=== PATIENT | female | born 1955 | race Caucasian/White ===

== ENCOUNTER 2016-08-05 12:14 | Emergency (ER) | payer MEDICAID ==
[~2016-08-05] VITALS: Ht 165.1 cm; Wt 73.0 kg
[~2016-08-05 12:14] MED LIST: LISI-646; OMEG120017; PLAVIX 75 MG; SIMV-8; WARF7.5T
[2016-08-05 14:23] VITALS: BP 147/72
== END 2016-08-05 15:08 | disposition home or self-care (01) ==
LOC: ER 12:14
DX: G89.4 Chronic pain syndrome (principal); M54.5 Low back pain; E78.5 Hyperlipidemia, unspecified; I10 Essential (primary) hypertension; Z88.6 Allergy status to analgesic agent
CPT/HCPCS: 93005

== ENCOUNTER 2016-11-02 17:05 | Emergency (ER) | payer MEDICAID ==
[~2016-11-02] VITALS: Ht 165.1 cm; Wt 73.0 kg
[2016-11-02 17:20] VITALS: BP 142/49
== END 2016-11-02 18:34 | disposition left against medical advice (07) ==
LOC: ER 17:08
DX: R07.81 Pleurodynia (principal); Z53.21 Procedure and treatment not carried out due to patient leaving prior to being seen by health care provider; W18.39XA Other fall on same level, initial encounter; Y93.89 Activity, other specified; Y92.89 Other specified places as the place of occurrence of the external cause; Y99.8 Other external cause status
CPT/HCPCS: 71101

== ENCOUNTER 2016-11-05 05:16 | Emergency (ER) | payer MEDICAID ==
[~2016-11-05] VITALS: Ht 165.1 cm; Wt 73.0 kg
[2016-11-05 05:26] VITALS: BP 160/68
== END 2016-11-05 06:57 | disposition home or self-care (01) ==
LOC: ER 05:18
DX: J44.9 Chronic obstructive pulmonary disease, unspecified (principal); E78.5 Hyperlipidemia, unspecified; I10 Essential (primary) hypertension; S20.211A Contusion of right front wall of thorax, initial encounter; Z88.6 Allergy status to analgesic agent; Z88.8 Allergy status to other drugs, medicaments and biological substances; Z79.01 Long term (current) use of anticoagulants; Z90.49 Acquired absence of other specified parts of digestive tract; W01.0XXA Fall on same level from slipping, tripping and stumbling without subsequent striking against object, initial encounter; Y93.89 Activity, other specified; Y92.89 Other specified places as the place of occurrence of the external cause; Y99.8 Other external cause status

== ENCOUNTER 2017-12-03 12:06 | Emergency (ER) | payer MEDICAID ==
[~2017-12-03] VITALS: Ht 165.1 cm; Wt 71.2 kg
[2017-12-03 12:58] LABS: Basophils # (auto) 0 uL; Basophils % (auto) 0.6 % (0.0-2.0); Eosinophils # (auto) 0.3 uL; Eosinophils % (auto) 3.3 % (0.0-7.0); Hematocrit 39.8 % (36.0-46.0); Hemoglobin 13.7 g/dL (12.2-16.2); Lymphocytes # (auto) 1.6 uL; Lymphocytes % (auto) 20.8 % (10.0-50.0); Mean Corpuscular Hemoglobin 29.6 pg (28.0-32.0); Mean Corpuscular Hgb Conc. 34.3 g/dL (32.0-36.0); Mean Corpuscular Volume 86.3 fL (80.0-100.0); Monocytes # (auto) 0.5 uL; Monocytes % (auto) 7.1 % (0.0-12.0); Neutrophils # (auto) 5.3 uL; Neutrophils % (auto) 68.2 % (37.0-80.0); Nucleated Red Blood Cells % 0.4 %; Platelet Count (auto) 217 10^3/uL (140-450); Red Blood Cells 4.61 10^6/uL (4.0-5.20); Red Cell Distribution Width 17.9 % (11.8-14.3); White Blood Cell 7.7 10^3/uL (4.4-10.8)
[2017-12-03 13:22] LABS: Prothrombin Time 81.1 sec (9.27-12.13)
[2017-12-03 13:25] LABS: BUN/Creatinine Ratio 14.8; Bilirubin, Total 0.6 mg/dL (0.2-1.0); Calcium 8.9 mg/dL (8.5-10.1); Potassium 3.5 mmol/L (3.5-5.1); Total Protein 7.7 g/dL (6.4-8.2)
[2017-12-03 13:30] LABS: INR 8.56 (0.9-1.15)
[2017-12-03 14:08] VITALS: BP 177/72
== END 2017-12-03 16:00 | disposition home or self-care (01) ==
LOC: ER 12:06
DX: R51 Headache (principal); R79.1 Abnormal coagulation profile; J44.9 Chronic obstructive pulmonary disease, unspecified; E78.5 Hyperlipidemia, unspecified; I10 Essential (primary) hypertension; Z88.6 Allergy status to analgesic agent; Z87.891 Personal history of nicotine dependence
CPT/HCPCS: 36415; 70450; 80053; 85025; 85610; 85730; 94761

== ENCOUNTER 2018-12-19 18:14 | Emergency (ER) | payer MEDICAID ==
[~2018-12-19] VITALS: Ht 165.1 cm; Wt 66.7 kg
[2018-12-19 21:16] LABS: Partial Thromboplastin Time 45.5 sec (23.64-32.05)
[2018-12-20] MEDS ORDERED: LIDOCAINE VISCOUS 2% 15ML UD MT ONE (00:45)
[2018-12-20] MEDS ORDERED: OXYMETAZOLINE HCL 0.05 % NASAL SPRAY 15ML ONE (00:45)
[2018-12-20 02:43] VITALS: BP 166/73
== END 2018-12-20 04:31 | disposition home or self-care (01) ==
LOC: ER 18:14
DX: S09.90XA Unspecified injury of head, initial encounter (principal); R04.0 Epistaxis; J44.9 Chronic obstructive pulmonary disease, unspecified; E78.5 Hyperlipidemia, unspecified; I10 Essential (primary) hypertension; Z90.89 Acquired absence of other organs; Z88.6 Allergy status to analgesic agent
CPT/HCPCS: 36415; 70450; 73030; 85610; 85730

== ENCOUNTER 2021-08-11 17:42 | Emergency (ER) | payer MEDICARE, MEDICAID ==
[~2021-08-11] VITALS: Ht 167.6 cm; Wt 63.5 kg
[~2021-08-11 17:42] MED LIST changes: -LISI-646; +LISI20TA28; -WARF7.5T; +WARF7.5T2
[2021-08-11 18:37] LABS: Basophils # (auto) 0 10 ^3/uL (0-0.2); Basophils % (auto) 0.3 % (0.0-2.0); Eosinophils # (auto) 0.2 10 ^3/uL (0-0.8); Eosinophils % (auto) 2.5 % (0.0-7.0); Hematocrit 37.2 % (36.0-46.0); Hemoglobin 12.8 g/dL (12.2-16.2); Lymphocytes # (auto) 1.3 10 ^3/uL (0.4-5.4); Lymphocytes % (auto) 15.9 % (10.0-50.0); Mean Corpuscular Hemoglobin 29.5 pg (28.0-32.0); Mean Corpuscular Hgb Conc. 34.4 g/dL (32.0-36.0); Mean Corpuscular Volume 85.6 fL (80.0-100.0); Monocytes # (auto) 0.5 10 ^3/uL (0-1.3); Monocytes % (auto) 6.1 % (0.0-12.0); Neutrophils # (auto) 6.2 10 ^3/uL (1.6-8.6); Neutrophils % (auto) 75.2 % (37.0-80.0); Nucleated Red Blood Cells % 0.2 %; Red Blood Cells 4.35 10^6/uL (4.0-5.20); Red Cell Distribution Width 20.9 % (11.8-14.3); White Blood Cell 8.2 10^3/uL (4.4-10.8)
[2021-08-11 18:39] LABS: Albumin 3.6 g/dL (3.4-5.0); BUN/Creatinine Ratio 18.8; Calcium 8.8 mg/dL (8.5-10.1); Potassium 4.3 mmol/L (3.5-5.1)
[2021-08-11 18:42] LABS: Bilirubin, Total 0.9 mg/dL (0.2-1.0)
[2021-08-11 20:15] VITALS: BP 144/83
[2021-08-11 21:34] LABS: Urine Bacteria FEW /hpf (None Seen); Urine Blood Negative /uL (Negative); Urine Mucus FEW (None Seen); Urine WBC 6 /hpf (0 - 5)
== END 2021-08-11 21:59 | disposition left against medical advice (07) ==
LOC: ER 17:42 → EDUNIT# 17:42 → EDBD 17:42 → ER 21:58
DX: R55 Syncope and collapse (principal); I10 Essential (primary) hypertension; E78.5 Hyperlipidemia, unspecified; J44.9 Chronic obstructive pulmonary disease, unspecified; Z90.49 Acquired absence of other specified parts of digestive tract; Z90.89 Acquired absence of other organs; Z87.891 Personal history of nicotine dependence; Z95.1 Presence of aortocoronary bypass graft
CPT/HCPCS: 36415; 70450; 80053; 81001; 84484; 85025; 93005

== ENCOUNTER 2022-06-08 06:02 | Inpatient (IN) | payer BC, MEDICARE, MEDICAID ==
[~2022-06-08] VITALS: Ht 165.1 cm; Wt 70.4 kg
[~2022-06-08 06:02] MED LIST changes: +DexAMETHasone SOD PHOS 10MG/1ML VIAL INJ IV ONE
[2022-06-08] MEDS ORDERED: DexAMETHasone SOD PHOS 10MG/1ML VIAL INJ ONE (06:09)
[2022-06-08] MEDS ORDERED: MAGNESIUM SULFATE 1GM/100ML 200 ML IV ONE (06:10)
[2022-06-08] MEDS: MAGNESIUM SULFATE 1GM/100ML 100 ML IV SCH ×2 (06:28→06:43)
[2022-06-08] MEDS ORDERED: ALBUTEROL MEDNEB 2.5 mg/3ml NEB ONE ×3 (06:32→14:12)
[2022-06-08] MEDS ORDERED: IPRATROPIUM BROM 0.5 MG/2.5ML INH SOL ONE (06:32)
[2022-06-08 06:59] LABS: Basophils # (auto) 0.2 10 ^3/uL (0-0.2); Basophils % (auto) 1.2 % (0.0-2.0); Eosinophils # (auto) 0.1 10 ^3/uL (0-0.8); Eosinophils % (auto) 0.8 % (0.0-7.0); Hematocrit 33.5 % (36.0-46.0); Hemoglobin 11.4 g/dL (12.2-16.2); Lymphocytes # (auto) 0.7 10 ^3/uL (0.4-5.4); Lymphocytes % (auto) 4.3 % (10.0-50.0); Mean Corpuscular Hemoglobin 31.1 pg (28.0-32.0); Mean Corpuscular Hgb Conc. 34.1 g/dL (32.0-36.0); Mean Corpuscular Volume 91.1 fL (80.0-100.0); Monocytes # (auto) 0.6 10 ^3/uL (0-1.3); Monocytes % (auto) 3.8 % (0.0-12.0); Neutrophils # (auto) 13.8 10 ^3/uL (1.6-8.6); Neutrophils % (auto) 89.9 % (37.0-80.0); Red Blood Cells 3.68 10^6/uL (4.0-5.20); White Blood Cell 15.4 10^3/uL (4.4-10.8)
[2022-06-08] MEDS ORDERED: IPRATROPIUM BROM 0.5 MG/2.5ML INH SOL NEB ONE (07:00)
[2022-06-08] MEDS ORDERED: ALBUTEROL SULF 2.5 MG/0.5ML(0.5%) NEB SOLN NEB ONE (07:00)
[2022-06-08 07:13] LABS: INR 3.71 (0.9-1.15); Partial Thromboplastin Time 63.3 sec (24.6-33.4)
[2022-06-08 07:29] LABS: Potassium 3.5 mmol/L (3.5-5.1)
[2022-06-08] MEDS ORDERED: DOXYCYCLINE 100MG/250ML 250 ML IV ONE (07:30)
[2022-06-08 07:37] LABS: Albumin 3.2 g/dL (3.4-5.0); BUN/Creatinine Ratio 17.1; Bilirubin, Total 1.4 mg/dL (0.2-1.0); Calcium 7.8 mg/dL (8.5-10.1); Total Protein 5.7 g/dL (6.4-8.2)
[2022-06-08] MEDS ORDERED: LACTATED RINGER'S 1,000 ML IV ONE (08:15)
[2022-06-08] MEDS ORDERED: CEFEPIME 1GM/ 50ML 50 ML IV ONE (08:30)
[2022-06-08] MEDS ORDERED: VANCOMYCIN 1GM/250ML 250 ML IV ONE (09:00)
[2022-06-08] MEDS ORDERED: ASPirin 81 mg TAB PO ONE (09:15)
[2022-06-08 09:24] LABS: Lactic Acid w/Reflex 2.2 mmol/L (0.4-2.0)
[2022-06-08] MEDS ORDERED: ALBUTEROL SULF 2.5 MG/0.5ML(0.5%) NEB SOLN NEB PRN (09:30)
[2022-06-08] MEDS ORDERED: MORPHINE SULFATE INJ 2 MG/ml SYRG IV PRN (09:30)
[2022-06-08] MEDS ORDERED: NITROGLYCERIN 0.4 MG SL TAB SL PRN (09:30)
[2022-06-08] MEDS ORDERED: ACETAMINOPHEN 325 MG TAB PO PRN (09:30)
[2022-06-08] MEDS ORDERED: VANCOMYCIN PER PHARMACY 0 MG IV SCH (09:30)
[2022-06-08] MEDS ORDERED: PANTOPRAZOLE 40 MG/10 ML VIAL INJ IV ONE (09:45)
[2022-06-08] MEDS: ASPirin 81 mg TAB PO SCH (10:00)
[2022-06-08] MEDS ORDERED: ENOXAPARIN SOD 100 MG/1 ML SYRINGE SC SCH (10:00)
[2022-06-08] MEDS ORDERED: LOS25T PO (10:01)
[2022-06-08] MEDS ORDERED: AMOX500C2 PO (10:01)
[2022-06-08] MEDS ORDERED: ATOR20TA50 PO (10:01)
[2022-06-08] MEDS ORDERED: DOXY100T2 PO (10:01)
[2022-06-08] MEDS ORDERED: LATA0.0019 EACHEYE (10:01)
[2022-06-08] MEDS ORDERED: WARF6TAB21 PO (10:01)
[2022-06-08] MEDS ORDERED: PRED10TA PO (10:01)
[2022-06-08] MEDS ORDERED: GAB100C PO (10:01)
[2022-06-08] MEDS ORDERED: AMLO-496 PO (10:01)
[2022-06-08] MEDS: methylPREDNISolone SOD SUCC 125 MG/2 ML VL IV SCH ×2 (10:07→23:59)
[2022-06-08] MEDS: PANTOPRAZOLE 40 MG/10 ML VIAL INJ IV SCH (10:07)
[2022-06-08 10:18] LABS: Cholesterol 147 mg/dL (< 200); HDL Cholesterol 43 mg/dL (40-59); LDL Cholesterol 97 mg/dL (< 100); Triglycerides 77 mg/dL (< 150)
[2022-06-08] MEDS: ALBUTEROL SULF 2.5 MG/0.5ML(0.5%) NEB SOLN NEB SCH ×4 (10:30→22:22)
[2022-06-08] MEDS ORDERED: DEXTROSE (50%) 50ML SYRG IV PRN (10:30)
[2022-06-08] MEDS: IPRATROPIUM BROM 0.5 MG/2.5ML INH SOL NEB SCH ×4 (10:30→22:23)
[2022-06-08] MEDS ORDERED: SODIUM CHLORIDE 0.9% 1,000 ML IV ONE (10:30)
[2022-06-08] MEDS: ACCU-CHEK COMFORT CURVE STRIP VI SCH ×3 (12:30→22:00)
[2022-06-08] MEDS: InsuLIN REG 1unit/0.01ml Soln (100units/ml) SC SCH ×2 (12:31→17:54)
[2022-06-08 14:00] LABS: Urine Bacteria FEW /hpf (None Seen); Urine Blood Negative /uL (Negative); Urine Hyaline Cast FEW /lpf (0 - 2); Urine Mucus FEW (None Seen); Urine Specific Gravity 1.008 (1.001-1.035); Urine WBC 1 /hpf (0 - 5)
[2022-06-08 16:27] LABS: Lactic Acid w/Reflex 3.9 mmol/L (0.4-2.0)
[2022-06-09] VITALS (9 sets, daily range): BP systolic 123–157; BP diastolic 41–59
[2022-06-09] MEDS: InsuLIN REG 1unit/0.01ml Soln (100units/ml) SC SCH ×5 (00:22→21:47)
[2022-06-09] MEDS: VANCOMYCIN 1GM/250ML 250 ML IV SCH ×2 (01:00→14:31)
[2022-06-09] MEDS ORDERED: OYST500T28 (01:36)
[2022-06-09] MEDS: ALBUTEROL SULF 2.5 MG/0.5ML(0.5%) NEB SOLN NEB SCH ×6 (02:13→21:51)
[2022-06-09] MEDS: IPRATROPIUM BROM 0.5 MG/2.5ML INH SOL NEB SCH ×6 (02:14→21:51)
[2022-06-09 06:07] LABS: Basophils # (auto) 0 10 ^3/uL (0-0.2); Basophils % (auto) 0.1 % (0.0-2.0); Eosinophils # (auto) 0 10 ^3/uL (0-0.8); Hematocrit 28.5 % (36.0-46.0); Hemoglobin 9.9 g/dL (12.2-16.2); Lymphocytes # (auto) 0.3 10 ^3/uL (0.4-5.4); Lymphocytes % (auto) 3.3 % (10.0-50.0); Mean Corpuscular Hemoglobin 31.5 pg (28.0-32.0); Mean Corpuscular Hgb Conc. 34.9 g/dL (32.0-36.0); Mean Corpuscular Volume 90.4 fL (80.0-100.0); Monocytes # (auto) 0.1 10 ^3/uL (0-1.3); Monocytes % (auto) 1.6 % (0.0-12.0); Neutrophils # (auto) 9.1 10 ^3/uL (1.6-8.6); Red Blood Cells 3.15 10^6/uL (4.0-5.20); Red Cell Distribution Width 18.8 % (11.8-14.3); White Blood Cell 9.6 10^3/uL (4.4-10.8)
[2022-06-09 06:12] LABS: INR 3.56 (0.9-1.15)
[2022-06-09 06:15] LABS: Albumin 2.8 g/dL (3.4-5.0); Calcium 8.6 mg/dL (8.5-10.1); Potassium 4.1 mmol/L (3.5-5.1)
[2022-06-09 06:19] LABS: Bilirubin, Total 0.7 mg/dL (0.2-1.0); Total Protein 6.4 g/dL (6.4-8.2)
[2022-06-09] MEDS: ACCU-CHEK COMFORT CURVE STRIP VI SCH ×4 (06:21→21:42)
[2022-06-09] MEDS: PANTOPRAZOLE 40 MG/10 ML VIAL INJ IV SCH (09:26)
[2022-06-09] MEDS: ASPirin 81 mg TAB PO SCH (09:26)
[2022-06-09] MEDS: methylPREDNISolone SOD SUCC 125 MG/2 ML VL IV SCH (09:26)
[2022-06-09] MEDS ORDERED: FUROSEMIDE 20 MG/2 ML VIAL IV ONE ×2 (10:30→23:00)
[2022-06-09] MEDS ORDERED: POTASSIUM CHL 20 Meq TABLET PO ONE (10:30)
[2022-06-09] MEDS: LISINOPRIL 20 MG TAB PO SCH (10:49)
[2022-06-09] MEDS ORDERED: predniSONE 20 MG TAB PO ONE (17:00)
[2022-06-09] MEDS ORDERED: levoFLOXacin 500 MG TAB PO ONE (17:00)
[2022-06-09] MEDS: ATORVASTATIN 20 MG TAB PO SCH (21:41)
[2022-06-09] MEDS: LATANOPROST 0.005 % OPTH(EYE) SOL 2.5ML EACHEYE SCH (21:41)
[2022-06-09] MEDS: GABAPENTIN 100 MG CAP PO SCH (21:43)
[2022-06-10] MEDS: IPRATROPIUM BROM 0.5 MG/2.5ML INH SOL NEB SCH ×6 (02:06→22:57)
[2022-06-10] MEDS: ALBUTEROL SULF 2.5 MG/0.5ML(0.5%) NEB SOLN NEB SCH ×6 (02:06→22:57)
[2022-06-10 05:00] VITALS: BP_SYST 121; BP_SYST 129; BP_DIAS 57; BP_DIAS 84
[2022-06-10] MEDS: GABAPENTIN 100 MG CAP PO SCH ×3 (06:04→22:32)
[2022-06-10] MEDS: ACCU-CHEK COMFORT CURVE STRIP VI SCH ×4 (06:08→22:00)
[2022-06-10] MEDS: InsuLIN REG 1unit/0.01ml Soln (100units/ml) SC SCH ×4 (06:09→22:31)
[2022-06-10 06:25] LABS: Basophils # (auto) 0 10 ^3/uL (0-0.2); Basophils % (auto) 0.1 % (0.0-2.0); Eosinophils # (auto) 0 10 ^3/uL (0-0.8); Hematocrit 28.4 % (36.0-46.0); Hemoglobin 9.8 g/dL (12.2-16.2); Lymphocytes # (auto) 0.3 10 ^3/uL (0.4-5.4); Mean Corpuscular Hemoglobin 31.3 pg (28.0-32.0); Mean Corpuscular Hgb Conc. 34.5 g/dL (32.0-36.0); Mean Corpuscular Volume 90.5 fL (80.0-100.0); Monocytes # (auto) 0.2 10 ^3/uL (0-1.3); Monocytes % (auto) 2.1 % (0.0-12.0); Neutrophils # (auto) 10.9 10 ^3/uL (1.6-8.6); Neutrophils % (auto) 94.8 % (37.0-80.0); Nucleated Red Blood Cells % 0.1 %; Red Blood Cells 3.13 10^6/uL (4.0-5.20); Red Cell Distribution Width 19.1 % (11.8-14.3); White Blood Cell 11.5 10^3/uL (4.4-10.8)
[2022-06-10 06:37] LABS: INR 2.02 (0.9-1.15)
[2022-06-10 07:27] LABS: Bilirubin, Total 0.7 mg/dL (0.2-1.0); Calcium 8.7 mg/dL (8.5-10.1); Total Protein 5.9 g/dL (6.4-8.2)
[2022-06-10 08:25] VITALS: BP 110/42
[2022-06-10] MEDS ORDERED: predniSONE 20 MG TAB PO SCH (10:00)
[2022-06-10] MEDS ORDERED: ATORVASTATIN 20 MG TAB PO SCH (10:00)
[2022-06-10] MEDS ORDERED: FUROSEMIDE 20 MG/2 ML VIAL IV SCH (10:00)
[2022-06-10] MEDS: ASPirin 81 mg TAB PO SCH (11:39)
[2022-06-10] MEDS: levoFLOXacin 500 MG TAB PO SCH (11:40)
[2022-06-10] MEDS: PANTOPRAZOLE 40 MG TAB PO SCH (11:40)
[2022-06-10] MEDS: POTASSIUM CHL 20 Meq TABLET PO SCH (11:40)
[2022-06-10] MEDS: LISINOPRIL 20 MG TAB PO SCH (11:41)
[2022-06-10 12:53] VITALS: BP 121/46
[2022-06-10] MEDS ORDERED: FUROSEMIDE 40 MG/4 ML VIAL IV ONE (13:45)
[2022-06-10 16:00] VITALS: BP 134/53
[2022-06-10] MEDS ORDERED: WARFARIN SODIUM 1 MG TAB PO ONE (17:00)
[2022-06-10 22:00] VITALS: BP 141/56
[2022-06-10] MEDS: ATORVASTATIN 20 MG TAB PO SCH (22:33)
[2022-06-10] MEDS: methylPREDNISolone SOD SUCC 125 MG/2 ML VL IV SCH (22:33)
[2022-06-10] MEDS: LATANOPROST 0.005 % OPTH(EYE) SOL 2.5ML EACHEYE SCH (22:33)
[2022-06-11] VITALS (7 sets, daily range): BP systolic 132–167; BP diastolic 53–65
[2022-06-11] MEDS: IPRATROPIUM BROM 0.5 MG/2.5ML INH SOL NEB SCH ×6 (02:10→22:47)
[2022-06-11] MEDS: ALBUTEROL SULF 2.5 MG/0.5ML(0.5%) NEB SOLN NEB SCH ×6 (02:10→22:47)
[2022-06-11] MEDS: ACCU-CHEK COMFORT CURVE STRIP VI SCH ×4 (05:52→21:18)
[2022-06-11] MEDS: InsuLIN REG 1unit/0.01ml Soln (100units/ml) SC SCH ×4 (05:52→21:35)
[2022-06-11] MEDS: GABAPENTIN 100 MG CAP PO SCH ×3 (06:05→21:14)
[2022-06-11 06:17] LABS: Basophils # (auto) 0 10 ^3/uL (0-0.2); Eosinophils # (auto) 0 10 ^3/uL (0-0.8); Hematocrit 31.4 % (36.0-46.0); Hemoglobin 10.9 g/dL (12.2-16.2); Lymphocytes # (auto) 0.3 10 ^3/uL (0.4-5.4); Lymphocytes % (auto) 3.7 % (10.0-50.0); Mean Corpuscular Hemoglobin 31.5 pg (28.0-32.0); Mean Corpuscular Hgb Conc. 34.6 g/dL (32.0-36.0); Mean Corpuscular Volume 91.2 fL (80.0-100.0); Monocytes # (auto) 0.1 10 ^3/uL (0-1.3); Monocytes % (auto) 1.3 % (0.0-12.0); Neutrophils # (auto) 8.4 10 ^3/uL (1.6-8.6); Nucleated Red Blood Cells % 0.1 %; Red Blood Cells 3.45 10^6/uL (4.0-5.20); Red Cell Distribution Width 19.3 % (11.8-14.3); White Blood Cell 8.9 10^3/uL (4.4-10.8)
[2022-06-11 06:34] LABS: BUN/Creatinine Ratio 30.9; Calcium 9.1 mg/dL (8.5-10.1); Potassium 4.1 mmol/L (3.5-5.1)
[2022-06-11 06:37] LABS: Bilirubin, Total 0.8 mg/dL (0.2-1.0); Total Protein 6.3 g/dL (6.4-8.2)
[2022-06-11] MEDS: FUROSEMIDE 40 MG/4 ML VIAL IV SCH (09:37)
[2022-06-11] MEDS: methylPREDNISolone SOD SUCC 125 MG/2 ML VL IV SCH ×2 (09:38→21:18)
[2022-06-11] MEDS: POTASSIUM CHL 20 Meq TABLET PO SCH (09:38)
[2022-06-11] MEDS: ASPirin 81 mg TAB PO SCH (09:39)
[2022-06-11] MEDS: LISINOPRIL 20 MG TAB PO SCH (09:40)
[2022-06-11] MEDS: PANTOPRAZOLE 40 MG TAB PO SCH (09:40)
[2022-06-11] MEDS: levoFLOXacin 500 MG TAB PO SCH (09:40)
[2022-06-11 12:41] LABS: INR 1.38 (0.9-1.15); Partial Thromboplastin Time 28.4 sec (24.6-33.4)
[2022-06-11] MEDS ORDERED: WARFARIN SODIUM 5 MG TAB PO ONE (17:00)
[2022-06-11] MEDS: ATORVASTATIN 20 MG TAB PO SCH (21:13)
[2022-06-11] MEDS: LATANOPROST 0.005 % OPTH(EYE) SOL 2.5ML EACHEYE SCH (21:19)
[2022-06-12] MEDS: ALBUTEROL SULF 2.5 MG/0.5ML(0.5%) NEB SOLN NEB SCH ×6 (01:40→22:25)
[2022-06-12] MEDS: IPRATROPIUM BROM 0.5 MG/2.5ML INH SOL NEB SCH ×6 (01:40→22:25)
[2022-06-12 05:00] VITALS: BP 133/41
[2022-06-12 06:14] LABS: Basophils # (auto) 0 10 ^3/uL (0-0.2); Basophils % (auto) 0.1 % (0.0-2.0); Eosinophils # (auto) 0 10 ^3/uL (0-0.8); Hematocrit 32.9 % (36.0-46.0); Hemoglobin 11.7 g/dL (12.2-16.2); Lymphocytes # (auto) 0.4 10 ^3/uL (0.4-5.4); Mean Corpuscular Hemoglobin 32.2 pg (28.0-32.0); Mean Corpuscular Hgb Conc. 35.5 g/dL (32.0-36.0); Mean Corpuscular Volume 90.8 fL (80.0-100.0); Monocytes # (auto) 0.2 10 ^3/uL (0-1.3); Monocytes % (auto) 2.5 % (0.0-12.0); Neutrophils # (auto) 6.9 10 ^3/uL (1.6-8.6); Neutrophils % (auto) 92.4 % (37.0-80.0); Nucleated Red Blood Cells % 0.4 %; Red Blood Cells 3.62 10^6/uL (4.0-5.20); Red Cell Distribution Width 18.3 % (11.8-14.3); White Blood Cell 7.5 10^3/uL (4.4-10.8)
[2022-06-12 06:28] LABS: INR 1.53 (0.9-1.15); Partial Thromboplastin Time 27.6 sec (24.6-33.4)
[2022-06-12] MEDS: ACCU-CHEK COMFORT CURVE STRIP VI SCH ×4 (06:44→21:23)
[2022-06-12] MEDS: GABAPENTIN 100 MG CAP PO SCH ×3 (06:44→21:23)
[2022-06-12] MEDS: InsuLIN REG 1unit/0.01ml Soln (100units/ml) SC SCH ×4 (06:45→21:16)
[2022-06-12 06:51] LABS: Potassium 4.1 mmol/L (3.5-5.1)
[2022-06-12 07:01] LABS: Albumin 3.1 g/dL (3.4-5.0); BUN/Creatinine Ratio 33.3; Bilirubin, Total 0.7 mg/dL (0.2-1.0); Calcium 8.4 mg/dL (8.5-10.1); Total Protein 5.6 g/dL (6.4-8.2)
[2022-06-12 08:51] VITALS: BP 155/47
[2022-06-12] MEDS: methylPREDNISolone SOD SUCC 125 MG/2 ML VL IV SCH ×2 (09:24→21:23)
[2022-06-12] MEDS: POTASSIUM CHL 20 Meq TABLET PO SCH (09:25)
[2022-06-12] MEDS: levoFLOXacin 500 MG TAB PO SCH (09:25)
[2022-06-12] MEDS: ASPirin 81 mg TAB PO SCH (09:25)
[2022-06-12] MEDS: FUROSEMIDE 40 MG/4 ML VIAL IV SCH (09:25)
[2022-06-12] MEDS: PANTOPRAZOLE 40 MG TAB PO SCH (09:25)
[2022-06-12] MEDS: LISINOPRIL 20 MG TAB PO SCH (09:26)
[2022-06-12 13:00] VITALS: BP 143/42
[2022-06-12] MEDS ORDERED: WARFARIN SODIUM 5 MG TAB PO ONE (17:00)
[2022-06-12 17:10] VITALS: BP 139/61
[2022-06-12] MEDS: ATORVASTATIN 20 MG TAB PO SCH (21:22)
[2022-06-12] MEDS: LATANOPROST 0.005 % OPTH(EYE) SOL 2.5ML EACHEYE SCH (21:24)
[2022-06-12 22:00] VITALS: BP 146/61
[2022-06-13] MEDS: IPRATROPIUM BROM 0.5 MG/2.5ML INH SOL NEB SCH ×5 (02:31→22:00)
[2022-06-13] MEDS: ALBUTEROL SULF 2.5 MG/0.5ML(0.5%) NEB SOLN NEB SCH ×4 (02:31→22:00)
[2022-06-13 05:00] VITALS: BP 131/66
[2022-06-13] MEDS: GABAPENTIN 100 MG CAP PO SCH ×3 (06:14→21:10)
[2022-06-13] MEDS: InsuLIN REG 1unit/0.01ml Soln (100units/ml) SC SCH ×4 (06:16→21:16)
[2022-06-13 06:27] LABS: Mean Corpuscular Hemoglobin 31.2 pg (28.0-32.0); Mean Corpuscular Hgb Conc. 34.3 g/dL (32.0-36.0); Mean Corpuscular Volume 90.9 fL (80.0-100.0); Red Blood Cells 3.85 10^6/uL (4.0-5.20); White Blood Cell 8.2 10^3/uL (4.4-10.8)
[2022-06-13 06:29] LABS: Basophils % (manual) 0 (0.0-2.0); Blast Cells 0; Eosinophils % (manual) 0 (0-7); Metamyelocytes % 0; Promyelocytes % 0; Reactive Lymphocytes 0
[2022-06-13 06:36] LABS: INR 2.12 (0.9-1.15)
[2022-06-13] MEDS: ACCU-CHEK COMFORT CURVE STRIP VI SCH ×4 (06:39→21:11)
[2022-06-13 06:47] LABS: Potassium 4.3 mmol/L (3.5-5.1)
[2022-06-13 06:57] LABS: Albumin 2.9 g/dL (3.4-5.0); BUN/Creatinine Ratio 38.8; Bilirubin, Total 0.7 mg/dL (0.2-1.0); Calcium 8.5 mg/dL (8.5-10.1); Total Protein 5.8 g/dL (6.4-8.2)
[2022-06-13 07:48] LABS: Band Neutrophils % (manual) 9; Lymphocytes % (manual) 7 (10.0-50.0); Monocytes % (manual) 6 (0-12); Myelocytes % 1
[2022-06-13 09:00] VITALS: BP 135/47
[2022-06-13] MEDS: methylPREDNISolone SOD SUCC 125 MG/2 ML VL IV SCH (10:01)
[2022-06-13] MEDS: PANTOPRAZOLE 40 MG TAB PO SCH (10:01)
[2022-06-13] MEDS: levoFLOXacin 500 MG TAB PO SCH (10:01)
[2022-06-13] MEDS: ASPirin 81 mg TAB PO SCH (10:01)
[2022-06-13] MEDS: LISINOPRIL 20 MG TAB PO SCH (10:02)
[2022-06-13] MEDS: FUROSEMIDE 40 MG TAB PO SCH (10:02)
[2022-06-13] MEDS: POTASSIUM CHL 20 Meq TABLET PO SCH (10:04)
[2022-06-13] MEDS ORDERED: FLUCONAZOLE 100 MG TAB PO ONE (11:45)
[2022-06-13 12:44] VITALS: BP 143/46
[2022-06-13 16:34] VITALS: BP 136/51
[2022-06-13] MEDS ORDERED: WARFARIN SODIUM 1 MG TAB PO ONE (17:00)
[2022-06-13] MEDS: DOXYCYCLINE 100 MG TAB/CAP PO SCH (21:10)
[2022-06-13] MEDS: LATANOPROST 0.005 % OPTH(EYE) SOL 2.5ML EACHEYE SCH (21:11)
[2022-06-13 22:00] VITALS: BP 149/71
[2022-06-14] MEDS: IPRATROPIUM BROM 0.5 MG/2.5ML INH SOL NEB SCH ×5 (03:19→18:56)
[2022-06-14] MEDS: ALBUTEROL SULF 2.5 MG/0.5ML(0.5%) NEB SOLN NEB SCH ×5 (03:19→18:56)
[2022-06-14 05:00] VITALS: BP 144/51
[2022-06-14] MEDS: ACCU-CHEK COMFORT CURVE STRIP VI SCH ×3 (06:18→18:00)
[2022-06-14] MEDS: InsuLIN REG 1unit/0.01ml Soln (100units/ml) SC SCH ×3 (06:18→17:00)
[2022-06-14] MEDS: GABAPENTIN 100 MG CAP PO SCH ×2 (06:18→15:21)
[2022-06-14 06:34] LABS: Basophils # (auto) 0 10 ^3/uL (0-0.2); Basophils % (auto) 0.1 % (0.0-2.0); Eosinophils # (auto) 0 10 ^3/uL (0-0.8); Eosinophils % (auto) 0.3 % (0.0-7.0); Hematocrit 33.2 % (36.0-46.0); Hemoglobin 11.6 g/dL (12.2-16.2); Lymphocytes # (auto) 0.6 10 ^3/uL (0.4-5.4); Lymphocytes % (auto) 7.2 % (10.0-50.0); Mean Corpuscular Hemoglobin 31.6 pg (28.0-32.0); Mean Corpuscular Volume 90.2 fL (80.0-100.0); Monocytes # (auto) 0.7 10 ^3/uL (0-1.3); Monocytes % (auto) 8.1 % (0.0-12.0); Neutrophils # (auto) 7.3 10 ^3/uL (1.6-8.6); Neutrophils % (auto) 84.3 % (37.0-80.0); Nucleated Red Blood Cells % 0.2 %; Red Blood Cells 3.68 10^6/uL (4.0-5.20); Red Cell Distribution Width 19.2 % (11.8-14.3); White Blood Cell 8.6 10^3/uL (4.4-10.8)
[2022-06-14 06:55] LABS: INR 2.35 (0.9-1.15); Partial Thromboplastin Time 29.5 sec (24.6-33.4)
[2022-06-14 07:05] LABS: Albumin 2.9 g/dL (3.4-5.0); BUN/Creatinine Ratio 48.8; Bilirubin, Total 0.6 mg/dL (0.2-1.0); Calcium 8.3 mg/dL (8.5-10.1); Potassium 4.4 mmol/L (3.5-5.1); Total Protein 5.6 g/dL (6.4-8.2)
[2022-06-14 08:30] VITALS: BP 150/75
[2022-06-14] MEDS: ASPirin 81 mg TAB PO SCH (09:35)
[2022-06-14] MEDS: POTASSIUM CHL 20 Meq TABLET PO SCH (09:36)
[2022-06-14] MEDS: PANTOPRAZOLE 40 MG TAB PO SCH (09:36)
[2022-06-14] MEDS: FUROSEMIDE 40 MG TAB PO SCH (09:36)
[2022-06-14] MEDS: DOXYCYCLINE 100 MG TAB/CAP PO SCH (09:36)
[2022-06-14] MEDS: LISINOPRIL 20 MG TAB PO SCH (09:37)
[2022-06-14] MEDS ORDERED: FLUCONAZOLE 100 MG TAB PO SCH (10:00)
[2022-06-14] MEDS ORDERED: predniSONE 20 MG TAB PO SCH (10:00)
[2022-06-14 11:43] LABS: Hepatitis A Ab IgM Negative
[2022-06-14 11:44] LABS: Hepatitis B Core IgM Negative; Hepatitis C Antibody Negative (Negative)
[2022-06-14 16:41] VITALS: BP 117/58
[2022-06-14] MEDS ORDERED: WARFARIN SODIUM 2 MG TAB PO ONE (17:00)
[2022-06-14 18:17] VITALS: BP 150/75
== END 2022-06-14 18:50 | disposition home or self-care (01) | DRG 871 ==
LOC: ER 06:02 → EDBD 06:02 → EDSEX 06:02 → TELE 09:37 → TELE-WESTW 06-09 00:30
PROVIDERS: ADMIT Nurse Practitioner Family; ATTEND Internal Medicine
PROC: 5A09357 Assistance with Respiratory Ventilation, Less than 24 Consecutive Hours, Continuous Positive Airway Pressure (ICD-10-PCS; principal; 2022-06-08)
DX: A41.9 Sepsis, unspecified organism (principal); I21.A1 Myocardial infarction type 2; J96.21 Acute and chronic respiratory failure with hypoxia; J18.9 Pneumonia, unspecified organism; E46 Unspecified protein-calorie malnutrition; J44.1 Chronic obstructive pulmonary disease with (acute) exacerbation; B49 Unspecified mycosis; E87.20 Acidosis, unspecified; I50.30 Unspecified diastolic (congestive) heart failure; N39.0 Urinary tract infection, site not specified; J44.0 Chronic obstructive pulmonary disease with (acute) lower respiratory infection; E78.5 Hyperlipidemia, unspecified; E66.01 Morbid (severe) obesity due to excess calories; E83.51 Hypocalcemia; H40.9 Unspecified glaucoma; R00.1 Bradycardia, unspecified; Z60.2 Problems related to living alone; Z20.822 Contact with and (suspected) exposure to COVID-19; R79.89 Other specified abnormal findings of blood chemistry; I48.91 Unspecified atrial fibrillation; I11.0 Hypertensive heart disease with heart failure; Z87.01 Personal history of pneumonia (recurrent); Z87.891 Personal history of nicotine dependence; Z88.6 Allergy status to analgesic agent; Z95.2 Presence of prosthetic heart valve; Z68.26 Body mass index [BMI] 26.0-26.9, adult; Z80.8 Family history of malignant neoplasm of other organs or systems; Z90.49 Acquired absence of other specified parts of digestive tract
CPT/HCPCS: 36415; 36600; 71045; 71250; 76705; 80053; 80061; 80074; 81001; 82140; 82805; 82962; 83036; 83605; 83880; 84443; 84484; 85007; 85025; 85027; 85379; 85610; 85730; 87040; 87070; 87081; 87086; 87088; 87205; 87426; 87804; 93005; 93306; 94640; 94644; 94660; C9113; G0378; J1100; J1815; J3490

== ENCOUNTER 2022-06-26 11:20 | Inpatient (IN) | payer BC, MEDICARE, MEDICAID ==
[~2022-06-26] VITALS: Ht 162.6 cm; Wt 71.2 kg
[~2022-06-26 11:20] MED LIST changes: +AMLO-496 PO; +DOXY100T2 PO; -DexAMETHasone SOD PHOS 10MG/1ML VIAL INJ IV ONE; +GAB100C PO; +LATA0.0019 EACHEYE; +LOS25T PO; +OYST500T28; +PRED10TA PO; +WARF6TAB21 PO
[2022-06-26] MEDS ORDERED: FUROSEMIDE 40 MG/4 ML VIAL IV ONE (11:30)
[2022-06-26 12:06] LABS: Basophils # (auto) 0.1 10 ^3/uL (0-0.2); Basophils % (auto) 0.9 % (0.0-2.0); Eosinophils # (auto) 0.1 10 ^3/uL (0-0.8); Hematocrit 32.9 % (36.0-46.0); Hemoglobin 11.4 g/dL (12.2-16.2); Lymphocytes % (auto) 13.3 % (10.0-50.0); Mean Corpuscular Hemoglobin 31.1 pg (28.0-32.0); Mean Corpuscular Hgb Conc. 34.5 g/dL (32.0-36.0); Mean Corpuscular Volume 90.2 fL (80.0-100.0); Monocytes # (auto) 0.5 10 ^3/uL (0-1.3); Monocytes % (auto) 6.6 % (0.0-12.0); Neutrophils # (auto) 5.9 10 ^3/uL (1.6-8.6); Neutrophils % (auto) 78.2 % (37.0-80.0); Nucleated Red Blood Cells % 0.6 %; Red Blood Cells 3.65 10^6/uL (4.0-5.20); Red Cell Distribution Width 19.1 % (11.8-14.3); White Blood Cell 7.6 10^3/uL (4.4-10.8)
[2022-06-26 12:23] LABS: Albumin 3.2 g/dL (3.4-5.0); BUN/Creatinine Ratio 24.6 (10.0-20.0); Calcium 8.6 mg/dL (8.5-10.1); Potassium 3.5 mmol/L (3.5-5.1)
[2022-06-26 12:26] LABS: Bilirubin, Total 1.6 mg/dL (0.2-1.0); Total Protein 6.6 g/dL (6.4-8.2)
[2022-06-26] MEDS ORDERED: ACETAMINOPHEN 325 MG TAB PO PRN (15:15)
[2022-06-26] MEDS ORDERED: IPRATROPIUM BROM 0.5 MG/2.5ML INH SOL NEB PRN (15:15)
[2022-06-26] MEDS ORDERED: HYDROcodone-ACET 5/325MG TAB PO PRN (15:15)
[2022-06-26] MEDS ORDERED: MORPHINE SULFATE INJ 2 MG/ml SYRG IV PRN ×2 (15:15)
[2022-06-26] MEDS ORDERED: PANTOPRAZOLE 40 MG/10 ML VIAL INJ IV ONE (15:15)
[2022-06-26] MEDS ORDERED: NITROGLYCERIN 0.4 MG SL TAB SL PRN (15:15)
[2022-06-26] MEDS ORDERED: ALBUTEROL SULF 2.5 MG/0.5ML(0.5%) NEB SOLN NEB PRN (15:15)
[2022-06-26] MEDS ORDERED: hydrALAZINE HCL 20 MG/ML VL IV PRN (15:15)
[2022-06-26] MEDS ORDERED: levoFLOXacin 500MG 100 ML IV ONE (15:30)
[2022-06-26] MEDS: POTASSIUM CHL 10 Meq TABLET PO SCH (15:57)
[2022-06-26 16:41] LABS: Urine Bacteria NONE SEEN /hpf (None Seen); Urine Blood Negative /uL (Negative); Urine WBC 7 /hpf (0 - 5)
[2022-06-26 17:55] VITALS: BP 134/43
[2022-06-26 18:35] VITALS: BP 127/43
[2022-06-26] MEDS: IPRATROPIUM BROM 0.5 MG/2.5ML INH SOL NEB SCH (19:00)
[2022-06-26] MEDS: ALBUTEROL SULF 2.5 MG/0.5ML(0.5%) NEB SOLN NEB SCH (19:00)
[2022-06-26] MEDS: GABAPENTIN 100 MG CAP PO SCH (21:04)
[2022-06-26] MEDS: methylPREDNISolone SOD SUCC 125 MG/2 ML VL IV SCH (21:04)
[2022-06-26 22:00] VITALS: BP 122/60
[2022-06-26] MEDS ORDERED: POTASSIUM CHL 10 Meq TABLET PO SCH (22:00)
[2022-06-27] MEDS: IPRATROPIUM BROM 0.5 MG/2.5ML INH SOL NEB SCH ×4 (00:13→18:35)
[2022-06-27] MEDS: ALBUTEROL SULF 2.5 MG/0.5ML(0.5%) NEB SOLN NEB SCH ×4 (00:13→18:35)
[2022-06-27 05:00] VITALS: BP 147/58
[2022-06-27] MEDS: GABAPENTIN 100 MG CAP PO SCH ×3 (05:36→21:18)
[2022-06-27 08:50] VITALS: BP 129/72
[2022-06-27] MEDS ORDERED: PANTOPRAZOLE 40 MG/10 ML VIAL INJ IV SCH (10:00)
[2022-06-27] MEDS ORDERED: LISINOPRIL 20 MG TAB PO SCH (10:00)
[2022-06-27] MEDS ORDERED: ENOXAPARIN SOD 40 MG/0.4 ML SYRINGE SC SCH (10:00)
[2022-06-27] MEDS: methylPREDNISolone SOD SUCC 125 MG/2 ML VL IV SCH ×2 (10:52→21:18)
[2022-06-27] MEDS: FUROSEMIDE 20 MG/2 ML VIAL IV SCH (10:53)
[2022-06-27] MEDS: LOSARTAN POTASSIUM 25 MG TAB PO SCH (10:54)
[2022-06-27] MEDS: amLODIPine BESYLATE 5 MG TAB PO SCH (10:54)
[2022-06-27] MEDS: POTASSIUM CHL 10 Meq TABLET PO SCH (10:55)
[2022-06-27] MEDS: levoFLOXacin 500MG 100 ML IV SCH (10:55)
[2022-06-27 12:20] VITALS: BP 140/51
[2022-06-27 16:29] VITALS: BP 147/49
[2022-06-27] MEDS: LATANOPROST 0.005 % OPTH(EYE) SOL 2.5ML EACHEYE SCH (21:17)
[2022-06-27 22:00] VITALS: BP 134/62
[2022-06-28] MEDS: ALBUTEROL SULF 2.5 MG/0.5ML(0.5%) NEB SOLN NEB SCH ×5 (00:56→18:50)
[2022-06-28] MEDS: IPRATROPIUM BROM 0.5 MG/2.5ML INH SOL NEB SCH ×5 (00:56→18:50)
[2022-06-28 05:00] VITALS: BP 148/67
[2022-06-28] MEDS: GABAPENTIN 100 MG CAP PO SCH ×3 (05:53→21:41)
[2022-06-28 09:00] VITALS: BP 125/48
[2022-06-28] MEDS: LOSARTAN POTASSIUM 25 MG TAB PO SCH (10:00)
[2022-06-28] MEDS: levoFLOXacin 500MG 100 ML IV SCH (10:52)
[2022-06-28] MEDS: methylPREDNISolone SOD SUCC 125 MG/2 ML VL IV SCH ×2 (10:53→21:41)
[2022-06-28] MEDS: FUROSEMIDE 20 MG/2 ML VIAL IV SCH (10:53)
[2022-06-28] MEDS: POTASSIUM CHL 10 Meq TABLET PO SCH (10:53)
[2022-06-28] MEDS: amLODIPine BESYLATE 5 MG TAB PO SCH (10:54)
[2022-06-28 11:16] LABS: Partial Thromboplastin Time 56.6 sec (24.6-33.4)
[2022-06-28 11:36] LABS: INR 6.05 (0.9-1.15)
[2022-06-28 12:42] VITALS: BP 143/58
[2022-06-28 16:20] VITALS: BP 142/45
[2022-06-28] MEDS: LATANOPROST 0.005 % OPTH(EYE) SOL 2.5ML EACHEYE SCH (21:41)
[2022-06-28 22:00] VITALS: BP 122/53
[2022-06-29] MEDS: IPRATROPIUM BROM 0.5 MG/2.5ML INH SOL NEB SCH ×5 (00:16→23:54)
[2022-06-29] MEDS: ALBUTEROL SULF 2.5 MG/0.5ML(0.5%) NEB SOLN NEB SCH ×5 (00:16→23:54)
[2022-06-29 05:00] VITALS: BP 115/51
[2022-06-29] MEDS: GABAPENTIN 100 MG CAP PO SCH ×3 (05:11→22:04)
[2022-06-29 05:40] LABS: INR 2.95 (0.9-1.15); Partial Thromboplastin Time 48.6 sec (24.6-33.4)
[2022-06-29 06:04] VITALS: BP 111/66
[2022-06-29 08:57] VITALS: BP 133/50
[2022-06-29] MEDS: levoFLOXacin 500MG 100 ML IV SCH (10:12)
[2022-06-29] MEDS: POTASSIUM CHL 10 Meq TABLET PO SCH (10:12)
[2022-06-29] MEDS: methylPREDNISolone SOD SUCC 125 MG/2 ML VL IV SCH ×2 (10:12→22:04)
[2022-06-29] MEDS: LOSARTAN POTASSIUM 25 MG TAB PO SCH (10:14)
[2022-06-29] MEDS: FUROSEMIDE 20 MG/2 ML VIAL IV SCH (10:15)
[2022-06-29] MEDS: amLODIPine BESYLATE 5 MG TAB PO SCH (10:15)
[2022-06-29 13:00] VITALS: BP 120/45
[2022-06-29 16:41] VITALS: BP 117/37
[2022-06-29] MEDS ORDERED: WARFARIN SODIUM 1 MG TAB PO ONE (17:00)
[2022-06-29 22:00] VITALS: BP 134/49
[2022-06-29] MEDS: LATANOPROST 0.005 % OPTH(EYE) SOL 2.5ML EACHEYE SCH (22:04)
[2022-06-30 02:50] VITALS: BP 134/49
[2022-06-30 05:00] VITALS: BP 115/50
[2022-06-30] MEDS: GABAPENTIN 100 MG CAP PO SCH ×2 (05:12→14:24)
[2022-06-30] MEDS: ALBUTEROL SULF 2.5 MG/0.5ML(0.5%) NEB SOLN NEB SCH ×2 (06:00→11:42)
[2022-06-30] MEDS: IPRATROPIUM BROM 0.5 MG/2.5ML INH SOL NEB SCH ×2 (06:00→11:41)
[2022-06-30 07:35] LABS: INR 1.94 (0.9-1.15); Partial Thromboplastin Time 31.6 sec (24.6-33.4)
[2022-06-30 08:34] VITALS: BP 96/48
[2022-06-30] MEDS: levoFLOXacin 500MG 100 ML IV SCH (09:59)
[2022-06-30] MEDS: methylPREDNISolone SOD SUCC 125 MG/2 ML VL IV SCH (10:01)
[2022-06-30] MEDS: POTASSIUM CHL 10 Meq TABLET PO SCH (10:01)
[2022-06-30] MEDS: amLODIPine BESYLATE 5 MG TAB PO SCH (10:01)
[2022-06-30] MEDS: LOSARTAN POTASSIUM 25 MG TAB PO SCH (10:02)
[2022-06-30] MEDS: FUROSEMIDE 20 MG/2 ML VIAL IV SCH (10:05)
[2022-06-30] MEDS ORDERED: LEVO500T31 PO (10:25)
[2022-06-30] MEDS ORDERED: PRED20TA2 PO (10:25)
[2022-06-30 12:14] VITALS: BP 130/46
[2022-06-30 12:16] VITALS: BP 128/50
[2022-06-30] MEDS ORDERED: WARFARIN SODIUM 1 MG TAB PO ONE (17:00)
== END 2022-06-30 15:52 | disposition home or self-care (01) | DRG 189 ==
LOC: ER 11:20 → EDBD 11:20 → TELE 15:25 → TELE-EAST 17:19
PROVIDERS: ADMIT Registered Nurse; ATTEND Family Medicine
DX: J96.21 Acute and chronic respiratory failure with hypoxia (principal); J44.1 Chronic obstructive pulmonary disease with (acute) exacerbation; J98.11 Atelectasis; Z68.32 Body mass index [BMI] 32.0-32.9, adult; D64.9 Anemia, unspecified; D69.6 Thrombocytopenia, unspecified; E66.01 Morbid (severe) obesity due to excess calories; E78.5 Hyperlipidemia, unspecified; Z20.822 Contact with and (suspected) exposure to COVID-19; I11.0 Hypertensive heart disease with heart failure; I50.9 Heart failure, unspecified; Z90.49 Acquired absence of other specified parts of digestive tract; Z90.89 Acquired absence of other organs; Z87.891 Personal history of nicotine dependence; Z80.8 Family history of malignant neoplasm of other organs or systems; Z81.8 Family history of other mental and behavioral disorders; Z87.01 Personal history of pneumonia (recurrent); Z95.2 Presence of prosthetic heart valve
CPT/HCPCS: 36415; 71045; 80053; 81001; 83880; 84484; 85025; 85379; 85610; 85730; 87040; 87086; 87426; 93005; 94640; 96365; 96375; 99291; C9113; G0378; J1956

== ENCOUNTER 2022-07-12 16:32 | Emergency (ER) | payer BC, MEDICARE, MEDICAID ==
[~2022-07-12] VITALS: Ht 165.1 cm; Wt 68.1 kg
[~2022-07-12 16:32] MED LIST changes: +LEVO500T31 PO; +PRED20TA2 PO
[2022-07-12 16:47] VITALS: BP 114/65
[2022-07-12] MEDS ORDERED: AMOX-277 PO (17:12)
== END 2022-07-12 18:07 | disposition home or self-care (01) ==
LOC: EDBD 16:32 → ER 16:32
DX: L03.211 Cellulitis of face (principal); J44.9 Chronic obstructive pulmonary disease, unspecified; I10 Essential (primary) hypertension; E78.5 Hyperlipidemia, unspecified; Z90.49 Acquired absence of other specified parts of digestive tract; Z90.89 Acquired absence of other organs; Z87.891 Personal history of nicotine dependence; Z79.899 Other long term (current) drug therapy

== ENCOUNTER 2022-07-19 15:08 | Emergency (ER) | payer MEDICARE, OTHER, MEDICAID ==
[~2022-07-19] VITALS: Ht 165.1 cm; Wt 68.0 kg
[~2022-07-19 15:08] MED LIST changes: +AMOX-277 PO
[2022-07-19 15:53] LABS: Basophils # (auto) 0 10 ^3/uL (0-0.2); Basophils % (auto) 0.5 % (0.0-2.0); Eosinophils # (auto) 0.1 10 ^3/uL (0-0.8); Eosinophils % (auto) 0.9 % (0.0-7.0); Hematocrit 27.6 % (36.0-46.0); Hemoglobin 9.4 g/dL (12.2-16.2); Lymphocytes # (auto) 1.6 10 ^3/uL (0.4-5.4); Mean Corpuscular Hemoglobin 30.8 pg (28.0-32.0); Mean Corpuscular Volume 90.6 fL (80.0-100.0); Monocytes # (auto) 0.6 10 ^3/uL (0-1.3); Monocytes % (auto) 6.6 % (0.0-12.0); Neutrophils # (auto) 6.1 10 ^3/uL (1.6-8.6); Nucleated Red Blood Cells % 0.1 %; Red Blood Cells 3.04 10^6/uL (4.0-5.20); Red Cell Distribution Width 19.1 % (11.8-14.3); White Blood Cell 8.4 10^3/uL (4.4-10.8)
[2022-07-19 16:52] LABS: Anion Gap 7 (5-15); Blood Urea Nitrogen 17 mg/dL (7-18); Carbon Dioxide 27 mmol/L (21-32); Chloride 108 mmol/L (98-107); Glucose 97 mg/dL (74-106); Potassium 3.5 mmol/L (3.5-5.1); Sodium 142 mmol/L (136-145)
[2022-07-19 16:53] LABS: Alanine Aminotransferase 22 U/L (13-56); Albumin 3.1 g/dL (3.4-5.0); Alkaline Phosphatase 59 U/L (45-117); Aspartate Aminotransferase 23 U/L (15-37); BUN/Creatinine Ratio 23.3 (10.0-20.0); Bilirubin, Total 1.6 mg/dL (0.2-1.0); Calcium 7.9 mg/dL (8.5-10.1); GFR African American 103 mL/min; GFR Non-African American 85 mL/min; Total Protein 5.6 g/dL (6.4-8.2)
[2022-07-19] MEDS ORDERED: ALBUTEROL SULF 2.5 MG/0.5ML(0.5%) NEB SOLN NEB ONE (18:15)
[2022-07-19] MEDS ORDERED: methylPREDNISolone SOD SUCC 125 MG/2 ML VL IV ONE (18:15)
[2022-07-19] MEDS ORDERED: IPRATROPIUM BROM 0.5 MG/2.5ML INH SOL NEB ONE (18:15)
[2022-07-19 19:45] VITALS: BP 122/35
[2022-07-19] MEDS ORDERED: CEPH-510 PO (20:58)
[2022-07-19] MEDS ORDERED: PRED20TA2 PO (20:58)
[2022-07-19] MEDS ORDERED: AZITHROMYCIN 500MG/ 250ML 250 ML IV ONE (21:00)
[2022-07-19] MEDS ORDERED: cefTRIAXone 1GM/50ML D5W 50 ML IV ONE (21:00)
== END 2022-07-19 22:43 | disposition home or self-care (01) ==
LOC: ER 15:08 → EDBD 15:08 → ER 22:37
DX: J44.1 Chronic obstructive pulmonary disease with (acute) exacerbation (principal); E78.5 Hyperlipidemia, unspecified; I10 Essential (primary) hypertension; Z87.891 Personal history of nicotine dependence
CPT/HCPCS: 36415; 71045; 80053; 83880; 84484; 85025; 85379; 94640; 96365; 96368; 96375; 99284; J0456; J0696; J2930; J7644

== ENCOUNTER 2023-07-22 12:55 | Inpatient (IN) | payer BC, MEDICARE, MEDICAID ==
[~2023-07-22] VITALS: Ht 157.5 cm; Wt 67.8 kg
[~2023-07-22 12:55] MED LIST changes: -AMLO-496 PO; +AMLO1TAB23 PO; -AMOX-277 PO; +AMOX875T4 PO; +CEPH-510 PO; -LATA0.0019 EACHEYE; +LATA0.008 EACHEYE; -LISI20TA28; +LISI20TA56; -SIMV-8; +SIMV20TA20; +WARF-113 PO; -WARF6TAB21 PO
[2023-07-22] MEDS: ACETAMINOPHEN 500 MG TAB PO ONE (13:44)
[2023-07-22 14:24] VITALS: PULSE 93; RESP 24; O2SAT 95
[2023-07-22 14:31] LABS: Basophils # (auto) 0 10 ^3/uL (0-0.2); Basophils % (auto) 0.1 % (0.0-2.0); Eosinophils # (auto) 0 10 ^3/uL (0-0.8); Eosinophils % (auto) 0.3 % (0.0-7.0); Hematocrit 32.4 % (36.0-46.0); Hemoglobin 10.8 g/dL (12.2-16.2); Lymphocytes # (auto) 0.6 10 ^3/uL (0.4-5.4); Mean Corpuscular Hemoglobin 28.5 pg (28.0-32.0); Mean Corpuscular Hgb Conc. 33.4 g/dL (32.0-36.0); Mean Corpuscular Volume 85.2 fL (80.0-100.0); Monocytes # (auto) 0.7 10 ^3/uL (0-1.3); Monocytes % (auto) 4.6 % (0.0-12.0); Neutrophils # (auto) 14.2 10 ^3/uL (1.6-8.6); Red Cell Distribution Width 18.5 % (11.8-14.3); White Blood Cell 15.6 10^3/uL (4.4-10.8)
[2023-07-22 14:36] LABS: Albumin 4.3 g/dL (3.2-4.8); Alkaline Phosphatase 107 U/L (46-116); Anion Gap 8 (5-15); Aspartate Aminotransferase 26 U/L (13-40); BUN/Creatinine Ratio 18.4 (10.0-20.0); Blood Alcohol 3.7 mg/dL (<10); Blood Urea Nitrogen 27 mg/dL (9-23); Calcium 9.4 mg/dL (8.5-10.1); Carbon Dioxide 27 mmol/L (20-30); Chloride 101 mmol/L (98-107); Glucose 111 mg/dL (74-106); Potassium 4.6 mmol/L (3.5-5.1); Sodium 136 mmol/L (136-145)
[2023-07-22 14:37] LABS: Bilirubin, Total 0.9 mg/dL (0.2-1.0)
[2023-07-22 14:43] LABS: INR 1.14 (0.9-1.15); Partial Thromboplastin Time 28.2 SEC (24.5-34.5); Prothrombin Time 11.9 sec (9.3-11.8)
[2023-07-22 15:10] LABS: Alanine Aminotransferase < 9 U/L (7-40)
[2023-07-22 15:19] LABS: Magnesium 1.8 mg/dL (1.6-2.6)
[2023-07-22 19:45] VITALS: PULSE 70; RESP 22; O2SAT 100
[2023-07-22] MEDS: cefTRIAXone 1GM/50ML D5W 50 ML IV ONE (20:45)
[2023-07-22 20:48] LABS: Urine Bacteria None Seen /hpf (None Seen)
[2023-07-22] MEDS: SODIUM CHLORIDE 0.9% 500 ML IV ONE (21:15)
[2023-07-22] MEDS ORDERED: NITROGLYCERIN 0.4 MG SL TAB SL PRN (21:15)
[2023-07-22] MEDS ORDERED: MORPHINE SULFATE INJ 2 MG/ml SYRG IV PRN (21:15)
[2023-07-22] MEDS ORDERED: ONDANSETRON HCL 4 MG/2 ML VIAL IV PRN (21:15)
[2023-07-22 21:16] LABS: Amphetamine Screen, Urine Neg (NEGATIVE); Barbiturate Scree,Urine Neg (NEGATIVE); Benzodiazephine Screen, Urine Neg (NEGATIVE); Cocaine Screen, Urine Neg (NEGATIVE); Opiate Scree,Urine Neg (NEGATIVE)
[2023-07-22 21:17] LABS: Cannabinoid Screen, Urine Neg (NEGATIVE); Phencyclidine Screen, Urine Neg (NEGATIVE)
[2023-07-22 21:38] LABS: Urine Blood Negative /uL (Negative); Urine Clarity Turbid (Clear); Urine Color Yellow (Yellow); Urine Hyaline Cast FEW /lpf (0 - 2); Urine Protein, UAD TRACE (Negative); Urine Specific Gravity 1.018 (1.001-1.035); Urine Urobilinogen Normal (Negative); Urine WBC 3 /hpf (0 - 5); Urine pH 5.5 (5.0-9.0)
[2023-07-22] MEDS: METOPROLOL TARTRATE 25 MG TAB PO SCH (22:15)
[2023-07-22] MEDS: ENOXAPARIN SOD 80 MG/0.8ML SYRINGE SC SCH (22:17)
[2023-07-22] MEDS: ACETAMINOPHEN 325 MG TAB PO PRN (22:23)
[2023-07-23] VITALS (12 sets, daily range): BP systolic 131–150; BP diastolic 40–57; PULSE 57–84; RESP 16–20; TEMP 98.1–99; O2SAT 94–100
[2023-07-23 04:20] LABS: Basophils # (auto) 0.1 10 ^3/uL (0-0.2); Basophils % (auto) 0.4 % (0.0-2.0); Eosinophils # (auto) 0 10 ^3/uL (0-0.8); Hematocrit 28.3 % (36.0-46.0); Hemoglobin 9.4 g/dL (12.2-16.2); Lymphocytes # (auto) 1.3 10 ^3/uL (0.4-5.4); Lymphocytes % (auto) 7.9 % (10.0-50.0); Mean Corpuscular Hemoglobin 28.8 pg (28.0-32.0); Mean Corpuscular Hgb Conc. 33.3 g/dL (32.0-36.0); Mean Corpuscular Volume 86.4 fL (80.0-100.0); Monocytes # (auto) 1.1 10 ^3/uL (0-1.3); Monocytes % (auto) 6.6 % (0.0-12.0); Neutrophils # (auto) 14.4 10 ^3/uL (1.6-8.6); Neutrophils % (auto) 85.1 % (37.0-80.0); Red Blood Cells 3.28 10^6/uL (4.0-5.20); Red Cell Distribution Width 18.3 % (11.8-14.3)
[2023-07-23 04:33] LABS: Anion Gap 7 (5-15); Carbon Dioxide 26 mmol/L (20-30); Chloride 102 mmol/L (98-107); Potassium 4.1 mmol/L (3.5-5.1); Sodium 135 mmol/L (136-145)
[2023-07-23 04:34] LABS: Calcium 8.9 mg/dL (8.7-10.4)
[2023-07-23 04:39] LABS: BUN/Creatinine Ratio 14.8 (10.0-20.0); Blood Urea Nitrogen 24 mg/dL (9-23); Glucose 104 mg/dL (74-106)
[2023-07-23] MEDS: cefTRIAXone 1GM/50ML D5W 50 ML IV SCH (09:53)
[2023-07-23] MEDS: amLODIPine BESYLATE 5 MG TAB PO SCH (10:00)
[2023-07-23] MEDS: SPIRONOLACTONE 25 MG TAB PO SCH (11:07)
[2023-07-23] MEDS: FUROSEMIDE 20 MG TAB PO SCH (11:09)
[2023-07-23] MEDS ORDERED: IOHEXOL 350 MG/ML 100ML IJ ONE (12:10)
[2023-07-23] MEDS ORDERED: METO-289 PO (12:48)
[2023-07-23] MEDS ORDERED: ATOR20TA50 PO (12:48)
[2023-07-23] MEDS ORDERED: SPIR50TA5 PO (12:48)
[2023-07-23] MEDS ORDERED: WARF4TAB69 PO (12:48)
[2023-07-23] MEDS ORDERED: TORS20TA19 PO (12:48)
[2023-07-23 13:01] LABS: Phosphorus 3.6 mg/dL (2.4-5.1)
[2023-07-23 13:07] LABS: Magnesium 1.8 mg/dL (1.6-2.6)
[2023-07-23] MEDS: SODIUM CHLORIDE 0.9% 1,000 ML IV SCH (13:40)
[2023-07-23 14:55] LABS: Amphetamine Screen, Urine Neg (NEGATIVE); Benzodiazephine Screen, Urine Neg (NEGATIVE)
[2023-07-23 14:56] LABS: Barbiturate Scree,Urine Neg (NEGATIVE); Cannabinoid Screen, Urine Neg (NEGATIVE); Cocaine Screen, Urine Neg (NEGATIVE); Opiate Scree,Urine Neg (NEGATIVE); Phencyclidine Screen, Urine Neg (NEGATIVE)
[2023-07-23] MEDS: ALBUTEROL SULF 2.5 MG/0.5ML(0.5%) NEB SOLN NEB PRN (22:16)
[2023-07-24] VITALS (15 sets, daily range): BP systolic 136–155; BP diastolic 47–57; PULSE 70–86; RESP 16–20; TEMP 98.1–98.7; O2SAT 94–100
[2023-07-24 07:14] LABS: INR 1.15 (0.9-1.15); Partial Thromboplastin Time 45.4 SEC (24.5-34.5)
[2023-07-24 07:15] LABS: Albumin 3.4 g/dL (3.2-4.8); Alkaline Phosphatase 76 U/L (46-116); Anion Gap 7 (5-15); Aspartate Aminotransferase 13 U/L (13-40); BUN/Creatinine Ratio 16.4 (10.0-20.0); Blood Urea Nitrogen 21 mg/dL (9-23); Calcium 9.1 mg/dL (8.7-10.4); Carbon Dioxide 27 mmol/L (20-30); Chloride 103 mmol/L (98-107); Glucose 89 mg/dL (74-106); Magnesium 1.9 mg/dL (1.6-2.6); Phosphorus 3.2 mg/dL (2.4-5.1); Potassium 3.9 mmol/L (3.5-5.1); Sodium 137 mmol/L (136-145)
[2023-07-24 07:16] LABS: Bilirubin, Total 0.6 mg/dL (0.2-1.0); Total Protein 5.7 g/dL (5.7-8.2)
[2023-07-24 07:18] LABS: Alanine Aminotransferase < 9 U/L (7-40); Basophils # (auto) 0 10 ^3/uL (0-0.2); Basophils % (auto) 0.2 % (0.0-2.0); Eosinophils # (auto) 0.1 10 ^3/uL (0-0.8); Eosinophils % (auto) 1.3 % (0.0-7.0); Hemoglobin 8.2 g/dL (12.2-16.2); Lymphocytes # (auto) 0.9 10 ^3/uL (0.4-5.4); Lymphocytes % (auto) 9.2 % (10.0-50.0); Mean Corpuscular Hemoglobin 29.3 pg (28.0-32.0); Mean Corpuscular Hgb Conc. 34.3 g/dL (32.0-36.0); Mean Corpuscular Volume 85.4 fL (80.0-100.0); Monocytes # (auto) 0.6 10 ^3/uL (0-1.3); Monocytes % (auto) 6.1 % (0.0-12.0); Neutrophils # (auto) 8.1 10 ^3/uL (1.6-8.6); Neutrophils % (auto) 83.2 % (37.0-80.0); Red Blood Cells 2.82 10^6/uL (4.0-5.20); Red Cell Distribution Width 18.4 % (11.8-14.3); White Blood Cell 9.8 10^3/uL (4.4-10.8)
[2023-07-24] MEDS ORDERED: cefTRIAXone 1GM/50ML D5W 50 ML IV ONE (08:30)
[2023-07-24] MEDS ORDERED: cefTRIAXone 1GM/50ML D5W 50 ML IV SCH (09:00)
[2023-07-24] MEDS: methylPREDNISolone SOD SUCC 40 MG/ML VL IV SCH (10:09)
[2023-07-24] MEDS: AZITHROMYCIN 500MG/ 250ML 250 ML IV SCH (10:09)
[2023-07-24] MEDS: IPRATROPIUM BROM 0.5 MG/2.5ML INH SOL NEB ONE (10:14)
[2023-07-24] MEDS: BUDESONIDE (INHALATION) 0.5 MG/2 ML NEB NEB SCH (10:15)
[2023-07-24] MEDS: ACETYLCYSTEINE 10 %(100MG/ML) SOL 4ML NEB ONE (10:15)
[2023-07-24] MEDS: FUROSEMIDE 20 MG TAB PO SCH (10:46)
[2023-07-24] MEDS: LEVALBUTEROL HCL 1.25 MG/3 ML NEB NEB SCH (12:03)
[2023-07-24] MEDS: IPRATROPIUM BROM 0.5 MG/2.5ML INH SOL NEB SCH (12:03)
[2023-07-24] MEDS: ACETYLCYSTEINE 10 %(100MG/ML) SOL 4ML NEB SCH (12:04)
[2023-07-24] MEDS: WARFARIN SODIUM 5 MG TAB PO ONE (17:23)
[2023-07-24] MEDS: LATANOPROST 0.005 % OPTH(EYE) SOL 2.5ML EACHEYE SCH (21:24)
[2023-07-24] MEDS: ENOXAPARIN SOD 60 MG/0.6 ML SYRINGE SC SCH (21:26)
[2023-07-25] VITALS (19 sets, daily range): BP systolic 119–145; BP diastolic 48–63; PULSE 69–132; RESP 14–20; TEMP 97.6–98.2; O2SAT 90–100
[2023-07-25 07:11] LABS: Basophils # (auto) 0 10 ^3/uL (0-0.2); Basophils % (auto) 0.3 % (0.0-2.0); Eosinophils # (auto) 0 10 ^3/uL (0-0.8); Eosinophils % (auto) 0.2 % (0.0-7.0); Hematocrit 24.4 % (36.0-46.0); Hemoglobin 8.1 g/dL (12.2-16.2); Lymphocytes # (auto) 0.4 10 ^3/uL (0.4-5.4); Lymphocytes % (auto) 4.6 % (10.0-50.0); Mean Corpuscular Hemoglobin 29.7 pg (28.0-32.0); Mean Corpuscular Hgb Conc. 33.2 g/dL (32.0-36.0); Mean Corpuscular Volume 89.3 fL (80.0-100.0); Monocytes # (auto) 0.1 10 ^3/uL (0-1.3); Monocytes % (auto) 1.9 % (0.0-12.0); Neutrophils # (auto) 7.1 10 ^3/uL (1.6-8.6); Nucleated Red Blood Cells % 0.3 %; Red Blood Cells 2.73 10^6/uL (4.0-5.20); Red Cell Distribution Width 18.4 % (11.8-14.3); White Blood Cell 7.7 10^3/uL (4.4-10.8)
[2023-07-25 07:13] LABS: INR 1.12 (0.9-1.15); Prothrombin Time 11.7 sec (9.3-11.8)
[2023-07-25 07:23] LABS: Albumin 3.6 g/dL (3.2-4.8); Alkaline Phosphatase 77 U/L (46-116); Anion Gap 9 (5-15); Aspartate Aminotransferase 13 U/L (13-40); BUN/Creatinine Ratio 10.6 (10.0-20.0); Bilirubin, Total 0.4 mg/dL (0.2-1.0); Blood Urea Nitrogen 12 mg/dL (9-23); Calcium 9.1 mg/dL (8.7-10.4); Carbon Dioxide 21 mmol/L (20-30); Chloride 105 mmol/L (98-107); Glucose 192 mg/dL (74-106); Magnesium 2.1 mg/dL (1.6-2.6); Phosphorus 3.1 mg/dL (2.4-5.1); Potassium 4.3 mmol/L (3.5-5.1); Sodium 135 mmol/L (136-145); Total Protein 5.9 g/dL (5.7-8.2)
[2023-07-25 07:35] LABS: Alanine Aminotransferase < 9 U/L (7-40)
[2023-07-25] MEDS: ALPRAZolam 0.5 MG TAB PO PRN (09:19)
[2023-07-25] MEDS: WARFARIN SODIUM 2.5 MG TAB PO ONE (18:23)
[2023-07-25] MEDS: LORazepam 2MG/ML-1ML VIAL IV PRN (23:38)
[2023-07-26] VITALS (21 sets, daily range): BP systolic 104–143; BP diastolic 46–64; PULSE 66–130; RESP 16–26; TEMP 96.8–98.1; O2SAT 94–100
[2023-07-26 00:50] LABS: Base Excess -7.2 mmol/L (-2.0-2.0)
[2023-07-26 02:58] LABS: Base Excess -0.6 mmol/L (-2.0-2.0)
[2023-07-26 07:11] LABS: Hematocrit 26.3 % (36.0-46.0); Hemoglobin 8.8 g/dL (12.2-16.2); Mean Corpuscular Hemoglobin 29.1 pg (28.0-32.0); Mean Corpuscular Hgb Conc. 33.5 g/dL (32.0-36.0); Mean Corpuscular Volume 86.8 fL (80.0-100.0); Red Blood Cells 3.03 10^6/uL (4.0-5.20); Red Cell Distribution Width 18.3 % (11.8-14.3); White Blood Cell 10.1 10^3/uL (4.4-10.8)
[2023-07-26 07:29] LABS: Alanine Aminotransferase 27 U/L (7-40); Albumin 3.8 g/dL (3.2-4.8); Alkaline Phosphatase 106 U/L (46-116); Anion Gap 5 (5-15); Aspartate Aminotransferase 19 U/L (13-40); BUN/Creatinine Ratio 16.6 (10.0-20.0); Calcium 9.6 mg/dL (8.7-10.4); Carbon Dioxide 28 mmol/L (20-30); Chloride 105 mmol/L (98-107); Glucose 253 mg/dL (74-106); Potassium 4.6 mmol/L (3.5-5.1); Sodium 138 mmol/L (136-145); Total Protein 6.1 g/dL (5.7-8.2)
[2023-07-26 07:30] LABS: Magnesium 2.1 mg/dL (1.6-2.6)
[2023-07-26 07:31] LABS: Bilirubin, Total 0.3 mg/dL (0.2-1.0); Phosphorus 3.5 mg/dL (2.4-5.1)
[2023-07-26 07:36] LABS: Blood Urea Nitrogen 24 mg/dL (9-23); INR 1.39 (0.9-1.15); Partial Thromboplastin Time 34.9 SEC (24.5-34.5); Prothrombin Time 14.3 sec (9.3-11.8)
[2023-07-26 07:40] LABS: Basophils % (manual) 0 (0.0-2.0); Blast Cells 0; Eosinophils % (manual) 0 (0-7); Metamyelocytes % 0; Myelocytes % 0; Promyelocytes % 0; Reactive Lymphocytes 0
[2023-07-26 11:06] LABS: Band Neutrophils % (manual) 14; Lymphocytes % (manual) 3 (10.0-50.0); Monocytes % (manual) 2 (0-12)
[2023-07-26 11:12] LABS: Platelet Estimate Adequate
[2023-07-26] MEDS: WARFARIN SODIUM 2.5 MG TAB PO ONE (18:51)
[2023-07-27] VITALS (18 sets, daily range): BP systolic 103–155; BP diastolic 36–63; PULSE 70–105; RESP 14–25; TEMP 97.1–98.6; O2SAT 93–100
[2023-07-27 07:05] LABS: Basophils # (auto) 0 10 ^3/uL (0-0.2); Basophils % (auto) 0.2 % (0.0-2.0); Eosinophils # (auto) 0 10 ^3/uL (0-0.8); Eosinophils % (auto) 0.1 % (0.0-7.0); Hematocrit 30.2 % (36.0-46.0); Hemoglobin 9.6 g/dL (12.2-16.2); Lymphocytes # (auto) 0.3 10 ^3/uL (0.4-5.4); Lymphocytes % (auto) 4.3 % (10.0-50.0); Mean Corpuscular Hemoglobin 29.3 pg (28.0-32.0); Mean Corpuscular Hgb Conc. 31.8 g/dL (32.0-36.0); Monocytes # (auto) 0.2 10 ^3/uL (0-1.3); Neutrophils # (auto) 7.2 10 ^3/uL (1.6-8.6); Neutrophils % (auto) 92.4 % (37.0-80.0); Nucleated Red Blood Cells % 0.2 %; Red Blood Cells 3.28 10^6/uL (4.0-5.20); White Blood Cell 7.8 10^3/uL (4.4-10.8)
[2023-07-27 07:38] LABS: INR 2.67 (0.9-1.15); Partial Thromboplastin Time 38.1 SEC (24.5-34.5); Prothrombin Time 26.3 sec (9.3-11.8)
[2023-07-27 07:49] LABS: Alanine Aminotransferase 32 U/L (7-40); Albumin 3.8 g/dL (3.2-4.8); Alkaline Phosphatase 95 U/L (46-116); Anion Gap 9 (5-15); Aspartate Aminotransferase 30 U/L (13-40); BUN/Creatinine Ratio 13.7 (10.0-20.0); Blood Urea Nitrogen 19 mg/dL (9-23); Calcium 9.3 mg/dL (8.7-10.4); Carbon Dioxide 21 mmol/L (20-30); Chloride 105 mmol/L (98-107); Glucose 215 mg/dL (74-106); Magnesium 2.3 mg/dL (1.6-2.6); Sodium 135 mmol/L (136-145)
[2023-07-27 07:50] LABS: Bilirubin, Total 0.3 mg/dL (0.2-1.0); Total Protein 6.2 g/dL (5.7-8.2)
[2023-07-27 08:00] LABS: Potassium 5.6 mmol/L (3.5-5.1)
[2023-07-27] MEDS: ALBUTEROL SULF 2.5 MG/0.5ML(0.5%) NEB SOLN NEB ONE (09:45)
[2023-07-27] MEDS: DEXTROSE (50%) 50ML SYRG IV ONE (10:34)
[2023-07-27] MEDS: InsuLIN REG 1unit/0.01ml Soln (100units/ml) IV ONE (10:43)
[2023-07-27] MEDS: SODIUM ZIRCONIUM CYCL 10 GM PAK PO ONE (10:53)
[2023-07-28] VITALS (14 sets, daily range): BP systolic 116–146; BP diastolic 49–67; PULSE 69–97; RESP 16–20; TEMP 97.4–98; O2SAT 95–100
[2023-07-28 07:30] LABS: Hematocrit 28.6 % (36.0-46.0); Hemoglobin 9.5 g/dL (12.2-16.2); Mean Corpuscular Hemoglobin 28.4 pg (28.0-32.0); Mean Corpuscular Volume 86.2 fL (80.0-100.0); Red Blood Cells 3.32 10^6/uL (4.0-5.20); Red Cell Distribution Width 17.6 % (11.8-14.3); White Blood Cell 11.8 10^3/uL (4.4-10.8)
[2023-07-28 07:46] LABS: INR 2.89 (0.9-1.15); Partial Thromboplastin Time 42.2 SEC (24.5-34.5); Prothrombin Time 28.3 sec (9.3-11.8)
[2023-07-28 07:50] LABS: Alanine Aminotransferase 23 U/L (7-40); Albumin 3.8 g/dL (3.2-4.8); Alkaline Phosphatase 87 U/L (46-116); Anion Gap 9 (5-15); Aspartate Aminotransferase 12 U/L (13-40); BUN/Creatinine Ratio 21.5 (10.0-20.0); Blood Urea Nitrogen 28 mg/dL (9-23); Carbon Dioxide 27 mmol/L (20-30); Chloride 101 mmol/L (98-107); Glucose 212 mg/dL (74-106); Potassium 4.6 mmol/L (3.5-5.1); Sodium 137 mmol/L (136-145)
[2023-07-28 07:51] LABS: Bilirubin, Total 0.3 mg/dL (0.2-1.0); Total Protein 5.7 g/dL (5.7-8.2)
[2023-07-28 07:53] LABS: Basophils % (manual) 0 (0.0-2.0); Blast Cells 0; Eosinophils % (manual) 0 (0-7); Metamyelocytes % 0; Myelocytes % 0; Promyelocytes % 0; Reactive Lymphocytes 0
[2023-07-28 08:47] LABS: Monocytes % (manual) 4 (0-12)
[2023-07-28 08:48] LABS: Anisocytosis Slight; Band Neutrophils % (manual) 4; Lymphocytes % (manual) 5 (10.0-50.0)
[2023-07-28 08:49] LABS: Platelet Estimate Adequate
[2023-07-28] MEDS: EMPAGLIFLOZIN 10 MG TAB PO SCH (09:19)
[2023-07-28] MEDS: NITROGLYCERIN 0.4 MG SL TAB SL PRN (11:04)
[2023-07-28] MEDS ORDERED: FUR20T PO (14:10)
[2023-07-28] MEDS ORDERED: PRED20TA2 PO (14:10)
[2023-07-28] MEDS ORDERED: WARF-114 PO (14:10)
[2023-07-28] MEDS ORDERED: EMPA1TAB PO (14:10)
[2023-07-28] MEDS ORDERED: AZIT-185 PO (14:10)
[2023-07-28] MEDS: WARFARIN SODIUM 5 MG TAB PO ONE (17:52)
== END 2023-07-28 18:02 | disposition home or self-care (01) | DRG 871 ==
LOC: EDUNIT# 12:55 → ER 12:55 → EDBD 12:55 → TELE 21:19 → EAST 07-23 12:14 → TELE-EAST 07-23 17:57
PROVIDERS: ADMIT Internal Medicine; ATTEND Student in an Organized Health Care Education/Training Program
PROC: 5A09357 Assistance with Respiratory Ventilation, Less than 24 Consecutive Hours, Continuous Positive Airway Pressure (ICD-10-PCS; principal; 2023-07-25)
DX: A41.9 Sepsis, unspecified organism (principal); G93.41 Metabolic encephalopathy; N17.0 Acute kidney failure with tubular necrosis; J96.01 Acute respiratory failure with hypoxia; I26.99 Other pulmonary embolism without acute cor pulmonale; I50.33 Acute on chronic diastolic (congestive) heart failure; G93.1 Anoxic brain damage, not elsewhere classified; N39.0 Urinary tract infection, site not specified; J44.1 Chronic obstructive pulmonary disease with (acute) exacerbation; I13.0 Hypertensive heart and chronic kidney disease with heart failure and stage 1 through stage 4 chronic kidney disease, or unspecified chronic kidney disease; D64.9 Anemia, unspecified; E66.9 Obesity, unspecified; E78.5 Hyperlipidemia, unspecified; I48.91 Unspecified atrial fibrillation; I34.1 Nonrheumatic mitral (valve) prolapse; E55.9 Vitamin D deficiency, unspecified; N18.9 Chronic kidney disease, unspecified; Z79.2 Long term (current) use of antibiotics; Z79.899 Other long term (current) drug therapy; Z95.2 Presence of prosthetic heart valve; Z79.01 Long term (current) use of anticoagulants; Z80.8 Family history of malignant neoplasm of other organs or systems; Z83.3 Family history of diabetes mellitus; Z82.49 Family history of ischemic heart disease and other diseases of the circulatory system; Z68.27 Body mass index [BMI] 27.0-27.9, adult
CPT/HCPCS: 36415; 36600; 70450; 71045; 78582; 80048; 80053; 80307; 80320; 81001; 82140; 82306; 82607; 82805; 82962; 83036; 83605; 83735; 83880; 84100; 84443; 84484; 85007; 85025; 85027; 85379; 85610; 85730; 87040; 87077; 87086; 87186; 93306; 93925; 93970; 94640; 94660; 95819; G0378; J1815

== ENCOUNTER 2024-01-03 12:13 | Emergency (ER) | payer BC, MEDICAID ==
[~2024-01-03] VITALS: Ht 165.1 cm; Wt 60.1 kg
[~2024-01-03 12:13] MED LIST changes: -AMOX875T4 PO; +ATOR20TA50 PO; +AZIT-185 PO; -CEPH-510 PO; -DOXY100T2 PO; +EMPA1TAB PO; +FURO20TA4 PO; -LEVO500T31 PO; -LISI20TA56; +METO-289 PO; -OYST500T28; -PLAVIX 75 MG; -PRED10TA PO; -SIMV20TA20; +SPIR50TA5 PO; -WARF-113 PO; +WARF-114 PO; -WARF7.5T2
[2024-01-03] MEDS: cloNIDine HCL 0.1 MG TAB PO ONE (12:51)
[2024-01-03 13:54] LABS: Basophils # (auto) 0.1 10 ^3/uL (0-0.2); Basophils % (auto) 0.8 % (0.0-2.0); Eosinophils # (auto) 0.3 10 ^3/uL (0-0.8); Eosinophils % (auto) 2.9 % (0.0-7.0); Hemoglobin 11.6 g/dL (12.2-16.2); Lymphocytes # (auto) 1.3 10 ^3/uL (0.4-5.4); Lymphocytes % (auto) 14.8 % (10.0-50.0); Mean Corpuscular Hgb Conc. 34.3 g/dL (32.0-36.0); Mean Corpuscular Volume 84.6 fL (80.0-100.0); Monocytes # (auto) 0.5 10 ^3/uL (0-1.3); Neutrophils # (auto) 6.6 10 ^3/uL (1.6-8.6); Neutrophils % (auto) 75.5 % (37.0-80.0); Nucleated Red Blood Cells % 0.1 %; Platelet Count (auto) 231 10^3/uL (140-450); Red Blood Cells 4.02 10^6/uL (4.0-5.20); Red Cell Distribution Width 18.3 % (11.8-14.3); White Blood Cell 8.7 10^3/uL (4.4-10.8)
[2024-01-03 14:01] LABS: Chloride 102 mmol/L (98-107); Potassium 4.3 mmol/L (3.5-5.1); Sodium 136 mmol/L (136-145)
[2024-01-03 14:02] LABS: Anion Gap 4 (5-15); Calcium 9.7 mg/dL (8.7-10.4); Carbon Dioxide 30 mmol/L (20-31)
[2024-01-03 14:07] LABS: BUN/Creatinine Ratio 21.1 (10.0-20.0); Blood Urea Nitrogen 31 mg/dL (9-23); Glucose 101 mg/dL (74-106)
[2024-01-03 14:13] LABS: INR 2.93 (0.9-1.15); Partial Thromboplastin Time 53.1 SEC (24.5-34.5); Prothrombin Time 28.7 sec (9.3-11.8)
[2024-01-03 14:35] VITALS: BP 137/56; PULSE 58; RESP 17; TEMP 98.1; O2SAT 96
== END 2024-01-03 14:36 | disposition home or self-care (01) ==
LOC: ER 12:13
DX: I16.0 Hypertensive urgency (principal); I48.91 Unspecified atrial fibrillation; J44.9 Chronic obstructive pulmonary disease, unspecified; E78.5 Hyperlipidemia, unspecified; Z98.890 Other specified postprocedural states; Z87.891 Personal history of nicotine dependence; Z79.899 Other long term (current) drug therapy
CPT/HCPCS: 36415; 80048; 85025; 85610; 85730

== ENCOUNTER 2024-02-18 00:47 | Inpatient (IN) | payer BC, MEDICAID ==
[2024-02-18] VITALS (71 sets, daily range): BP systolic 108–180; BP diastolic 35–81; PULSE 68–102; RESP 11–26; TEMP 96.8–99.6; O2SAT 76–100
[~2024-02-18] VITALS: Ht 167.6 cm; Wt 66.4 kg
[~2024-02-18 00:47] MED LIST changes: +ALBU108A5 INH; +FLUT1AER13 INH; +IPRIH INH; +NIFE1TAB30 PO; +TIOT17SP INH; +TORS20TA20 PO; +WARF-113 PO; +WARF4TAB69 PO
[2024-02-18] MEDS: ETOMIDATE (2MG/ML) 20ML VIAL IV ONE ×2 (00:50→01:12)
[2024-02-18] MEDS: SUCCINYLCHOLINE CHLORIDE 20 MG/ML 10ML VIAL IV ONE ×2 (00:50→01:12)
[2024-02-18] MEDS: PROPOFOL 100 ML IV ONE (00:59)
[2024-02-18] MEDS: PROPOFOL 100 ML IV SCH (01:00)
--- NOTE | 2024-02-18 01:14 | ED.PDOC ---
SOB-HPI HPI Comments 68-year-old female presents with a chief complaint of SOB and wheezing x 1 hour per EMS. Per EMS, patient has been having a difficult time breathing for the last hour, states that this is her second event over the weekend. Patient is normally on 3L of home O2 but was saturating in the mid 80s according to EMS. EMS placed patient on 10L via NC and then gave her a breathing treatment via nebulizer at 6L. EMS also gave magnesium via IV. Patient is on heparin. Patient was in severe respiratory distress despite interventions by EMS, so no additional history is available from the patient. 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 Family History Family History: Reviewed,noncontributory to illness Social History Smoker: Non-Smoker, Quit Greater Than 1 Year Alcohol: Denies ETOH Use Drugs: Denies Drug Use Lives In: Home Constitutional: denies: chills, diaphoresis, fatigue, fever, malaise, sweats, weakness, others EENTM: denies: blurred vision, double vision, ear bleeding, ear discharge, ear drainage, ear pain, ear ringing, eye pain, eye redness, hearing loss, mouth pain, mouth swelling, nasal discharge, nose bleeding, nose congestion, nose pain, photophobia, tearing, throat pain, throat swelling, voice changes, others Respiratory: reports: shortness of breath, wheezing; denies: cough, hemoptysis, orthopnea, SOB at rest, SOB with excertion, stridor, others Cardiovascular: denies: chest pain, dizzy spells, diaphoresis, Dyspnea on exertion, edema, irregular heart beat, left arm pain, lightheadedness, palpitations, PND, syncope, others Gastrointestinal: denies: abdomen distended, abdominal pain, blood streaked bowels, constipated, diarrhea, dysphagia, difficulty swallowing, hematemesis, melena, nausea, poor appetite, poor fluid intake, rectal bleeding, rectal pain, vomiting, others Genitourinary: denies: abnormal vagina bleeding, burning, dyspareunia, dysuria, flank pain, frequency, hematuria, incontinence, pain, , vagina discharge, urgency, others Neurological: denies: dizziness, fainting, headache, left sided numbness, left sided weakness, numbness, paresthesia, pre-existing deficit, right sided numbness, right sided weakness, seizure, speech problems, tingling, tremors, wea kness, others Musculoskeletal: denies: back pain, gout, joint pain, joint swelling, muscle pain, muscle stiffness, neck pain, others Integumetry: denies: bruises, change in color, change in hair/nails, dryness, l aceration, lesions, lumps, rash, wounds, others Allergic/Immunocompromised: denies: Difficulty Healing, Frequent Infections, Hives, Itching, others Hematologic/Lymphatic: denies: anemia, blood clots, easy bleeding, easy bruising, swollen glands, others Endocrine: denies: excessive hunger, excessive sweating, excessive thirst, excessive urination, flushing, intolerance to cold, intolerance to heat, unexplained weight gain, unexplained weight loss, others Psychiatric: denies: anxiety, bipolar disorder, depression, hopeless, panic disorder, schizophrenia, sleepless, suicidal, others All Other Systems: Reviewed and Negative Physical Exam General Appearance: Severe Distress HEENT: Normal ENT Inspection Neck: Full Range of Motion, Normal Inspection Respiratory: Accessory Muscle Use, Decreased Breath Sounds, Respiratory Distress, Rhonchi, Wheezing Cardiovascular: No Edema, No JVD, Regular Rate/Rhythm Breast Exam: Deferred Gastrointestinal: Non Tender, Soft Genitalia: Deferred Pelvic: Deferred Rectal: Deferred Extremities: Normal inspection, Normal range of motion, Non-tender, No pedal edema Neurologic: Alert, No Motor Deficits, Normal Affect, Normal Mood, No Sensory Deficits Cerebellar Function: NOT DONE Reflexes: NOT DONE Skin: Dry, Normal Color, Warm Lymphatic: NOT DONE EKG EKG : Comments Sinus rhythm, rate 82, normal WI and QRS intervals, QTC 456, right axis deviation, normal QRS complex, nonspecific T changes. Was a procedure done? Was a procedure done?: Yes Sedation Sedation?: Yes Informed consent obtained: No Sedation start time: 00:55 Sedation end time: 00:56 Sedation total time: 1 minute Sedation provider statement: ETOMIDATE 20MG and SUCCINYLCHOLINE 100MG Intubation Indication: Respiratory Insufficiency Prep: Preoxygenation Pretreated with: Sedation Medicated with: Succinylcholine, Other (ETOMIDATE) Intubation Approach: Orotracheal Informed consent obtained: Yes Risks/benefits/alt described: Yes Differential Dx Differential Diagnosis: Asthma, Bronchitis, CHF, COPD, Hyperventilation, Myocardial infarction, Pneumonia, Pneumothorax, URI X-Ray, Labs, Meds, VS Vital Signs Date Time Temp Pulse Resp B/P (MAP) Pulse Ox O2 Delivery O2 Flow Rate FiO2 02/18/24 03:15 130/58 02/18/24 03:00 135/60 02/18/24 03:00 135/60 02/18/24 02:45 151/64 02/18/24 02:30 99.6 100 26 160/67 (98) 100 99.6 02/18/24 02:23 82 02/18/24 02:20 81 26 180/63 (102) 100 80 02/18/24 02:20 99.6 99 23 180/63 (102) 99 99.6 02/18/24 02:15 99.6 82 22 179/64 (102) 100 99.6 02/18/24 02:15 179/64 02/18/24 02:10 99.6 81 23 180/67 (104) 100 99.6 02/18/24 02:05 99.6 81 15 176/60 (98) 94 99.6 02/18/24 02:00 99.6 81 23 166/62 (96) 100 99.6 02/18/24 02:00 166/62 02/18/24 02:00 166/62 02/18/24 01:55 99.6 82 23 163/61 (95) 98 99.6 02/18/24 01:55 163/61 02/18/24 01:50 99.6 87 22 176/57 (96) 98 99.6 02/18/24 01:45 160/56 02/18/24 01:45 99.6 83 18 160/56 (90) 100 99.6 02/18/24 01:40 99.6 81 22 181/65 (103) 100 99.6 02/18/24 01:35 99.6 81 16 181/65 (103) 100 99.6 11/12/24 01:35 181/65 02/18/24 01:30 99.6 80 22 172/59 (96) 99 99.6 02/18/24 01:25 99.6 87 14 150/85 (106) 99 99.6 02/18/24 01:25 150/85 02/18/24 01:20 99.6 88 22 159/57 (91) 99 99.6 02/18/24 01:15 99.6 91 21 166/55 (92) 99 99.6 02/18/24 01:15 166/55 02/18/24 01:10 97 19 176/80 (112) 76 02/18/24 01:05 99.6 102 22 184/70 (108) 76 99.6 02/18/24 01:00 99.6 81 26 180/63 100 80 99.6 02/18/24 01:00 184/70 02/18/24 00:59 87 22 150/85 (106) 100 100 02/18/24 00:59 103 02/18/24 00:50 99.6 103 30 141/65 (90) 86 Lab Test 02/18/24 02:28 02/18/24 02:10 02/18/24 01:45 02/18/24 01:08 Range/Units Lactic Acid Level 1.2 0.4-2.0 mmol/L Troponin I High Sensitivity 23 8 </=34 ng/L Blood Gas Specimen Type Arterial Blood Gas Sample Site Right radial Blood Gas Patient Temperature 37.0 Arterial Blood Date Drawn [id number] Arterial Blood pH 7.231 *L 7.350-7.450 Arterial Blood Partial Pressure CO2 58.7 H 32.0-45.0 mmHg Arterial Blood Partial Pressure O2 82.4 L 83.0-108.0 mmHg Arterial Blood HCO3 24.1 21.0-28.0 mmol/L Arterial Blood Oxygen Saturation 93.7 L 94.0-98.0 % Arterial Blood Base Excess -4.2 L -2.0-3.0 mmol/L Arterial Blood Oxyhemoglobin 92.0 L 94.0-98.0 % Arterial Blood Carboxyhemoglobin 0.9 0.5-1.5 % Arterial Blood Methemoglobin 0.9 0.0-1.5 % Christos Test N/a Blood Gas Total Hemoglobin 12.70 12.0-16.0 g/dL Blood Gas Set Respiration Rate 22.0 Blood Gas Modality Vent - ac FiO2 % 80.0 Blood Gas Tidal Volume 450.0 Blood Gas PEEP or CPAP 8.0 Blood Gas Critical Value Read Back Yes Blood Gas Notified Whom tl Abebe md Blood Gas Notified Time Blood Gas Notified By ruthann Jones rrt Urine Color Yellow Yellow Urine Clarity Clear Clear Urine pH 6.0 5.0-9.0 Urine Specific [place] 1.016 1.001-1.035 Urine Protein 3+ H Negative Urine Ketones Negative Negative Urine Blood 3+ H Negative /uL Urine Nitrite Negative Negative Urine Bilirubin Negative Negative Urine Urobilinogen Normal Negative mg/dL Urine Leukocyte Esterase Negative Negative /uL Urine RBC 23 0 - 4 /hpf Urine WBC 9 0 - 5 /hpf Urine Squamous Epithelial Cells Few <5 /hpf Urine Amorphous Crystals Few None Seen /hpf Urine Bacteria Few H None Seen /hpf Urine Hyaline Casts Mod 0 - 2 /lpf Urine Mucus Few None Seen Urine Glucose 1+ H Normal mg/dL White Blood Count 28.5 H 4.4-10.8 10^3/uL Red Blood Count 4.32 4.0-5.20 10^6/uL Hemoglobin 12.3 12.2-16.2 g/dL Hematocrit 37.1 36.0-46.0 % Mean Corpuscular Volume 85.9 80.0-100.0 fL Mean Corpuscular Hemoglobin 28.5 28.0-32.0 pg Mean Corpuscular Hemoglobin Concent 33.2 32.0-36.0 g/dL Red Cell Distribution Width 18.9 H 11.8-14.3 % Platelet Count 333 140-450 10^3/uL Mean Platelet Volume 8.1 6.9-10.8 fL Neutrophils (%) (Auto) 37.0-80.0 % Lymphocytes (%) (Auto) 10.0-50.0 % Monocytes (%) (Auto) 0.0-12.0 % Basophils (%) (Auto) 0.0-2.0 % Neutrophils # (Auto) 1.6-8.6 10 ^3/uL Lymphocytes # (Auto) 0.4-5.4 10 ^3/uL Monocytes # (Auto) 0-1.3 10 ^3/uL Differential Total Cells Counted 100.0 100 Neutrophils % (Manual) 76 37.0-80.0 Band Neutrophils % (Manual) 0 Lymphocytes % (Manual) 16 10.0-50.0 Monocytes % (Manual) 6 0-12 Eosinophils % (Manual) 2 0-7 Basophils % (Manual) 0 0.0-2.0 Metamyelocytes % (manual) 0 Myelocytes % (Manual) 0 Promyelocytes % (Manual) 0 Blast Cells % (Manual) 0 Reactive Lymphocytes 0 Platelet Estimate Adequate Large Platelets Few Anisocytosis (manual) Slight Sodium Level 132 L 136-145 mmol/L Potassium Level 4.9 3.5-5.1 mmol/L Chloride Level 102 98-107 mmol/L Carbon Dioxide Level 25 20-31 mmol/L Anion Gap 5 5-15 Blood Urea Nitrogen 27 H 9-23 mg/dL Creatinine 1.69 H 0.550-1.02 mg/dL Glomerular Filtration Rate Calc 33 >90 mL/min BUN/Creatinine Ratio 16.0 10.0-20.0 Serum Glucose 236 H 74-106 mg/dL Calcium Level 9.2 8.7-10.4 mg/dL B-Type Natriuretic Peptide 293.82 0-100 pg/mL Current Medications Medications (Trade) Dose Ordered Sig/Sherwin Route Start Time Stop Time Status Last Admin Albuterol (Ventolin Medneb) 5 mg ONCE ONCE NEB 02/18/24 01:15 02/18/24 01:16 DC 02/18/24 01:43 Ipratropium [place] (Atrovent Medneb) 0.5 mg ONCE ONCE NEB 02/18/24 01:15 02/18/24 01:16 DC 02/18/24 01:44 Succinylcholine Chloride (Quelicin) 100 mg ONCE ONCE IV 02/18/24 01:12 02/18/24 02:39 DC 02/18/24 01:12 Etomidate 20 mg ONCE ONCE IV 02/18/24 01:12 02/18/24 02:39 DC 02/18/24 01:12 Propofol 100 ml @ 2.046 mls/ hr Q24H IV 02/18/24 01:00 02/18/24 01:00 Midazolam HCl 50 ml @ 1 mls/hr Q24H IV 02/18/24 01:45 02/18/24 01:45 PROCEDURE(s): CXRP - CHEST PORTABLE REASON: sob ORDER NUMBER(s): [id number], ACCESSION NUMBER(s): [id number] EXAM: XY CHEST PORTABLE CLINICAL HISTORY: sob TECHNIQUE: Single view of the chest WID: COMPARISON: XY CHEST PORTABLE on DOS: 07/26/23, FINDINGS: Lines and tubes: Endotracheal tube projects 3.4 cm above the mikey. A gastric tube is in place which descends beneath the level of the diaphragm and tip not visualized in field of view. Prior median sternotomy. Chest: The heart size and pulmonary vasculature is within normal limits. Calcified plaque projects over the aortic arch. Interstitial prominence in the lungs. Hyperexpansion of the lungs. Small mixed opacities in the bilateral lower lungs The osseous structures are grossly intact. IMPRESSION: 1. Endotracheal and orogastric tubes in place as described. 2. Emphysematous changes of the lungs. 3. Small mixed opacities in the bilateral lower lungs which could reflect atelectasis or pneumonia. X-Ray, Labs, Meds, VS Comment 68-year-old female with history of oxygen-dependent COPD, hypertension, dyslipidemia and AFib presenting in severe respiratory distress with low oxygen saturation Vitals remarkable for temperature 99.6, respiratory rate 24, oxygen saturation 93% on high-flow oxygen by mask, BP 180/63 Exam remarkable for severe respiratory distress, diminished breath sounds, bilateral scattered rhonchi and wheezes, accessory muscle use EKG sinus rhythm, nonspecific T changes Chest x-ray: IMPRESSION: 1. Endotracheal and orogastric tubes in place as described. 2. Emphysematous changes of the lungs. 3. Small mixed opacities in the bilateral lower lungs which could reflect a telectasis or pneumonia. CBC remarkable for WBC 28.5, basic metabolic panel remarkable for BUN 27, creatinine 1.69, glucose 236 Lactate, BNP and 2 serial troponins normal ABG on the ventilator: PH 7.23, pCO2 58.7, PO2 82.4, oxygen saturation 93.7% Patient was treated with the following in the ED: Due to severe respiratory distress despite breathing treatments and IV magnesium administered by EMS, the patient was intubated on arrival Patient also received albuterol 5 mg/Atrovent 0.5 mg nebulized as an in-line treatment, Solu-Medrol 125 mg IV, Rocephin 1 g IV, Zithromax 500 mg IV IV propofol and Versed for sedation Patient will require ICU admission Case discussed with Dr. Khan, who will admit the patient. Time of 1ST Reevaluation: 01:20 Reevaluation 1ST: Unchanged Time of 2ND Reevaluation: 04:07 Reevaluation 2ND: Improved Patient Education/Counseling: Diagnosis, Treatment, Prognosis Family Education/Counseling: No Family Present Departure 1 Departure Time of Disposition: 04:07 Impression: Primary Impression: COPD with respiratory failure, acute Additional Impression: Pneumonia Qualified Codes: J18.9 - Pneumonia, unspecified organism Disposition: ADMITTED INPATIENT Admit to: ICU Condition: Guarded Critical Care Note Critical Care Time?: Yes (45 min-critical care time only) Critical care comment: Critical care time including multiple bedside re-evaluations, review of laboratory and imaging studies, and discussion of the case with the admitting provider. Patient is high risk for respiratory decompensation. Stability Stability form required: No Heart Score Heart Score: Heart Score Response (Comments) Value History N/A 0 EKG N/A 0 Age N/A 0 Risk Factors N/A 0 Troponin N/A 0 Total 0 I personally scribed for LULU ABEBE MD ([email or web address]) on 02/18/24 at 01:14. Electronically submitted by Jimenez England ([email or web address]). LULU ABEBE MD Feb 18, 2024 01:14
[2024-02-18 01:20] LABS: Hematocrit 37.1 % (36.0-46.0); Hemoglobin 12.3 g/dL (12.2-16.2); Mean Corpuscular Hemoglobin 28.5 pg (28.0-32.0); Mean Corpuscular Hgb Conc. 33.2 g/dL (32.0-36.0); Mean Corpuscular Volume 85.9 fL (80.0-100.0); Platelet Count (auto) 333 10^3/uL (140-450); Red Blood Cells 4.32 10^6/uL (4.0-5.20); Red Cell Distribution Width 18.9 % (11.8-14.3); White Blood Cell 28.5 10^3/uL (4.4-10.8)
[2024-02-18 01:21] LABS: Band Neutrophils % (manual) 0; Basophils % (manual) 0 (0.0-2.0); Blast Cells 0; Metamyelocytes % 0; Myelocytes % 0; Promyelocytes % 0; Reactive Lymphocytes 0
[2024-02-18 01:30] LABS: Chloride 102 mmol/L (98-107); Potassium 4.9 mmol/L (3.5-5.1); Sodium 132 mmol/L (136-145)
[2024-02-18 01:31] LABS: Anion Gap 5 (5-15); Calcium 9.2 mg/dL (8.7-10.4); Carbon Dioxide 25 mmol/L (20-31)
[2024-02-18 01:36] LABS: Blood Urea Nitrogen 27 mg/dL (9-23); Glucose 236 mg/dL (74-106)
[2024-02-18] MEDS: ALBUTEROL SULF 2.5 MG/0.5ML(0.5%) NEB SOLN NEB ONE (01:43)
[2024-02-18 01:44] LABS: Anisocytosis Slight; Eosinophils % (manual) 2 (0-7); Lymphocytes % (manual) 16 (10.0-50.0); Monocytes % (manual) 6 (0-12); Platelet Estimate Adequate
[2024-02-18] MEDS: IPRATROPIUM BROM 0.5 MG/2.5ML INH SOL NEB ONE (01:44)
[2024-02-18 01:45] LABS: Large Platelets FEW
[2024-02-18] MEDS: MIDAZOLAM DRIP 50 mg/50mL 50 ML IV SCH (01:45)
[2024-02-18] MEDS: MIDAZOLAM DRIP 50 mg/50mL 50 ML IV ONE (01:47)
--- NOTE | 2024-02-18 02:08 | DVH ---
EXAM: XY CHEST PORTABLE CLINICAL HISTORY: sob TECHNIQUE: Single view of the chest WID: COMPARISON: XY CHEST PORTABLE on DOS: 07/26/23, FINDINGS: Lines and tubes: Endotracheal tube projects 3.4 cm above the mikey. A gastric tube is in place which descends beneath the level of the diaphragm and tip not visualized in field of view. Prior median st ernotomy. Chest: The heart size and pulmonary vasculature is within normal limits. Calcified plaque projects over the aortic arch. Interstitial prominence in the lungs. Hyperexpansion of the lungs. Small mixed opacities in the bila teral lower lungs The osseous structures are grossly intact. IMPRESSION: 1. Endotracheal and orogastric tubes in place as described. 2. Emphysematous changes of the lungs. 3. Small mixed opacities in the bilateral lower lungs which could reflect atelectasis or pneumonia.
[2024-02-18 02:42] LABS: Base Excess -4.2 mmol/L (-2.0-3.0)
[2024-02-18 02:54] LABS: Urine Amorphous Crystal FEW /hpf (None Seen); Urine Bacteria FEW /hpf (None Seen); Urine Blood 3+ /uL (Negative); Urine Clarity Clear (Clear); Urine Color Yellow (Yellow); Urine Hyaline Cast MOD /lpf (0 - 2); Urine Mucus FEW (None Seen); Urine Protein, UAD 3+ (Negative); Urine Specific Gravity 1.016 (1.001-1.035); Urine Urobilinogen Normal (Negative); Urine WBC 9 /hpf (0 - 5)
--- NOTE | 2024-02-18 03:51 | ECG ---
[facility] Test Date: 2024-02-18 Test Time: 02:23:45 Pat Name: BRITT COBB Department: ED Room: [address] [place] [address] Gender: F Crane Manager: CHAD : 1955 Requested By: LULU BEAVERS Order Number: [id number] Reading MD: Blake Curran Measurements Intervals [place] Rate: 82 P: 101 IA: 146 QRS: 93 QRSD: 84 T: 75 QT: 390 QTc: 456 Interpretive Statements Sinus rhythm Right axis deviation Baseline wander in lead(s) III,aVL,V2 Electronically Signed On 02-27-2024 12:52:56 PST by Blake Curran Please click the below link to view image of tracing.
[2024-02-18] MEDS: methylPREDNISolone SOD SUCC 125 MG/2 ML VL IV ONE (04:10)
[2024-02-18] MEDS: AZITHROMYCIN 500MG/ 250ML 250 ML IV ONE (04:43)
[2024-02-18] MEDS: cefTRIAXone 1GM/50ML D5W 50 ML IV ONE (04:43)
[2024-02-18] MEDS ORDERED: ONDANSETRON HCL 4 MG/2 ML VIAL IV PRN (06:45)
[2024-02-18] MEDS ORDERED: NITROGLYCERIN 0.4 MG SL TAB SL PRN (06:45)
[2024-02-18] MEDS ORDERED: MORPHINE SULFATE INJ 2 MG/ml SYRG IV PRN (06:45)
--- NOTE | 2024-02-18 07:43 | DVHHP2 ---
Admitting Diagnosis: Acute on chronic respiratory failure COPD exacerbation PNA History of Present Illness HPI 68 y.o. female with COPD using 3L of home oxygen was brought to the ED c/o SOB despite using her oxygen. EMS started 10L and gave her nebulizer treatment but patient continued to be in severe respiratory distress. ER MD intubated the patient. Home Meds Active Scripts Furosemide (Furosemide) 20 Mg Tab, 20 MG PO DAILY for 30 Days, #30 TAB Prov:PATRICIAANNITADEE RESIDENT 07/28/23 Empagliflozin (Jardiance) 10 Mg Tab, 10 MG PO DAILY for 30 Days, #30 TAB Prov:LINCOLNDEE WILHELM [facility] 07/28/23 Warfarin Sodium (Warfarin Sodium) 7.5 Mg Tab, 7.5 MG PO DAILY for 30 Days, #30 TAB Prov:LINCOLNCHOCODEE RESIDENT 07/28/23 Azithromycin (ZITHROMAX TABLET) 250 Mg Tb, 250 MG PO DAILY for 5 Days, #5 TAB Prov:TATYANADEE [facility] [place] 07/28/23 Prednisone (Prednisone) 20 Mg Tab, 20 MG PO DAILY for 5 Days, #5 MG Prov:LINCOLNCHOCODEE [facility] [place] 07/28/23 Reported Medications Atorvastatin Calcium (ATORVASTATIN CALCIUM) 20 Mg Tab, 1 TAB PO DAILY 07/23/23 Spironolactone (Spironolactone) 50 Mg Tab, 1 TAB PO DAILY 07/23/23 Metoprolol Succinate (Metoprolol Succinate Er) 50 Mg Tab, 1 TAB PO BID 07/23/23 Gabapentin (Gabapentin) 100 Mg Cap, 1 CAP PO TID 06/08/22 Losartan Potassium (Losartan Potassium) 25 Mg Tab, 3 TAB PO DAILY 06/08/22 Amlodipine Besylate (Amlodipine Besylate) 10 Mg Tab, 1 TAB PO DAILY 06/08/22 Latanoprost (LATANOPROST) 0.005 % Diane, 1 DROP EACHEYE 06/08/22 Fish Oil (Fish Oil) 1,200 Mg Cap 01/03/10 Past Medical History Cardiac: CHF, HTN, Hyperlipidemia Pulmonary: COPD Patient Family History: FH: brain cancer G8 FATHER, Onset:Unknown FH: dementia G8 MOTHER, Onset:Unknown Review of Systems Pulmonary/Respiratory: Dyspnea, Orthopnea H&P Exam Vital Signs Vital Signs Date Time Temp Pulse Resp B/P (MAP) Pulse Ox O2 Delivery O2 Flow Rate FiO2 02/18/24 07:00 96.4 68 26 128/47 (74) 95 96.4 02/18/24 06:31 50 02/18/24 01:15 Simple Mask* 6 General Appeara: Obese Head Exam: Normal inspection Neck Exam: Normal inspection Eye Exam: bilateral eye PERRL Pulmonary/Respiratory: Crackles Cardiovascular/Chest: Tachycardia Abdominal Exam: Soft Neuro/Mental St: Other (sedated intubated) Labs/Xrays Labs Test 02/18/24 06:34 02/18/24 03:54 02/18/24 02:28 02/18/24 02:10 Range/Units Blood Gas Specimen Type Arterial Blood Gas Sample Site Right radial Blood Gas Patient Temperature 37.0 Arterial Blood Date Drawn Arterial Blood pH 7.336 L 7.350-7.450 Arterial Blood Partial Pressure CO2 41.4 32.0-45.0 mmHg Arterial Blood Partial Pressure O2 88.3 83.0-108.0 mmHg Arterial Blood HCO3 21.6 21.0-28.0 mmol/L Arterial Blood Oxygen Saturation 96.0 94.0-98.0 % Arterial Blood Base Excess -4.0 L -2.0-3.0 mmol/L Arterial Blood Oxyhemoglobin 94.3 94.0-98.0 % Arterial Blood Carboxyhemoglobin 0.9 0.5-1.5 % Arterial Blood Methemoglobin 0.9 0.0-1.5 % Christos Test Modified Blood Gas Total Hemoglobin 11.90 L 12.0-16.0 g/dL Blood Gas Set Respiration Rate 26.0 Blood Gas Modality Vent - ac FiO2 % 50.0 Blood Gas Tidal Volume 450.0 Blood Gas PEEP or CPAP 8.0 Troponin I High Sensitivity 34 </=34 ng/L Lactic Acid Level 1.2 0.4-2.0 mmol/L Blood Gas Critical Value Read Back Yes Blood Gas Notified Whom tl Abebe md Blood Gas Notified Time Blood Gas Notified By ruthann Jones rrt Test 02/18/24 01:45 02/18/24 01:08 Range/Units Urine Color Yellow Yellow Urine Clarity Clear Clear Urine pH 6.0 5.0-9.0 Urine Specific [place] 1.016 1.001-1.035 Urine Protein 3+ H Negative Urine Ketones Negative Negative Urine Blood 3+ H Negative /uL Urine Nitrite Negative Negative Urine Bilirubin Negative Negative Urine Urobilinogen Normal Negative mg/dL Urine Leukocyte Esterase Negative Negative /uL Urine RBC 23 0 - 4 /hpf Urine WBC 9 0 - 5 /hpf Urine Squamous Epithelial Cells Few <5 /hpf Urine Amorphous Crystals Few None Seen /hpf Urine Bacteria Few H None Seen /hpf Urine Hyaline Casts Mod 0 - 2 /lpf Urine Mucus Few None Seen Urine Glucose 1+ H Normal mg/dL White Blood Count 28.5 H 4.4-10.8 10^3/uL Red Blood Count 4.32 4.0-5.20 10^6/uL Hemoglobin 12.3 12.2-16.2 g/dL Hematocrit 37.1 36.0-46.0 % Mean Corpuscular Volume 85.9 80.0-100.0 fL Mean Corpuscular Hemoglobin 28.5 28.0-32.0 pg Mean Corpuscular Hemoglobin Concent 33.2 32.0-36.0 g/dL Red Cell Distribution Width 18.9 H 11.8-14.3 % Platelet Count 333 140-450 10^3/uL Mean Platelet Volume 8.1 6.9-10.8 fL Neutrophils (%) (Auto) 37.0-80.0 % Lymphocytes (%) (Auto) 10.0-50.0 % Monocytes (%) (Auto) 0.0-12.0 % Basophils (%) (Auto) 0.0-2.0 % Neutrophils # (Auto) 1.6-8.6 10 ^3/uL Lymphocytes # (Auto) 0.4-5.4 10 ^3/uL Monocytes # (Auto) 0-1.3 10 ^3/uL Differential Total Cells Counted 100.0 100 Neutrophils % (Manual) 76 37.0-80.0 Band Neutrophils % (Manual) 0 Lymphocytes % (Manual) 16 10.0-50.0 Monocytes % (Manual) 6 0-12 Eosinophils % (Manual) 2 0-7 Basophils % (Manual) 0 0.0-2.0 Metamyelocytes % (manual) 0 Myelocytes % (Manual) 0 Promyelocytes % (Manual) 0 Blast Cells % (Manual) 0 Reactive Lymphocytes 0 Platelet Estimate Adequate Large Platelets Few Anisocytosis (manual) Slight Sodium Level 132 L 136-145 mmol/L Potassium Level 4.9 3.5-5.1 mmol/L Chloride Level 102 98-107 mmol/L Carbon Dioxide Level 25 20-31 mmol/L Anion Gap 5 5-15 Blood Urea Nitrogen 27 H 9-23 mg/dL Creatinine 1.69 H 0.550-1.02 mg/dL Glomerular Filtration Rate Calc 33 >90 mL/min BUN/Creatinine Ratio 16.0 10.0-20.0 Serum Glucose 236 H 74-106 mg/dL Calcium Level 9.2 8.7-10.4 mg/dL B-Type Natriuretic Peptide 293.82 0-100 pg/mL Assessment/Plan Problem List: (1) COPD with respiratory failure, acute (2) COPD with acute exacerbation (3) Pneumonia Plan Ventilatory support, RT, Solu Medrol, Abx, Pulmonology consult Plan discussed with: Patient MARY BOLTON MD Feb 18, 2024 07:43
--- NOTE | 2024-02-18 07:56 | DVH ---
CHEST RADIOGRAPH Indication:R IJ CVC insertion Technique: Single frontal view of the chest was obtained COMPARISON: XY CHEST PORTABLE on DOS: 02/18/24, XY CHEST PORTABLE on DOS: 07/26/23, XY CHEST PORTABLE on DOS: 07/22/23 FINDINGS: Lines and Tubes: Endotracheal tube, enteric catheter and right central venous catheter in satisfactor y position. Median sternotomy. Lungs: Congestion Pleura: No effusion. No pneumothorax. Cardiomediastinal contours: Cardiac valve replacement. Bones: Unremarkable IMPRESSION: Right central venous catheter in satisfactory position.
[2024-02-18 08:02] LABS: INR 4.31 (0.9-1.15)
[2024-02-18] MEDS: cefTRIAXone 1GM/50ML D5W 50 ML IV SCH (09:00)
[2024-02-18 09:05] LABS: Rapid Influenza A Negative (Negative); Rapid Influenza B Negative (Negative)
[2024-02-18 09:06] LABS: COVID19 ANTIGEN SOFIA FIA NEGATIVE (NEGATIVE)
[2024-02-18] MEDS: AZITHROMYCIN 500MG/ 250ML 250 ML IV SCH (10:00)
[2024-02-18] MEDS: ALBUTEROL SULF 2.5 MG/0.5ML(0.5%) NEB SOLN NEB SCH (11:38)
[2024-02-18] MEDS: IPRATROPIUM BROM 0.5 MG/2.5ML INH SOL NEB SCH (11:39)
[2024-02-18] MEDS: fentaNYL Drip 2500mCg/250mlNS 250 ML IV SCH (12:56)
--- NOTE | 2024-02-18 13:03 | DVHSR ---
APPROVED REPORT EXAM: Two-dimensional and M-mode echocardiogram with Doppler and color Doppler. Blood Pressure: 128/47 mmHg INDICATION Acute respiratory failure RISK FACTORS Height: 66, Weight: 150 DIMENSIONS LVDd (3.8-5.7cm)LA (2D)4.0 (1.9-4.0cm)Aortic Root (2.0-3.7cm) EF (%) 54.0 (55-70%)Rt. Atrium3.5 (1.9-4.0cm)Asc. Aorta cm Mitral Valve MitralMitral Stenosis E wave1.49m/sMV Mean GR.mmHg A wave1.21m/sMV Peak GR.mmHg E/A ratio1.22D MVAcm2 DECEL [id number] 1/2 [id number] IVRTmsDop MVA2.76cm2 Aortic Valve Aortic ValveAortic Stenosis V10.85m/Devendra Mean GR.6mmHg V21.82m/Devendra Peak GR.13mmHg Pulmonic Valve V21.18m/s Tricuspid Valve TR Velocity2.64m/s [id number] Other Information Technically limited study due to body habitus, patient position and on a vent. Limited views. Conclusion Mild concentric left ventricular hypertrophy. Normal left ventricular size and dimension. Normal le ft ventricular systolic function estimated ejection fraction 55%. There is a grade 1 diastolic dysfu nction. Normal right ventricular size and dimension. Normal right ventricular systolic function. Normal biatrial size and dimension. The aortic valve is mildly thickened and sclerotic. The mitral valve is bioprosthetic no significant gradient stenosis or regurgitation was noted. Normal tricuspid valve structure function. The pulmonary valve is grossly normal. No pericardial effusion.
[2024-02-18] MEDS: methylPREDNISolone SOD SUCC 125 MG/2 ML VL IV SCH (14:03)
[2024-02-18] MEDS: SODIUM CHLORIDE 0.9% 1,000 ML IV SCH (14:42)
--- NOTE | 2024-02-18 14:46 | DVHINCON2 ---
Date of service: Feb 18, 2024 Referring Physician mona dictated [id number] Reason for Consultation acute resp failure 2 c o p d exacerbation 3 m ventilation Family History: FH: brain cancer G8 FATHER, Onset:Unknown FH: dementia G8 MOTHER, Onset:Unknown Allergies: Coded Allergies: NO KNOWN ALLERGIES (Unverified , 06/12/22) Home Meds Active Scripts Furosemide (Furosemide) 20 Mg Tab, 20 MG PO DAILY for 30 Days, #30 TAB Prov:[facility] 07/28/23 Empagliflozin (Jardiance) 10 Mg Tab, 10 MG PO DAILY for 30 Days, #30 TAB Prov:[facility] 07/28/23 Warfarin Sodium (Warfarin Sodium) 7.5 Mg Tab, 7.5 MG PO DAILY for 30 Days, #30 TAB Prov:[facility] 07/28/23 Azithromycin (ZITHROMAX TABLET) 250 Mg Tb, 250 MG PO DAILY for 5 Days, #5 TAB Prov:[facility] 07/28/23 Prednisone (Prednisone) 20 Mg Tab, 20 MG PO DAILY for 5 Days, #5 MG Prov:[facility] 07/28/23 Reported Medications Atorvastatin Calcium (ATORVASTATIN CALCIUM) 20 Mg Tab, 1 TAB PO DAILY 07/23/23 Spironolactone (Spironolactone) 50 Mg Tab, 1 TAB PO DAILY 07/23/23 Metoprolol Succinate (Metoprolol Succinate Er) 50 Mg Tab, 1 TAB PO BID 07/23/23 Gabapentin (Gabapentin) 100 Mg Cap, 1 CAP PO TID 06/08/22 Losartan Potassium (Losartan Potassium) 25 Mg Tab, 3 TAB PO DAILY 06/08/22 Amlodipine Besylate (Amlodipine Besylate) 10 Mg Tab, 1 TAB PO DAILY 06/08/22 Latanoprost (LATANOPROST) 0.005 % Diane, 1 DROP EACHEYE 06/08/22 Fish Oil (Fish Oil) 1,200 Mg Cap 01/03/10 Current Medications Current Medications Medications (Trade) Dose Ordered Sig/Sherwin Route PRN Reason Start Time Stop Time Status Last Admin Propofol 100 ml @ 2.046 mls/ hr Q24H IV 02/18/24 01:00 02/18/24 08:49 Midazolam HCl 50 ml @ 1 mls/hr Q24H IV 02/18/24 01:45 02/18/24 11:20 DC 02/18/24 08:49 Nitroglycerin (Ntrostat Sublingual) 0.4 mg Q5MINP PRN SL FOR CHEST PAIN 02/18/24 06:45 Morphine Sulfate 2 mg Q30M PRN IV FOR CHEST PAIN 02/18/24 06:45 Albuterol (Ventolin Medneb) 2.5 mg Q6HR NEB 02/18/24 12:00 02/18/24 11:38 Ipratropium [place] (Atrovent Medneb) 0.5 mg Q6HR NEB 02/18/24 12:00 02/18/24 11:39 Ondansetron HCl (Zofran) 4 mg Q6HPRN PRN IV NAUSEA / VOMITING 02/18/24 06:45 Methylprednisolone Sodium Succinate (Solu Medrol) 125 mg TID IV 02/18/24 14:00 02/19/24 06:01 02/18/24 14:03 Levofloxacin 50 ml @ 50 mls/hr DAILY IV 02/20/24 10:00 02/18/24 07:56 DC Sodium Chloride 1,000 ml @ 75 mls/hr [id number] IV 02/18/24 07:45 02/18/24 14:42 Ceftriaxone Sodium 50 ml @ 100 mls/hr DAILY@09 IV 02/18/24 09:00 Azithromycin 250 ml @ 125 mls/hr DAILY IV 02/18/24 10:00 Fentanyl Citrate 250 ml @ 2.5 mls/hr Q24H IV 02/18/24 11:15 02/18/24 12:56 Vital Signs Vital Signs Date Time Temp Pulse Resp B/P (MAP) Pulse Ox O2 Delivery O2 Flow Rate FiO2 02/18/24 14:05 75 26 120/41 (67) 95 40 02/18/24 10:00 Mechanical Ventilator 02/18/24 10:00 96.8 96.8 02/18/24 01:15 6 Labs/Diagnostic Data Labs Test 02/18/24 08:20 02/18/24 06:34 02/18/24 03:54 02/18/24 02:28 Range/Units Influenza Type A Antigen Negative Negative Influenza Type B Antigen Negative Negative SARS-CoV-2 Antigen (Rapid) Negative NEGATIVE Blood Gas Specimen Type Arterial Blood Gas Sample Site Right radial Blood Gas Patient Temperature 37.0 Arterial Blood Date Drawn [id number] Arterial Blood pH 7.336 L 7.350-7.450 Arterial Blood Partial Pressure CO2 41.4 32.0-45.0 mmHg Arterial Blood Partial Pressure O2 88.3 83.0-108.0 mmHg Arterial Blood HCO3 21.6 21.0-28.0 mmol/L Arterial Blood Oxygen Saturation 96.0 94.0-98.0 % Arterial Blood Base Excess -4.0 L -2.0-3.0 mmol/L Arterial Blood Oxyhemoglobin 94.3 94.0-98.0 % Arterial Blood Carboxyhemoglobin 0.9 0.5-1.5 % Arterial Blood Methemoglobin 0.9 0.0-1.5 % Christos Test Modified Blood Gas Total Hemoglobin 11.90 L 12.0-16.0 g/dL Blood Gas Set Respiration Rate 26.0 Blood Gas Modality Vent - ac FiO2 % 50.0 Blood Gas Tidal Volume 450.0 Blood Gas PEEP or CPAP 8.0 Prothrombin Time 41.0 H 9.3-11.8 sec Prothrombin Time INR 4.31 *H 0.9-1.15 Troponin I High Sensitivity 34 </=34 ng/L Lactic Acid Level 1.2 0.4-2.0 mmol/L Test 02/18/24 02:10 02/18/24 01:45 02/18/24 01:08 Range/Units Blood Gas Critical Value Read Back Yes Blood Gas Notified Whom tl Abebe md Blood Gas Notified Time [id number] Blood Gas Notified By ruthann Jones rrt Urine Color Yellow Yellow Urine Clarity Clear Clear Urine pH 6.0 5.0-9.0 Urine Specific [place] 1.016 1.001-1.035 Urine Protein 3+ H Negative Urine Ketones Negative Negative Urine Blood 3+ H Negative /uL Urine Nitrite Negative Negative Urine Bilirubin Negative Negative Urine Urobilinogen Normal Negative mg/dL Urine Leukocyte Esterase Negative Negative /uL Urine RBC 23 0 - 4 /hpf Urine WBC 9 0 - 5 /hpf Urine Squamous Epithelial Cells Few <5 /hpf Urine Amorphous Crystals Few None Seen /hpf Urine Bacteria Few H None Seen /hpf Urine Hyaline Casts Mod 0 - 2 /lpf Urine Mucus Few None Seen Urine Glucose 1+ H Normal mg/dL White Blood Count 28.5 H 4.4-10.8 10^3/uL Red Blood Count 4.32 4.0-5.20 10^6/uL Hemoglobin 12.3 12.2-16.2 g/dL Hematocrit 37.1 36.0-46.0 % Mean Corpuscular Volume 85.9 80.0-100.0 fL Mean Corpuscular Hemoglobin 28.5 28.0-32.0 pg Mean Corpuscular Hemoglobin Concent 33.2 32.0-36.0 g/dL Red Cell Distribution Width 18.9 H 11.8-14.3 % Platelet Count 333 140-450 10^3/uL Mean Platelet Volume 8.1 6.9-10.8 fL Neutrophils (%) (Auto) 37.0-80.0 % Lymphocytes (%) (Auto) 10.0-50.0 % Monocytes (%) (Auto) 0.0-12.0 % Basophils (%) (Auto) 0.0-2.0 % Neutrophils # (Auto) 1.6-8.6 10 ^3/uL Lymphocytes # (Auto) 0.4-5.4 10 ^3/uL Monocytes # (Auto) 0-1.3 10 ^3/uL Differential Total Cells Counted 100.0 100 Neutrophils % (Manual) 76 37.0-80.0 Band Neutrophils % (Manual) 0 Lymphocytes % (Manual) 16 10.0-50.0 Monocytes % (Manual) 6 0-12 Eosinophils % (Manual) 2 0-7 Basophils % (Manual) 0 0.0-2.0 Metamyelocytes % (manual) 0 Myelocytes % (Manual) 0 Promyelocytes % (Manual) 0 Blast Cells % (Manual) 0 Reactive Lymphocytes 0 Platelet Estimate Adequate Large Platelets Few Anisocytosis (manual) Slight Sodium Level 132 L 136-145 mmol/L Potassium Level 4.9 3.5-5.1 mmol/L Chloride Level 102 98-107 mmol/L Carbon Dioxide Level 25 20-31 mmol/L Anion Gap 5 5-15 Blood Urea Nitrogen 27 H 9-23 mg/dL Creatinine 1.69 H 0.550-1.02 mg/dL Glomerular Filtration Rate Calc 33 >90 mL/min BUN/Creatinine Ratio 16.0 10.0-20.0 Serum Glucose 236 H 74-106 mg/dL Calcium Level 9.2 8.7-10.4 mg/dL B-Type Natriuretic Peptide 293.82 0-100 pg/mL YASHIRA VICK MD Feb 18, 2024 14:46
--- NOTE | 2024-02-18 16:05 | DVHPN2 ---
Progress Note - Dictate Date Seen: Feb 18, 2024 Medical Necessity Reason Pt with a Central, PICC or Fol: Yes The following are medically ne: Central Line, Mccord Catheter Reason for mccord catheter: Total Immobilization Subjective The patient is seen in ER and discussed the case with daytime nurse. Patient family not at bedside. Patient was admitted this morning. vital signs Vital Sign Date Time Temp Pulse Resp B/P (MAP) Pulse Ox O2 Delivery O2 Flow Rate FiO2 02/18/24 14:45 77 24 130/42 (71) 93 02/18/24 14:05 40 02/18/24 14:00 Mechanical Ventilator+ 02/18/24 14:00 98.4 98.4 02/18/24 01:15 6 Total Intake and Output 02/17/24 02/17/24 02/18/24 15:00 23:00 07:00 Intake Total 536.38 ml Balance 536.38 ml medications Current Medications Medications Dose Ordered Sig/Sherwin Route Start Time Stop Time Status Last Admin Dose Admin Propofol 100 ml @ 2.046 mls/ hr Q24H IV 02/18/24 01:00 02/18/24 15:15 14.322 MLS/HR Nitroglycerin 0.4 mg Q5MINP PRN SL 02/18/24 06:45 Morphine Sulfate 2 mg Q30M PRN IV 02/18/24 06:45 Albuterol 2.5 mg Q6HR NEB 02/18/24 12:00 02/18/24 11:38 2.5 MG Ipratropium [place] 0.5 mg Q6HR NEB 02/18/24 12:00 02/18/24 11:39 0.5 MG Ondansetron HCl 4 mg Q6HPRN PRN IV 02/18/24 06:45 Methylprednisolone Sodium Succinate 125 mg TID IV 02/18/24 14:00 02/19/24 06:01 02/18/24 14:03 125 MG Sodium Chloride 1,000 ml @ 75 mls/hr [id number] IV 02/18/24 07:45 02/18/24 14:42 75 MLS/HR Ceftriaxone Sodium 50 ml @ 100 mls/hr DAILY@09 IV 02/18/24 09:00 Azithromycin 250 ml @ 125 mls/hr DAILY IV 02/18/24 10:00 Fentanyl Citrate 250 ml @ 2.5 mls/hr Q24H IV 02/18/24 11:15 02/18/24 12:56 2.5 MLS/HR objective GEN: Intubated on MV HEENT: NC/AT, R IJ Central Line CV: S1S2+, RRR Lungs: Deminished breath sounds bilaterally with rales appreciated, no wheezing or rhonchi Abd: Soft, NT, ND, + BS LE: No LE edema laboratory and microbiology Laboratory Tests 02/18/24 01:08 Test 02/18/24 01:08 Range/Units Serum Glucose 236 H 74-106 mg/dL Problem List Primary Diagnosis: Acute Hypoxic and Hypercapnic Respiratory Failure Community Acquired Pneumonia Acute COPD Exacerbation Acute Kidney Injury on CKD Stage 3 Secondary Diagnosis; Hx of Mechanical Mitral Valve Replacement Atrial fibrillation Hypertension Hyperlipidemia Assessment/Plan - continue cardiopulmonary monitoring - Sedation with Propofol and Versed, start Levophed if MAP < 65mmHg - Maintain Pox > 92%, Mechanical Ventilation per Pulmonary, appreciate recommendations - continue IV abx Rocephin and Azithromycin Day 1, Med Nebs Q 6 Hours, Solu Medrol 125mg IV Q 8 hours - ordered sputum culture, blood cultures, and daily AM Labs - NPO, IV fluids, Strict I/Os, monitor daily renal functions - Hx of mechanical mitral valve replacement on home Coumadin with super therapeutic INR of 4.31. Check INR levels daily and hold Coumadin. - Hold home BP medications, Start Hydralazine 10mg IV PRN Q 6 HRS for SBP > 160mmHg Full Code DVT Prophy; Therapeutic on Coumadin with INR Level at 4.31 Dispo; Transition to ICU once bed is available Prognosis critical Plan discussed with: Other (RN at bedside ) JULES CLARK MD Feb 18, 2024 16:05
--- NOTE | 2024-02-18 22:31 | DVHINCON2 ---
HISTORY OF PRESENT ILLNESS: The patient is 68-year-old female. Thank you so much Dr. Sarah and Dr. Khan for letting me participate in care of the patient. The patient who comes with pulmonary disease and had a chronic respiratory failure, on home oxygen therapy and came in with acute respiratory failure and she was given med nebs treatment and was intubated. She is on Lasix, Jardiance, warfarin, Zithromax, prednisone, atorvastatin, spironolactone, metoprolol, gabapentin, losartan, amlodipine and fish oil. She has a history of CHF, hypotension, hyperlipidemia, COPD the blood pressure 128/77, respirations 26, pulse 68, O2 sat 95%. Initially when she came in now the blood gases after intubation was 7.33, pCO2 41, pO2 is 88. She is on tidal volume of 450 with 40% at this time, peep of 8, rate of 26. Chemistry: Troponin is 8, potassium 4.9, sodium 132, BUN is 27, creatinine 1.69. GFR was 33. Chest x-ray with endotracheal tube in the right position and she will be getting levofloxacin, Solu-Medrol, ipratropium, albuterol and sedation at this time. So she is on 40% at this time and we will reduce rate to 24. We reduced the peep to 6. Repeat blood gases at 7:00 p.m. and continue the current regimen and slowly wean off the propofol and we will try CPAP tomorrow 8/5 in the morning after she is off sedation. IMPRESSION: Acute respiratory failure with chronic respiratory failure, COPD exacerbation, intubation, mechanical ventilation. PLAN: We will be to keep the tidal volume 450, rate of 24 and FIO2 of 40%. We will discontinue isolation in the morning and CPAP tomorrow 8/5. Thank you so much for letting me in participation and continue all the other rest of the medications. Vinayak Dang MD MA/NALINI TID: [id number] RECEIPT: [id number]
[2024-02-19] VITALS (110 sets, daily range): BP systolic 119–176; BP diastolic 36–69; PULSE 73–112; RESP 15–27; TEMP 97.7–99; O2SAT 91–99
[2024-02-19 03:43] LABS: Hematocrit 29.4 % (36.0-46.0); Hemoglobin 9.8 g/dL (12.2-16.2); Mean Corpuscular Hemoglobin 28.4 pg (28.0-32.0); Mean Corpuscular Hgb Conc. 33.5 g/dL (32.0-36.0); Mean Corpuscular Volume 84.7 fL (80.0-100.0); Platelet Count (auto) 157 10^3/uL (140-450); Red Blood Cells 3.46 10^6/uL (4.0-5.20); Red Cell Distribution Width 18.6 % (11.8-14.3); White Blood Cell 14.8 10^3/uL (4.4-10.8)
[2024-02-19 03:52] LABS: Base Excess -4.8 mmol/L (-2.0-3.0)
[2024-02-19 04:01] LABS: Alanine Aminotransferase 10 U/L (7-40); Albumin 3.6 g/dL (3.2-4.8); Alkaline Phosphatase 77 U/L (46-116); Anion Gap 14 (5-15); Aspartate Aminotransferase 37 U/L (13-40); BUN/Creatinine Ratio 23.1 (10.0-20.0); Carbon Dioxide 18 mmol/L (20-31); Chloride 102 mmol/L (98-107); Glucose 207 mg/dL (74-106); Potassium 3.9 mmol/L (3.5-5.1); Sodium 134 mmol/L (136-145)
[2024-02-19 04:02] LABS: Bilirubin, Total 0.4 mg/dL (0.2-1.0); Total Protein 5.7 g/dL (5.7-8.2)
[2024-02-19 04:04] LABS: Blood Urea Nitrogen 46 mg/dL (9-23)
[2024-02-19 04:11] LABS: Basophils % (manual) 0 (0.0-2.0); Blast Cells 0; Eosinophils % (manual) 0 (0-7); Metamyelocytes % 0; Monocytes % (manual) 0 (0-12); Myelocytes % 0; Promyelocytes % 0; Reactive Lymphocytes 0
[2024-02-19 04:20] LABS: INR > 8.0 (0.9-1.15)
[2024-02-19 05:01] LABS: Anisocytosis Slight; Band Neutrophils % (manual) 2; Lymphocytes % (manual) 1 (10.0-50.0); Platelet Estimate Adequate
--- NOTE | 2024-02-19 08:47 | DVH ---
CLINICAL INFORMATION: 68 years old, Female; INTUBATED. TECHNIQUE: Single AP portable chest radiograph was obtained. COMPARISON: XY CHEST XRAY 1 VIEW on DOS: 02/18/24, XY CHEST PORTABLE on DOS: 02/18/24, XY CHEST MARYJANE BLE on DOS: 07/26/23 FINDINGS: Stable satisfactory positioning of the endotracheal tube, enteric tube, and right internal jugular ce ntral venous catheter. Ill-defined opacities in the lung bases, left greater than right, unchanged. M ildly prominent pulmonary vasculature, similar to the prior exam. Stable appearing postsurgical babcock es. No pneumothorax. No other significant interval change. IMPRESSION: No significant interval change as detailed above.
--- NOTE | 2024-02-19 08:55 | DVHPN2 ---
Progress Note - Dictate Date Seen: Feb 19, 2024 Medical Necessity Reason Pt with a Central, PICC or Fol: Yes The following are medically ne: Central Line, Mccord Catheter Reason for mccord catheter: Total Immobilization Subjective The patient this morning per nursing had a short run non sustained V-tach. Patient hemodynamics are stable. Patent however did show a drop in her Hgb Count and found to have an increased INR level greater that 8. Patient is awaiting for plasma transfusion. vital signs Vital Sign Date Time Temp Pulse Resp B/P (MAP) Pulse Ox O2 Delivery O2 Flow Rate FiO2 02/19/24 07:15 105 24 144/50 (81) 94 02/19/24 07:05 40 02/19/24 06:00 Mechanical Ventilator+ 02/19/24 04:00 97.8 97.8 02/18/24 01:15 6 Total Intake and Output 02/18/24 02/18/24 02/19/24 15:00 23:00 07:00 Intake Total 314.410 ml 754.576 ml 590.696 ml Output Total 225 ml 300 ml Balance 314.410 ml 529.576 ml 290.696 ml medications Current Medications Medications Dose Ordered Sig/Sherwin Route Start Time Stop Time Status Last Admin Dose Admin Propofol 100 ml @ 2.046 mls/ hr Q24H IV 02/18/24 01:00 02/19/24 03:50 10.23 MLS/HR Nitroglycerin 0.4 mg Q5MINP PRN SL 02/18/24 06:45 Morphine Sulfate 2 mg Q30M PRN IV 02/18/24 06:45 Albuterol 2.5 mg Q6HR NEB 02/18/24 12:00 02/19/24 05:50 2.5 MG Ipratropium [place] 0.5 mg Q6HR NEB 02/18/24 12:00 02/19/24 05:49 0.5 MG Ondansetron HCl 4 mg Q6HPRN PRN IV 02/18/24 06:45 Sodium Chloride 1,000 ml @ 75 mls/hr [id number] IV 02/18/24 07:45 02/19/24 02:54 75 MLS/HR Ceftriaxone Sodium 50 ml @ 100 mls/hr DAILY@09 IV 02/18/24 09:00 Azithromycin 250 ml @ 125 mls/hr DAILY IV 02/18/24 10:00 Fentanyl Citrate 250 ml @ 2.5 mls/hr Q24H IV 02/18/24 11:15 02/18/24 12:56 2.5 MLS/HR Hydralazine HCl 10 mg Q6HP PRN IV 02/18/24 16:00 objective GEN: Intubated on MV HEENT: NC/AT, R IJ Central Line CV: S1S2+, RRR Lungs: Clear to auscultation bilateral, no wheezing or rhonchi or rales Abd: Soft, NT, ND, + BS LE: No LE edema laboratory and microbiology Laboratory Tests 02/19/24 03:14 Test 02/19/24 03:14 Range/Units Serum Glucose 207 H 74-106 mg/dL Problem List Primary Diagnosis: Acute Hypoxic and Hypercapnic Respiratory Failure Community Acquired Pneumonia Acute COPD Exacerbation Acute Kidney Injury on CKD Stage 3 Supertheraputic INR New Onset Anemia Secondary Diagnosis; Hx of Mechanical Mitral Valve Replacement Atrial fibrillation Hypertension Hyperlipidemia Assessment/Plan - continue cardiopulmonary monitoring - Maintain Pox > 92%, Fi02 down to 40%, Mechanical Ventilation per Pulmonary, appreciate recommendations - continue IV abx Rocephin and Azithromycin Day 2, Med Nebs Q 6 Hours, Solu Medrol 125mg IV Q 8 hours - New Onset Anemia, concern for GI bleeding secondary to high INR of 8, 2 units of fresh plasma and 5mg of Vitamin K SQ x 1, repeat INR once completed, GI consult - daily AM Labs with INR QAM - NPO, IV fluids, Strict I/Os, monitor daily renal functions - Hx of mechanical mitral valve replacement on home Coumadin, INR goal of 2.5- 3.5, holding Coumadin. - Hold home BP medications, Start Hydralazine 10mg IV PRN Q 6 HRS for SBP > 160mmHg Full Code DVT Prophy; no anticoagulation, super therapeutic INR. GI Prophy; Protonix 40mg IV daily Dispo; continue to monitor in the ICU Plan discussed with: Other (Nurse) JULES CLARK MD Feb 19, 2024 08:55
[2024-02-19] MEDS: PHYTONADIONE (VIT K)10 MG/ML 1ML VIAL SUBCUT ONE (09:01)
[2024-02-19] MEDS: PANTOPRAZOLE 40 MG/10 ML VIAL INJ IV SCH (09:23)
[2024-02-19 09:32] LABS: Base Excess -5.1 mmol/L (-2.0-3.0)
[2024-02-19 10:00] LABS: Basophils # (auto) 0 10 ^3/uL (0-0.2); Basophils % (auto) 0.1 % (0.0-2.0); Eosinophils # (auto) 0 10 ^3/uL (0-0.8); Hematocrit 28.6 % (36.0-46.0); Hemoglobin 9.3 g/dL (12.2-16.2); Lymphocytes # (auto) 0.2 10 ^3/uL (0.4-5.4); Lymphocytes % (auto) 1.3 % (10.0-50.0); Mean Corpuscular Hemoglobin 28.2 pg (28.0-32.0); Mean Corpuscular Hgb Conc. 32.7 g/dL (32.0-36.0); Mean Corpuscular Volume 86.3 fL (80.0-100.0); Monocytes # (auto) 0.2 10 ^3/uL (0-1.3); Monocytes % (auto) 1.7 % (0.0-12.0); Neutrophils # (auto) 13.4 10 ^3/uL (1.6-8.6); Neutrophils % (auto) 96.9 % (37.0-80.0); Platelet Count (auto) 160 10^3/uL (140-450); Red Blood Cells 3.31 10^6/uL (4.0-5.20); Red Cell Distribution Width 18.3 % (11.8-14.3); White Blood Cell 13.9 10^3/uL (4.4-10.8)
[2024-02-19] MEDS: levoFLOXacin 500MG 100 ML IV ONE (11:03)
[2024-02-19 12:38] LABS: % Iron Saturation 4.9 % (15-50)
[2024-02-19 15:31] LABS: Basophils # (auto) 0 10 ^3/uL (0-0.2); Basophils % (auto) 0.1 % (0.0-2.0); Eosinophils # (auto) 0 10 ^3/uL (0-0.8); Hematocrit 24.7 % (36.0-46.0); Hemoglobin 8.6 g/dL (12.2-16.2); Lymphocytes # (auto) 0.2 10 ^3/uL (0.4-5.4); Lymphocytes % (auto) 1.8 % (10.0-50.0); Mean Corpuscular Hemoglobin 29.2 pg (28.0-32.0); Mean Corpuscular Hgb Conc. 34.6 g/dL (32.0-36.0); Mean Corpuscular Volume 84.3 fL (80.0-100.0); Monocytes # (auto) 0.3 10 ^3/uL (0-1.3); Monocytes % (auto) 2.7 % (0.0-12.0); Neutrophils # (auto) 10.2 10 ^3/uL (1.6-8.6); Neutrophils % (auto) 95.4 % (37.0-80.0); Platelet Count (auto) 145 10^3/uL (140-450); Red Blood Cells 2.94 10^6/uL (4.0-5.20); Red Cell Distribution Width 18.5 % (11.8-14.3); White Blood Cell 10.7 10^3/uL (4.4-10.8)
[2024-02-19 16:05] LABS: INR 2.88 (0.9-1.15); Prothrombin Time 28.2 sec (9.3-11.8)
--- NOTE | 2024-02-19 16:25 | DVHINCON2 ---
Date of service: Feb 19, 2024 Reason for Consultation Acute kidney injury History of Present Illness 68-year-old white female with past medical history of mitral valve replacement on Coumadin, COPD, hypertension, diabetes presents to the hospital with shortness of breath. Her hospital course is notable for acute respiratory failure status post intubation. She was transferred to the ICU. Nephrology consulted due to elevated creatinine level. Her baseline renal function last year was chronic kidney disease stage 2. During the course of this hospitalization she was noted to have a decrease in hemoglobin from 12 now to eight. Past Medical History As above Past Surgical History Mitral valve replacement Allergies: Coded Allergies: NO KNOWN ALLERGIES (Unverified , 06/12/22) Home Meds Active Scripts Furosemide (Furosemide) 20 Mg Tab, 20 MG PO DAILY for 30 Days, #30 TAB Prov:DEE JOE RESIDENT 07/28/23 Empagliflozin (Jardiance) 10 Mg Tab, 10 MG PO DAILY for 30 Days, #30 TAB Prov:DEE JOE RESIDENT 07/28/23 Warfarin Sodium (Warfarin Sodium) 7.5 Mg Tab, 7.5 MG PO DAILY for 30 Days, #30 TAB Prov:DEE JOE RESIDENT 07/28/23 Azithromycin (ZITHROMAX TABLET) 250 Mg Tb, 250 MG PO DAILY for 5 Days, #5 TAB Prov:DEE JOE RESIDENT 07/28/23 Prednisone (Prednisone) 20 Mg Tab, 20 MG PO DAILY for 5 Days, #5 MG Prov:DEE JOE RESIDENT 07/28/23 Reported Medications Atorvastatin Calcium (ATORVASTATIN CALCIUM) 20 Mg Tab, 1 TAB PO DAILY 07/23/23 Spironolactone (Spironolactone) 50 Mg Tab, 1 TAB PO DAILY 07/23/23 Metoprolol Succinate (Metoprolol Succinate Er) 50 Mg Tab, 1 TAB PO BID 07/23/23 Gabapentin (Gabapentin) 100 Mg Cap, 1 CAP PO TID 06/08/22 Losartan Potassium (Losartan Potassium) 25 Mg Tab, 3 TAB PO DAILY 06/08/22 Amlodipine Besylate (Amlodipine Besylate) 10 Mg Tab, 1 TAB PO DAILY 06/08/22 Latanoprost (LATANOPROST) 0.005 % Diane, 1 DROP EACHEYE 06/08/22 Fish Oil (Fish Oil) 1,200 Mg Cap 01/03/10 Current Medications Current Medications Medications (Trade) Dose Ordered Sig/Sherwin Route PRN Reason Start Time Stop Time Status Last Admin Levofloxacin 50 ml @ 50 mls/hr DAILY IV 02/20/24 10:00 02/18/24 07:56 DC Pantoprazole Sodium (Protonix) 40 mg DAILY IV 02/19/24 10:00 02/19/24 09:23 Family History: FH: brain cancer G8 FATHER, Onset:Unknown FH: dementia G8 MOTHER, Onset:Unknown Review of Systems Can not obtain due to critical illness H&P Exam Vital Signs/I&O Vital Sign Date Time Temp Pulse Resp B/P (MAP) Pulse Ox O2 Delivery O2 Flow Rate FiO2 02/19/24 16:00 35 02/19/24 16:00 98.4 89 24 147/44 (78) 92 98.4 02/19/24 16:00 Mechanical Ventilator+ 02/18/24 01:15 6 Intake and Output 02/18/24 02/19/24 19:00 07:00 Intake Total 691.698 ml 1053.668 ml Output Total 225 ml 300 ml Balance 466.698 ml 753.668 ml Intake Oral 0 ml IV Total 691.698 ml 1053.668 ml Output Urine Total 225 ml 300 ml Physical Exam Morbidly obese white female Intubated Not on pressors Sedated Blood pressure stable Positive murmur No crackles Bruising on her chest and hands Sam catheter urine color slightly dark Labs/Diagnostic Data Labs/Diagnostic Data Laboratory Tests Test 02/19/24 15:06 02/19/24 11:46 02/19/24 09:38 02/19/24 09:21 Range/Units White Blood Count 10.7 13.9 H 4.4-10.8 10^3/uL Red Blood Count 2.94 L 3.31 L 4.0-5.20 10^6/uL Hemoglobin 8.6 L 9.3 L 12.2-16.2 g/dL Hematocrit 24.7 #L 28.6 L 36.0-46.0 % Mean Corpuscular Volume 84.3 86.3 80.0-100.0 fL Mean Corpuscular Hemoglobin 29.2 28.2 28.0-32.0 pg Mean Corpuscular Hemoglobin Concent 34.6 32.7 32.0-36.0 g/dL Red Cell Distribution Width 18.5 H 18.3 H 11.8-14.3 % Platelet Count 145 160 140-450 10^3/uL Mean Platelet Volume 8.4 8.4 6.9-10.8 fL Neutrophils (%) (Auto) 95.4 H 96.9 H 37.0-80.0 % Lymphocytes (%) (Auto) 1.8 L 1.3 L 10.0-50.0 % Monocytes (%) (Auto) 2.7 1.7 0.0-12.0 % Eosinophils (%) (Auto) 0.0 0.0 0.0-7.0 % Basophils (%) (Auto) 0.1 0.1 0.0-2.0 % Neutrophils # (Auto) 10.2 H 13.4 H 1.6-8.6 10 ^3/uL Lymphocytes # (Auto) 0.2 L 0.2 L 0.4-5.4 10 ^3/uL Monocytes # (Auto) 0.3 0.2 0-1.3 10 ^3/uL Eosinophils # (Auto) 0 0 0-0.8 10 ^3/uL Basophils # (Auto) 0 0 0-0.2 10 ^3/uL Nucleated Red Blood Cells 0.0 0.0 % Prothrombin Time 28.2 H 9.3-11.8 sec Prothrombin Time INR 2.88 H 0.9-1.15 Iron Level 14 L 50-170 ug/dL Total Iron Binding Capacity 284 250-425 ug/dL Percent Iron Saturation 4.9 L 15-50 % Blood Gas Specimen Type Arterial Blood Gas Sample Site Right radial Blood Gas Patient Temperature 37.0 Arterial Blood Date Drawn [id number] Arterial Blood pH 7.335 L 7.350-7.450 Arterial Blood Partial Pressure CO2 39.0 32.0-45.0 mmHg Arterial Blood Partial Pressure O2 80.7 L 83.0-108.0 mmHg Arterial Blood HCO3 20.3 L 21.0-28.0 mmol/L Arterial Blood Oxygen Saturation 95.0 94.0-98.0 % Arterial Blood Base Excess -5.1 L -2.0-3.0 mmol/L Arterial Blood Oxyhemoglobin 94.3 94.0-98.0 % Arterial Blood Carboxyhemoglobin 0.3 L 0.5-1.5 % Arterial Blood Methemoglobin 0.4 0.0-1.5 % Christos Test Modified Blood Gas Total Hemoglobin 10.70 L 12.0-16.0 g/dL Blood Gas Set Respiration Rate 24.0 Blood Gas Modality Vent - ac FiO2 % 40.0 Blood Gas Tidal Volume 450.0 Blood Gas PEEP or CPAP 6.0 Test 02/19/24 03:14 02/18/24 19:07 02/18/24 08:20 02/18/24 06:34 Range/Units White Blood Count 14.8 #H 4.4-10.8 10^3/uL Red Blood Count 3.46 L 4.0-5.20 10^6/uL Hemoglobin 9.8 #L 12.2-16.2 g/dL Hematocrit 29.4 #L 36.0-46.0 % Mean Corpuscular Volume 84.7 80.0-100.0 fL Mean Corpuscular Hemoglobin 28.4 28.0-32.0 pg Mean Corpuscular Hemoglobin Concent 33.5 32.0-36.0 g/dL Red Cell Distribution Width 18.6 H 11.8-14.3 % Platelet Count 157 140-450 10^3/uL Mean Platelet Volume 8.6 6.9-10.8 fL Neutrophils (%) (Auto) 37.0-80.0 % Lymphocytes (%) (Auto) 10.0-50.0 % Monocytes (%) (Auto) 0.0-12.0 % Basophils (%) (Auto) 0.0-2.0 % Neutrophils # (Auto) 1.6-8.6 10 ^3/uL Lymphocytes # (Auto) 0.4-5.4 10 ^3/uL Monocytes # (Auto) 0-1.3 10 ^3/uL Differential Total Cells Counted 100.0 100 Neutrophils % (Manual) 97 H 37.0-80.0 Band Neutrophils % (Manual) 2 Lymphocytes % (Manual) 1 L 10.0-50.0 Monocytes % (Manual) 0 0-12 Eosinophils % (Manual) 0 0-7 Basophils % (Manual) 0 0.0-2.0 Metamyelocytes % (manual) 0 Myelocytes % (Manual) 0 Promyelocytes % (Manual) 0 Blast Cells % (Manual) 0 Reactive Lymphocytes 0 Platelet Estimate Adequate Anisocytosis (manual) Slight Reticulocyte Count (auto) 3.19 H 0.5-1.5 % Prothrombin Time 9.3-11.8 sec Prothrombin Time INR > 8.0 *H 0.9-1.15 Sodium Level 134 L 136-145 mmol/L Potassium Level 3.9 3.5-5.1 mmol/L Chloride Level 102 98-107 mmol/L Carbon Dioxide Level 18 L 20-31 mmol/L Anion Gap 14 5-15 Blood Urea Nitrogen 46 #H 9-23 mg/dL Creatinine 1.99 H 0.550-1.02 mg/dL Glomerular Filtration Rate Calc 27 >90 mL/min BUN/Creatinine Ratio 23.1 H 10.0-20.0 Serum Glucose 207 H 74-106 mg/dL Calcium Level 9.0 8.7-10.4 mg/dL Magnesium Level 2.7 H 1.6-2.6 mg/dL Total Bilirubin 0.4 0.2-1.0 mg/dL Aspartate Amino Transferase (AST) 37 13-40 U/L Alanine Aminotransferase (ALT) 10 7-40 U/L Alkaline Phosphatase 77 46-116 U/L Total Protein 5.7 5.7-8.2 g/dL Albumin 3.6 3.2-4.8 g/dL Blood Gas Specimen Type Arterial Arterial Blood Gas Sample Site Right radial Right radial Blood Gas Patient Temperature 37.0 37.0 Arterial Blood Date Drawn [id number] Arterial Blood pH 7.318 L 7.336 L 7.350-7.450 Arterial Blood Partial Pressure CO2 42.1 41.4 32.0-45.0 mmHg Arterial Blood Partial Pressure O2 70.7 L 88.3 83.0-108.0 mmHg Arterial Blood HCO3 21.1 21.6 21.0-28.0 mmol/L Arterial Blood Oxygen Saturation 92.5 L 96.0 94.0-98.0 % Arterial Blood Base Excess -4.8 L -4.0 L -2.0-3.0 mmol/L Arterial Blood Oxyhemoglobin 92.1 L 94.3 94.0-98.0 % Arterial Blood Carboxyhemoglobin 0.1 L 0.9 0.5-1.5 % Arterial Blood Methemoglobin 0.3 0.9 0.0-1.5 % Christos Test Yes Modified Blood Gas Total Hemoglobin 11.70 L 11.90 L 12.0-16.0 g/dL Blood Gas Set Respiration Rate 24.0 26.0 Blood Gas Modality Vent - ac Vent - ac FiO2 % 40.0 50.0 Blood Gas Tidal Volume 450.0 450.0 Blood Gas PEEP or CPAP 6.0 8.0 Blood Gas Notified Time [id number] Influenza Type A Antigen Negative Negative Influenza Type B Antigen Negative Negative SARS-CoV-2 Antigen (Rapid) Negative NEGATIVE Test 02/18/24 03:54 02/18/24 02:28 02/18/24 02:10 02/18/24 01:45 Range/Units Prothrombin Time 41.0 H 9.3-11.8 sec Prothrombin Time INR 4.31 *H 0.9-1.15 Troponin I High Sensitivity 34 23 </=34 ng/L Lactic Acid Level 1.2 0.4-2.0 mmol/L Blood Gas Specimen Type Arterial Blood Gas Sample Site Right radial Blood Gas Patient Temperature 37.0 Arterial Blood Date Drawn Arterial Blood pH 7.231 *L 7.350-7.450 Arterial Blood Partial Pressure CO2 58.7 H 32.0-45.0 mmHg Arterial Blood Partial Pressure O2 82.4 L 83.0-108.0 mmHg Arterial Blood HCO3 24.1 21.0-28.0 mmol/L Arterial Blood Oxygen Saturation 93.7 L 94.0-98.0 % Arterial Blood Base Excess -4.2 L -2.0-3.0 mmol/L Arterial Blood Oxyhemoglobin 92.0 L 94.0-98.0 % Arterial Blood Carboxyhemoglobin 0.9 0.5-1.5 % Arterial Blood Methemoglobin 0.9 0.0-1.5 % Christos Test N/a Blood Gas Total Hemoglobin 12.70 12.0-16.0 g/dL Blood Gas Set Respiration Rate 22.0 Blood Gas Modality Vent - ac FiO2 % 80.0 Blood Gas Tidal Volume 450.0 Blood Gas PEEP or CPAP 8.0 Blood Gas Critical Value Read Back Yes Blood Gas Notified Whom tl Abebe md Blood Gas Notified Time [id number] Blood Gas Notified By ruthann Jones rrt Urine Color Yellow Yellow Urine Clarity Clear Clear Urine pH 6.0 5.0-9.0 Urine Specific [place] 1.016 1.001-1.035 Urine Protein 3+ H Negative Urine Ketones Negative Negative Urine Blood 3+ H Negative /uL Urine Nitrite Negative Negative Urine Bilirubin Negative Negative Urine Urobilinogen Normal Negative mg/dL Urine Leukocyte Esterase Negative Negative /uL Urine RBC 23 0 - 4 /hpf Urine WBC 9 0 - 5 /hpf Urine Squamous Epithelial Cells Few <5 /hpf Urine Amorphous Crystals Few None Seen /hpf Urine Bacteria Few H None Seen /hpf Urine Hyaline Casts Mod 0 - 2 /lpf Urine Mucus Few None Seen Urine Glucose 1+ H Normal mg/dL Test 02/18/24 01:08 Range/Units White Blood Count 28.5 H 4.4-10.8 10^3/uL Red Blood Count 4.32 4.0-5.20 10^6/uL Hemoglobin 12.3 12.2-16.2 g/dL Hematocrit 37.1 36.0-46.0 % Mean Corpuscular Volume 85.9 80.0-100.0 fL Mean Corpuscular Hemoglobin 28.5 28.0-32.0 pg Mean Corpuscular Hemoglobin Concent 33.2 32.0-36.0 g/dL Red Cell Distribution Width 18.9 H 11.8-14.3 % Platelet Count 333 140-450 10^3/uL Mean Platelet Volume 8.1 6.9-10.8 fL Neutrophils (%) (Auto) 37.0-80.0 % Lymphocytes (%) (Auto) 10.0-50.0 % Monocytes (%) (Auto) 0.0-12.0 % Basophils (%) (Auto) 0.0-2.0 % Neutrophils # (Auto) 1.6-8.6 10 ^3/uL Lymphocytes # (Auto) 0.4-5.4 10 ^3/uL Monocytes # (Auto) 0-1.3 10 ^3/uL Differential Total Cells Counted 100.0 100 Neutrophils % (Manual) 76 37.0-80.0 Band Neutrophils % (Manual) 0 Lymphocytes % (Manual) 16 10.0-50.0 Monocytes % (Manual) 6 0-12 Eosinophils % (Manual) 2 0-7 Basophils % (Manual) 0 0.0-2.0 Metamyelocytes % (manual) 0 Myelocytes % (Manual) 0 Promyelocytes % (Manual) 0 Blast Cells % (Manual) 0 Reactive Lymphocytes 0 Platelet Estimate Adequate Large Platelets Few Anisocytosis (manual) Slight Sodium Level 132 L 136-145 mmol/L Potassium Level 4.9 3.5-5.1 mmol/L Chloride Level 102 98-107 mmol/L Carbon Dioxide Level 25 20-31 mmol/L Anion Gap 5 5-15 Blood Urea Nitrogen 27 H 9-23 mg/dL Creatinine 1.69 H 0.550-1.02 mg/dL Glomerular Filtration Rate Calc 33 >90 mL/min BUN/Creatinine Ratio 16.0 10.0-20.0 Serum Glucose 236 H 74-106 mg/dL Calcium Level 9.2 8.7-10.4 mg/dL Troponin I High Sensitivity 8 </=34 ng/L B-Type Natriuretic Peptide 293.82 0-100 pg/mL Microbiology Date/Time Source Procedure Growth Status 02/18/24 11:00 Nose MRSA Screen - Final Complete Assessment Acute kidney injury likely hemodynamically mediated Chronic kidney disease stage 2/3 Acute respiratory failure in the setting of possible COPD exacerbation Acute anemia unspecified Pneumonia IV fluid hydration Not on pressors Monitoring urinary output Send urine studies keep MAP > 65 Gastroenterology on the case No indication for diuretics at this time clinically patient does not appear to be hypervolemic but we will reserve assessment four p.r.n. doses if needed Critical care time spent 35 minutes Plan discussed with: Other CHARLI WINN MD Feb 19, 2024 16:25
[2024-02-19] MEDS: HEPARIN SODIUM (PORCINE) 5000 UNITS/ML 1ML VIAL IV ONE (16:45)
[2024-02-19 19:00] LABS: Basophils # (auto) 0 10 ^3/uL (0-0.2); Basophils % (auto) 0.3 % (0.0-2.0); Eosinophils # (auto) 0 10 ^3/uL (0-0.8); Hematocrit 25.4 % (36.0-46.0); Hemoglobin 8.6 g/dL (12.2-16.2); Lymphocytes # (auto) 0.2 10 ^3/uL (0.4-5.4); Mean Corpuscular Hemoglobin 29.3 pg (28.0-32.0); Mean Corpuscular Volume 86.3 fL (80.0-100.0); Monocytes # (auto) 0.4 10 ^3/uL (0-1.3); Monocytes % (auto) 3.5 % (0.0-12.0); Neutrophils # (auto) 10.1 10 ^3/uL (1.6-8.6); Neutrophils % (auto) 94.2 % (37.0-80.0); Platelet Count (auto) 152 10^3/uL (140-450); Red Blood Cells 2.94 10^6/uL (4.0-5.20); Red Cell Distribution Width 18.6 % (11.8-14.3); White Blood Cell 10.7 10^3/uL (4.4-10.8)
[2024-02-19 19:11] LABS: INR 3.14 (0.9-1.15); Partial Thromboplastin Time 58.9 SEC (24.5-34.5); Prothrombin Time 30.6 sec (9.3-11.8)
[2024-02-19] MEDS: HEPARIN DRIP/D5W 100UNITS/ML 250 ML IV SCH (19:33)
[2024-02-19 22:21] LABS: Basophils # (auto) 0.1 10 ^3/uL (0-0.2); Basophils % (auto) 0.6 % (0.0-2.0); Eosinophils # (auto) 0 10 ^3/uL (0-0.8); Eosinophils % (auto) 0.1 % (0.0-7.0); Hematocrit 24.1 % (36.0-46.0); Hemoglobin 8.3 g/dL (12.2-16.2); Lymphocytes # (auto) 0.2 10 ^3/uL (0.4-5.4); Lymphocytes % (auto) 1.9 % (10.0-50.0); Mean Corpuscular Hemoglobin 29.2 pg (28.0-32.0); Mean Corpuscular Hgb Conc. 34.4 g/dL (32.0-36.0); Mean Corpuscular Volume 84.8 fL (80.0-100.0); Monocytes # (auto) 0.3 10 ^3/uL (0-1.3); Monocytes % (auto) 3.3 % (0.0-12.0); Neutrophils # (auto) 9.9 10 ^3/uL (1.6-8.6); Neutrophils % (auto) 94.1 % (37.0-80.0); Nucleated Red Blood Cells % 0.1 %; Platelet Count (auto) 152 10^3/uL (140-450); Red Blood Cells 2.84 10^6/uL (4.0-5.20); Red Cell Distribution Width 18.7 % (11.8-14.3); White Blood Cell 10.5 10^3/uL (4.4-10.8)
--- NOTE | 2024-02-19 23:18 | DVHINCON2 ---
DATE OF CONSULTATION: 02/19/2024 GASTROENTEROLOGY CONSULTATION REFERRING PHYSICIAN: Dr. Anil Castillo. REASON FOR CONSULTATION: Anemia. HISTORY OF PRESENT ILLNESS: The patient is a 68-year-old female with a past medical history significant for COPD, hypertension, hyperlipidemia, admitted for evaluation of shortness of breath who was brought to the ER. The patient apparently having shortness of breath symptoms despite being on supplemental oxygen at home. The patient received 10 liters of oxygen via nasal cannula as well as nebulized treatment while being seen by EMS, but continued to be in respiratory distress. She was subsequently intubated while in the ER. Over the last 24 hours of her hospital admission, the patient's hemoglobin has steadily declined from 12.3 on admission, down to its current value of 9.3, hematocrit 28.6. It should be noted that the patient's INR was 4.31 at time of admission and currently is 8.0. She is currently receiving subcutaneous vitamin K as well as fresh frozen plasma. I see nursing staff report, no evidence of robert GI bleeding. The patient currently has an orogastric tube in and there is no blood coming out. There is no blood per rectum. Gastroenterology service has been asked to provide input regarding her symptoms. DRUG ALLERGIES: None listed. HOME MEDICATIONS: Include warfarin, amlodipine, atorvastatin, Zithromax, Jardiance, fish oil, furosemide, gabapentin, latanoprost, losartan, metoprolol, prednisone, spironolactone and 7.5 mg of warfarin each day. PAST MEDICAL HISTORY: Significant for COPD, hypertension, hyperlipidemia and congestive heart failure. PAST SURGICAL HISTORY: None. SOCIAL HISTORY: The patient denies drugs, alcohol, tobacco. PHYSICAL EXAMINATION: VITAL SIGNS: Temperature 97.7, heart rate 90, respirations 24, blood pressure is 147/42, O2 saturation 96%. Her FIO2 is 35%. GENERAL: This is a 68-year-old female. She is intubated. She is not awake, alert and oriented. She is sedated, currently on propofol. HEENT: Endotracheal tube, orogastric tube. NECK: Supple. Could not assess pupils. CARDIOVASCULAR: Regular rate and rhythm. RESPIRATORY: Ventilated breath sounds. GASTROINTESTINAL: Soft, nontender, nondistended. EXTREMITIES: No clubbing or cyanosis. LABORATORY DATA: White blood cell count 13.9, hemoglobin 9.3, hematocrit 28.6, MCV is 86.3, platelet count is 160,000. Basic metabolic panel within normal limits. BUN is elevated at 46, creatinine 1.99. Magnesium is 2.7, calcium is 9.0. Iron is 14, TIBC is 284. Iron saturation 4.9, total bilirubin 0.4, AST 37, ALT is 10, alkaline phosphatase is 77. INR is greater than 8. ASSESSMENT: * Progressive anemia without any evidence of robert GI blood loss. * Coagulopathy in the setting of warfarin therapy. * Acute hypoxic respiratory failure. * Chronic obstructive pulmonary disease with acute exacerbation. * Pneumonia. RECOMMENDATIONS: * Correct coagulopathy with vitamin K and FFP. * Transfuse as necessary to maintain hemoglobin greater than 7. * No indication for urgent endoscopy at this time unless there is evidence of robert GI blood loss. The patient's INR must be corrected prior to any type of intervention. * PPI therapy while the patient is intubated for ____ support. * Continue Pulmonology or Critical Care recommendations as per Pulmonology MD. DO OTILIA Wright/ALLISON/GUSTAVO TID: [id number] RECEIPT: [id number]
[2024-02-20] VITALS (109 sets, daily range): BP systolic 121–214; BP diastolic 31–86; PULSE 62–128; RESP 12–29; TEMP 97.6–99.7; O2SAT 84–100
[2024-02-20 02:03] LABS: Basophils # (auto) 0.1 10 ^3/uL (0-0.2); Basophils % (auto) 0.5 % (0.0-2.0); Eosinophils # (auto) 0 10 ^3/uL (0-0.8); Lymphocytes # (auto) 0.3 10 ^3/uL (0.4-5.4); Lymphocytes % (auto) 2.6 % (10.0-50.0); Mean Corpuscular Hemoglobin 28.3 pg (28.0-32.0); Mean Corpuscular Hgb Conc. 33.2 g/dL (32.0-36.0); Mean Corpuscular Volume 85.1 fL (80.0-100.0); Monocytes # (auto) 0.5 10 ^3/uL (0-1.3); Monocytes % (auto) 4.1 % (0.0-12.0); Neutrophils # (auto) 11.8 10 ^3/uL (1.6-8.6); Neutrophils % (auto) 92.8 % (37.0-80.0); Nucleated Red Blood Cells % 0.1 %; Platelet Count (auto) 167 10^3/uL (140-450); Red Blood Cells 3.18 10^6/uL (4.0-5.20); Red Cell Distribution Width 18.5 % (11.8-14.3); White Blood Cell 12.7 10^3/uL (4.4-10.8)
[2024-02-20 02:36] LABS: INR 2.79 (0.9-1.15); Prothrombin Time 27.4 sec (9.3-11.8)
[2024-02-20 02:40] LABS: Partial Thromboplastin Time 99.8 SEC (24.5-34.5)
[2024-02-20] MEDS: HEPARIN DRIP/D5W 100UNITS/ML 250 ML IV SCH (04:00)
--- NOTE | 2024-02-20 05:45 | DVH ---
CHEST RADIOGRAPH Indication:intubated Technique: Single frontal view of the chest was obtained COMPARISON: XY CHEST XRAY 1 VIEW on DOS: 02/19/24, XY CHEST XRAY 1 VIEW on DOS: 02/18/24, XY CHEST PO RTABLE on DOS: 02/18/24 FINDINGS: Lines and Tubes: Endotracheal tube, enteric catheter and right central venous catheter in satisfactor y position. Median sternotomy. Lungs: Patchy bilateral airspace disease. Pleura: No effusion. No pneumothorax. Cardiomediastinal contours: Unremarkable Bones: Unremarkable IMPRESSION: Lines and tubes in satisfactory position. No significant interval change.
[2024-02-20 07:35] LABS: Basophils # (auto) 0 10 ^3/uL (0-0.2); Eosinophils # (auto) 0 10 ^3/uL (0-0.8); Hemoglobin 8.2 g/dL (12.2-16.2); Lymphocytes # (auto) 0.3 10 ^3/uL (0.4-5.4); Monocytes # (auto) 0.4 10 ^3/uL (0-1.3); Neutrophils # (auto) 8.7 10 ^3/uL (1.6-8.6); Red Cell Distribution Width 18.7 % (11.8-14.3)
[2024-02-20 07:36] LABS: Basophils % (auto) 0.3 % (0.0-2.0); Hematocrit 24.7 % (36.0-46.0); Lymphocytes % (auto) 3.3 % (10.0-50.0); Mean Corpuscular Hemoglobin 28.6 pg (28.0-32.0); Mean Corpuscular Hgb Conc. 33.2 g/dL (32.0-36.0); Mean Corpuscular Volume 86.3 fL (80.0-100.0); Monocytes % (auto) 4.2 % (0.0-12.0); Neutrophils % (auto) 92.2 % (37.0-80.0); Platelet Count (auto) 156 10^3/uL (140-450); Red Blood Cells 2.87 10^6/uL (4.0-5.20); White Blood Cell 9.5 10^3/uL (4.4-10.8)
[2024-02-20 07:42] LABS: INR 2.46 (0.9-1.15); Prothrombin Time 24.4 sec (9.3-11.8)
[2024-02-20 07:45] LABS: Calcium 8.3 mg/dL (8.7-10.4); Chloride 107 mmol/L (98-107); Potassium 4.4 mmol/L (3.5-5.1); Sodium 139 mmol/L (136-145)
[2024-02-20 07:46] LABS: Anion Gap 10 (5-15); Carbon Dioxide 22 mmol/L (20-31)
[2024-02-20 07:51] LABS: BUN/Creatinine Ratio 33.3 (10.0-20.0); Blood Urea Nitrogen 48 mg/dL (9-23); Glucose 116 mg/dL (74-106)
[2024-02-20 08:32] LABS: Base Excess -2.7 mmol/L (-2.0-3.0)
--- NOTE | 2024-02-20 08:45 | DVHPN2 ---
Progress Note Date Seen: Feb 20, 2024 Medical Necessity Reason Pt with a Central, PICC or Fol: Yes The following are medically ne: Central Line, Mccord Catheter Reason for mccord catheter: Total Immobilization Subjective Review of Systems pt intubated and m ventilated Patient reports: No new complaints Review of Systems: RESPIRATORY:Abnormal Objective vital signs Vital Sign Date Time Temp Pulse Resp B/P (MAP) Pulse Ox O2 Delivery O2 Flow Rate FiO2 02/20/24 08:16 84 24 141/40 (73) 84 35 02/20/24 06:00 Mechanical Ventilator+ 02/20/24 04:00 97.6 97.6 Total Intake and Output 02/19/24 02/19/24 02/20/24 15:00 23:00 07:00 Intake Total 2009.472 ml 1408.616 ml 717.708 ml Output Total 475 ml 750 ml Balance 2010.472 ml 933.616 ml -32.292 ml medications Current Medications Medications Dose Ordered Sig/Sherwin Route Start Time Stop Time Status Last Admin Dose Admin Propofol 100 ml @ 2.046 mls/ hr Q24H IV 02/18/24 01:00 02/20/24 05:48 16.368 MLS/HR Nitroglycerin 0.4 mg Q5MINP PRN SL 02/18/24 06:45 Morphine Sulfate 2 mg Q30M PRN IV 02/18/24 06:45 Albuterol 2.5 mg Q6HR NEB 02/18/24 12:00 02/20/24 06:48 2.5 MG Ipratropium [place] 0.5 mg Q6HR NEB 02/18/24 12:00 02/20/24 06:48 0.5 MG Ondansetron HCl 4 mg Q6HPRN PRN IV 02/18/24 06:45 Sodium Chloride 1,000 ml @ 75 mls/hr [id number] IV 02/18/24 07:45 02/19/24 19:33 75 MLS/HR Ceftriaxone Sodium 50 ml @ 100 mls/hr DAILY@09 IV 02/18/24 09:00 02/19/24 09:18 100 MLS/HR Azithromycin 250 ml @ 125 mls/hr DAILY IV 02/18/24 10:00 02/19/24 09:25 125 MLS/HR Fentanyl Citrate 250 ml @ 2.5 mls/hr Q24H IV 02/18/24 11:15 02/20/24 00:57 10 MLS/HR Hydralazine HCl 10 mg Q6HP PRN IV 02/18/24 16:00 Pantoprazole Sodium 40 mg DAILY IV 02/19/24 10:00 02/19/24 09:23 40 MG Heparin Sodium/ Dextrose 250 ml @ 5 mls/hr Q24H IV 02/20/24 04:00 Examination lungs diminished breath sounds Examination: LUNGS:Abnormal laboratory and microbiology Laboratory Tests 02/20/24 07:09 Test 02/20/24 07:09 Range/Units Serum Glucose 116 H 74-106 mg/dL Microbiology Date/Time Source Procedure Growth Status 02/18/24 18:17 Blood Blood Culture - Preliminary NO GROWTH AFTER 24 HOURS OF INCUBATION. Resulted 02/18/24 11:00 Nose MRSA Screen - Final Complete 02/18/24 01:00 Sputum Gram Stain - Final Resulted 02/18/24 01:00 Sputum Respiratory Culture - Preliminary Resulted Labs and/or images reviewed: Labs reviewed by me, Image(s) reviewed by me Problem List/Assessment/Plan Problem List/Assessment/Plan acute resp failure 2 m ventilatrion 3 a b g adequate 4 i n r therapeutic 5 no acute bleeding 6 plan d c sedation and c p a p trial Plan discussed with: Other My Orders My Orders Orders - YASHIRA VICK MD Procedure Category Date Status Time Abg W/ Co-Ox RT 02/20/24 Logged 06:00 Dietary Evaluation Review Comments: 1) If GI is accessible consider Pivot 1.5 @ 55 ml/hr x24 hr goal rate as tolerated 2) If pt remains NPO >7 days consider TPN to meet at least 75% of estimated goals 3) Advance pt diet when medically feasible to a Cardiac diet modified per [employer] recommendations 4) Continue current plan of care Expected Outcomes/Goals: 1) Pt to receive nutrition support within 7 days of NPO status 2) Pt diet to advance 3) F/U in 2-3 days Sepsis reassessment post fluid Breath sounds: Clear, Diminished YASHIRA VICK MD Feb 20, 2024 08:45
[2024-02-20] MEDS ORDERED: levoFLOXacin 250MG 50 ML IV SCH (10:00)
[2024-02-20 10:45] LABS: Basophils # (auto) 0.1 10 ^3/uL (0-0.2); Basophils % (auto) 0.5 % (0.0-2.0); Eosinophils # (auto) 0 10 ^3/uL (0-0.8); Hematocrit 25.9 % (36.0-46.0); Hemoglobin 8.7 g/dL (12.2-16.2); Lymphocytes # (auto) 0.3 10 ^3/uL (0.4-5.4); Mean Corpuscular Hgb Conc. 33.5 g/dL (32.0-36.0); Mean Corpuscular Volume 86.3 fL (80.0-100.0); Monocytes # (auto) 0.5 10 ^3/uL (0-1.3); Monocytes % (auto) 4.7 % (0.0-12.0); Neutrophils # (auto) 9.4 10 ^3/uL (1.6-8.6); Neutrophils % (auto) 91.8 % (37.0-80.0); Platelet Count (auto) 165 10^3/uL (140-450); Red Blood Cells 3.01 10^6/uL (4.0-5.20); Red Cell Distribution Width 18.9 % (11.8-14.3); White Blood Cell 10.3 10^3/uL (4.4-10.8)
--- NOTE | 2024-02-20 10:45 | DVHPN2 ---
Progress Note - Dictate Date Seen: Feb 20, 2024 Medical Necessity Reason Pt with a Central, PICC or Fol: Yes The following are medically ne: Central Line, Mccord Catheter Reason for mccord catheter: Total Immobilization Subjective Patient intubated and sedated. vital signs Vital Sign Date Time Temp Pulse Resp B/P (MAP) Pulse Ox O2 Delivery O2 Flow Rate FiO2 02/20/24 09:43 67 24 158/38 (78) 95 35 02/20/24 06:00 Mechanical Ventilator+ 02/20/24 04:00 97.6 97.6 Total Intake and Output 02/19/24 02/19/24 02/20/24 15:00 23:00 07:00 Intake Total 2009.472 ml 1408.616 ml 717.708 ml Output Total 475 ml 750 ml Balance 2009.472 ml 933.616 ml -32.292 ml medications Current Medications Medications Dose Ordered Sig/Sherwin Route Start Time Stop Time Status Last Admin Dose Admin Propofol 100 ml @ 2.046 mls/ hr Q24H IV 02/18/24 01:00 02/20/24 05:48 16.368 MLS/HR Nitroglycerin 0.4 mg Q5MINP PRN SL 02/18/24 06:45 Morphine Sulfate 2 mg Q30M PRN IV 02/18/24 06:45 Albuterol 2.5 mg Q6HR NEB 02/18/24 12:00 02/20/24 06:48 2.5 MG Ipratropium [place] 0.5 mg Q6HR NEB 02/18/24 12:00 02/20/24 06:48 0.5 MG Ondansetron HCl 4 mg Q6HPRN PRN IV 02/18/24 06:45 Sodium Chloride 1,000 ml @ 75 mls/hr [id number] IV 02/18/24 07:45 02/20/24 09:20 75 MLS/HR Ceftriaxone Sodium 50 ml @ 100 mls/hr DAILY@09 IV 02/18/24 09:00 02/20/24 09:24 100 MLS/HR Azithromycin 250 ml @ 125 mls/hr DAILY IV 02/18/24 10:00 02/20/24 10:17 125 MLS/HR Fentanyl Citrate 250 ml @ 2.5 mls/hr Q24H IV 02/18/24 11:15 02/20/24 00:57 10 MLS/HR Hydralazine HCl 10 mg Q6HP PRN IV 02/18/24 16:00 Pantoprazole Sodium 40 mg DAILY IV 02/19/24 10:00 02/20/24 10:17 40 MG Heparin Sodium/ Dextrose 250 ml @ 5 mls/hr Q24H IV 02/20/24 04:00 objective General: Intubated/sedated Respiratory: Fine bibasilar crackles Cards: RRR Neuro: Sedated laboratory and microbiology Laboratory Tests 02/20/24 07:09 Test 02/20/24 07:09 Range/Units Serum Glucose 116 H 74-106 mg/dL Assessment/Plan Primary Diagnosis: Acute Hypoxic and Hypercapnic Respiratory Failure Community Acquired Pneumonia Acute COPD Exacerbation Acute Kidney Injury on CKD Stage 3 Supertheraputic INR New Onset Anemia Secondary Diagnosis; Hx of Mechanical Mitral Valve Replacement Atrial fibrillation Hypertension Hyperlipidemia Assessment/Plan - continue cardiopulmonary monitoring - Maintain Pox > 92%, Fi02 down to 35%, Mechanical Ventilation per Pulmonary, appreciate recommendations. Plan for SBT today. - continue IV abx Rocephin and Azithromycin Day 3, Med Nebs Q 6 Hours, Solu Medrol 125mg IV Q 8 hours - New Onset Anemia, concern for GI bleeding secondary to high INR of 8, 2 units of fresh plasma and 5mg of Vitamin K SQ x 1 on 02/18. No signs of hemodynamic instability at this time. -GI Consulted, no plan for EGD at this time - daily AM Labs with INR QAM - NPO, IV fluids, Strict I/Os, monitor daily renal functions - Hx of mechanical mitral valve replacement on home Coumadin, INR goal of 2.5- 3.5, holding Coumadin. - Hold home BP medications, Start Hydralazine 10mg IV PRN Q 6 HRS for SBP > 160mmHg Full Code DVT Prophy; no anticoagulation, super therapeutic INR. GI Prophy; Protonix 40mg IV daily Dietary Evaluation Review Comments: 1) If GI is accessible consider Pivot 1.5 @ 55 ml/hr x24 hr goal rate as tolerated 2) If pt remains NPO >7 days consider TPN to meet at least 75% of estimated goals 3) Advance pt diet when medically feasible to a Cardiac diet modified per [employer]ER recommendations 4) Continue current plan of care Expected Outcomes/Goals: 1) Pt to receive nutrition support within 7 days of NPO status 2) Pt diet to advance 3) F/U in 2-3 days Plan discussed with: Other Breath sounds: Clear, Diminished AREN ORELLANA DO Feb 20, 2024 10:45
[2024-02-20] MEDS: hydrALAZINE HCL 20 MG/ML VL IV PRN (11:07)
[2024-02-20 11:24] LABS: INR 2.27 (0.9-1.15); Prothrombin Time 22.6 sec (9.3-11.8)
[2024-02-20 11:32] LABS: Partial Thromboplastin Time 61.2 SEC (24.5-34.5)
[2024-02-20 14:28] LABS: Basophils # (auto) 0 10 ^3/uL (0-0.2); Basophils % (auto) 0.2 % (0.0-2.0); Eosinophils # (auto) 0 10 ^3/uL (0-0.8); Hematocrit 28.1 % (36.0-46.0); Hemoglobin 9.3 g/dL (12.2-16.2); Lymphocytes # (auto) 0.3 10 ^3/uL (0.4-5.4); Lymphocytes % (auto) 1.7 % (10.0-50.0); Mean Corpuscular Hemoglobin 28.5 pg (28.0-32.0); Mean Corpuscular Volume 86.3 fL (80.0-100.0); Monocytes # (auto) 0.7 10 ^3/uL (0-1.3); Monocytes % (auto) 4.8 % (0.0-12.0); Neutrophils # (auto) 13.7 10 ^3/uL (1.6-8.6); Neutrophils % (auto) 93.3 % (37.0-80.0); Nucleated Red Blood Cells % 0.1 %; Platelet Count (auto) 182 10^3/uL (140-450); Red Blood Cells 3.25 10^6/uL (4.0-5.20); White Blood Cell 14.6 10^3/uL (4.4-10.8)
--- NOTE | 2024-02-20 16:02 | DVHPN2 ---
Progress Note - Dictate Date Seen: Feb 20, 2024 Medical Necessity Reason Pt with a Central, PICC or Fol: Yes The following are medically ne: Central Line, Mccord Catheter Reason for mccord catheter: Total Immobilization Subjective remains intubated vital signs Vital Sign Date Time Temp Pulse Resp B/P (MAP) Pulse Ox O2 Delivery O2 Flow Rate FiO2 02/20/24 15:39 104 24 195/62 (106) 96 35 02/20/24 10:00 Mechanical Ventilator+ 02/20/24 04:00 97.6 97.6 Total Intake and Output 02/19/24 02/19/24 02/20/24 15:00 23:00 07:00 Intake Total 2009.472 ml 1408.616 ml 725.208 ml Output Total 475 ml 750 ml Balance 2009.472 ml 933.616 ml -24.792 ml medications Current Medications Medications Dose Ordered Sig/Sherwin Route Start Time Stop Time Status Last Admin Dose Admin Propofol 100 ml @ 2.046 mls/ hr Q24H IV 02/18/24 01:00 02/20/24 12:59 16.368 MLS/HR Nitroglycerin 0.4 mg Q5MINP PRN SL 02/18/24 06:45 Morphine Sulfate 2 mg Q30M PRN IV 02/18/24 06:45 Albuterol 2.5 mg Q6HR NEB 02/18/24 12:00 02/20/24 11:33 2.5 MG Ipratropium [place] 0.5 mg Q6HR NEB 02/18/24 12:00 02/20/24 11:33 0.5 MG Ondansetron HCl 4 mg Q6HPRN PRN IV 02/18/24 06:45 Sodium Chloride 1,000 ml @ 75 mls/hr [id number] IV 02/18/24 07:45 02/20/24 09:20 75 MLS/HR Ceftriaxone Sodium 50 ml @ 100 mls/hr DAILY@09 IV 02/18/24 09:00 02/20/24 09:24 100 MLS/HR Azithromycin 250 ml @ 125 mls/hr DAILY IV 02/18/24 10:00 02/20/24 10:17 125 MLS/HR Fentanyl Citrate 250 ml @ 2.5 mls/hr Q24H IV 02/18/24 11:15 02/20/24 00:57 10 MLS/HR Hydralazine HCl 10 mg Q6HP PRN IV 02/18/24 16:00 02/20/24 11:07 10 MG Pantoprazole Sodium 40 mg DAILY IV 02/19/24 10:00 02/20/24 10:17 40 MG Heparin Sodium/ Dextrose 250 ml @ 5 mls/hr Q24H IV 02/20/24 04:00 objective Morbidly obese white female Intubated Not on pressors Sedated Blood pressure stable Positive murmur No crackles Bruising on her chest and hands Mccord catheter laboratory and microbiology Laboratory Tests 02/20/24 14:06 02/20/24 07:09 Test 02/20/24 07:09 Range/Units Serum Glucose 116 H 74-106 mg/dL Assessment/Plan Acute kidney injury likely hemodynamically mediated Chronic kidney disease stage 2/3 Acute respiratory failure in the setting of possible COPD exacerbation Acute anemia unspecified Pneumonia mechanical valve renal function normalizing IV fluid hydration Not on pressors Monitoring urinary output keep MAP > 65 Gastroenterology on the case No indication for diuretics at this time clinically patient does not appear to be hypervolemic but we will reserve assessment four p.r.n. doses if needed Critical care time spent 35 minutes Dietary Evaluation Review Comments: 1) If GI is accessible consider Pivot 1.5 @ 55 ml/hr x24 hr goal rate as tolerated 2) If pt remains NPO >7 days consider TPN to meet at least 75% of estimated goals 3) Advance pt diet when medically feasible to a Cardiac diet modified per ORAL COMMUNICATION INSTRUCTOR recommendations 4) Continue current plan of care Expected Outcomes/Goals: 1) Pt to receive nutrition support within 7 days of NPO status 2) Pt diet to advance 3) F/U in 2-3 days Plan discussed with: Other Breath sounds: Clear, Diminished CHARLI WINN MD Feb 20, 2024 16:02
[2024-02-20] MEDS: LABETALOL HCL 20 MG/4 ML VL IV ONE (16:15)
[2024-02-20 16:38] LABS: INR 2.02 (0.9-1.15); Partial Thromboplastin Time 54.1 SEC (24.5-34.5); Prothrombin Time 20.3 sec (9.3-11.8)
[2024-02-20] MEDS: LABETALOL HCL 20 MG/4 ML VL IV PRN (17:11)
[2024-02-20 22:05] LABS: INR 1.84 (0.9-1.15); Prothrombin Time 18.6 sec (9.3-11.8)
[2024-02-21] VITALS (111 sets, daily range): BP systolic 113–259; BP diastolic 27–126; PULSE 55–124; RESP 14–28; TEMP 97.7–100.4; O2SAT 86–100
[2024-02-21 03:48] LABS: Basophils # (auto) 0 10 ^3/uL (0-0.2); Eosinophils # (auto) 0 10 ^3/uL (0-0.8); Hematocrit 23.4 % (36.0-46.0); Hemoglobin 7.8 g/dL (12.2-16.2); Lymphocytes # (auto) 0.4 10 ^3/uL (0.4-5.4); Lymphocytes % (auto) 6.3 % (10.0-50.0); Neutrophils # (auto) 5.5 10 ^3/uL (1.6-8.6); Red Blood Cells 2.71 10^6/uL (4.0-5.20); White Blood Cell 6.3 10^3/uL (4.4-10.8)
[2024-02-21 03:49] LABS: Basophils % (auto) 0.2 % (0.0-2.0); Eosinophils % (auto) 0.3 % (0.0-7.0); Mean Corpuscular Hemoglobin 28.9 pg (28.0-32.0); Mean Corpuscular Hgb Conc. 33.5 g/dL (32.0-36.0); Monocytes # (auto) 0.4 10 ^3/uL (0-1.3); Monocytes % (auto) 5.8 % (0.0-12.0); Neutrophils % (auto) 87.4 % (37.0-80.0); Nucleated Red Blood Cells % 0.1 %; Platelet Count (auto) 146 10^3/uL (140-450)
[2024-02-21 03:52] LABS: Chloride 109 mmol/L (98-107); Potassium 4.6 mmol/L (3.5-5.1); Sodium 140 mmol/L (136-145)
[2024-02-21 03:53] LABS: Anion Gap 6 (5-15); Carbon Dioxide 25 mmol/L (20-31)
[2024-02-21 03:54] LABS: Calcium 8.4 mg/dL (8.7-10.4)
[2024-02-21 03:58] LABS: BUN/Creatinine Ratio 38.4 (10.0-20.0); Blood Urea Nitrogen 53 mg/dL (9-23); Glucose 90 mg/dL (74-106)
[2024-02-21 04:10] LABS: INR 1.72 (0.9-1.15); Prothrombin Time 17.5 sec (9.3-11.8)
--- NOTE | 2024-02-21 05:40 | DVH ---
EXAM: XY CHEST PORTABLE Indication:pt intubated Technique: Single frontal view of the chest was obtained Comparison: XY CHEST XRAY 1 VIEW on DOS: 02/20/24, XY CHEST XRAY 1 VIEW on DOS: 02/19/24, XY CHEST XR AY 1 VIEW on DOS: 02/18/24, XY CHEST PORTABLE on DOS: 02/18/24, XY CHEST PORTABLE on DOS: 07/26/23 FINDINGS: Lines and Tubes: Endotracheal tube projects 1 cm above the level of the mikey. Recommend slight ret raction. Right internal jugular central venous catheter projects over the superior vena cava. Enteri c tube tip projects over the expected region of the stomach. Lungs: Diffuse interstitial opacities. Left costophrenic angle is collimated from field of view. Pleura: No effusion. No pneumothorax. Cardiomediastinal contours: Unremarkable Bones: No acute osseous abnormality. IMPRESSION: Endotracheal tube projects 1 cm above the level of the mikey. Recommend slight retraction.
[2024-02-21 07:58] LABS: Base Excess -1.8 mmol/L (-2.0-3.0)
--- NOTE | 2024-02-21 09:12 | DVHPN2 ---
Progress Note Date Seen: Feb 21, 2024 Medical Necessity Reason Pt with a Central, PICC or Fol: Yes The following are medically ne: Central Line, Mccord Catheter Reason for mccord catheter: Total Immobilization Subjective Patient reports: No new complaints Review of Systems: RESPIRATORY:Abnormal Objective vital signs Vital Sign Date Time Temp Pulse Resp B/P (MAP) Pulse Ox O2 Delivery O2 Flow Rate FiO2 02/21/24 08:17 63 24 148/45 (79) 96 35 02/21/24 06:00 Mechanical Ventilator+ 02/21/24 04:00 98.0 98.0 Total Intake and Output 02/20/24 02/20/24 02/21/24 15:00 23:00 07:00 Intake Total 852.800 ml 805.840 ml 878.232 ml Output Total 625 ml 500 ml Balance 852.800 ml 180.840 ml 378.232 ml medications Current Medications Medications Dose Ordered Sig/Sherwin Route Start Time Stop Time Status Last Admin Dose Admin Propofol 100 ml @ 2.046 mls/ hr Q24H IV 02/18/24 01:00 02/21/24 06:44 10.23 MLS/HR Nitroglycerin 0.4 mg Q5MINP PRN SL 02/18/24 06:45 Morphine Sulfate 2 mg Q30M PRN IV 02/18/24 06:45 Albuterol 2.5 mg Q6HR NEB 02/18/24 12:00 02/21/24 06:50 2.5 MG Ipratropium [place] 0.5 mg Q6HR NEB 02/18/24 12:00 02/21/24 06:50 0.5 MG Ondansetron HCl 4 mg Q6HPRN PRN IV 02/18/24 06:45 Sodium Chloride 1,000 ml @ 75 mls/hr [id number] IV 02/18/24 07:45 02/21/24 08:08 75 MLS/HR Ceftriaxone Sodium 50 ml @ 100 mls/hr DAILY@09 IV 02/18/24 09:00 02/20/24 09:24 100 MLS/HR Azithromycin 250 ml @ 125 mls/hr DAILY IV 02/18/24 10:00 02/20/24 10:17 125 MLS/HR Fentanyl Citrate 250 ml @ 2.5 mls/hr Q24H IV 02/18/24 11:15 02/21/24 05:47 2.5 MLS/HR Hydralazine HCl 10 mg Q6HP PRN IV 02/18/24 16:00 02/20/24 11:07 10 MG Pantoprazole Sodium 40 mg DAILY IV 02/19/24 10:00 02/20/24 10:17 40 MG Heparin Sodium/ Dextrose 250 ml @ 5 mls/hr Q24H IV 02/20/24 04:00 Labetalol HCl 10 mg Q4HPRN PRN IV 02/20/24 16:15 02/20/24 17:45 10 MG Dexmedetomidine HCl 400 mcg/ Dextrose 100 ml @ 3.41 mls/hr Q24H IV 02/20/24 17:30 02/21/24 01:15 3.41 MLS/HR Examination: LUNGS:Abnormal laboratory and microbiology Laboratory Tests 02/21/24 03:34 Test 02/21/24 03:34 Range/Units Serum Glucose 90 74-106 mg/dL Microbiology Date/Time Source Procedure Growth Status 02/18/24 18:17 Blood Blood Culture - Preliminary NO GROWTH AFTER 48 HOURS OF INCUBATION. Resulted 02/18/24 11:00 Nose MRSA Screen - Final Complete 02/18/24 01:00 Sputum Gram Stain - Final Complete 02/18/24 01:00 Sputum Respiratory Culture - Final Complete Labs and/or images reviewed: Labs reviewed by me, Image(s) reviewed by me Problem List/Assessment/Plan Problem List/Assessment/Plan acute resp failure 2 m ventilatrion 3 a b g adequate 4 i n r therapeutic 5 no acute bleeding 6 plan d c sedation and c p a p trial 02/21/24 pt is vented now on c p a p 01/11 pt is still on prop and precedex a b g good on 01/11 but pt is not awake d c sedation and cpap 11/10 . if pt is non cooperative may extubate Plan discussed with: Other My Orders My Orders Orders - YASHIRA VICK MD Procedure Category Date Status Time Ventilator Orders RT 02/20/24 Transmitted 08:45 Cpap/Sed Vacation Med ORDERS 02/20/24 Transmitted Weaning 08:45 Abg W/ Co-Ox RT 02/20/24 Logged 11:02 Cpap Trial For Am ORDERS 02/21/24 Transmitted 08:00 Cpap/Sed Vacation Med ORDERS 02/21/24 Transmitted Weaning 06:00 Ventilator Orders RT 02/20/24 Transmitted 15:27 D5w 5% (Dextrose 5%) PHA 02/20/24 In Process W/Dexmedetomidine 17:30 Communication Order ORDERS 02/20/24 Transmitted 17:27 Dietary Evaluation Review Comments: 1) If GI is accessible consider Pivot 1.5 @ 55 ml/hr x24 hr goal rate as tolerated 2) If pt remains NPO >7 days consider TPN to meet at least 75% of estimated goals 3) Advance pt diet when medically feasible to a Cardiac diet modified per JEWEL HOLE FINISH OPENER recommendations 4) Continue current plan of care Expected Outcomes/Goals: 1) Pt to receive nutrition support within 7 days of NPO status 2) Pt diet to advance 3) F/U in 2-3 days Sepsis reassessment post fluid Breath sounds: Clear, Diminished YASHIRA VICK MD Feb 21, 2024 09:12
[2024-02-21 10:08] LABS: Basophils # (auto) 0 10 ^3/uL (0-0.2); Basophils % (auto) 0.4 % (0.0-2.0); Eosinophils # (auto) 0.1 10 ^3/uL (0-0.8); Eosinophils % (auto) 0.7 % (0.0-7.0); Hematocrit 29.2 % (36.0-46.0); Hemoglobin 9.8 g/dL (12.2-16.2); Lymphocytes # (auto) 1.5 10 ^3/uL (0.4-5.4); Lymphocytes % (auto) 14.5 % (10.0-50.0); Mean Corpuscular Hemoglobin 29.9 pg (28.0-32.0); Mean Corpuscular Hgb Conc. 33.7 g/dL (32.0-36.0); Mean Corpuscular Volume 88.9 fL (80.0-100.0); Monocytes # (auto) 0.6 10 ^3/uL (0-1.3); Monocytes % (auto) 6.3 % (0.0-12.0); Neutrophils % (auto) 78.1 % (37.0-80.0); Nucleated Red Blood Cells % 0.5 %; Platelet Count (auto) 181 10^3/uL (140-450); Red Blood Cells 3.29 10^6/uL (4.0-5.20); Red Cell Distribution Width 19.1 % (11.8-14.3); White Blood Cell 10.3 10^3/uL (4.4-10.8)
[2024-02-21 10:27] LABS: INR 1.56 (0.9-1.15); Partial Thromboplastin Time 42.7 SEC (24.5-34.5)
[2024-02-21] MEDS: ACETAMINOPHEN 650 MG RECT SUPP PR PRN (13:21)
--- NOTE | 2024-02-21 14:05 | DVH ---
CHEST RADIOGRAPH Indication:CONFIRM ETT PLACEMENT AFTER IT WAS REPOSITIONED Technique: Single frontal view of the chest was obtained Comparison: XY CHEST PORTABLE on DOS: 02/21/24, XY CHEST XRAY 1 VIEW on DOS: 02/20/24, XY CHEST XRAY 1 VIEW on DOS: 02/19/24 FINDINGS: Lines and Tubes: Endotracheal tube, and enteric tube are in satisfactory position. Right IJ approach central venous catheter terminating of the proximal right atrium. Lungs: No focal consolidation. Unchanged interstitial prominence. Pleura: No effusion. No pneumothorax. Cardiomediastinal contours: Unremarkable Bones: No acute osseous abnormality. Midline sternotomy wires with surgical clips are noted. Cardiac valvular replacement is noted. IMPRESSION: Endotracheal tube and enteric tube are in satisfactory position. Right IJ approach central venous cat heter terminates over the proximal right atrium. Unchanged interstitial opacities.
--- NOTE | 2024-02-21 14:21 | DVHPN2 ---
Progress Note - Dictate Date Seen: Feb 21, 2024 Medical Necessity Reason Pt with a Central, PICC or Fol: Yes The following are medically ne: Central Line, Mccord Catheter Reason for mccord catheter: Total Immobilization Subjective Patient intubated and sedated. vital signs Vital Sign Date Time Temp Pulse Resp B/P (MAP) Pulse Ox O2 Delivery O2 Flow Rate FiO2 02/21/24 14:07 24 100 Mechanical Ventilator+ 35 35 02/21/24 13:37 160/61 02/21/24 13:21 100.6 02/21/24 11:50 77 Total Intake and Output 02/20/24 02/20/24 02/21/24 15:00 23:00 07:00 Intake Total 852.800 ml 805.840 ml 883.232 ml Output Total 625 ml 500 ml Balance 852.800 ml 180.840 ml 383.232 ml medications Current Medications Medications Dose Ordered Sig/Sherwin Route Start Time Stop Time Status Last Admin Dose Admin Propofol 100 ml @ 2.046 mls/ hr Q24H IV 02/18/24 01:00 02/21/24 06:44 10.23 MLS/HR Nitroglycerin 0.4 mg Q5MINP PRN SL 02/18/24 06:45 Morphine Sulfate 2 mg Q30M PRN IV 02/18/24 06:45 Albuterol 2.5 mg Q6HR NEB 02/18/24 12:00 02/21/24 11:51 2.5 MG Ipratropium [place] 0.5 mg Q6HR NEB 02/18/24 12:00 02/21/24 11:51 0.5 MG Ondansetron HCl 4 mg Q6HPRN PRN IV 02/18/24 06:45 Sodium Chloride 1,000 ml @ 75 mls/hr [id number] IV 02/18/24 07:45 02/21/24 08:08 75 MLS/HR Ceftriaxone Sodium 50 ml @ 100 mls/hr DAILY@09 IV 02/18/24 09:00 02/21/24 09:09 100 MLS/HR Azithromycin 250 ml @ 125 mls/hr DAILY IV 02/18/24 10:00 02/21/24 10:04 125 MLS/HR Fentanyl Citrate 250 ml @ 2.5 mls/hr Q24H IV 02/18/24 11:15 02/21/24 05:47 2.5 MLS/HR Hydralazine HCl 10 mg Q6HP PRN IV 02/18/24 16:00 02/20/24 11:07 10 MG Pantoprazole Sodium 40 mg DAILY IV 02/19/24 10:00 02/21/24 09:35 40 MG Heparin Sodium/ Dextrose 250 ml @ 5 mls/hr Q24H IV 02/20/24 04:00 02/21/24 13:37 7 MLS/HR Labetalol HCl 10 mg Q4HPRN PRN IV 02/20/24 16:15 02/21/24 09:54 10 MG Dexmedetomidine HCl 400 mcg/ Dextrose 100 ml @ 3.41 mls/hr Q24H IV 02/20/24 17:30 02/21/24 01:15 3.41 MLS/HR Acetaminophen 650 mg Q8HP PRN NM 02/21/24 11:30 02/21/24 13:21 650 MG objective General: Intubated/sedated Respiratory: Fine bibasilar crackles Cards: RRR Neuro: Sedated laboratory and microbiology Laboratory Tests 02/21/24 09:38 02/21/24 03:34 Test 02/21/24 03:34 Range/Units Serum Glucose 90 74-106 mg/dL Assessment/Plan Primary Diagnosis: Acute Hypoxic and Hypercapnic Respiratory Failure Community Acquired Pneumonia Acute COPD Exacerbation Acute Kidney Injury on CKD Stage 3 Supertheraputic INR New Onset Anemia Secondary Diagnosis; Hx of Mechanical Mitral Valve Replacement Atrial fibrillation Hypertension Hyperlipidemia Assessment/Plan - continue cardiopulmonary monitoring - Patient failed CPAP today due to tachypnea, elevated blood pressure and hypoxia - continue IV abx Rocephin and Azithromycin Day 4, Med Nebs Q 6 Hours, Solu Medrol 125mg IV Q 8 hours - New Onset Anemia, concern for GI bleeding secondary to high INR of 8, 2 units of fresh plasma and 5mg of Vitamin K SQ x 1 on 02/18. No signs of hemodynamic instability at this time. -GI Consulted, no plan for EGD at this time. Hgb stabilizing - daily AM Labs with INR QAM - NPO, IV fluids, Strict I/Os, monitor daily renal functions - Hx of mechanical mitral valve replacement on home Coumadin, INR goal of 2.5- 3.5, holding Coumadin. - Hold home BP medications, Start Hydralazine 10mg IV PRN Q 6 HRS for SBP > 160mmHg. Labetolol added. Full Code DVT Prophy; no anticoagulation, super therapeutic INR. GI Prophy; Protonix 40mg IV daily Dietary Evaluation Review Comments: 1) If GI is accessible consider Pivot 1.5 @ 55 ml/hr x24 hr goal rate as tolerated 2) If pt remains NPO >7 days consider TPN to meet at least 75% of estimated goals 3) Advance pt diet when medically feasible to a Cardiac diet modified per TAPPING MACHINE OPERATOR recommendations 4) Continue current plan of care Expected Outcomes/Goals: 1) Pt to receive nutrition support within 7 days of NPO status 2) Pt diet to advance 3) F/U in 2-3 days Plan discussed with: Other Breath sounds: Clear, Diminished AREN ORELLANA DO Feb 21, 2024 14:21
[2024-02-21] MEDS: HEPARIN DRIP/D5W 100UNITS/ML 250 ML IV SCH (14:30)
--- NOTE | 2024-02-21 18:44 | DVHPN2 ---
Progress Note - Dictate Date Seen: Feb 21, 2024 Medical Necessity Reason Pt with a Central, PICC or Fol: Yes The following are medically ne: Central Line, Mccord Catheter Reason for mccord catheter: Total Immobilization Subjective remains intubated vital signs Vital Sign Date Time Temp Pulse Resp B/P (MAP) Pulse Ox O2 Delivery O2 Flow Rate FiO2 02/21/24 16:11 149/45 02/21/24 15:56 64 24 98 30 02/21/24 15:55 Mechanical Ventilator+ 02/21/24 14:15 100.0 Total Intake and Output 02/20/24 02/20/24 02/21/24 14:59 22:59 06:59 Intake Total 833.500 ml 803.318 ml 982.554 ml Output Total 625 ml 500 ml Balance 833.500 ml 178.318 ml 482.554 ml medications Current Medications Medications Dose Ordered Sig/Sherwin Route Start Time Stop Time Status Last Admin Dose Admin Propofol 100 ml @ 2.046 mls/ hr Q24H IV 02/18/24 01:00 02/21/24 16:11 20.46 MLS/HR Nitroglycerin 0.4 mg Q5MINP PRN SL 02/18/24 06:45 Morphine Sulfate 2 mg Q30M PRN IV 02/18/24 06:45 Ondansetron HCl 4 mg Q6HPRN PRN IV 02/18/24 06:45 Sodium Chloride 1,000 ml @ 75 mls/hr [id number] IV 02/18/24 07:45 02/21/24 08:08 75 MLS/HR Ceftriaxone Sodium 50 ml @ 100 mls/hr DAILY@09 IV 02/18/24 09:00 02/21/24 09:09 100 MLS/HR Azithromycin 250 ml @ 125 mls/hr DAILY IV 02/18/24 10:00 02/21/24 10:04 125 MLS/HR Fentanyl Citrate 250 ml @ 2.5 mls/hr Q24H IV 02/18/24 11:15 02/21/24 05:47 2.5 MLS/HR Hydralazine HCl 10 mg Q6HP PRN IV 02/18/24 16:00 02/20/24 11:07 10 MG Pantoprazole Sodium 40 mg DAILY IV 02/19/24 10:00 02/21/24 09:35 40 MG Labetalol HCl 10 mg Q4HPRN PRN IV 02/20/24 16:15 02/21/24 09:54 10 MG Dexmedetomidine HCl 400 mcg/ Dextrose 100 ml @ 3.41 mls/hr Q24H IV 02/20/24 17:30 02/21/24 01:15 3.41 MLS/HR Acetaminophen 650 mg Q8HP PRN [place] 02/21/24 11:30 02/21/24 13:21 650 MG Heparin Sodium/ Dextrose 250 ml @ 7 mls/hr Q24H IV 02/21/24 14:30 Albuterol 2.5 mg Q4HR NEB 02/21/24 18:00 Ipratropium [place] 0.5 mg Q4HR NEB 02/21/24 18:00 objective Morbidly obese white female Intubated Not on pressors Sedated Blood pressure stable Positive murmur No crackles Bruising on her chest and hands Mccord catheter laboratory and microbiology Laboratory Tests 02/21/24 09:38 02/21/24 03:34 Test 02/21/24 03:34 Range/Units Serum Glucose 90 74-106 mg/dL Assessment/Plan Acute kidney injury likely hemodynamically mediated Chronic kidney disease stage 2/3 Acute respiratory failure in the setting of possible COPD exacerbation Acute anemia unspecified Pneumonia mechanical valve renal function normalizing IV fluid hydration Not on pressors Monitoring urinary output keep MAP > 65 Gastroenterology on the case RAYMOND resolving Dc IVF. monitor fluid balance use lasix PRN stable from renal standpoint Critical care time spent 35 minutes Dietary Evaluation Review Comments: 1) If GI is accessible consider Pivot 1.5 @ 55 ml/hr x24 hr goal rate as tolerated 2) If pt remains NPO >7 days consider TPN to meet at least 75% of estimated goals 3) Advance pt diet when medically feasible to a Cardiac diet modified per ASSISTANT BRAND MANAGER recommendations 4) Continue current plan of care Expected Outcomes/Goals: 1) Pt to receive nutrition support within 7 days of NPO status 2) Pt diet to advance 3) F/U in 2-3 days Plan discussed with: Other Breath sounds: Clear, Diminished CHARLI WINN MD Feb 21, 2024 18:44
[2024-02-21 18:53] LABS: INR 1.42 (0.9-1.15); Partial Thromboplastin Time 46.5 SEC (24.5-34.5); Prothrombin Time 14.7 sec (9.3-11.8)
[2024-02-21] MEDS: IPRATROPIUM BROM 0.5 MG/2.5ML INH SOL NEB SCH (19:30)
[2024-02-21] MEDS: ALBUTEROL SULF 2.5 MG/0.5ML(0.5%) NEB SOLN NEB SCH (19:31)
[2024-02-21 22:57] LABS: INR 1.41 (0.9-1.15); Partial Thromboplastin Time 50.5 SEC (24.5-34.5); Prothrombin Time 14.6 sec (9.3-11.8)
[2024-02-22] VITALS (108 sets, daily range): BP systolic 109–204; BP diastolic 30–65; PULSE 59–132; RESP 11–32; TEMP 97.2–100.4; O2SAT 82–100
[2024-02-22 04:24] LABS: Basophils # (auto) 0 10 ^3/uL (0-0.2); Eosinophils # (auto) 0.2 10 ^3/uL (0-0.8); Hemoglobin 7.8 g/dL (12.2-16.2); Lymphocytes # (auto) 0.4 10 ^3/uL (0.4-5.4); Monocytes # (auto) 0.5 10 ^3/uL (0-1.3); Monocytes % (auto) 8.7 % (0.0-12.0); White Blood Cell 5.5 10^3/uL (4.4-10.8)
[2024-02-22 04:26] LABS: Basophils % (auto) 0.2 % (0.0-2.0); Eosinophils % (auto) 2.7 % (0.0-7.0); Hematocrit 23.5 % (36.0-46.0); Lymphocytes % (auto) 7.8 % (10.0-50.0); Mean Corpuscular Hemoglobin 28.9 pg (28.0-32.0); Mean Corpuscular Hgb Conc. 33.2 g/dL (32.0-36.0); Neutrophils # (auto) 4.4 10 ^3/uL (1.6-8.6); Neutrophils % (auto) 80.6 % (37.0-80.0); Nucleated Red Blood Cells % 0.2 %; Platelet Count (auto) 137 10^3/uL (140-450); Red Cell Distribution Width 18.7 % (11.8-14.3)
[2024-02-22 04:41] LABS: INR 1.36 (0.9-1.15); Partial Thromboplastin Time 50.6 SEC (24.5-34.5); Prothrombin Time 14.1 sec (9.3-11.8)
[2024-02-22 04:45] LABS: Alanine Aminotransferase 16 U/L (7-40); Albumin 3.3 g/dL (3.2-4.8); Alkaline Phosphatase 70 U/L (46-116); Anion Gap 8 (5-15); Aspartate Aminotransferase 42 U/L (13-40); BUN/Creatinine Ratio 37.1 (10.0-20.0); Calcium 8.5 mg/dL (8.7-10.4); Carbon Dioxide 23 mmol/L (20-31); Chloride 111 mmol/L (98-107); Glucose 82 mg/dL (74-106); Potassium 4.3 mmol/L (3.5-5.1); Sodium 142 mmol/L (136-145)
[2024-02-22 04:46] LABS: Bilirubin, Total 1.2 mg/dL (0.2-1.0); Total Protein 5.3 g/dL (5.7-8.2)
[2024-02-22 04:51] LABS: Blood Urea Nitrogen 43 mg/dL (9-23)
--- NOTE | 2024-02-22 05:32 | DVH ---
EXAM: XY CHEST PORTABLE Indication:PATIENT INTUBATED Technique: Single frontal view of the chest was obtained Comparison: XY CHEST PORTABLE on DOS: 02/21/24, XY CHEST PORTABLE on DOS: 02/21/24, XY CHEST XRAY 1 V IEW on DOS: 02/20/24, XY CHEST XRAY 1 VIEW on DOS: 02/19/24, XY CHEST XRAY 1 VIEW on DOS: 02/18/24, X Y CHEST PORTABLE on DOS: 02/21/24 FINDINGS: Lines and Tubes: Endotracheal tube, and enteric tube are in satisfactory position. Right IJ approach central venous catheter terminating of the proximal cavoatrial junction. Lungs: Diffuse interstitial opacities. Pleura: No effusion. No pneumothorax. Cardiomediastinal contours: Unchanged. Bones: No acute osseous abnormality. Midline sternotomy wires with surgical clips are noted. Cardiac valvular replacement is noted. IMPRESSION: No significant change compared to prior exam.
[2024-02-22 07:37] LABS: Base Excess -3.7 mmol/L (-2.0-3.0)
[2024-02-22 10:44] LABS: INR 1.29 (0.9-1.15); Partial Thromboplastin Time 52.2 SEC (24.5-34.5); Prothrombin Time 13.4 sec (9.3-11.8)
[2024-02-22] MEDS: Jevity 1.2 Cal/Fiber 1 Liter NG SCH (12:47)
[2024-02-22] MEDS: HEPARIN DRIP/D5W 100UNITS/ML 250 ML IV SCH (13:03)
--- NOTE | 2024-02-22 14:38 | DVHPN2 ---
Progress Note - Dictate Date Seen: Feb 22, 2024 Medical Necessity Reason Pt with a Central, PICC or Fol: Yes The following are medically ne: Central Line, Mccord Catheter Reason for mccord catheter: Total Immobilization Subjective Patient intubated and sedated. vital signs Vital Sign Date Time Temp Pulse Resp B/P (MAP) Pulse Ox O2 Delivery O2 Flow Rate FiO2 02/22/24 14:15 102 11 151/55 (87) 96 02/22/24 14:00 Mechanical Ventilator+ 35 35 02/22/24 14:00 100.4 100.4 Total Intake and Output 02/21/24 02/21/24 02/22/24 15:00 23:00 07:00 Intake Total 437.830 ml 208.535 ml 224.085 ml Output Total 700 ml 600 ml Balance 437.830 ml -491.465 ml -375.915 ml medications Current Medications Medications Dose Ordered Sig/[place]win Route Start Time Stop Time Status Last Admin Dose Admin Propofol 100 ml @ 2.046 mls/ hr Q24H IV 02/18/24 01:00 02/22/24 07:53 14.322 MLS/HR Nitroglycerin 0.4 mg Q5MINP PRN SL 02/18/24 06:45 Morphine Sulfate 2 mg Q30M PRN IV 02/18/24 06:45 Ondansetron HCl 4 mg Q6HPRN PRN IV 02/18/24 06:45 Ceftriaxone Sodium 50 ml @ 100 mls/hr DAILY@09 IV 02/18/24 09:00 02/22/24 08:01 100 MLS/HR Azithromycin 250 ml @ 125 mls/hr DAILY IV 02/18/24 10:00 02/22/24 09:30 125 MLS/HR Fentanyl Citrate 250 ml @ 2.5 mls/hr Q24H IV 02/18/24 11:15 02/21/24 05:47 2.5 MLS/HR Hydralazine HCl 10 mg Q6HP PRN IV 02/18/24 16:00 02/22/24 09:31 10 MG Pantoprazole Sodium 40 mg DAILY IV 02/19/24 10:00 02/22/24 09:29 40 MG Labetalol HCl 10 mg Q4HPRN PRN IV 02/20/24 16:15 02/22/24 12:01 10 MG Dexmedetomidine HCl 400 mcg/ Dextrose 100 ml @ 3.41 mls/hr Q24H IV 02/20/24 17:30 02/22/24 00:45 3.41 MLS/HR Acetaminophen 650 mg Q8HP PRN [place] 02/21/24 11:30 02/21/24 13:21 650 MG Albuterol 2.5 mg Q4HR NEB 02/21/24 18:00 02/22/24 13:58 2.5 MG Ipratropium [place] 0.5 mg Q4HR NEB 02/21/24 18:00 02/22/24 13:58 0.5 MG Enteral Nutritional Formula 1,000 ml 40ML/HR NG 02/22/24 11:30 02/22/24 12:47 1,000 ML Heparin Sodium/ Dextrose 250 ml @ 9 mls/hr Q24H IV 02/22/24 13:00 02/22/24 13:03 9 MLS/HR objective General: Intubated/sedated Respiratory: Fine bibasilar crackles Cards: RRR Neuro: Sedated laboratory and microbiology Laboratory Tests 02/22/24 03:23 Test 02/22/24 03:23 Range/Units Serum Glucose 82 74-106 mg/dL Assessment/Plan Primary Diagnosis: Acute Hypoxic and Hypercapnic Respiratory Failure Community Acquired Pneumonia Acute COPD Exacerbation Acute Kidney Injury on CKD Stage 3 Supertheraputic INR New Onset Anemia Secondary Diagnosis; Hx of Mechanical Mitral Valve Replacement Atrial fibrillation Hypertension Hyperlipidemia Assessment/Plan - continue cardiopulmonary monitoring - Patient failed CPAP today - continue IV abx Rocephin and Azithromycin, MedNebs - New Onset Anemia, concern for GI bleeding secondary to high INR of 8, 2 units of fresh plasma and 5mg of Vitamin K SQ x 1 on 02/18. No signs of hemodynamic instability at this time. -GI Consulted, no plan for EGD at this time. Hgb stabilizing - daily AM Labs with INR QAM - NPO, IV fluids, Strict I/Os, monitor daily renal functions - Hx of mechanical mitral valve replacement on home Coumadin, INR goal of 2.5- 3.5, holding Coumadin. - Hold home BP medications, Start Hydralazine 10mg IV PRN Q 6 HRS for SBP > 160mmHg. Labetolol added. -Discussed plan of care with daughters at bedside Full Code DVT Prophy; no anticoagulation, super therapeutic INR. GI Prophy; Protonix 40mg IV daily Dietary Evaluation Review Comments: 1) If GI is accessible consider Pivot 1.5 @ 55 ml/hr x24 hr goal rate as tolerated 2) If pt remains NPO >7 days consider TPN to meet at least 75% of estimated goals 3) Advance pt diet when medically feasible to a Cardiac diet modified per CURVE CLEANER recommendations 4) Continue current plan of care Expected Outcomes/Goals: 1) Pt to receive nutrition support within 7 days of NPO status 2) Pt diet to advance 3) F/U in 2-3 days Plan discussed with: Daughter Breath sounds: Clear, Diminished AREN ORELLANA DO Feb 22, 2024 14:38
--- NOTE | 2024-02-22 21:38 | DVHINCON2 ---
Date of service: Feb 22, 2024 Referring Physician Flakita Khan MD Reason for Consultation Acute hypoxic respiratory failure requiring mechanical ventilator, pneumonia and COPD History of Present Illness A 68-year-old woman with past medical history of CHF, hypertension, hyperlipidemia, COPD, on 3 L supplemental oxygen at home, who was brought to the ED on 02/18/24 complaining of shortness of breath despite using her oxygen. EMS started pt on 10 liters and gave nebulizer treatment, however pt continued to be in severe respiratory distress. Patient was thus intubated, placed on mechanical vent and admitted for further care. Pulmonary consultation is requested for evaluation and management due to acute hypoxic respiratory failure requiring mechanical ventilator, pneumonia and COPD. Review of Systems: 14-point review of systems negative unless otherwise noted above. Past Medical History: COPD, CHF, HTN, Hyperlipidemia Past Surgical History: Mitral valve replacement Medications: Reviewed. Allergies: No known drug allergies. Family History: Father with brain cancer, mother with dementia. Social History: Nonsmoker. No alcohol or illicit drug use. Family History: FH: brain cancer G8 FATHER, Onset:Unknown FH: dementia G8 MOTHER, Onset:Unknown Allergies: Coded Allergies: NO KNOWN ALLERGIES (Unverified , 06/12/22) Home Meds Active Scripts Empagliflozin (Jardiance) 10 Mg Tab, 10 MG PO DAILY for 30 Days, #30 TAB Prov:DEE JOE RESIDENT 07/28/23 Reported Medications Fluticasone-Salmeterol (Fluticasone Propionate/SA 500-50 Mcg/Dose) 1 Aer Aer, 1 PUFF INH BID for 30 Days, #60 02/20/24 Albuterol Sulfate (Albuterol Sulfate Hfa) 108 Mcg/Act Aer, 2 PUFF INH Q4HR PRN for 50 Days, #25.5 02/20/24 Tiotropium [place] Monohydrate (Spiriva Respimat) 2.5 Mcg/Act Spr, 2 PUFF INH DAILY for 90 Days, #12 02/20/24 Ipratropium [place] Hfa (Atrovent Hfa) 17 Mcg Aer, 1 PUFF INH QID for 30 Days, #12.9 02/20/24 Torsemide (Torsemide) 20 Mg Tab, 1 TAB PO DAILY for 90 Days, #90 02/20/24 Nifedipine (Nifedipine Er) 60 Mg Tab, 1 TAB PO DAILY for 60 Days, #60 11/14/24 Warfarin Sodium (Warfarin Sodium) 6 Mg Tab, 1 TAB PO DAILY for 90 Days, #90 02/20/24 Warfarin Sodium (Warfarin Sodium) 2 Mg Tab, 1 TAB PO DAILY for 90 Days, #90 02/20/24 Atorvastatin Calcium (ATORVASTATIN CALCIUM) 20 Mg Tab, 1 TAB PO DAILY for 90 Days, #90 07/23/23 Spironolactone (Spironolactone) 50 Mg Tab, 1 TAB PO DAILY for 90 Days, #90 07/23/23 Metoprolol Succinate (Metoprolol Succinate Er) 50 Mg Tab, 1 TAB PO BID for 90 Days, #180 07/23/23 Gabapentin (Gabapentin) 100 Mg Cap, 1 CAP PO TID for 30 Days, #90 06/08/22 Losartan Potassium (Losartan Potassium) 25 Mg Tab, 3 TAB PO DAILY 06/08/22 Amlodipine Besylate (Amlodipine Besylate) 10 Mg Tab, 1 TAB PO DAILY 06/08/22 Latanoprost (LATANOPROST) 0.005 % Diane, 1 DROP EACHEYE HS for 30 Days, #2.5 PLACE 1 DROP INTO AFFECTED EYE(S) AT BEDTIME. 06/08/22 Fish Oil (Fish Oil) 1,200 Mg Cap 01/03/10 Current Medications Current Medications Medications (Trade) Dose Ordered Sig/Sherwin Route PRN Reason Start Time Stop Time Status Last Admin Enteral Nutritional Formula (Jevity 1.2 Job/ Fiber) 1,000 ml 40ML/HR NG 02/22/24 11:30 02/22/24 12:47 Heparin Sodium/ Dextrose 250 ml @ 9 mls/hr Q24H IV 02/22/24 13:00 02/22/24 13:03 Vital Signs Vital Signs Date Time Temp Pulse Resp B/P (MAP) Pulse Ox O2 Delivery O2 Flow Rate FiO2 02/22/24 20:57 152/43 02/22/24 20:30 77 24 94 02/22/24 20:10 35 02/22/24 20:00 99.3 99.3 02/22/24 20:00 Mechanical Ventilator+ Physical Exam Gen.: Patient lying in bed in medical ICU. Sedated, intubated on mechanical ventilator. Head: Normocephalic, atraumatic. Eyes: PERRLA. Ears: Normal external anatomy. Throat: Endotracheal tube and orogastric tube in place. Neck: Supple, trachea midline. Chest: Transmitted breath sounds bilaterally. Decreased air entry bilaterally. No wheezing. Bibasilar crackles. Cardiovascular: Positive S1, positive S2. Regular rate and rhythm. Abdomen: Positive bowel sounds in all 4 quadrants. Soft, nontender, non distended. : Sam in place. Normal external genitalia. Rectal: Deferred. Skin: Warm, dry. Intact. Extremities: 2+ radial pulses bilaterally. No lower extremity edema. Neuro: Sedated. Labs/Diagnostic Data Labs Test 02/22/24 10:10 02/22/24 07:04 02/22/24 03:23 02/19/24 11:46 Range/Units Prothrombin Time 13.4 H 9.3-11.8 sec Prothrombin Time INR 1.29 H 0.9-1.15 Activated Partial Thromboplast Time 52.2 H 24.5-34.5 SEC Blood Gas Specimen Type Arterial Blood Gas Sample Site Right radial Blood Gas Patient Temperature 37.0 Arterial Blood Date Drawn [id number] Arterial Blood pH 7.369 7.350-7.450 Arterial Blood Partial Pressure CO2 37.5 32.0-45.0 mmHg Arterial Blood Partial Pressure O2 71.4 L 83.0-108.0 mmHg Arterial Blood HCO3 21.1 21.0-28.0 mmol/L Arterial Blood Oxygen Saturation 93.2 L 94.0-98.0 % Arterial Blood Base Excess -3.7 L -2.0-3.0 mmol/L Arterial Blood Oxyhemoglobin 91.7 L 94.0-98.0 % Arterial Blood Carboxyhemoglobin 1.3 0.5-1.5 % Arterial Blood Methemoglobin 0.3 0.0-1.5 % Christos Test Modified Blood Gas Total Hemoglobin 9.70 L 12.0-16.0 g/dL Blood Gas Set Respiration Rate 24.0 Blood Gas Modality Vent - ac FiO2 % 35.0 Blood Gas Tidal Volume 450.0 Blood Gas PEEP or CPAP 5.0 White Blood Count 5.5 # 4.4-10.8 10^3/uL Red Blood Count 2.70 L 4.0-5.20 10^6/uL Hemoglobin 7.8 #L 12.2-16.2 g/dL Hematocrit 23.5 #L 36.0-46.0 % Mean Corpuscular Volume 87.0 80.0-100.0 fL Mean Corpuscular Hemoglobin 28.9 28.0-32.0 pg Mean Corpuscular Hemoglobin Concent 33.2 32.0-36.0 g/dL Red Cell Distribution Width 18.7 H 11.8-14.3 % Platelet Count 137 L 140-450 10^3/uL Mean Platelet Volume 8.2 6.9-10.8 fL Neutrophils (%) (Auto) 80.6 H 37.0-80.0 % Lymphocytes (%) (Auto) 7.8 L 10.0-50.0 % Monocytes (%) (Auto) 8.7 0.0-12.0 % Eosinophils (%) (Auto) 2.7 0.0-7.0 % Basophils (%) (Auto) 0.2 0.0-2.0 % Neutrophils # (Auto) 4.4 1.6-8.6 10 ^3/uL Lymphocytes # (Auto) 0.4 0.4-5.4 10 ^3/uL Monocytes # (Auto) 0.5 0-1.3 10 ^3/uL Eosinophils # (Auto) 0.2 0-0.8 10 ^3/uL Basophils # (Auto) 0 0-0.2 10 ^3/uL Nucleated Red Blood Cells 0.2 % Sodium Level 142 136-145 mmol/L Potassium Level 4.3 3.5-5.1 mmol/L Chloride Level 111 H 98-107 mmol/L Carbon Dioxide Level 23 20-31 mmol/L Anion Gap 8 5-15 Blood Urea Nitrogen 43 #H 9-23 mg/dL Creatinine 1.16 H 0.550-1.02 mg/dL Glomerular Filtration Rate Calc 51 >90 mL/min BUN/Creatinine Ratio 37.1 H 10.0-20.0 Serum Glucose 82 74-106 mg/dL Calcium Level 8.5 L 8.7-10.4 mg/dL Total Bilirubin 1.2 H 0.2-1.0 mg/dL Aspartate Amino Transferase (AST) 42 H 13-40 U/L Alanine Aminotransferase (ALT) 16 7-40 U/L Alkaline Phosphatase 70 46-116 U/L Total Protein 5.3 L 5.7-8.2 g/dL Albumin 3.3 3.2-4.8 g/dL Iron Level 14 L 50-170 ug/dL Total Iron Binding Capacity 284 250-425 ug/dL Percent Iron Saturation 4.9 L 15-50 % Test 02/19/24 03:14 02/18/24 19:07 02/18/24 08:20 02/18/24 03:54 Range/Units Differential Total Cells Counted 100.0 100 Neutrophils % (Manual) 97 H 37.0-80.0 Band Neutrophils % (Manual) 2 Lymphocytes % (Manual) 1 L 10.0-50.0 Monocytes % (Manual) 0 0-12 Eosinophils % (Manual) 0 0-7 Basophils % (Manual) 0 0.0-2.0 Metamyelocytes % (manual) 0 Myelocytes % (Manual) 0 Promyelocytes % (Manual) 0 Blast Cells % (Manual) 0 Reactive Lymphocytes 0 Platelet Estimate Adequate Anisocytosis (manual) Slight Reticulocyte Count (auto) 3.19 H 0.5-1.5 % Magnesium Level 2.7 H 1.6-2.6 mg/dL Blood Gas Notified Time [id number] Influenza Type A Antigen Negative Negative Influenza Type B Antigen Negative Negative SARS-CoV-2 Antigen (Rapid) Negative NEGATIVE Troponin I High Sensitivity 34 </=34 ng/L Test 02/18/24 02:28 02/18/24 02:10 02/18/24 01:45 02/18/24 01:08 Range/Units Lactic Acid Level 1.2 0.4-2.0 mmol/L Blood Gas Critical Value Read Back Yes Blood Gas Notified Whom tl Abebe md Blood Gas Notified By ruthann Jones rrt Urine Color Yellow Yellow Urine Clarity Clear Clear Urine pH 6.0 5.0-9.0 Urine Specific Gile 1.016 1.001-1.035 Urine Protein 3+ H Negative Urine Ketones Negative Negative Urine Blood 3+ H Negative /uL Urine Nitrite Negative Negative Urine Bilirubin Negative Negative Urine Urobilinogen Normal Negative mg/dL Urine Leukocyte Esterase Negative Negative /uL Urine RBC 23 0 - 4 /hpf Urine WBC 9 0 - 5 /hpf Urine Squamous Epithelial Cells Few <5 /hpf Urine Amorphous Crystals Few None Seen /hpf Urine Bacteria Few H None Seen /hpf Urine Hyaline Casts Mod 0 - 2 /lpf Urine Mucus Few None Seen Urine Glucose 1+ H Normal mg/dL Large Platelets Few B-Type Natriuretic Peptide 293.82 0-100 pg/mL Microbiology Date/Time Source Procedure Growth Status 02/21/24 13:45 Blood Blood Culture - Preliminary NO GROWTH AFTER 24 HOURS OF INCUBATION. Resulted 02/18/24 11:00 Nose MRSA Screen - Final Complete 02/18/24 01:00 Sputum Gram Stain - Final Complete 02/18/24 01:00 Sputum Respiratory Culture - Final Complete Assessment Impression: Acute hypoxic respiratory failure On mechanical ventilator Mitral valve replacement Pneumonia, likely gram negative. COPD Congestive heart failure Atrial fibrillation Plan: s/p intubation on mechanical ventilator. ABG reviewed, compensated. On AC mode; RR 24, VT 450, PEEP 5, FiO2 35%. Titrate FIO2 to keep O2 saturation above 90%. VAP bundle. Daily ABG and CXR while intubated Sedated for ventilator synchrony- On Propofol and Fentanyl. Continue antibiotics. F/u cultures. Start pressors if necessary to maintain a mean arterial blood pressure greater than 65 mmHg. Heparin drip Tube feeds for nutritional support Patient failed CPAP - lasted 20 minutes Plan for CPAP trial in AM. Monitor renal function Monitor electrolytes. Supplement as necessary. Monitor ins and outs. Maintain euvolemia. GI prophylaxis. DVT prophylaxis. Prognosis: Poor given patient's multiple co-morbidities. Condition: Critical Rest of plan per hospitalist and other consultants. A total of 35 minutes of critical care time was spent reviewing the patient record, examining the patient, making a diagnostic and therapeutic plan, discussing this plan with the medical personnel, following up on diagnostic studies and following the patient for clinical stability excluding any and all procedures. At least 50% of this time was spent in direct, [id number] contact. Thank you Dr. Flakita Khan MD, for allowing me to participate in this patient's care. Further recommendations will depend on the patient's clinical course. Please do not hesitate to contact me if you have any questions or concerns. This medical document was created using an electronic medical record system with [employer] dictation system. Although these documentations are being carefully reviewed, there may still be some phonetic and typographical changes. The errors are purely typographical, due to imperfection on the software program, and do not reflect any compromise in the patient's medical care. Plan discussed with: Other (Bill Jeong MD) PRAVEEN NGUYEN MD Feb 22, 2024 21:38
[2024-02-23] VITALS (108 sets, daily range): BP systolic 119–220; BP diastolic 30–87; PULSE 63–132; RESP 13–38; TEMP 98.1–100.2; O2SAT 86–100
[2024-02-23 03:34] LABS: Basophils # (auto) 0 10 ^3/uL (0-0.2); Eosinophils # (auto) 0.1 10 ^3/uL (0-0.8); Hemoglobin 7.6 g/dL (12.2-16.2); Monocytes # (auto) 0.4 10 ^3/uL (0-1.3)
[2024-02-23 03:40] LABS: Basophils % (auto) 0.2 % (0.0-2.0); Eosinophils % (auto) 2.5 % (0.0-7.0); Hematocrit 22.5 % (36.0-46.0); Lymphocytes # (auto) 0.4 10 ^3/uL (0.4-5.4); Lymphocytes % (auto) 8.9 % (10.0-50.0); Mean Corpuscular Hgb Conc. 33.6 g/dL (32.0-36.0); Mean Corpuscular Volume 86.3 fL (80.0-100.0); Monocytes % (auto) 7.6 % (0.0-12.0); Neutrophils % (auto) 80.8 % (37.0-80.0); Nucleated Red Blood Cells % 0.3 %; Platelet Count (auto) 132 10^3/uL (140-450); Red Blood Cells 2.61 10^6/uL (4.0-5.20); White Blood Cell 4.9 10^3/uL (4.4-10.8)
[2024-02-23 03:54] LABS: Alanine Aminotransferase 40 U/L (7-40); Albumin 3.3 g/dL (3.2-4.8); Alkaline Phosphatase 169 U/L (46-116); Anion Gap 8 (5-15); Aspartate Aminotransferase 50 U/L (13-40); BUN/Creatinine Ratio 31.9 (10.0-20.0); Bilirubin, Total 1.2 mg/dL (0.2-1.0); Blood Urea Nitrogen 38 mg/dL (9-23); Calcium 8.6 mg/dL (8.7-10.4); Carbon Dioxide 24 mmol/L (20-31); Chloride 111 mmol/L (98-107); Glucose 126 mg/dL (74-106); Potassium 4.7 mmol/L (3.5-5.1); Sodium 143 mmol/L (136-145); Total Protein 5.4 g/dL (5.7-8.2)
[2024-02-23 04:02] LABS: INR 1.13 (0.9-1.15); Partial Thromboplastin Time 54.2 SEC (24.5-34.5); Prothrombin Time 11.9 sec (9.3-11.8)
--- NOTE | 2024-02-23 05:47 | DVH ---
EXAM: XY CHEST PORTABLE Indication:patient intubated Technique: Single frontal view of the chest was obtained Comparison: XY CHEST PORTABLE on DOS: 02/22/24, XY CHEST PORTABLE on DOS: 02/21/24, XY CHEST PORTABLE on DOS: 02/21/24, XY CHEST XRAY 1 VIEW on DOS: 02/20/24, XY CHEST XRAY 1 VIEW on DOS: 02/19/24, XY C HEST PORTABLE on DOS: 02/21/24 FINDINGS: Lines and Tubes: Endotracheal tube, and enteric tube are in satisfactory position. Right IJ approach central venous catheter terminating of the proximal right atrium. Lungs: Unchanged interstitial prominence. Pleura: No effusion. No pneumothorax. Cardiomediastinal contours: Unremarkable Bones: No acute osseous abnormality. Midline sternotomy wires with surgical clips are noted. Cardiac valvular replacement is noted. IMPRESSION: No significant change compared to prior exam.
[2024-02-23 12:20] LABS: Base Excess -3.5 mmol/L (-2.0-3.0)
--- NOTE | 2024-02-23 14:43 | DVHPN2 ---
Progress Note - Dictate Date Seen: Feb 23, 2024 Medical Necessity Reason Pt with a Central, PICC or Fol: Yes The following are medically ne: Central Line, Mccord Catheter Reason for mccord catheter: Total Immobilization Subjective Patient intubated and sedated. vital signs Vital Sign Date Time Temp Pulse Resp B/P (MAP) Pulse Ox O2 Delivery O2 Flow Rate FiO2 02/23/24 14:10 101 26 176/54 (94) 91 35 02/23/24 14:00 Mechanical Ventilator+ 02/23/24 13:00 99.5 99.5 Total Intake and Output 02/22/24 02/22/24 02/23/24 15:00 23:00 07:00 Intake Total 505 ml 430.854 ml 598.286 ml Output Total 625 ml 500 ml Balance 505 ml -194.146 ml 98.286 ml medications Current Medications Medications Dose Ordered Sig/Sherwin Route Start Time Stop Time Status Last Admin Dose Admin Propofol 100 ml @ 2.046 mls/ hr Q24H IV 02/18/24 01:00 02/23/24 08:30 8.184 MLS/HR Nitroglycerin 0.4 mg Q5MINP PRN SL 02/18/24 06:45 Morphine Sulfate 2 mg Q30M PRN IV 02/18/24 06:45 Ondansetron HCl 4 mg Q6HPRN PRN IV 02/18/24 06:45 Ceftriaxone Sodium 50 ml @ 100 mls/hr DAILY@09 IV 02/18/24 09:00 02/23/24 08:26 100 MLS/HR Azithromycin 250 ml @ 125 mls/hr DAILY IV 02/18/24 10:00 02/23/24 09:03 125 MLS/HR Fentanyl Citrate 250 ml @ 2.5 mls/hr Q24H IV 02/18/24 11:15 02/23/24 12:58 2.5 MLS/HR Hydralazine HCl 10 mg Q6HP PRN IV 02/18/24 16:00 02/23/24 09:31 10 MG Pantoprazole Sodium 40 mg DAILY IV 02/19/24 10:00 02/23/24 09:03 40 MG Labetalol HCl 10 mg Q4HPRN PRN IV 02/20/24 16:15 02/23/24 11:26 10 MG Dexmedetomidine HCl 400 mcg/ Dextrose 100 ml @ 3.41 mls/hr Q24H IV 02/20/24 17:30 02/23/24 06:38 8.525 MLS/HR Acetaminophen 650 mg Q8HP PRN OR 02/21/24 11:30 02/21/24 13:21 650 MG Albuterol 2.5 mg Q4HR NEB 02/21/24 18:00 02/23/24 14:13 2.5 MG Ipratropium [place] 0.5 mg Q4HR NEB 02/21/24 18:00 02/23/24 14:13 0.5 MG Enteral Nutritional Formula 1,000 ml 40ML/HR NG 02/22/24 11:30 02/22/24 12:47 1,000 ML Heparin Sodium/ Dextrose 250 ml @ 9 mls/hr Q24H IV 02/22/24 13:00 02/23/24 12:57 9 MLS/HR objective General: Intubated/sedated Respiratory: Fine bibasilar crackles Cards: RRR Neuro: Sedated laboratory and microbiology Laboratory Tests 02/23/24 03:05 Test 02/23/24 03:05 Range/Units Serum Glucose 126 H 74-106 mg/dL Assessment/Plan Primary Diagnosis: Acute Hypoxic and Hypercapnic Respiratory Failure Community Acquired Pneumonia Acute COPD Exacerbation Acute Kidney Injury on CKD Stage 3 Supertheraputic INR New Onset Anemia Secondary Diagnosis; Hx of Mechanical Mitral Valve Replacement Atrial fibrillation Hypertension Hyperlipidemia Assessment/Plan - continue cardiopulmonary monitoring - Patient failed CPAP today again - continue IV abx Rocephin and Azithromycin, MedNebs - New Onset Anemia, concern for GI bleeding secondary to high INR of 8, 2 units of fresh plasma and 5mg of Vitamin K SQ x 1 on 02/18. No signs of hemodynamic instability at this time. -GI Consulted, no plan for EGD at this time. Hgb in mid 7's without gross signs of bleeding - daily AM Labs with INR QAM - IV fluids, Strict I/Os, monitor daily renal functions - Hx of mechanical mitral valve replacement on home Coumadin, INR goal of 2.5- 3.5, holding Coumadin. - Hold home BP medications, Start Hydralazine 10mg IV PRN Q 6 HRS for SBP > 160mmHg. Labetolol added. -Tube feeds started Full Code DVT Prophy; no anticoagulation, super therapeutic INR. GI Prophy; Protonix 40mg IV daily Dietary Evaluation Review Comments: 1) If GI is accessible consider Pivot 1.5 @ 55 ml/hr x24 hr goal rate as tolerated 2) If pt remains NPO >7 days consider TPN to meet at least 75% of estimated goals 3) Advance pt diet when medically feasible to a Cardiac diet modified per SLITTING MACHINE FEEDER recommendations 4) Continue current plan of care Expected Outcomes/Goals: 1) Pt to receive nutrition support within 7 days of NPO status 2) Pt diet to advance 3) F/U in 2-3 days Plan discussed with: Other Breath sounds: Clear, Diminished AREN ORELLANA DO Feb 23, 2024 14:43
--- NOTE | 2024-02-23 21:29 | DVHPN2 ---
Progress Note - Dictate Date Seen: Feb 23, 2024 Medical Necessity Reason Pt with a Central, PICC or Fol: Yes The following are medically ne: Central Line, Mccord Catheter Reason for mccord catheter: Strict I&O, Total Immobilization Subjective Patient seen and examined at bedside. Sedated, intubated on mechanical ventilator. Overnight events reviewed. vital signs Vital Sign Date Time Temp Pulse Resp B/P (MAP) Pulse Ox O2 Delivery O2 Flow Rate FiO2 02/23/24 20:43 71 24 131/37 94 35 02/23/24 18:00 Mechanical Ventilator+ 02/23/24 18:00 99.3 99.3 Total Intake and Output 02/22/24 02/22/24 02/23/24 15:00 23:00 07:00 Intake Total 505 ml 430.854 ml 598.286 ml Output Total 625 ml 500 ml Balance 505 ml -194.146 ml 98.286 ml medications Current Medications Medications Dose Ordered Sig/Sherwin Route Start Time Stop Time Status Last Admin Dose Admin Propofol 100 ml @ 2.046 mls/ hr Q24H IV 02/18/24 01:00 02/23/24 19:42 20.46 MLS/HR Nitroglycerin 0.4 mg Q5MINP PRN SL 02/18/24 06:45 Morphine Sulfate 2 mg Q30M PRN IV 02/18/24 06:45 Ondansetron HCl 4 mg Q6HPRN PRN IV 02/18/24 06:45 Ceftriaxone Sodium 50 ml @ 100 mls/hr DAILY@09 IV 02/18/24 09:00 02/23/24 08:26 100 MLS/HR Azithromycin 250 ml @ 125 mls/hr DAILY IV 02/18/24 10:00 02/23/24 09:03 125 MLS/HR Fentanyl Citrate 250 ml @ 2.5 mls/hr Q24H IV 02/18/24 11:15 02/23/24 12:58 2.5 MLS/HR Hydralazine HCl 10 mg Q6HP PRN IV 02/18/24 16:00 02/23/24 09:31 10 MG Pantoprazole Sodium 40 mg DAILY IV 02/19/24 10:00 02/23/24 09:03 40 MG Labetalol HCl 10 mg Q4HPRN PRN IV 02/20/24 16:15 02/23/24 11:26 10 MG Dexmedetomidine HCl 400 mcg/ Dextrose 100 ml @ 3.41 mls/hr Q24H IV 02/20/24 17:30 02/23/24 06:38 8.525 MLS/HR Acetaminophen 650 mg Q8HP PRN NE 02/21/24 11:30 02/21/24 13:21 650 MG Albuterol 2.5 mg Q4HR NEB 02/21/24 18:00 02/23/24 18:41 2.5 MG Ipratropium [place] 0.5 mg Q4HR NEB 02/21/24 18:00 02/23/24 18:41 0.5 MG Enteral Nutritional Formula 1,000 ml 40ML/HR NG 02/22/24 11:30 02/22/24 12:47 1,000 ML Heparin Sodium/ Dextrose 250 ml @ 9 mls/hr Q24H IV 02/22/24 13:00 02/23/24 12:57 9 MLS/HR objective Gen.: Patient lying in bed in medical ICU. Sedated, intubated on mechanical ventilator. Head: Normocephalic, atraumatic. Eyes: PERRLA. Ears: Normal external anatomy. Throat: Endotracheal tube and orogastric tube in place. Neck: Supple, trachea midline. Chest: Transmitted breath sounds bilaterally. Decreased air entry bilaterally. No wheezing. Bibasilar crackles. Cardiovascular: Positive S1, positive S2. Regular rate and rhythm. Abdomen: Positive bowel sounds in all 4 quadrants. Soft, nontender, nondistended. : Mccord in place. Normal external genitalia. Rectal: Deferred. Skin: Warm, dry. Intact. Extremities: 2+ radial pulses bilaterally. No lower extremity edema. Neuro: Sedated. laboratory and microbiology Laboratory Tests 02/23/24 03:05 Test 02/23/24 03:05 Range/Units Serum Glucose 126 H 74-106 mg/dL Assessment/Plan Impression: Acute hypoxic respiratory failure On mechanical ventilator Mitral valve replacement Pneumonia, likely gram negative. COPD Congestive heart failure Atrial fibrillation Events: Remains on vent support On AC mode; RR 24, VT 450, PEEP 5, FiO2 35%. Sedated on Fentanyl, Propofol Off Precedex Tube feeds for nutritional support Heparin drip Continue abx Taper sedation as tolerated Plan for CPAP in the AM. Failed CPAP after 1 hour due to hypertension. Labs and imaging reviewed. Rest of plan as noted below. Plan: s/p intubation on mechanical ventilator. ABG reviewed, compensated. On AC mode; RR 24, VT 450, PEEP 5, FiO2 35%. Titrate FIO2 to keep O2 saturation above 90%. VAP bundle. Daily ABG and CXR while intubated Sedated for ventilator synchrony- On Propofol and Fentanyl. Continue antibiotics. F/u cultures. Start pressors if necessary to maintain a mean arterial blood pressure greater than 65 mmHg. Heparin drip Tube feeds for nutritional support Patient failed CPAP - lasted 20 minutes Plan for CPAP trial in AM. Monitor renal function Monitor electrolytes. Supplement as necessary. Monitor ins and outs. Maintain euvolemia. GI prophylaxis. DVT prophylaxis. Prognosis: Poor given patient's multiple co-morbidities. Condition: Critical Rest of plan per hospitalist and other consultants. A total of 35 minutes of critical care time was spent reviewing the patient record, examining the patient, making a diagnostic and therapeutic plan, discussing this plan with the medical personnel, following up on diagnostic studies and following the patient for clinical stability excluding any and all procedures. At least 50% of this time was spent in direct, [id number] contact. Thank you Dr. Flakita Khan MD, for allowing me to participate in this patient's care. Further recommendations will depend on the patient's clinical course. Please do not hesitate to contact me if you have any questions or concerns. This medical document was created using an electronic medical record system with [employer] dictation system. Although these documentations are being carefully reviewed, there may still be some phonetic and typographical changes. The errors are purely typographical, due to imperfection on the software program, and do not reflect any compromise in the patient's medical care. Dietary Evaluation Review Comments: 1) If GI is accessible consider Pivot 1.5 @ 55 ml/hr x24 hr goal rate as tolerated 2) If pt remains NPO >7 days consider TPN to meet at least 75% of estimated goals 3) Advance pt diet when medically feasible to a Cardiac diet modified per OFFICE SERVICES CLERK recommendations 4) Continue current plan of care Expected Outcomes/Goals: 1) Pt to receive nutrition support within 7 days of NPO status 2) Pt diet to advance 3) F/U in 2-3 days Plan discussed with: Other (JULIOCESAR Giang) Critical Care Time(min): 35 Breath sounds: Clear, Diminished NGUYEN,PRAVEEN M MD Feb 23, 2024 21:29
[2024-02-24] VITALS (105 sets, daily range): BP systolic 77–242; BP diastolic 22–76; PULSE 63–110; RESP 11–34; TEMP 98.8–100.6; O2SAT 85–100
[2024-02-24 04:21] LABS: Basophils # (auto) 0 10 ^3/uL (0-0.2); Basophils % (auto) 0.3 % (0.0-2.0); Eosinophils # (auto) 0.2 10 ^3/uL (0-0.8); Eosinophils % (auto) 3.7 % (0.0-7.0); Hematocrit 23.2 % (36.0-46.0); Hemoglobin 7.8 g/dL (12.2-16.2); Lymphocytes # (auto) 0.7 10 ^3/uL (0.4-5.4); Lymphocytes % (auto) 10.4 % (10.0-50.0); Mean Corpuscular Hgb Conc. 33.7 g/dL (32.0-36.0); Monocytes # (auto) 0.6 10 ^3/uL (0-1.3); Monocytes % (auto) 9.9 % (0.0-12.0); Neutrophils # (auto) 4.9 10 ^3/uL (1.6-8.6); Neutrophils % (auto) 75.7 % (37.0-80.0); Nucleated Red Blood Cells % 0.2 %; Platelet Count (auto) 156 10^3/uL (140-450); White Blood Cell 6.5 10^3/uL (4.4-10.8)
[2024-02-24 04:33] LABS: INR 1.05 (0.9-1.15); Partial Thromboplastin Time 39.4 SEC (24.5-34.5); Prothrombin Time 11.1 sec (9.3-11.8)
[2024-02-24] MEDS: HEPARIN DRIP/D5W 100UNITS/ML 250 ML IV SCH ×2 (05:15→13:45)
[2024-02-24 05:59] LABS: Base Excess -3.8 mmol/L (-2.0-3.0)
--- NOTE | 2024-02-24 08:25 | DVH ---
CHEST RADIOGRAPH Indication: intubated pt Technique: Single frontal view of the chest was obtained Comparison: XY CHEST PORTABLE on DOS: 02/23/24 FINDINGS: Lines and Tubes: The endotracheal tube terminates 3.9 cm above the mikey. The enteric tube courses b elow the left hemidiaphragm and the tip extends outside the field of view. Right central venous geovany ter terminates in the superior vena cava. Lungs: Bilateral interstitial prominence similar to prior study. Pleura: No effusion. No pneumothorax. Cardiomediastinal contours: Stable cardiovascular silhouette. Cardiac valve prosthesis noted. Bones: No acute osseous abnormality. IMPRESSION: 1. Stable position of the support lines and tubes. 2. Bilateral interstitial opacities similar to prior study. 3. Stable position of the support lines and tubes.
--- NOTE | 2024-02-24 08:35 | DVHPN2 ---
Progress Note Date Seen: Feb 24, 2024 Medical Necessity Reason Pt with a Central, PICC or Fol: Yes The following are medically ne: Central Line, Mccord Catheter Reason for mccord catheter: Total Immobilization Subjective Patient reports: Feels worse Review of Systems: RESPIRATORY:Abnormal Objective vital signs Vital Sign Date Time Temp Pulse Resp B/P (MAP) Pulse Ox O2 Delivery O2 Flow Rate FiO2 02/24/24 07:57 73 25 110/28 (55) 96 35 02/24/24 07:00 99.7 99.7 02/24/24 06:00 Mechanical Ventilator+ Total Intake and Output 02/23/24 02/23/24 02/24/24 15:00 23:00 07:00 Intake Total 541 ml 609.25 ml 580.316 ml Output Total 550 ml 325 ml Balance 541 ml 59.25 ml 255.316 ml medications Current Medications Medications Dose Ordered Sig/Sherwin Route Start Time Stop Time Status Last Admin Dose Admin Propofol 100 ml @ 2.046 mls/ hr Q24H IV 02/18/24 01:00 02/24/24 07:05 18.414 MLS/HR Nitroglycerin 0.4 mg Q5MINP PRN SL 02/18/24 06:45 Morphine Sulfate 2 mg Q30M PRN IV 02/18/24 06:45 Ondansetron HCl 4 mg Q6HPRN PRN IV 02/18/24 06:45 Ceftriaxone Sodium 50 ml @ 100 mls/hr DAILY@09 IV 02/18/24 09:00 02/23/24 08:26 100 MLS/HR Azithromycin 250 ml @ 125 mls/hr DAILY IV 02/18/24 10:00 02/23/24 09:03 125 MLS/HR Fentanyl Citrate 250 ml @ 2.5 mls/hr Q24H IV 02/18/24 11:15 02/23/24 12:58 2.5 MLS/HR Hydralazine HCl 10 mg Q6HP PRN IV 02/18/24 16:00 02/24/24 05:26 10 MG Pantoprazole Sodium 40 mg DAILY IV 02/19/24 10:00 02/23/24 09:03 40 MG Labetalol HCl 10 mg Q4HPRN PRN IV 02/20/24 16:15 02/24/24 03:09 10 MG Dexmedetomidine HCl 400 mcg/ Dextrose 100 ml @ 3.41 mls/hr Q24H IV 02/20/24 17:30 02/23/24 22:52 3.41 MLS/HR Acetaminophen 650 mg Q8HP PRN [place] 02/21/24 11:30 02/21/24 13:21 650 MG Albuterol 2.5 mg Q4HR NEB 02/21/24 18:00 02/24/24 06:20 2.5 MG Ipratropium [place] 0.5 mg Q4HR NEB 02/21/24 18:00 02/24/24 06:20 0.5 MG Enteral Nutritional Formula 1,000 ml 40ML/HR NG 02/22/24 11:30 02/23/24 22:47 1,000 ML Heparin Sodium/ Dextrose 250 ml @ 11 mls/hr [id number] IV 02/24/24 05:15 Examination: LUNGS:Abnormal laboratory and microbiology Laboratory Tests 02/24/24 03:00 02/23/24 03:05 Test 02/23/24 03:05 Range/Units Serum Glucose 126 H 74-106 mg/dL Microbiology Date/Time Source Procedure Growth Status 02/21/24 13:45 Blood Blood Culture - Preliminary NO GROWTH AFTER 48 HOURS OF INCUBATION. Resulted 02/18/24 11:00 Nose MRSA Screen - Final Complete 02/18/24 01:00 Sputum Gram Stain - Final Complete 02/18/24 01:00 Sputum Respiratory Culture - Final Complete Labs and/or images reviewed: Labs reviewed by me, Image(s) reviewed by me Problem List/Assessment/Plan Problem List/Assessment/Plan acute resp failure 2 m ventilatrion 3 a b g adequate 4 i n r therapeutic 5 no acute bleeding 6 plan d c sedation and c p a p trial 02/21/24 pt is vented now on c p a p 01/11 pt is still on prop and precedex a b g good on 01/11 but pt is not awake d c sedation and cpap 11/10 . if pt is non cooperative may extubate 02/24/24 pt is still sedated as b p went up pt surya 35% peep 5 plan is to try to wean off the sedation and c pap 8/5 pt is anaemic as well hb is 7.8 Plan discussed with: Other Dietary Evaluation Review Recommendations by RD: Dietary education by RD Comments: 1) If GI is accessible consider Pivot 1.5 @ 55 ml/hr x24 hr goal rate as tolerated 2) If pt remains NPO >7 days consider TPN to meet at least 75% of estimated goals 3) Advance pt diet when medically feasible to a Cardiac diet modified per CAFETERIA AIDE recommendations 4) Continue current plan of care Expected Outcomes/Goals: 1) Pt to receive nutrition support within 7 days of NPO status 2) Pt diet to advance 3) F/U in 2-3 days Sepsis reassessment post fluid Respiratory Effort: ET Tube Breath sounds: Clear, Diminished YASHIRA VICK MD Feb 24, 2024 08:35
[2024-02-24] MEDS: hydrALAZINE HCL 20 MG/ML VL IV PRN (09:45)
[2024-02-24 11:06] LABS: INR 1.05 (0.9-1.15); Partial Thromboplastin Time 44.8 SEC (24.5-34.5); Prothrombin Time 11.1 sec (9.3-11.8)
--- NOTE | 2024-02-24 13:04 | DVHPN2 ---
Progress Note - Dictate Date Seen: Feb 24, 2024 Medical Necessity Reason Pt with a Central, PICC or Fol: Yes The following are medically ne: Central Line, Mccord Catheter Reason for mccord catheter: Strict I&O, Total Immobilization Subjective Patient intubated and sedated. vital signs Vital Sign Date Time Temp Pulse Resp B/P (MAP) Pulse Ox O2 Delivery O2 Flow Rate FiO2 02/24/24 11:29 85 26 95 40 02/24/24 10:09 100.9 02/24/24 06:00 Mechanical Ventilator+ Total Intake and Output 02/23/24 02/23/24 02/24/24 15:00 23:00 07:00 Intake Total 541 ml 609.25 ml 580.316 ml Output Total 550 ml 325 ml Balance 541 ml 59.25 ml 255.316 ml medications Current Medications Medications Dose Ordered Sig/Sherwin Route Start Time Stop Time Status Last Admin Dose Admin Propofol 100 ml @ 2.046 mls/ hr Q24H IV 02/18/24 01:00 02/24/24 07:05 18.414 MLS/HR Nitroglycerin 0.4 mg Q5MINP PRN SL 02/18/24 06:45 Morphine Sulfate 2 mg Q30M PRN IV 02/18/24 06:45 Ondansetron HCl 4 mg Q6HPRN PRN IV 02/18/24 06:45 Ceftriaxone Sodium 50 ml @ 100 mls/hr DAILY@09 IV 02/18/24 09:00 02/24/24 08:38 100 MLS/HR Azithromycin 250 ml @ 125 mls/hr DAILY IV 02/18/24 10:00 02/24/24 08:39 125 MLS/HR Fentanyl Citrate 250 ml @ 2.5 mls/hr Q24H IV 02/18/24 11:15 02/23/24 12:58 2.5 MLS/HR Pantoprazole Sodium 40 mg DAILY IV 02/19/24 10:00 02/24/24 08:39 40 MG Labetalol HCl 10 mg Q4HPRN PRN IV 02/20/24 16:15 02/24/24 09:11 10 MG Dexmedetomidine HCl 400 mcg/ Dextrose 100 ml @ 3.41 mls/hr Q24H IV 02/20/24 17:30 02/24/24 10:48 8.525 MLS/HR Acetaminophen 650 mg Q8HP PRN [place] 02/21/24 11:30 02/24/24 10:09 650 MG Albuterol 2.5 mg Q4HR NEB 02/21/24 18:00 02/24/24 09:23 2.5 MG Ipratropium [place] 0.5 mg Q4HR NEB 02/21/24 18:00 02/24/24 09:23 0.5 MG Enteral Nutritional Formula 1,000 ml 40ML/HR NG 02/22/24 11:30 02/23/24 22:47 1,000 ML Heparin Sodium/ Dextrose 250 ml @ 11 mls/hr [id number] IV 02/24/24 05:15 Hydralazine HCl 10 mg Q4HR PRN IV 02/24/24 09:15 02/24/24 09:45 10 MG Nicardipine HCl 250 ml @ 50 mls/hr Q5H IV 02/24/24 10:00 02/24/24 10:28 50 MLS/HR objective General: Intubated/sedated Respiratory: Fine bibasilar crackles Cards: RRR Neuro: Sedated laboratory and microbiology Laboratory Tests 02/24/24 03:00 02/23/24 03:05 Test 02/23/24 03:05 Range/Units Serum Glucose 126 H 74-106 mg/dL Assessment/Plan Primary Diagnosis: Acute Hypoxic and Hypercapnic Respiratory Failure Community Acquired Pneumonia Acute COPD Exacerbation Acute Kidney Injury on CKD Stage 3 Supertheraputic INR New Onset Anemia Secondary Diagnosis; Hx of Mechanical Mitral Valve Replacement Atrial fibrillation Hypertension Hyperlipidemia Assessment/Plan - continue cardiopulmonary monitoring - Patient failed CPAP today again. Cardene drip added to SBP rising to 247. Versed pushes added as well. - continue IV abx Rocephin and Azithromycin, MedNebs - New Onset Anemia, concern for GI bleeding secondary to high INR of 8, 2 units of fresh plasma and 5mg of Vitamin K SQ x 1 on 02/18. No signs of hemodynamic instability at this time. -GI Consulted, no plan for EGD at this time. Hgb in mid 7's without gross signs of bleeding - daily AM Labs with INR QAM - IV fluids, Strict I/Os, monitor daily renal functions - Hx of mechanical mitral valve replacement on home Coumadin, INR goal of 2.5- 3.5, holding Coumadin. - Hold home BP medications, Start Hydralazine 10mg IV PRN Q 6 HRS for SBP > 160mmHg. Labetolol added. -Tube feeds started -Will reattempt SBT in AM. Discussed with family at bedside. Full Code DVT Prophy; no anticoagulation, super therapeutic INR. GI Prophy; Protonix 40mg IV daily Dietary Evaluation Review Recommendations by RD: Dietary education by RD Comments: 1) If GI is accessible consider Pivot 1.5 @ 55 ml/hr x24 hr goal rate as tolerated 2) If pt remains NPO >7 days consider TPN to meet at least 75% of estimated goals 3) Advance pt diet when medically feasible to a Cardiac diet modified per ICE HANDLER recommendations 4) Continue current plan of care Expected Outcomes/Goals: 1) Pt to receive nutrition support within 7 days of NPO status 2) Pt diet to advance 3) F/U in 2-3 days Plan discussed with: Daughter Respiratory Effort: ET Tube Breath sounds: Clear, Diminished AREN ORELLANA DO Feb 24, 2024 13:04
[2024-02-24 19:27] LABS: INR 1.06 (0.9-1.15); Partial Thromboplastin Time 58.4 SEC (24.5-34.5); Prothrombin Time 11.2 sec (9.3-11.8)
[2024-02-25] VITALS (105 sets, daily range): BP systolic 96–205; BP diastolic 20–65; PULSE 54–110; RESP 10–27; TEMP 91.6–101.1; O2SAT 81–100
[2024-02-25] MEDS: HEPARIN DRIP/D5W 100UNITS/ML 250 ML IV SCH (02:45)
[2024-02-25 04:25] LABS: Basophils # (auto) 0.1 10 ^3/uL (0-0.2); Basophils % (auto) 0.9 % (0.0-2.0); Eosinophils # (auto) 0.4 10 ^3/uL (0-0.8); Eosinophils % (auto) 2.9 % (0.0-7.0); Hematocrit 26.6 % (36.0-46.0); Hemoglobin 8.6 g/dL (12.2-16.2); Lymphocytes # (auto) 0.8 10 ^3/uL (0.4-5.4); Lymphocytes % (auto) 5.6 % (10.0-50.0); Mean Corpuscular Hemoglobin 28.1 pg (28.0-32.0); Mean Corpuscular Hgb Conc. 32.3 g/dL (32.0-36.0); Monocytes # (auto) 1.5 10 ^3/uL (0-1.3); Neutrophils % (auto) 80.6 % (37.0-80.0); Platelet Count (auto) 222 10^3/uL (140-450); Red Blood Cells 3.06 10^6/uL (4.0-5.20); Red Cell Distribution Width 19.2 % (11.8-14.3)
[2024-02-25] MEDS: MIDAZOLAM HCL 5 MG/ML-1ML VIAL IV PRN (08:15)
--- NOTE | 2024-02-25 08:45 | DVHPN2 ---
Progress Note Date Seen: Feb 25, 2024 Medical Necessity Reason Pt with a Central, PICC or Fol: Yes The following are medically ne: Central Line, Mccord Catheter Reason for mccord catheter: Strict I&O, Total Immobilization Objective vital signs Vital Sign Date Time Temp Pulse Resp B/P (MAP) Pulse Ox O2 Delivery O2 Flow Rate FiO2 02/25/24 08:15 87 150/52 02/25/24 08:13 14 92 40 02/25/24 07:00 100.2 100.2 02/25/24 06:00 Mechanical Ventilator+ Total Intake and Output 02/24/24 02/24/24 02/25/24 15:00 23:00 07:00 Intake Total 318.273 ml 257.466 ml 889.0 ml Output Total 600 ml 575 ml Balance 318.273 ml -342.534 ml 314.0 ml medications Current Medications Medications Dose Ordered Sig/Sherwin Route Start Time Stop Time Status Last Admin Dose Admin Nitroglycerin 0.4 mg Q5MINP PRN SL 02/18/24 06:45 Morphine Sulfate 2 mg Q30M PRN IV 02/18/24 06:45 Ondansetron HCl 4 mg Q6HPRN PRN IV 02/18/24 06:45 Ceftriaxone Sodium 50 ml @ 100 mls/hr DAILY@09 IV 02/18/24 09:00 02/25/24 08:15 100 MLS/HR Azithromycin 250 ml @ 125 mls/hr DAILY IV 02/18/24 10:00 02/24/24 08:39 125 MLS/HR Fentanyl Citrate 250 ml @ 2.5 mls/hr Q24H IV 02/18/24 11:15 02/24/24 15:28 12.5 MLS/HR Pantoprazole Sodium 40 mg DAILY IV 02/19/24 10:00 02/24/24 08:39 40 MG Labetalol HCl 10 mg Q4HPRN PRN IV 02/20/24 16:15 02/25/24 01:32 10 MG Dexmedetomidine HCl 400 mcg/ Dextrose 100 ml @ 3.41 mls/hr Q24H IV 02/20/24 17:30 02/24/24 10:48 8.525 MLS/HR Acetaminophen 650 mg Q8HP PRN [place] 02/21/24 11:30 02/25/24 05:54 650 MG Albuterol 2.5 mg Q4HR NEB 02/21/24 18:00 02/25/24 06:11 2.5 MG Ipratropium [place] 0.5 mg Q4HR NEB 02/21/24 18:00 02/25/24 06:11 0.5 MG Enteral Nutritional Formula 1,000 ml 40ML/HR NG 02/22/24 11:30 02/24/24 21:23 1,000 ML Hydralazine HCl 10 mg Q4HR PRN IV 02/24/24 09:15 02/25/24 02:41 10 MG Nicardipine HCl 250 ml @ 50 mls/hr Q5H IV 02/24/24 10:00 02/25/24 08:15 150 MLS/HR Midazolam HCl 5 mg [id number] PRN IV 02/24/24 10:00 02/25/24 08:15 5 MG Heparin Sodium/ Dextrose 250 ml @ 15 mls/hr [id number] IV 02/25/24 02:45 02/25/24 08:18 15 MLS/HR Examination: LUNGS:Abnormal laboratory and microbiology Laboratory Tests 02/25/24 03:48 02/23/24 03:05 Test 02/23/24 03:05 Range/Units Serum Glucose 126 H 74-106 mg/dL Microbiology Date/Time Source Procedure Growth Status 02/21/24 13:45 Blood Blood Culture - Preliminary NO GROWTH AFTER 72 HOURS OF INCUBATION. Resulted 02/18/24 11:00 Nose MRSA Screen - Final Complete 02/18/24 01:00 Sputum Gram Stain - Final Complete 02/18/24 01:00 Sputum Respiratory Culture - Final Complete Labs and/or images reviewed: Labs reviewed by me, Image(s) reviewed by me Problem List/Assessment/Plan Problem List/Assessment/Plan acute resp failure 2 m ventilatrion 3 a b g adequate 4 i n r therapeutic 5 no acute bleeding 6 plan d c sedation and c p a p trial 02/21/24 pt is vented now on c p a p 01/11 pt is still on prop and precedex a b g good on 01/11 but pt is not awake d c sedation and cpap 11/10 . if pt is non cooperative may extubate 02/24/24 pt is still sedated as b p went up pt surya 35% peep 5 plan is to try to wean off the sedation and c pap 11/10 pt is anaemic as well hb is 7.8 02/25/24 pulm pt is intubated hu on precedex vital signs stable on nicardipine drip reduce predecx and do weaning parameters and a b g if adequate extubate Plan discussed with: Other Dietary Evaluation Review Recommendations by RD: Dietary education by RD Comments: 1) If GI is accessible consider Pivot 1.5 @ 55 ml/hr x24 hr goal rate as tolerated 2) If pt remains NPO >7 days consider TPN to meet at least 75% of estimated goals 3) Advance pt diet when medically feasible to a Cardiac diet modified per OIL PROCESS STILLMAN recommendations 4) Continue current plan of care Expected Outcomes/Goals: 1) Pt to receive nutrition support within 7 days of NPO status 2) Pt diet to advance 3) F/U in 2-3 days Sepsis reassessment post fluid Respiratory Effort: ET Tube Breath sounds: Clear, Diminished YASHIRA VICK MD Feb 25, 2024 08:45
[2024-02-25 09:27] LABS: Base Excess -6.6 mmol/L (-2.0-3.0)
[2024-02-25 10:10] LABS: INR 1.11 (0.9-1.15); Prothrombin Time 11.7 sec (9.3-11.8)
[2024-02-25 10:19] LABS: Partial Thromboplastin Time 84.9 SEC (24.5-34.5)
--- NOTE | 2024-02-25 13:04 | DVHPN2 ---
Progress Note - Dictate Date Seen: Feb 25, 2024 Medical Necessity Reason Pt with a Central, PICC or Fol: Yes The following are medically ne: Central Line, Mccord Catheter Reason for mccord catheter: Strict I&O, Total Immobilization Subjective Patient intubated and sedated. vital signs Vital Sign Date Time Temp Pulse Resp B/P (MAP) Pulse Ox O2 Delivery O2 Flow Rate FiO2 02/25/24 12:15 92.7 61 13 116/35 (62) 91 198.9 02/25/24 12:05 Facial BiPAP Mask 70 Total Intake and Output 02/24/24 02/24/24 02/25/24 15:00 23:00 07:00 Intake Total 318.273 ml 257.466 ml 889.0 ml Output Total 600 ml 575 ml Balance 318.273 ml -342.534 ml 314.0 ml medications Current Medications Medications Dose Ordered Sig/Sherwin Route Start Time Stop Time Status Last Admin Dose Admin Nitroglycerin 0.4 mg Q5MINP PRN SL 02/18/24 06:45 Morphine Sulfate 2 mg Q30M PRN IV 02/18/24 06:45 Ondansetron HCl 4 mg Q6HPRN PRN IV 02/18/24 06:45 Ceftriaxone Sodium 50 ml @ 100 mls/hr DAILY@09 IV 02/18/24 09:00 02/25/24 08:15 100 MLS/HR Azithromycin 250 ml @ 125 mls/hr DAILY IV 02/18/24 10:00 02/25/24 10:00 125 MLS/HR Fentanyl Citrate 250 ml @ 2.5 mls/hr Q24H IV 02/18/24 11:15 02/24/24 15:28 12.5 MLS/HR Pantoprazole Sodium 40 mg DAILY IV 02/19/24 10:00 02/25/24 10:43 40 MG Labetalol HCl 10 mg Q4HPRN PRN IV 02/20/24 16:15 02/25/24 01:32 10 MG Dexmedetomidine HCl 400 mcg/ Dextrose 100 ml @ 3.41 mls/hr Q24H IV 02/20/24 17:30 02/24/24 10:48 8.525 MLS/HR Acetaminophen 650 mg Q8HP PRN [place] 02/21/24 11:30 02/25/24 05:54 650 MG Albuterol 2.5 mg Q4HR NEB 02/21/24 18:00 02/25/24 06:11 2.5 MG Ipratropium [place] 0.5 mg Q4HR NEB 02/21/24 18:00 02/25/24 06:11 0.5 MG Enteral Nutritional Formula 1,000 ml 40ML/HR NG 02/22/24 11:30 02/24/24 21:23 1,000 ML Hydralazine HCl 10 mg Q4HR PRN IV 02/24/24 09:15 02/25/24 02:41 10 MG Nicardipine HCl 250 ml @ 50 mls/hr Q5H IV 02/24/24 10:00 02/25/24 08:15 150 MLS/HR Midazolam HCl 5 mg [id number] PRN IV 02/24/24 10:00 02/25/24 08:15 5 MG Heparin Sodium/ Dextrose 250 ml @ 13 mls/hr [id number] IV 02/25/24 13:00 objective General: Intubated/sedated Respiratory: Fine bibasilar crackles Cards: RRR Neuro: Sedated laboratory and microbiology Laboratory Tests 02/25/24 03:48 02/23/24 03:05 Test 02/23/24 03:05 Range/Units Serum Glucose 126 H 74-106 mg/dL Assessment/Plan Primary Diagnosis: Acute Hypoxic and Hypercapnic Respiratory Failure Community Acquired Pneumonia Acute COPD Exacerbation Acute Kidney Injury on CKD Stage 3 Supertheraputic INR New Onset Anemia Secondary Diagnosis; Hx of Mechanical Mitral Valve Replacement Atrial fibrillation Hypertension Hyperlipidemia Assessment/Plan - continue cardiopulmonary monitoring - Patient tolerating CPAP today. Plan for extubation if meets parameters - continue IV abx Rocephin and Azithromycin, MedNebs - New Onset Anemia, concern for GI bleeding secondary to high INR of 8, 2 units of fresh plasma and 5mg of Vitamin K SQ x 1 on 02/18. No signs of hemodynamic instability at this time. -GI Consulted, no plan for EGD at this time. Hgb in mid 7's without gross signs of bleeding - daily AM Labs with INR QAM - IV fluids, Strict I/Os, monitor daily renal functions - Hx of mechanical mitral valve replacement on home Coumadin, INR goal of 2.5- 3.5, holding Coumadin. - Hold home BP medications, Start Hydralazine 10mg IV PRN Q 6 HRS for SBP > 160mmHg. Labetolol added. -Tube feeds started Full Code DVT Prophy; no anticoagulation, super therapeutic INR. GI Prophy; Protonix 40mg IV daily Dietary Evaluation Review Recommendations by RD: Dietary education by RD Comments: 1) If GI is accessible consider Pivot 1.5 @ 55 ml/hr x24 hr goal rate as tolerated 2) If pt remains NPO >7 days consider TPN to meet at least 75% of estimated goals 3) Advance pt diet when medically feasible to a Cardiac diet modified per FRUIT GRADER OPERATOR recommendations 4) Continue current plan of care Expected Outcomes/Goals: 1) Pt to receive nutrition support within 7 days of NPO status 2) Pt diet to advance 3) F/U in 2-3 days Plan discussed with: Daughter Respiratory Effort: ET Tube Breath sounds: Clear, Diminished AREN ORELLANA DO Feb 25, 2024 13:04
[2024-02-25 16:30] LABS: Base Excess -4.6 mmol/L (-2.0-3.0)
--- NOTE | 2024-02-25 16:42 | DVH ---
EXAM: XY CHEST PORTABLE TECHNIQUE: Single frontal chest radiograph CLINICAL HISTORY: INTUBATION COMPARISON: XY CHEST XRAY 1 VIEW on DOS: 02/24/24, XY CHEST PORTABLE on DOS: 02/23/24, XY CHEST MARYJANE BLE on DOS: 02/22/24 Findings/Impression: Frontal chest radiograph demonstrates no acute osseous or superficial soft tissue abnormalities. Endotracheal tube measures 4.6 cm from the mikey. Right sided IJ catheter terminates near the superi or cavoatrial junction. [place] of the enteric tube terminates near the GE junction. The trachea is midline. The cardiac silhouette and mediastinum are within normal limits. DIffuse interstitial coarsening may reflect edema or interstitial pneumonitis, slightly worse from pr ior. Possible trace left pleural effusion and/or atelectasis. No pneumothorax.
[2024-02-25] MEDS: PROPOFOL 100 ML IV SCH (17:41)
[2024-02-25 18:40] LABS: INR 1.04 (0.9-1.15); Partial Thromboplastin Time 69.2 SEC (24.5-34.5)
[2024-02-26] VITALS (111 sets, daily range): BP systolic 92–155; BP diastolic 3–48; PULSE 58–109; RESP 9–28; TEMP 98.4–100; O2SAT 89–100
[2024-02-26 00:59] LABS: INR 1.05 (0.9-1.15); Partial Thromboplastin Time 61.8 SEC (24.5-34.5); Prothrombin Time 11.1 sec (9.3-11.8)
[2024-02-26] MEDS: HEPARIN DRIP/D5W 100UNITS/ML 250 ML IV SCH (02:05)
[2024-02-26 03:53] LABS: Alanine Aminotransferase 25 U/L (7-40); Albumin 3.1 g/dL (3.2-4.8); Alkaline Phosphatase 106 U/L (46-116); Anion Gap 7 (5-15); Aspartate Aminotransferase 13 U/L (13-40); BUN/Creatinine Ratio 32.8 (10.0-20.0); Blood Urea Nitrogen 44 mg/dL (9-23); Calcium 8.5 mg/dL (8.7-10.4); Carbon Dioxide 24 mmol/L (20-31); Chloride 107 mmol/L (98-107); Glucose 94 mg/dL (74-106); Potassium 5.1 mmol/L (3.5-5.1); Sodium 138 mmol/L (136-145)
[2024-02-26 03:54] LABS: Bilirubin, Total 0.9 mg/dL (0.2-1.0)
[2024-02-26 04:23] LABS: Basophils # (auto) 0.1 10 ^3/uL (0-0.2); Basophils % (auto) 0.7 % (0.0-2.0); Eosinophils # (auto) 0.3 10 ^3/uL (0-0.8); Eosinophils % (auto) 2.6 % (0.0-7.0); Hematocrit 22.6 % (36.0-46.0); Hemoglobin 7.4 g/dL (12.2-16.2); Lymphocytes # (auto) 0.8 10 ^3/uL (0.4-5.4); Lymphocytes % (auto) 7.8 % (10.0-50.0); Mean Corpuscular Hemoglobin 28.2 pg (28.0-32.0); Mean Corpuscular Hgb Conc. 32.7 g/dL (32.0-36.0); Mean Corpuscular Volume 86.3 fL (80.0-100.0); Monocytes # (auto) 1.1 10 ^3/uL (0-1.3); Monocytes % (auto) 10.4 % (0.0-12.0); Neutrophils # (auto) 8.4 10 ^3/uL (1.6-8.6); Neutrophils % (auto) 78.5 % (37.0-80.0); Nucleated Red Blood Cells % 0.1 %; Platelet Count (auto) 165 10^3/uL (140-450); Red Blood Cells 2.62 10^6/uL (4.0-5.20); Red Cell Distribution Width 18.9 % (11.8-14.3); White Blood Cell 10.7 10^3/uL (4.4-10.8)
[2024-02-26 04:46] LABS: INR 1.05 (0.9-1.15); Partial Thromboplastin Time 57.9 SEC (24.5-34.5); Prothrombin Time 11.1 sec (9.3-11.8)
--- NOTE | 2024-02-26 04:48 | DVH ---
CHEST RADIOGRAPH Indication: ICU patient Intubated Technique: Single frontal view of the chest was obtained Comparison: XY CHEST PORTABLE on DOS: 02/25/24 FINDINGS: Lines and Tubes: The endotracheal tube terminates 6.0 cm above the mikey. Right internal jugular meghann tian central venous catheter is present with its tip terminating in the superior cavoatrial junction . The enteric tube terminates below the left hemidiaphragm and outside the field of view. Cardiac prudencio ve prosthesis noted. Status post median sternotomy. Lungs: Bilateral interstitial prominence is unchanged. Left basilar opacity. Pleura: Possible left pleural effusion similar to prior study. No pneumothorax. Cardiomediastinal contours: Stable cardiovascular silhouette. Bones: No acute osseous abnormality. IMPRESSION: 1. No significant interval change in position of the support lines and tubes. 2. Bilateral interstitial prominence and possible small left pleural effusion and or atelectasis, unc hanged.
[2024-02-26 07:20] LABS: Base Excess -3.4 mmol/L (-2.0-3.0)
--- NOTE | 2024-02-26 13:58 | DVHPN2 ---
Progress Note - Dictate Date Seen: Feb 26, 2024 Medical Necessity Reason Pt with a Central, PICC or Fol: Yes The following are medically ne: Central Line, Mccord Catheter Reason for mccord catheter: Strict I&O, Total Immobilization Subjective Patient intubated and sedated. vital signs Vital Sign Date Time Temp Pulse Resp B/P (MAP) Pulse Ox O2 Delivery O2 Flow Rate FiO2 02/26/24 13:00 99.1 65 24 98/28 (51) 96 210.4 02/26/24 12:00 Mechanical Ventilator+ 65 65 Total Intake and Output 02/25/24 02/25/24 02/26/24 15:00 23:00 07:00 Intake Total 872 ml 488.275 ml 597.260 ml Output Total 125 ml 350 ml Balance 872 ml 363.275 ml 247.260 ml medications Current Medications Medications Dose Ordered Sig/Sherwin Route Start Time Stop Time Status Last Admin Dose Admin Nitroglycerin 0.4 mg Q5MINP PRN SL 02/18/24 06:45 Morphine Sulfate 2 mg Q30M PRN IV 02/18/24 06:45 Ondansetron HCl 4 mg Q6HPRN PRN IV 02/18/24 06:45 Ceftriaxone Sodium 50 ml @ 100 mls/hr DAILY@09 IV 02/18/24 09:00 02/26/24 08:07 100 MLS/HR Azithromycin 250 ml @ 125 mls/hr DAILY IV 02/18/24 10:00 02/26/24 09:10 125 MLS/HR Fentanyl Citrate 250 ml @ 2.5 mls/hr Q24H IV 02/18/24 11:15 02/26/24 09:18 15 MLS/HR Pantoprazole Sodium 40 mg DAILY IV 02/19/24 10:00 02/26/24 09:09 40 MG Labetalol HCl 10 mg Q4HPRN PRN IV 02/20/24 16:15 02/25/24 01:32 10 MG Dexmedetomidine HCl 400 mcg/ Dextrose 100 ml @ 3.41 mls/hr Q24H IV 02/20/24 17:30 02/24/24 10:48 8.525 MLS/HR Acetaminophen 650 mg Q8HP PRN [place] 02/21/24 11:30 02/25/24 05:54 650 MG Albuterol 2.5 mg Q4HR NEB 02/21/24 18:00 02/26/24 10:31 2.5 MG Ipratropium [place] 0.5 mg Q4HR NEB 02/21/24 18:00 02/26/24 10:31 0.5 MG Enteral Nutritional Formula 1,000 ml 40ML/HR NG 02/22/24 11:30 02/24/24 21:23 1,000 ML Hydralazine HCl 10 mg Q4HR PRN IV 02/24/24 09:15 02/25/24 02:41 10 MG Nicardipine HCl 250 ml @ 50 mls/hr Q5H IV 02/24/24 10:00 02/26/24 11:47 25 MLS/HR Midazolam HCl 5 mg [id number] PRN IV 02/24/24 10:00 02/25/24 08:15 5 MG Heparin Sodium/ Dextrose 250 ml @ 13 mls/hr [id number] IV 02/25/24 13:00 02/26/24 02:05 13 MLS/HR Propofol 100 ml @ 1.785 mls/ hr Q24H IV 02/25/24 15:30 02/26/24 09:09 8.925 MLS/HR Acetylcysteine 200 mg Q8HR IN 02/26/24 14:00 Cancel Acetylcysteine 200 mg Q8HR NEB 02/26/24 14:00 objective General: Intubated/sedated Respiratory: Fine bibasilar crackles Cards: RRR Neuro: Sedated laboratory and microbiology Laboratory Tests 02/26/24 04:14 02/26/24 03:18 Test 02/26/24 03:18 Range/Units Serum Glucose 94 74-106 mg/dL Assessment/Plan Primary Diagnosis: Acute Hypoxic and Hypercapnic Respiratory Failure Community Acquired Pneumonia Acute COPD Exacerbation Acute Kidney Injury on CKD Stage 3 Supertheraputic INR New Onset Anemia Secondary Diagnosis; Hx of Mechanical Mitral Valve Replacement Atrial fibrillation Hypertension Hyperlipidemia Assessment/Plan - continue cardiopulmonary monitoring - Patient requiring reintubation on 02/24. Failed extubation with notable hypoxia. - continue IV abx Rocephin and Azithromycin, MedNebs - New Onset Anemia, concern for GI bleeding secondary to high INR of 8, 2 units of fresh plasma and 5mg of Vitamin K SQ x 1 on 02/18. No signs of hemodynamic instability at this time. -GI Consulted, no plan for EGD at this time. Hgb in mid 7's without gross signs of bleeding - daily AM Labs with INR QAM - IV fluids, Strict I/Os, monitor daily renal functions - Hx of mechanical mitral valve replacement on home Coumadin, INR goal of 2.5- 3.5, holding Coumadin. - Hold home BP medications, Start Hydralazine 10mg IV PRN Q 6 HRS for SBP > 160mmHg. Labetolol added. -Tube feeds started -Discussed with family. Plan to transfer patient to LTACH for tracheostomy/PEG in the event of unsuccessful extubation again. Full Code DVT Prophy; no anticoagulation, super therapeutic INR. GI Prophy; Protonix 40mg IV daily Dietary Evaluation Review Recommendations by RD: Dietary education by RD Comments: 1) If GI is accessible consider Pivot 1.5 @ 55 ml/hr x24 hr goal rate as tolerated 2) If pt remains NPO >7 days consider TPN to meet at least 75% of estimated goals 3) Advance pt diet when medically feasible to a Cardiac diet modified per ASSOCIATE PROFESSOR OF MEDICINE recommendations 4) Continue current plan of care Expected Outcomes/Goals: 1) Pt to receive nutrition support within 7 days of NPO status 2) Pt diet to advance 3) F/U in 2-3 days Plan discussed with: Daughter Respiratory Effort: ET Tube Breath sounds: Clear, Diminished AREN ORELLANA DO Feb 26, 2024 13:58
[2024-02-26] MEDS: ACETYLCYSTEINE 20%(200MG/ML) SOL 4ML NEB SCH (13:59)
[2024-02-26] MEDS ORDERED: ACETYLCYSTEINE 10 %(100MG/ML) SOL 4ML IN SCH (14:00)
--- NOTE | 2024-02-26 21:22 | DVHPN2 ---
Progress Note - Dictate Date Seen: Feb 26, 2024 Medical Necessity Reason Pt with a Central, PICC or Fol: Yes The following are medically ne: Central Line, Mccord Catheter Reason for mccord catheter: Strict I&O, Total Immobilization Subjective Patient seen and examined at bedside. Sedated, intubated on mechanical ventilator. Overnight events reviewed. vital signs Vital Sign Date Time Temp Pulse Resp B/P (MAP) Pulse Ox O2 Delivery O2 Flow Rate FiO2 02/26/24 21:00 99.7 75 16 118/33 (61) 96 211.5 02/26/24 20:00 Mechanical Ventilator+ 70 70 Total Intake and Output 02/25/24 02/25/24 02/26/24 15:00 23:00 07:00 Intake Total 872 ml 488.275 ml 597.260 ml Output Total 125 ml 350 ml Balance 872 ml 363.275 ml 247.260 ml medications Current Medications Medications Dose Ordered Sig/Sherwin Route Start Time Stop Time Status Last Admin Dose Admin Nitroglycerin 0.4 mg Q5MINP PRN SL 02/18/24 06:45 Morphine Sulfate 2 mg Q30M PRN IV 02/18/24 06:45 Ondansetron HCl 4 mg Q6HPRN PRN IV 02/18/24 06:45 Ceftriaxone Sodium 50 ml @ 100 mls/hr DAILY@09 IV 02/18/24 09:00 02/26/24 08:07 100 MLS/HR Azithromycin 250 ml @ 125 mls/hr DAILY IV 02/18/24 10:00 02/26/24 09:10 125 MLS/HR Fentanyl Citrate 250 ml @ 2.5 mls/hr Q24H IV 02/18/24 11:15 02/26/24 09:18 15 MLS/HR Pantoprazole Sodium 40 mg DAILY IV 02/19/24 10:00 02/26/24 09:09 40 MG Labetalol HCl 10 mg Q4HPRN PRN IV 02/20/24 16:15 02/25/24 01:32 10 MG Dexmedetomidine HCl 400 mcg/ Dextrose 100 ml @ 3.41 mls/hr Q24H IV 02/20/24 17:30 02/24/24 10:48 8.525 MLS/HR Acetaminophen 650 mg Q8HP PRN [place] 02/21/24 11:30 02/25/24 05:54 650 MG Albuterol 2.5 mg Q4HR NEB 02/21/24 18:00 02/26/24 18:11 2.5 MG Ipratropium [place] 0.5 mg Q4HR NEB 02/21/24 18:00 02/26/24 18:11 0.5 MG Enteral Nutritional Formula 1,000 ml 40ML/HR NG 02/22/24 11:30 02/24/24 21:23 1,000 ML Hydralazine HCl 10 mg Q4HR PRN IV 02/24/24 09:15 02/25/24 02:41 10 MG Nicardipine HCl 250 ml @ 50 mls/hr Q5H IV 02/24/24 10:00 02/26/24 11:47 25 MLS/HR Midazolam HCl 5 mg [id number] PRN IV 02/24/24 10:00 02/25/24 08:15 5 MG Heparin Sodium/ Dextrose 250 ml @ 13 mls/hr [id number] IV 02/25/24 13:00 02/26/24 18:24 13 MLS/HR Propofol 100 ml @ 1.785 mls/ hr Q24H IV 02/25/24 15:30 02/26/24 20:48 12.495 MLS/HR Acetylcysteine 200 mg Q8HR IN 02/26/24 14:00 Cancel Acetylcysteine 200 mg Q8HR NEB 02/26/24 14:00 02/26/24 18:11 200 MG objective Gen.: Patient lying in bed in medical ICU. Sedated, intubated on mechanical ventilator. Head: Normocephalic, atraumatic. Eyes: PERRLA. Ears: Normal external anatomy. Throat: Endotracheal tube and orogastric tube in place. Neck: Supple, trachea midline. Chest: Transmitted breath sounds bilaterally. Decreased air entry bilaterally. No wheezing. Bibasilar crackles. Cardiovascular: Positive S1, positive S2. Regular rate and rhythm. Abdomen: Positive bowel sounds in all 4 quadrants. Soft, nontender, nondistended. : Mccord in place. Normal external genitalia. Rectal: Deferred. Skin: Warm, dry. Intact. Extremities: 2+ radial pulses bilaterally. No lower extremity edema. Neuro: Sedated. laboratory and microbiology Laboratory Tests 02/26/24 04:14 02/26/24 03:18 Test 02/26/24 03:18 Range/Units Serum Glucose 94 74-106 mg/dL Assessment/Plan Impression: Acute hypoxic respiratory failure On mechanical ventilator Mitral valve replacement Pneumonia, likely gram negative. COPD Congestive heart failure Atrial fibrillation Events: Remains on vent support On AC mode; RR 24, VT 450, PEEP 5, FiO2 65%. Off nicardipine. Sedated on Fentanyl 150 mcg, Propofol 25 mcg. Off Precedex Tube feeds for nutritional support Heparin drip Continue abx Taper sedation as tolerated SBT/ALBIN Note, yesterday patient was extubated but required reintubation Continue to monitor closely. LTAC eval. Labs and imaging reviewed. Rest of plan as noted below. Plan: s/p intubation on mechanical ventilator. ABG reviewed, compensated. On AC mode; RR 24, VT 450, PEEP 5, FiO2 65%. Titrate FIO2 to keep O2 saturation above 90%. VAP bundle. Daily ABG and CXR while intubated Sedated for ventilator synchrony- On Propofol and Fentanyl. Continue antibiotics. F/u cultures. Start pressors if necessary to maintain a mean arterial blood pressure greater than 65 mmHg. Heparin drip Tube feeds for nutritional support Patient failed CPAP - lasted 20 minutes Plan for CPAP trial in AM. Monitor renal function Monitor electrolytes. Supplement as necessary. Monitor ins and outs. Maintain euvolemia. GI prophylaxis. DVT prophylaxis. Prognosis: Poor given patient's multiple co-morbidities. Condition: Critical Rest of plan per hospitalist and other consultants. A total of 35 minutes of critical care time was spent reviewing the patient record, examining the patient, making a diagnostic and therapeutic plan, discussing this plan with the medical personnel, following up on diagnostic studies and following the patient for clinical stability excluding any and all procedures. At least 50% of this time was spent in direct, [id number] contact. Thank you Dr. Flakita Khan MD, for allowing me to participate in this patient's care. Further recommendations will depend on the patient's clinical course. Please do not hesitate to contact me if you have any questions or concerns. This medical document was created using an electronic medical record system with [employer] system. Although these documentations are being carefully reviewed, there may still be some phonetic and typographical changes. The errors are purely typographical, due to imperfection on the software program, and do not reflect any compromise in the patient's medical care. Dietary Evaluation Review Recommendations by RD: Dietary education by RD Comments: 1) If GI is accessible consider Pivot 1.5 @ 55 ml/hr x24 hr goal rate as tolerated 2) If pt remains NPO >7 days consider TPN to meet at least 75% of estimated goals 3) Advance pt diet when medically feasible to a Cardiac diet modified per [employer]ENDANT recommendations 4) Continue current plan of care Expected Outcomes/Goals: 1) Pt to receive nutrition support within 7 days of NPO status 2) Pt diet to advance 3) F/U in 2-3 days Plan discussed with: Other (JULIOCESAR Pearson covering for RN Rahat) Critical Care Time(min): 35 Respiratory Effort: ET Tube Breath sounds: Clear, Diminished PRAVEEN NGUYEN MD Feb 26, 2024 21:22
[2024-02-27] VITALS (75 sets, daily range): BP systolic 94–132; BP diastolic 21–34; PULSE 36–79; RESP 14–33; TEMP 97.3–99.7; O2SAT 93–99
--- NOTE | 2024-02-27 05:24 | DVH ---
CHEST RADIOGRAPH Indication: ICU pt intubated Technique: Single frontal view of the chest was obtained COMPARISON: XY CHEST PORTABLE on DOS: 02/26/24, XY CHEST PORTABLE on DOS: 02/25/24, XY CHEST XRAY 1 V IEW on DOS: 02/24/24 FINDINGS: Lines and Tubes: Endotracheal tube, enteric catheter and right central venous catheter in satisfactor y position. Median sternotomy. Lungs: Clear Pleura: Small left pleural effusion. No pneumothorax. Cardiomediastinal contours: Cardiac valve replacement. Bones: Unremarkable IMPRESSION: Lines and tubes in satisfactory position. No significant interval change.
[2024-02-27 07:29] LABS: Base Excess -6.8 mmol/L (-2.0-3.0)
[2024-02-27 08:08] LABS: Chloride 107 mmol/L (98-107); Potassium 5.4 mmol/L (3.5-5.1); Sodium 136 mmol/L (136-145)
[2024-02-27 08:11] LABS: Anion Gap 8 (5-15); Calcium 8.3 mg/dL (8.7-10.4); Carbon Dioxide 21 mmol/L (20-31)
[2024-02-27 08:16] LABS: Glucose 107 mg/dL (74-106)
[2024-02-27 08:17] LABS: Alkaline Phosphatase 127 U/L (46-116); BUN/Creatinine Ratio 33.3 (10.0-20.0)
[2024-02-27 08:18] LABS: Alanine Aminotransferase 21 U/L (7-40); Albumin 2.8 g/dL (3.2-4.8); Aspartate Aminotransferase 23 U/L (13-40)
[2024-02-27 08:19] LABS: Bilirubin, Total 1.1 mg/dL (0.2-1.0); Total Protein 4.6 g/dL (5.7-8.2)
[2024-02-27 08:25] LABS: Blood Urea Nitrogen 57 mg/dL (9-23)
[2024-02-27 08:30] LABS: Eosinophils # (auto) 0.2 10 ^3/uL (0-0.8); Lymphocytes # (auto) 0.4 10 ^3/uL (0.4-5.4); Mean Corpuscular Hemoglobin 28.4 pg (28.0-32.0); Monocytes # (auto) 0.7 10 ^3/uL (0-1.3)
[2024-02-27 08:32] LABS: Basophils # (auto) 0.1 10 ^3/uL (0-0.2); Basophils % (auto) 1.1 % (0.0-2.0); Eosinophils % (auto) 3.6 % (0.0-7.0); Hematocrit 17.7 % (36.0-46.0); Lymphocytes % (auto) 5.6 % (10.0-50.0); Mean Corpuscular Volume 86.3 fL (80.0-100.0); Monocytes % (auto) 9.9 % (0.0-12.0); Neutrophils # (auto) 5.3 10 ^3/uL (1.6-8.6); Neutrophils % (auto) 79.8 % (37.0-80.0); Nucleated Red Blood Cells % 0.3 %; Platelet Count (auto) 145 10^3/uL (140-450); Red Blood Cells 2.05 10^6/uL (4.0-5.20); White Blood Cell 6.6 10^3/uL (4.4-10.8)
[2024-02-27 08:34] LABS: Hemoglobin 5.8 g/dL (12.2-16.2)
[2024-02-27 10:10] LABS: INR 0.99 (0.9-1.15); Partial Thromboplastin Time 33.4 SEC (24.5-34.5); Prothrombin Time 10.5 sec (9.3-11.8)
[2024-02-27] MEDS: amLODIPine BESYLATE 5 MG TAB PO SCH (10:30)
--- NOTE | 2024-02-27 12:47 | DVHPN2 ---
Subjective Patient intubated and sedated Reviewed: Care Plan, H&P, Labs, Medications Changes from previous H/P or p: No Changes General: Per HPI Objective Vitals Vital Signs Date Time Temp Pulse Resp B/P (MAP) Pulse Ox O2 Delivery O2 Flow Rate FiO2 02/27/24 12:39 68 24 105/22 (49) 98 55 02/27/24 06:00 Mechanical Ventilator+ 02/27/24 06:00 98.4 209.1 Intake/Output Intake and Output 02/27/24 07:00 Intake Total 1720.285 ml Output Total 450 ml Balance 1270.285 ml Intake Oral 0 ml IV Total 1584.285 ml Tube Feeding 136 ml Output Urine Total 450 ml Stool Total 0 ml General Appearance: Other (Chemically sedated) HEENT: Atraumatic, PERRLA Lungs: Clear to auscultation, Normal air movement Cardiovascular: Normal S1, Normal S2 Musculoskeletal: Normal sensory function Neuro: Normal speech Psych/Mental Status: Mental status NL, Mood NL Medications Current Medications Medications Dose Ordered Sig/Sherwin Route Start Time Stop Time Status Last Admin Dose Admin Nitroglycerin 0.4 mg Q5MINP PRN SL 02/18/24 06:45 Morphine Sulfate 2 mg Q30M PRN IV 02/18/24 06:45 Ondansetron HCl 4 mg Q6HPRN PRN IV 02/18/24 06:45 Ceftriaxone Sodium 50 ml @ 100 mls/hr DAILY@09 IV 02/18/24 09:00 02/27/24 10:10 100 MLS/HR Azithromycin 250 ml @ 125 mls/hr DAILY IV 02/18/24 10:00 02/27/24 12:00 125 MLS/HR Fentanyl Citrate 250 ml @ 2.5 mls/hr Q24H IV 02/18/24 11:15 02/27/24 11:47 22.5 MLS/HR Pantoprazole Sodium 40 mg DAILY IV 02/19/24 10:00 02/27/24 10:10 40 MG Labetalol HCl 10 mg Q4HPRN PRN IV 02/20/24 16:15 02/25/24 01:32 10 MG Acetaminophen 650 mg Q8HP PRN [place] 02/21/24 11:30 02/25/24 05:54 650 MG Albuterol 2.5 mg Q4HR NEB 02/21/24 18:00 02/27/24 10:59 2.5 MG Ipratropium [place] 0.5 mg Q4HR NEB 02/21/24 18:00 02/27/24 10:59 0.5 MG Enteral Nutritional Formula 1,000 ml 40ML/HR NG 02/22/24 11:30 02/24/24 21:23 1,000 ML Hydralazine HCl 10 mg Q4HR PRN IV 02/24/24 09:15 02/25/24 02:41 10 MG Nicardipine HCl 250 ml @ 50 mls/hr Q5H IV 02/24/24 10:00 02/27/24 09:53 25 MLS/HR Midazolam HCl 5 mg [id number] PRN IV 02/24/24 10:00 02/25/24 08:15 5 MG Propofol 100 ml @ 1.785 mls/ hr Q24H IV 02/25/24 15:30 02/27/24 11:45 17.85 MLS/HR Acetylcysteine 200 mg Q8HR IN 02/26/24 14:00 Cancel Acetylcysteine 200 mg Q8HR [facility] 02/26/24 14:00 02/27/24 06:08 200 MG Budesonide 0.5 mg BID NEB 02/27/24 22:00 Amlodipine Besylate 10 mg DAILY PO 02/27/24 10:30 Laboratory Results Laboratory Tests 02/27/24 07:52 02/27/24 08:13 Chemistry Test 02/27/24 07:52 Albumin 2.8 g/dL (3.2-4.8) L Calcium Level 8.3 mg/dL (8.7-10.4) L Total Protein 4.6 g/dL (5.7-8.2) L Coagulation Test 02/27/24 07:52 02/27/24 09:42 Prothrombin Time sec (9.3-11.8) 10.5 sec (9.3-11.8) Prothrombin Time INR (0.9-1.15) 0.99 (0.9-1.15) Activated Partial Thromboplast Time SEC (24.5-34.5) 33.4 SEC (24.5-34.5) LFT Test 02/27/24 07:52 Alanine Aminotransferase (ALT) 21 U/L (7-40) Alkaline Phosphatase 127 U/L (46-116) H Aspartate Amino Transferase (AST) 23 U/L (13-40) Total Bilirubin 1.1 mg/dL (0.2-1.0) H Urinalysis Test 02/18/24 01:45 Urine Color Yellow (Yellow) Urine Clarity Clear (Clear) Urine pH 6.0 (5.0-9.0) Urine Specific [place] 1.016 (1.001-1.035) Urine Protein 3+ (Negative) H Urine Ketones Negative (Negative) Urine Blood 3+ /uL (Negative) H Urine Nitrite Negative (Negative) Urine Bilirubin Negative (Negative) Urine Urobilinogen Normal mg/dL (Negative) Urine Leukocyte Esterase Negative /uL (Negative) Urine RBC 23 /hpf (0 - 4) Urine WBC 9 /hpf (0 - 5) Urine Squamous Epithelial Cells Few /hpf (<5) Urine Amorphous Crystals Few /hpf (None Seen) Urine Bacteria Few /hpf (None Seen) H Urine Hyaline Casts Mod /lpf (0 - 2) Urine Mucus Few (None Seen) Urine Glucose 1+ mg/dL (Normal) H Blood Gas Results Test 02/27/24 06:17 Arterial Blood pH 7.276 (7.350-7.450) FiO2 % 65.0 Microbiology Microbiology Date/Time Source Procedure Growth Status 02/21/24 13:45 Blood Blood Culture - Final NO GROWTH AFTER 5 DAYS OF INCUBATION. Complete 02/18/24 11:00 Nose MRSA Screen - Final Complete 02/18/24 01:00 Sputum Gram Stain - Final Complete 02/18/24 01:00 Sputum Respiratory Culture - Final Complete Labs and/or images reviewed: Labs reviewed by me, Image(s) reviewed by me Assessment/Plan Assessment/Plan Impression: -acute on chronic hypoxic respiratory failure -ventilator dependence with failure of CPAP/extubation -COPD with probable exacerbation -history of multiple intubations -history of mitral valve replacement, bioprosthetic -atrial fibrillation -primary hypertension -rule out GI bleed -bowel regimen -anemia Plan: -long discussion made with the patient's daughters were bedside. They wished to proceed with full code status, repeat attempt at spontaneous breathing trial, and if failed, proceed with tracheostomy/PEG tube placement, LTAC placement. -continue bronchodilators, add Pulmicort and Solu-Medrol -antibiotic review: Stop azithromycin given full dose has been given. Continue Rocephin -2 unit PRBC -stool for occult blood -bowel regimen -continue tube feeding -continue current ventilator settings per pulmonology -repeat H&H this evening, a.m. labs, chest x-ray, ABG Critical care time spent with patient discussing and formulating plan of care: 40 minutes. This does not include time spent performing procedures. This medical document was created using an electronic medical record system with [employer] dictation system. Although this document has been carefully reviewed, there may still be some phonetic and typographical errors. These areas are purely typographical due to imperfections of the software programs, and do not reflect any compromise in the patient's medical care. Plan discussed with: Patient, Daughter, Other (RN) My Orders Orders - MARK ANTHONY BEJARANO NP Procedure Category Date Status Time Stool Occult Blood LAB 02/27/24 Logged 09:16 Budesonide PHA 02/27/24 In Process (Inhalation) 22:00 Amlodipine Tablet PHA 02/27/24 In Process (Norvasc Tablet) 10:30 Date of Service: Feb 27, 2024 Billing Provider: MARK ANTHONY BEJARANO NP Common Visit Codes: 26410-[id number] CARE 30-74 MIN MARK ANTHONY BEJARANO NP Feb 27, 2024 12:47
--- NOTE | 2024-02-27 12:49 | DVHPN2 ---
Subjective Patient intubated and sedated Reviewed: Care Plan, H&P, Labs, Medications Changes from previous H/P or p: No Changes General: Per HPI Objective Vitals Vital Signs Date Time Temp Pulse Resp B/P (MAP) Pulse Ox O2 Delivery O2 Flow Rate FiO2 02/27/24 12:39 68 24 105/22 (49) 98 55 02/27/24 06:00 Mechanical Ventilator+ 02/27/24 06:00 98.4 209.1 Intake/Output Intake and Output 02/27/24 07:00 Intake Total 1720.285 ml Output Total 450 ml Balance 1270.285 ml Intake Oral 0 ml IV Total 1584.285 ml Tube Feeding 136 ml Output Urine Total 450 ml Stool Total 0 ml General Appearance: Other (Chemically sedated) HEENT: Atraumatic, PERRLA Lungs: Clear to auscultation, Normal air movement Cardiovascular: Normal S1, Normal S2 Musculoskeletal: Normal sensory function Neuro: Normal speech Psych/Mental Status: Mental status NL, Mood NL Medications Current Medications Medications Dose Ordered Sig/Sherwin Route Start Time Stop Time Status Last Admin Dose Admin Nitroglycerin 0.4 mg Q5MINP PRN SL 02/18/24 06:45 Morphine Sulfate 2 mg Q30M PRN IV 02/18/24 06:45 Ondansetron HCl 4 mg Q6HPRN PRN IV 02/18/24 06:45 Ceftriaxone Sodium 50 ml @ 100 mls/hr DAILY@09 IV 02/18/24 09:00 02/27/24 10:10 100 MLS/HR Azithromycin 250 ml @ 125 mls/hr DAILY IV 02/18/24 10:00 02/27/24 12:00 125 MLS/HR Fentanyl Citrate 250 ml @ 2.5 mls/hr Q24H IV 02/18/24 11:15 02/27/24 11:47 22.5 MLS/HR Pantoprazole Sodium 40 mg DAILY IV 02/19/24 10:00 02/27/24 10:10 40 MG Labetalol HCl 10 mg Q4HPRN PRN IV 02/20/24 16:15 02/25/24 01:32 10 MG Acetaminophen 650 mg Q8HP PRN [place] 02/21/24 11:30 02/25/24 05:54 650 MG Albuterol 2.5 mg Q4HR NEB 02/21/24 18:00 02/27/24 10:59 2.5 MG Ipratropium [place] 0.5 mg Q4HR NEB 02/21/24 18:00 02/27/24 10:59 0.5 MG Enteral Nutritional Formula 1,000 ml 40ML/HR NG 02/22/24 11:30 02/24/24 21:23 1,000 ML Hydralazine HCl 10 mg Q4HR PRN IV 02/24/24 09:15 02/25/24 02:41 10 MG Nicardipine HCl 250 ml @ 50 mls/hr Q5H IV 02/24/24 10:00 02/27/24 09:53 25 MLS/HR Midazolam HCl 5 mg [id number] PRN IV 02/24/24 10:00 02/25/24 08:15 5 MG Propofol 100 ml @ 1.785 mls/ hr Q24H IV 02/25/24 15:30 02/27/24 11:45 17.85 MLS/HR Acetylcysteine 200 mg Q8HR IN 02/26/24 14:00 Cancel Acetylcysteine 200 mg Q8HR [facility] 02/26/24 14:00 02/27/24 06:08 200 MG Budesonide 0.5 mg BID NEB 02/27/24 22:00 Amlodipine Besylate 10 mg DAILY PO 02/27/24 10:30 Laboratory Results Laboratory Tests 02/27/24 07:52 02/27/24 08:13 Chemistry Test 02/27/24 07:52 Albumin 2.8 g/dL (3.2-4.8) L Calcium Level 8.3 mg/dL (8.7-10.4) L Total Protein 4.6 g/dL (5.7-8.2) L Coagulation Test 02/27/24 07:52 02/27/24 09:42 Prothrombin Time sec (9.3-11.8) 10.5 sec (9.3-11.8) Prothrombin Time INR (0.9-1.15) 0.99 (0.9-1.15) Activated Partial Thromboplast Time SEC (24.5-34.5) 33.4 SEC (24.5-34.5) LFT Test 02/27/24 07:52 Alanine Aminotransferase (ALT) 21 U/L (7-40) Alkaline Phosphatase 127 U/L (46-116) H Aspartate Amino Transferase (AST) 23 U/L (13-40) Total Bilirubin 1.1 mg/dL (0.2-1.0) H Urinalysis Test 02/18/24 01:45 Urine Color Yellow (Yellow) Urine Clarity Clear (Clear) Urine pH 6.0 (5.0-9.0) Urine Specific [place] 1.016 (1.001-1.035) Urine Protein 3+ (Negative) H Urine Ketones Negative (Negative) Urine Blood 3+ /uL (Negative) H Urine Nitrite Negative (Negative) Urine Bilirubin Negative (Negative) Urine Urobilinogen Normal mg/dL (Negative) Urine Leukocyte Esterase Negative /uL (Negative) Urine RBC 23 /hpf (0 - 4) Urine WBC 9 /hpf (0 - 5) Urine Squamous Epithelial Cells Few /hpf (<5) Urine Amorphous Crystals Few /hpf (None Seen) Urine Bacteria Few /hpf (None Seen) H Urine Hyaline Casts Mod /lpf (0 - 2) Urine Mucus Few (None Seen) Urine Glucose 1+ mg/dL (Normal) H Blood Gas Results Test 02/27/24 06:17 Arterial Blood pH 7.276 (7.350-7.450) FiO2 % 65.0 Microbiology Microbiology Date/Time Source Procedure Growth Status 02/21/24 13:45 Blood Blood Culture - Final NO GROWTH AFTER 5 DAYS OF INCUBATION. Complete 02/18/24 11:00 Nose MRSA Screen - Final Complete 02/18/24 01:00 Sputum Gram Stain - Final Complete 02/18/24 01:00 Sputum Respiratory Culture - Final Complete Assessment/Plan Assessment/Plan Impression: -acute on chronic hypoxic respiratory failure -ventilator dependence with failure of CPAP/extubation -COPD with probable exacerbation -history of multiple intubations -history of mitral valve replacement, bioprosthetic -atrial fibrillation -primary hypertension -rule out GI bleed -bowel regimen -anemia Plan: -long discussion made with the patient's daughters were bedside. They wished to proceed with full code status, repeat attempt at spontaneous breathing trial, and if failed, proceed with tracheostomy/PEG tube placement, LTAC placement. -continue bronchodilators, add Pulmicort and Solu-Medrol -antibiotic review: Stop azithromycin given full dose has been given. Continue Rocephin -2 unit PRBC -stool for occult blood -bowel regimen -continue tube feeding -continue current ventilator settings per pulmonology -repeat H&H this evening, a.m. labs, chest x-ray, ABG Critical care time spent with patient discussing and formulating plan of care: 40 minutes. This does not include time spent performing procedures. This medical document was created using an electronic medical record system with [employer] dictation system. Although this document has been carefully reviewed, there may still be some phonetic and typographical errors. These areas are purely typographical due to imperfections of the software programs, and do not reflect any compromise in the patient's medical care. Plan discussed with: Patient, Daughter, Other (RN) My Orders Orders - MARK ANTHONY BEJARANO NP Procedure Category Date Status Time Stool Occult Blood LAB 02/27/24 Logged 09:16 Budesonide PHA 02/27/24 In Process (Inhalation) 22:00 Amlodipine Tablet PHA 02/27/24 In Process (Norvasc Tablet) 10:30 Date of Service: Feb 27, 2024 Billing Provider: MARK ANTHONY BEJARANO NP Common Visit Codes: [id number] CARE 30-74 MIN MARK ANTHONY BEJARANO NP Feb 27, 2024 12:49
[2024-02-27] MEDS: methylPREDNISolone SOD SUCC 40 MG/ML VL IV SCH (13:23)
[2024-02-27] MEDS: METOCLOPRAMIDE 10 mg/10ml ORAL soln GT SCH (15:33)
[2024-02-27] MEDS: BUDESONIDE (INHALATION) 0.5 MG/2 ML NEB NEB SCH (18:09)
[2024-02-27 20:17] LABS: Hematocrit 24.4 % (36.0-46.0); Hemoglobin 8.1 g/dL (12.2-16.2)
[2024-02-27] MEDS: LACTULOSE 20Gm/30ML SOLN GT SCH (21:27)
[2024-02-28] VITALS (109 sets, daily range): BP systolic 88–164; BP diastolic 29–78; PULSE 58–158; RESP 16–28; TEMP 97.3–99.9; O2SAT 93–100
[2024-02-28 03:49] LABS: Hematocrit 26.1 % (36.0-46.0); Hemoglobin 8.6 g/dL (12.2-16.2); Mean Corpuscular Hemoglobin 28.6 pg (28.0-32.0); Mean Corpuscular Hgb Conc. 33.1 g/dL (32.0-36.0); Mean Corpuscular Volume 86.2 fL (80.0-100.0); Platelet Count (auto) 151 10^3/uL (140-450); Red Blood Cells 3.03 10^6/uL (4.0-5.20); Red Cell Distribution Width 17.4 % (11.8-14.3); White Blood Cell 8.9 10^3/uL (4.4-10.8)
[2024-02-28 04:08] LABS: Alanine Aminotransferase 33 U/L (7-40); Alkaline Phosphatase 224 U/L (46-116); Anion Gap 10 (5-15); Calcium 8.6 mg/dL (8.7-10.4); Carbon Dioxide 20 mmol/L (20-31); Chloride 104 mmol/L (98-107); Glucose 172 mg/dL (74-106); Sodium 134 mmol/L (136-145)
[2024-02-28 04:09] LABS: BUN/Creatinine Ratio 28.9 (10.0-20.0); Blood Urea Nitrogen 59 mg/dL (9-23)
[2024-02-28 04:10] LABS: Albumin 3.4 g/dL (3.2-4.8); Aspartate Aminotransferase 33 U/L (13-40)
[2024-02-28 04:11] LABS: Band Neutrophils % (manual) 0; Basophils % (manual) 0 (0.0-2.0); Bilirubin, Total 1.1 mg/dL (0.2-1.0); Blast Cells 0; Eosinophils % (manual) 0 (0-7); Metamyelocytes % 0; Myelocytes % 0; Promyelocytes % 0; Reactive Lymphocytes 0; Total Protein 5.6 g/dL (5.7-8.2)
[2024-02-28 04:26] LABS: Potassium 6.1 mmol/L (3.5-5.1)
--- NOTE | 2024-02-28 04:37 | DVH ---
CHEST RADIOGRAPH Indication: INTUBATED Technique: Single frontal view of the chest was obtained Comparison: XY CHEST PORTABLE on DOS: 02/27/24 FINDINGS: Lines and Tubes: The endotracheal tube terminates 3.2 cm above mikey. Right central venous catheter terminates in the superior vena cava. The enteric tube courses below the left hemidiaphragm and the t ip extends outside the field of view. Lungs: Bilateral interstitial prominence. Pleura: Left pleural effusion. No pneumothorax. Cardiomediastinal contours: Stable cardiovascular silhouette. Cardiac valve prosthesis noted. Bones: No acute osseous abnormality. IMPRESSION: 1. Endotracheal tube terminates 3.2 cm above the mikey. Other lines and tubes unchanged. 2. Pulmonary congestion. 3. Left pleural effusion.
[2024-02-28 05:19] LABS: Lymphocytes % (manual) 1 (10.0-50.0); Monocytes % (manual) 1 (0-12)
[2024-02-28 05:20] LABS: Platelet Estimate Adequate
[2024-02-28] MEDS: CALCIUM GLUC 1,000mg/50ml-NS 50 ML IV ONE (05:20)
[2024-02-28] MEDS: InsuLIN REG 1unit/0.01ml Soln (100units/ml) IV ONE ×2 (05:27→20:23)
[2024-02-28] MEDS: DEXTROSE (50%) 50ML SYRG IV ONE ×2 (05:38→20:24)
[2024-02-28] MEDS: SODIUM BICARB 8.4% 50Meq/50ml SYR INJ IV ONE (05:38)
[2024-02-28] MEDS: ALBUTEROL SULF 2.5 MG/0.5ML(0.5%) NEB SOLN NEB ONE (05:55)
[2024-02-28 06:42] LABS: Base Excess -7.6 mmol/L (-2.0-3.0)
[2024-02-28] MEDS ORDERED: BISACODYL 10 MG RECT SUPP PR PRN (08:45)
[2024-02-28] MEDS: SODIUM ZIRCONIUM CYCL 10 GM PAK PO ONE ×2 (09:03→20:24)
--- NOTE | 2024-02-28 09:05 | DVHPN2 ---
Progress Note Date Seen: Feb 28, 2024 Medical Necessity Reason Pt with a Central, PICC or Fol: Yes The following are medically ne: Central Line, Mccord Catheter Reason for mccord catheter: Strict I&O, Total Immobilization Subjective Review of Systems: RESPIRATORY:Abnormal Objective vital signs Vital Sign Date Time Temp Pulse Resp B/P (MAP) Pulse Ox O2 Delivery O2 Flow Rate FiO2 02/28/24 07:28 96 24 131/37 (68) 97 50 02/28/24 07:00 99.0 210.2 02/28/24 06:00 Mechanical Ventilator+ Total Intake and Output 02/27/24 02/27/24 02/28/24 14:59 22:59 06:59 Intake Total 425.80 ml 1490.845 ml 371.670 ml Output Total 150 ml 150 ml Balance 425.80 ml 1340.845 ml 221.670 ml medications Current Medications Medications Dose Ordered Sig/Sherwin Route Start Time Stop Time Status Last Admin Dose Admin Nitroglycerin 0.4 mg Q5MINP PRN SL 02/18/24 06:45 Morphine Sulfate 2 mg Q30M PRN IV 02/18/24 06:45 Ondansetron HCl 4 mg Q6HPRN PRN IV 02/18/24 06:45 Ceftriaxone Sodium 50 ml @ 100 mls/hr DAILY@09 IV 02/18/24 09:00 02/27/24 10:10 100 MLS/HR Fentanyl Citrate 250 ml @ 2.5 mls/hr Q24H IV 02/18/24 11:15 02/28/24 02:20 10 MLS/HR Pantoprazole Sodium 40 mg DAILY IV 02/19/24 10:00 02/27/24 10:10 40 MG Labetalol HCl 10 mg Q4HPRN PRN IV 02/20/24 16:15 02/25/24 01:32 10 MG Acetaminophen 650 mg Q8HP PRN SD 02/21/24 11:30 02/25/24 05:54 650 MG Albuterol 2.5 mg Q4HR NEB 02/21/24 18:00 02/28/24 02:14 2.5 MG Ipratropium [place] 0.5 mg Q4HR NEB 02/21/24 18:00 02/28/24 02:14 0.5 MG Hydralazine HCl 10 mg Q4HR PRN IV 02/24/24 09:15 02/25/24 02:41 10 MG Midazolam HCl 5 mg [id number] PRN IV 02/24/24 10:00 02/25/24 08:15 5 MG Propofol 100 ml @ 1.785 mls/ hr Q24H IV 02/25/24 15:30 02/28/24 02:13 12.495 MLS/HR Acetylcysteine 200 mg Q8HR IN 02/26/24 14:00 Cancel Acetylcysteine 200 mg Q8HR NEB 02/26/24 14:00 02/27/24 22:06 200 MG Budesonide 0.5 mg BID NEB 02/27/24 22:00 02/27/24 18:09 0.5 MG Amlodipine Besylate 10 mg DAILY PO 02/27/24 10:30 Methylprednisolone Sodium Succinate 40 mg BID IV 02/27/24 12:45 02/27/24 21:28 40 MG Metoclopramide HCl 10 mg Q8HR GT 02/27/24 14:00 02/28/24 05:59 10 MG Sodium Bicarbonate 150 ml/Dextrose 1,150 ml @ 100 mls/hr [id number] IV 02/28/24 08:15 Lactulose 30 ml Q4H GT 02/28/24 10:00 Enteral Nutritional Formula 1,000 ml 30ML/HR GT 02/28/24 08:45 Bisacodyl 10 mg DAILYP PRN SD 02/28/24 08:45 Examination: LUNGS:Abnormal laboratory and microbiology Laboratory Tests 02/28/24 03:15 Test 02/28/24 03:15 Range/Units Serum Glucose 172 H 74-106 mg/dL Microbiology Date/Time Source Procedure Growth Status 02/21/24 13:45 Blood Blood Culture - Final NO GROWTH AFTER 5 DAYS OF INCUBATION. Complete 02/18/24 11:00 Nose MRSA Screen - Final Complete 02/18/24 01:00 Sputum Gram Stain - Final Complete 02/18/24 01:00 Sputum Respiratory Culture - Final Complete Labs and/or images reviewed: Labs reviewed by me, Image(s) reviewed by me Problem List/Assessment/Plan Problem List/Assessment/Plan acute resp failure 2 m ventilatrion 3 a b g adequate 4 i n r therapeutic 5 no acute bleeding 6 plan d c sedation and c p a p trial 02/21/24 pt is vented now on c p a p 01/11 pt is still on prop and precedex a b g good on 01/11 but pt is not awake d c sedation and cpap 11/10 . if pt is non cooperative may extubate 02/24/24 pt is still sedated as b p went up pt surya 35% peep 5 plan is to try to wean off the sedation and c pap 11/10 pt is anaemic as well hb is 7.8 02/25/24 pulm pt is intubated hu on precedex vital signs stable on nicardipine drip reduce predecx and do weaning parameters and a b g if adequate extubate 02/28/24 1 met acedosis 2 hyperkalemia 3 kidney function worse plan rate 26 and replace [id number] repeat a b g in few hrs Plan discussed with: Daughter My Orders My Orders Orders - YASHIRA VICK MD Procedure Category Date Status Time Vital Signs ANUP 02/27/24 In Process 09:09 Ventilator Orders RT 02/28/24 Transmitted 08:54 Dietary Evaluation Review Recommendations by RD: Dietary education by RD Comments: 1) If GI is accessible consider Pivot 1.5 @ 55 ml/hr x24 hr goal rate as tolerated 2) If pt remains NPO >7 days consider TPN to meet at least 75% of estimated goals 3) Advance pt diet when medically feasible to a Cardiac diet modified per [employer]OMET[employer] PROFESSOR recommendations 4) Continue current plan of care Expected Outcomes/Goals: 1) Pt to receive nutrition support within 7 days of NPO status 2) Pt diet to advance 3) F/U in 2-3 days Sepsis reassessment post fluid Respiratory Effort: ET Tube Breath sounds: Clear, Diminished YASHIRA VICK MD Feb 28, 2024 09:05
[2024-02-28] MEDS: LACTULOSE 20Gm/30ML SOLN GT SCH (09:06)
[2024-02-28] MEDS: SODIUM BICARB 50mEq/50ml Vial 150 ML in D5W 5% 1,000 ML IV SCH (09:11)
--- NOTE | 2024-02-28 09:16 | DVHPN2 ---
Subjective Patient intubated and sedated Reviewed: Care Plan, H&P, Labs, Medications Changes from previous H/P or p: No Changes General: Per HPI Objective Vitals Vital Signs Date Time Temp Pulse Resp B/P (MAP) Pulse Ox O2 Delivery O2 Flow Rate FiO2 02/28/24 07:28 96 24 131/37 (68) 97 50 02/28/24 07:00 99.0 210.2 02/28/24 06:00 Mechanical Ventilator+ Intake/Output Intake and Output 02/28/24 07:00 Intake Total 2209.965 ml Output Total 300 ml Balance 1909.965 ml Intake Oral 50 ml IV Total 798.965 ml Tube Feeding 671 ml Blood Product 600 ml Other 90 ml Output Urine Total 300 ml General Appearance: moderate distress, Other (Chemically sedated) HEENT: Atraumatic, PERRLA Lungs: Clear to auscultation, Normal air movement, Other (Mechanical ventilation) Cardiovascular: Normal S1, Normal S2 Musculoskeletal: Normal sensory function Neuro: Normal speech Psych/Mental Status: Mental status NL, Mood NL Medications Current Medications Medications Dose Ordered Sig/Sherwin Route Start Time Stop Time Status Last Admin Dose Admin Nitroglycerin 0.4 mg Q5MINP PRN SL 02/18/24 06:45 Morphine Sulfate 2 mg Q30M PRN IV 02/18/24 06:45 Ondansetron HCl 4 mg Q6HPRN PRN IV 02/18/24 06:45 Ceftriaxone Sodium 50 ml @ 100 mls/hr DAILY@09 IV 02/18/24 09:00 02/28/24 09:03 100 MLS/HR Fentanyl Citrate 250 ml @ 2.5 mls/hr Q24H IV 02/18/24 11:15 02/28/24 02:20 10 MLS/HR Pantoprazole Sodium 40 mg DAILY IV 02/19/24 10:00 02/27/24 10:10 40 MG Labetalol HCl 10 mg Q4HPRN PRN IV 02/20/24 16:15 02/25/24 01:32 10 MG Acetaminophen 650 mg Q8HP PRN [place] 02/21/24 11:30 02/25/24 05:54 650 MG Albuterol 2.5 mg Q4HR NEB 02/21/24 18:00 02/28/24 02:14 2.5 MG Ipratropium [place] 0.5 mg Q4HR NEB 02/21/24 18:00 02/28/24 02:14 0.5 MG Hydralazine HCl 10 mg Q4HR PRN IV 02/24/24 09:15 02/25/24 02:41 10 MG Midazolam HCl 5 mg [id number] PRN IV 02/24/24 10:00 02/25/24 08:15 5 MG Propofol 100 ml @ 1.785 mls/ hr Q24H IV 02/25/24 15:30 02/28/24 02:13 12.495 MLS/HR Acetylcysteine 200 mg Q8HR IN 02/26/24 14:00 Cancel Acetylcysteine 200 mg Q8HR NEB 02/26/24 14:00 02/27/24 22:06 200 MG Budesonide 0.5 mg BID NEB 02/27/24 22:00 02/27/24 18:09 0.5 MG Amlodipine Besylate 10 mg DAILY PO 02/27/24 10:30 Methylprednisolone Sodium Succinate 40 mg BID IV 02/27/24 12:45 02/27/24 21:28 40 MG Metoclopramide HCl 10 mg Q8HR GT 02/27/24 14:00 02/28/24 05:59 10 MG Sodium Bicarbonate 150 ml/Dextrose 1,150 ml @ 100 mls/hr [id number] IV 02/28/24 08:15 Lactulose 30 ml Q4H GT 02/28/24 10:00 Enteral Nutritional Formula 1,000 ml 30ML/HR GT 02/28/24 08:45 Bisacodyl 10 mg DAILYP PRN [place] 02/28/24 08:45 Laboratory Results Laboratory Tests 02/28/24 03:15 Chemistry Test 02/28/24 03:15 Albumin 3.4 g/dL (3.2-4.8) Calcium Level 8.6 mg/dL (8.7-10.4) L Total Protein 5.6 g/dL (5.7-8.2) L Coagulation Test 02/27/24 09:42 Prothrombin Time 10.5 sec (9.3-11.8) Prothrombin Time INR 0.99 (0.9-1.15) Activated Partial Thromboplast Time 33.4 SEC (24.5-34.5) LFT Test 02/28/24 03:15 Alanine Aminotransferase (ALT) 33 U/L (7-40) Alkaline Phosphatase 224 U/L (46-116) H Aspartate Amino Transferase (AST) 33 U/L (13-40) Total Bilirubin 1.1 mg/dL (0.2-1.0) H Urinalysis Test 02/18/24 01:45 Urine Color Yellow (Yellow) Urine Clarity Clear (Clear) Urine pH 6.0 (5.0-9.0) Urine Specific [place] 1.016 (1.001-1.035) Urine Protein 3+ (Negative) H Urine Ketones Negative (Negative) Urine Blood 3+ /uL (Negative) H Urine Nitrite Negative (Negative) Urine Bilirubin Negative (Negative) Urine Urobilinogen Normal mg/dL (Negative) Urine Leukocyte Esterase Negative /uL (Negative) Urine RBC 23 /hpf (0 - 4) Urine WBC 9 /hpf (0 - 5) Urine Squamous Epithelial Cells Few /hpf (<5) Urine Amorphous Crystals Few /hpf (None Seen) Urine Bacteria Few /hpf (None Seen) H Urine Hyaline Casts Mod /lpf (0 - 2) Urine Mucus Few (None Seen) Urine Glucose 1+ mg/dL (Normal) H Blood Gas Results Test 02/28/24 06:38 Arterial Blood pH 7.253 (7.350-7.450) FiO2 % 50.0 Microbiology Microbiology Date/Time Source Procedure Growth Status 02/21/24 13:45 Blood Blood Culture - Final NO GROWTH AFTER 5 DAYS OF INCUBATION. Complete 02/18/24 11:00 Nose MRSA Screen - Final Complete 02/18/24 01:00 Sputum Gram Stain - Final Complete 02/18/24 01:00 Sputum Respiratory Culture - Final Complete Labs and/or images reviewed: Labs reviewed by me, Image(s) reviewed by me Assessment/Plan Assessment/Plan Impression: -acute on chronic hypoxic respiratory failure -ventilator dependence with failure of CPAP/extubation -COPD with probable exacerbation -history of multiple intubations -history of mitral valve replacement, bioprosthetic -atrial fibrillation -primary hypertension -rule out GI bleed -bowel regimen -anemia -acute probable vasomotor nephropathy. -hyperkalemia Plan: Events: Patient with worsening renal function and hyperkalemia. FiO2 down to 50%. Plans for CT scan of the chest. H&H stable -start bicarb drip, potassium lowering agents, repeat BNP today -patient without bowel movement. Increase bowel regimen -nephrology consultation -change tube feeding from Jevity to Nepro -continue Rocephin -stool for occult blood : Pending -continue ventilator settings per pulmonology -repeat labs, chest x-ray, ABG in a.m. -updates provided to patient's daughter who was bedside. Critical care time spent with patient discussing and formulating plan of care: 40 minutes. This does not include time spent performing procedures. This medical document was created using an electronic medical record system with [employer] dictation system. Although this document has been carefully reviewed, there may still be some phonetic and typographical errors. These areas are purely typographical due to imperfections of the software programs, and do not reflect any compromise in the patient's medical care. Plan discussed with: Patient, Daughter, Other (RN) My Orders Orders - MARK ANTHONY BEJARANO NP Procedure Category Date Status Time Stool Occult Blood LAB 02/27/24 Logged 09:16 Budesonide PHA 02/27/24 In Process (Inhalation) 22:00 Amlodipine Tablet PHA 02/27/24 In Process (Norvasc Tablet) 10:30 Vitamin B1 (Thiamine) LAB 02/28/24 In Process 04:00 Vitamin D 25-Hydroxy LAB 02/28/24 In Process D2 + D3 04:00 Methylprednisolone PHA 02/27/24 In Process Sod Succ (Solu Medrol 12:45 Metoclopramide Oral PHA 02/27/24 In Process Soln (Reglan Oral So 14:00 D5w 5% (Dextrose 5%) PHA 02/28/24 In Process W/Sodium Bicarb 50m 08:15 Basic Metabolic Panel LAB 02/28/24 Logged 13:00 Basic Metabolic Panel LAB 02/29/24 Verified 04:00 Complete Blood Count LAB 02/29/24 Verified 04:00 Lactulose Oral PHA 02/28/24 In Process 10:[address] 02/28/24 Logged 08:20 Nutritional PHA 02/28/24 In Process Supplements (Nepro 08:45 Bisacodyl Suppository PHA 02/28/24 In Process (Dulcolax Supposit 08:45 Date of Service: Feb 28, 2024 Billing Provider: MARK ANTHONY BEJARANO NP Common Visit Codes: [id number] CARE 30-74 MIN MARK ANTHONY BEJARANO NP Feb 28, 2024 09:15
--- NOTE | 2024-02-28 11:17 | DVH ---
CT CHEST, ABDOMEN AND PELVIS WITHOUT CONTRAST CLINICAL HISTORY: RESP FAILURE / CONSTIPATION TECHNIQUE: Multiple contiguous axial images of the chest, abdomen and pelvis without intravenous cont rast. The images were reformatted degenerate coronal and sagittal reconstructions. All CT scans at this medical facility are performed using dose modulation techniques as appropriate t o a performed exam including the following:Automated exposure control was utilized; adjustment of the MA and/or KV according to patient size; and use of iterative reconstruction technique. Radiation Dose Information: CT Dose: CTDI volume is 24 mGy. Dose-length product is 16 16 mGy*cm FINDINGS: Evaluation of the chest, abdomen and pelvis is limited without intravenous contrast. There are bilateral pleural effusions, bdfrm-gahmbdy-arfk-left, with atelectasis in the lung bases. T here is fluid tracking into the bilateral major fissures. There are upper lobe predominant emphysemat ous changes in the lungs. There is no evidence of pneumothorax. There is no evidence of a mediastinal mass. There is a nonspecific prominent paratracheal lymph node measuring 1.4 cm in short axis. There is no axillary lymphadenopathy. An endotracheal tube terminates above the mikey. An NG tube is seen in the esophagus coursing into the stomach. There is mild cardiomegaly. There are calcified atherosclerotic changes in the coronary arteries and thoracic aorta. There is no pericardial effusion. There are small dependently layering gallstones within the gallbladder. The liver, pancreas, kidne ys, adrenal glands, and spleen appear within normal limits. There is no gross evidence of abdominal lymphadenopathy. There is minimal amount of ascites. There is no free air. The small and large bowel loops demonstrate normal caliber. There are multiple diverticula in the si gmoid colon without evidence of acute diverticulitis. There is no significant amount of stool seen in the colon. A rectal tube is in place. The abdominal aorta and IVC appear within normal limits. There is a Sam catheter in the bladder which is decompressed. The uterus appears within normal limi ts. There is a nonspecific 6 cm bilobed cystic structure in the left pelvis probably an ovarian cyst. . There is no evidence of a pelvic mass . There is free fluid in the posterior cul-de-sac. The osseous structures appear demineralized. There are multiple chronic appearing compression deformi ties of the thoracic and lumbar vertebra. IMPRESSION: 1. Bilateral pleural effusions, ldugr-gfmhbrp-wgcs-left tracking into the major fissures. There is at electasis in the lung bases. 2. Upper lobe predominant emphysematous changes in the lungs. 3. Nonspecific prominent 1.4 cm paratracheal mediastinal lymph node may be reactive in nature. 4. Mild cardiomegaly. 5. Cholelithiasis. 6. Nonspecific bilobed 6 cm cystic structure in the left pelvis probably an ovarian cyst. Further ev aluation with dedicated pelvic ultrasound is recommended. 7. Sigmoid diverticulosis. 8. Small amount of ascites. 9. Demineralized osseous structures with multiple chronic appearing compression deformities of the th oracic and lumbar vertebra. HS:Y
[2024-02-28] MEDS: Nepro With Carb Steady 1 Liter Bottle GT SCH (12:37)
[2024-02-28 13:12] LABS: Chloride 103 mmol/L (98-107); Potassium 5.3 mmol/L (3.5-5.1); Sodium 135 mmol/L (136-145)
[2024-02-28 13:13] LABS: Anion Gap 8 (5-15); Carbon Dioxide 24 mmol/L (20-31)
[2024-02-28 13:14] LABS: Calcium 8.6 mg/dL (8.7-10.4)
[2024-02-28 13:18] LABS: BUN/Creatinine Ratio 29.1 (10.0-20.0); Blood Urea Nitrogen 64 mg/dL (9-23); Glucose 213 mg/dL (74-106)
[2024-02-28] MEDS: BISACODYL 10 MG RECT SUPP PR ONE (13:43)
[2024-02-28] MEDS: AMIODARONE BOLUS KIT 100 ML IV ONE ×2 (18:15→18:40)
[2024-02-28] MEDS: AMIODARONE 450mg/250ml AE 250 ML IV ONE (18:16)
[2024-02-28 18:40] LABS: Chloride 102 mmol/L (98-107); Potassium 5.1 mmol/L (3.5-5.1); Sodium 136 mmol/L (136-145)
[2024-02-28 18:41] LABS: Anion Gap 9 (5-15); Calcium 8.5 mg/dL (8.7-10.4); Carbon Dioxide 25 mmol/L (20-31)
[2024-02-28 18:46] LABS: Blood Urea Nitrogen 63 mg/dL (9-23); Glucose 194 mg/dL (74-106)
[2024-02-28] MEDS: AMIODARONE 450mg/250ml AE 250 ML IV SCH (18:54)
[2024-02-28] MEDS: NOREPINEPHRINE 8 MG/250ML KIT 250 ML IV SCH (19:15)
[2024-02-28] MEDS: FUROSEMIDE 20 MG/2 ML VIAL IV ONE (20:24)
[2024-02-29] VITALS (90 sets, daily range): BP systolic 91–178; BP diastolic 33–88; PULSE 67–133; RESP 16–34; TEMP 98.2–99.1; O2SAT 89–100
[2024-02-29] MEDS: AMIODARONE 450mg/250ml AE 250 ML IV SCH (00:19)
[2024-02-29 04:15] LABS: Hematocrit 24.9 % (36.0-46.0); Hemoglobin 8.3 g/dL (12.2-16.2); Mean Corpuscular Hemoglobin 28.6 pg (28.0-32.0); Mean Corpuscular Hgb Conc. 33.2 g/dL (32.0-36.0); Mean Corpuscular Volume 86.1 fL (80.0-100.0); Platelet Count (auto) 169 10^3/uL (140-450); Red Blood Cells 2.89 10^6/uL (4.0-5.20); Red Cell Distribution Width 17.3 % (11.8-14.3); White Blood Cell 13.1 10^3/uL (4.4-10.8)
[2024-02-29 04:18] LABS: Band Neutrophils % (manual) 0; Basophils % (manual) 0 (0.0-2.0); Blast Cells 0; Eosinophils % (manual) 0 (0-7); Metamyelocytes % 0; Myelocytes % 0; Promyelocytes % 0; Reactive Lymphocytes 0
[2024-02-29 04:24] LABS: Anion Gap 11 (5-15); Carbon Dioxide 26 mmol/L (20-31); Chloride 98 mmol/L (98-107); Potassium 4.6 mmol/L (3.5-5.1); Sodium 135 mmol/L (136-145)
[2024-02-29 04:26] LABS: Calcium 8.5 mg/dL (8.7-10.4)
[2024-02-29 04:30] LABS: BUN/Creatinine Ratio 29.8 (10.0-20.0); Blood Urea Nitrogen 65 mg/dL (9-23); Glucose 188 mg/dL (74-106)
[2024-02-29 05:23] LABS: Lymphocytes % (manual) 3 (10.0-50.0); Monocytes % (manual) 2 (0-12); Platelet Estimate Adequate; Smudge Cells 3 /100 WBC
[2024-02-29 08:27] LABS: Base Excess -1.8 mmol/L (-2.0-3.0)
[2024-02-29] MEDS: DIGOXIN (250MCG/ML) 2 ML AMPULE ONE (11:38)
[2024-02-29] MEDS: DIGOXIN (250MCG/ML) 2 ML AMPULE IV ONE ×2 (11:47→17:21)
--- NOTE | 2024-02-29 12:27 | DVHPN2 ---
Progress Note - Dictate Date Seen: Feb 29, 2024 Medical Necessity Reason Pt with a Central, PICC or Fol: Yes The following are medically ne: Central Line, Mccord Catheter Reason for mccord catheter: Strict I&O, Total Immobilization Subjective Asked to reconsult on Mrs. Castaneda due to worsening acute kidney injury and hyperkalemia. She was seen in the ICU, remains intubated, sedated. vital signs Vital Sign Date Time Temp Pulse Resp B/P (MAP) Pulse Ox O2 Delivery O2 Flow Rate FiO2 02/29/24 11:47 131 02/29/24 11:42 26 139/69 (92) 91 35 02/29/24 10:00 Mechanical Ventilator 02/29/24 06:45 99.0 210.2 Total Intake and Output 02/28/24 02/28/24 02/29/24 14:59 22:59 06:59 Intake Total 688.885 ml 1412.539 ml 1781.051 ml Output Total 375 ml 575 ml Balance 688.885 ml 1037.539 ml 1206.051 ml medications Current Medications Medications Dose Ordered Sig/Sherwin Route Start Time Stop Time Status Last Admin Dose Admin Nitroglycerin 0.4 mg Q5MINP PRN SL 02/18/24 06:45 Morphine Sulfate 2 mg Q30M PRN IV 02/18/24 06:45 Ondansetron HCl 4 mg Q6HPRN PRN IV 02/18/24 06:45 Ceftriaxone Sodium 50 ml @ 100 mls/hr DAILY@09 IV 02/18/24 09:00 02/29/24 08:05 100 MLS/HR Fentanyl Citrate 250 ml @ 2.5 mls/hr Q24H IV 02/18/24 11:15 02/29/24 00:22 10 MLS/HR Pantoprazole Sodium 40 mg DAILY IV 02/19/24 10:00 02/29/24 09:28 40 MG Labetalol HCl 10 mg Q4HPRN PRN IV 02/20/24 16:15 02/29/24 07:27 10 MG Acetaminophen 650 mg Q8HP PRN [place] 02/21/24 11:30 02/25/24 05:54 650 MG Albuterol 2.5 mg Q4HR NEB 02/21/24 18:00 02/29/24 06:44 2.5 MG Ipratropium [place] 0.5 mg Q4HR NEB 02/21/24 18:00 02/29/24 06:44 0.5 MG Hydralazine HCl 10 mg Q4HR PRN IV 02/24/24 09:15 02/25/24 02:41 10 MG Midazolam HCl 5 mg [id number] PRN IV 02/24/24 10:00 02/25/24 08:15 5 MG Propofol 100 ml @ 1.785 mls/ hr Q24H IV 02/25/24 15:30 02/29/24 08:07 8.925 MLS/HR Acetylcysteine 200 mg Q8HR IN 02/26/24 14:00 Cancel Acetylcysteine 200 mg Q8HR NEB 02/26/24 14:00 02/29/24 06:45 200 MG Budesonide 0.5 mg BID NEB 02/27/24 22:00 02/29/24 06:44 0.5 MG Amlodipine Besylate 10 mg DAILY PO 02/27/24 10:30 02/29/24 09:28 10 MG Methylprednisolone Sodium Succinate 40 mg BID IV 02/27/24 12:45 02/29/24 09:28 40 MG Sodium Bicarbonate 150 ml/Dextrose 1,150 ml @ 100 mls/hr [id number] IV 02/28/24 08:15 02/29/24 08:05 100 MLS/HR Enteral Nutritional Formula 1,000 ml 30ML/HR GT 02/28/24 08:45 02/28/24 12:37 1,000 ML Bisacodyl 10 mg DAILYP PRN [place] 02/28/24 08:45 Amiodarone HCl 250 ml @ 16.667 mls/ hr Q15H IV 02/29/24 00:30 02/29/24 00:19 16.667 MLS/HR Norepinephrine Bitartrate 250 ml @ 3.75 mls/hr Q24H IV 02/28/24 19:15 Digoxin 0.125 mg DAILY PO 03/01/24 10:00 Lactulose 30 ml DAILYPRN PRN PO 02/29/24 12:00 objective Gen: nad, intubated and sedated lungs: Occasional rhonchi cvs: No rub ext: no edema laboratory and microbiology Laboratory Tests 02/29/24 03:15 Test 02/29/24 03:15 Range/Units Serum Glucose 188 H 74-106 mg/dL Assessment/Plan IMP: Acute kidney injury likely hemodynamically mediated, oliguria Chronic kidney disease stage 2/3 Acute respiratory failure in the setting of possible COPD exacerbation Acute anemia unspecified Pneumonia REC: will repeat urine sodium, urine creatinine Agree with medical management of hyperkalemia - has improved we will continue to follow closely with you Dietary Evaluation Review Recommendations by RD: Dietary education by RD Comments: 1) If GI is accessible consider Pivot 1.5 @ 55 ml/hr x24 hr goal rate as tolerated 2) If pt remains NPO >7 days consider TPN to meet at least 75% of estimated goals 3) Advance pt diet when medically feasible to a Cardiac diet modified per [employer] EDUC[employer] TUTOR recommendations 4) Continue current plan of care Expected Outcomes/Goals: 1) Pt to receive nutrition support within 7 days of NPO status 2) Pt diet to advance 3) F/U in 2-3 days Plan discussed with: Other Respiratory Effort: ET Tube Breath sounds: Clear, Diminished ODELL MCCULLOUGH MD Feb 29, 2024 12:27
--- NOTE | 2024-02-29 14:39 | DVHPN2 ---
Subjective Intubated and sedated AFib RVR On IV amiodarone drip Reviewed: Care Plan, H&P, Labs, Medications Changes from previous H/P or p: Changes General: Per HPI Objective Vitals Vital Signs Date Time Temp Pulse Resp B/P (MAP) Pulse Ox O2 Delivery O2 Flow Rate FiO2 02/29/24 14:09 130 26 176/88 (117) 100 35 02/29/24 14:00 Mechanical Ventilator+ 02/29/24 09:30 99.1 210.4 Intake/Output Intake and Output 02/29/24 07:00 Intake Total 3859.980 ml Output Total 950 ml Balance 2909.980 ml Intake Oral 390 ml IV Total 2870.980 ml Tube Feeding 599 ml Output Urine Total 950 ml Stool Total 0 ml General Appearance: moderate distress, Other (Chemically sedated) HEENT: Atraumatic, PERRLA Lungs: Clear to auscultation, Normal air movement, Other (Mechanical ventilation) Cardiovascular: Normal S1, Normal S2 Musculoskeletal: Normal sensory function Neuro: Normal speech Psych/Mental Status: Mental status NL, Mood NL Medications Current Medications Medications Dose Ordered Sig/Sherwin Route Start Time Stop Time Status Last Admin Dose Admin Nitroglycerin 0.4 mg Q5MINP PRN SL 02/18/24 06:45 Morphine Sulfate 2 mg Q30M PRN IV 02/18/24 06:45 Ondansetron HCl 4 mg Q6HPRN PRN IV 02/18/24 06:45 Ceftriaxone Sodium 50 ml @ 100 mls/hr DAILY@09 IV 02/18/24 09:00 02/29/24 08:05 100 MLS/HR Fentanyl Citrate 250 ml @ 2.5 mls/hr Q24H IV 02/18/24 11:15 02/29/24 00:22 10 MLS/HR Pantoprazole Sodium 40 mg DAILY IV 02/19/24 10:00 02/29/24 09:28 40 MG Labetalol HCl 10 mg Q4HPRN PRN IV 02/20/24 16:15 02/29/24 07:27 10 MG Acetaminophen 650 mg Q8HP PRN [place] 02/21/24 11:30 02/25/24 05:54 650 MG Albuterol 2.5 mg Q4HR NEB 02/21/24 18:00 02/29/24 14:08 2.5 MG Ipratropium [place] 0.5 mg Q4HR NEB 02/21/24 18:00 02/29/24 14:09 0.5 MG Hydralazine HCl 10 mg Q4HR PRN IV 02/24/24 09:15 02/25/24 02:41 10 MG Midazolam HCl 5 mg [id number] PRN IV 02/24/24 10:00 02/25/24 08:15 5 MG Propofol 100 ml @ 1.785 mls/ hr Q24H IV 02/25/24 15:30 02/29/24 14:08 12.495 MLS/HR Acetylcysteine 200 mg Q8HR IN 02/26/24 14:00 Cancel Acetylcysteine 200 mg Q8HR NEB 02/26/24 14:00 02/29/24 14:09 200 MG Budesonide 0.5 mg BID NEB 02/27/24 22:00 02/29/24 06:44 0.5 MG Amlodipine Besylate 10 mg DAILY PO 02/27/24 10:30 02/29/24 09:28 10 MG Methylprednisolone Sodium Succinate 40 mg BID IV 02/27/24 12:45 02/29/24 09:28 40 MG Sodium Bicarbonate 150 ml/Dextrose 1,150 ml @ 100 mls/hr [id number] IV 02/28/24 08:15 02/29/24 08:05 100 MLS/HR Enteral Nutritional Formula 1,000 ml 30ML/HR GT 02/28/24 08:45 02/28/24 12:37 1,000 ML Bisacodyl 10 mg DAILYP PRN [place] 02/28/24 08:45 Amiodarone HCl 250 ml @ 16.667 mls/ hr Q15H IV 02/29/24 00:30 02/29/24 00:19 16.667 MLS/HR Norepinephrine Bitartrate 250 ml @ 3.75 mls/hr Q24H IV 02/28/24 19:15 Digoxin 0.125 mg DAILY PO 03/01/24 10:00 Lactulose 30 ml DAILYPRN PRN PO 02/29/24 12:00 Laboratory Results Laboratory Tests 02/29/24 03:15 Chemistry Test 02/28/24 18:07 02/29/24 03:15 Calcium Level 8.5 mg/dL (8.7-10.4) L 8.5 mg/dL (8.7-10.4) L Magnesium Level 2.6 mg/dL (1.6-2.6) Urinalysis Test 02/18/24 01:45 Urine Color Yellow (Yellow) Urine Clarity Clear (Clear) Urine pH 6.0 (5.0-9.0) Urine Specific [place] 1.016 (1.001-1.035) Urine Protein 3+ (Negative) H Urine Ketones Negative (Negative) Urine Blood 3+ /uL (Negative) H Urine Nitrite Negative (Negative) Urine Bilirubin Negative (Negative) Urine Urobilinogen Normal mg/dL (Negative) Urine Leukocyte Esterase Negative /uL (Negative) Urine RBC 23 /hpf (0 - 4) Urine WBC 9 /hpf (0 - 5) Urine Squamous Epithelial Cells Few /hpf (<5) Urine Amorphous Crystals Few /hpf (None Seen) Urine Bacteria Few /hpf (None Seen) H Urine Hyaline Casts Mod /lpf (0 - 2) Urine Mucus Few (None Seen) Urine Glucose 1+ mg/dL (Normal) H Blood Gas Results Test 02/29/24 07:56 Arterial Blood pH 7.394 (7.350-7.450) FiO2 % 35.0 Microbiology Microbiology Date/Time Source Procedure Growth Status 02/21/24 13:45 Blood Blood Culture - Final NO GROWTH AFTER 5 DAYS OF INCUBATION. Complete 02/18/24 11:00 Nose MRSA Screen - Final Complete 02/18/24 01:00 Sputum Gram Stain - Final Complete 02/18/24 01:00 Sputum Respiratory Culture - Final Complete Assessment/Plan Assessment/Plan Acute hypoxic respiratory failure on mechanical ventilation Atrial fibrillation with rapid ventricular response Acute kidney injury likely hemodynamically mediated with oliguria Chronic kidney disease stage 2 COPD exacerbation Pneumonia Extubation status post re-intubation History of mitral valve replacement Hypertension Anemia Rule out GI bleed Plan 02/29/2024: Add digoxin IV to control the RVR Continue IV amiodarone drip Cardiology consult IV antibiotics: Rocephin IV steroids Sedation as needed Mechanical ventilation Check the stool occult blood If there is no blood we will start anticoagulation Anticoagulation with Lovenox if there is no bleeding Plan discussed with: Other My Orders Orders - ANTONIO CEBALLOS MD Procedure Category Date Status Time Digoxin Injection PHA 02/29/24 In Process (Lanoxin Injection) 18:00 Digoxin Tablet PHA 03/01/24 In Process (Lanoxin Tablet) 10:00 Lactulose Oral PHA 02/29/24 In Process 12:00 Date of Service: Feb 29, 2024 Billing Provider: ANTONIO CEBALLOS MD Common Visit Codes: [id number] CARE 30-74 MIN ANTONIO CEBALLOS MD Feb 29, 2024 14:39
[2024-02-29] MEDS: ENOXAPARIN SOD 80 MG/0.8ML SYRINGE SC ONE (15:43)
--- NOTE | 2024-02-29 16:03 | DVH ---
EXAM: US Duplex Right Upper Extremity Veins CLINICAL INDICATION: RIGHT FOREARM RED SWOLLEN BLACK UNOPENED BLISTER TECHNIQUE: Real-time duplex ultrasound scan of the right upper extremity veins integrating B-mode tw o-dimensional vascular structure, Doppler spectral analysis, color flow Doppler imaging and compressi on. COMPARISON: US BILAT LOWER DVT on DOS: 07/24/23 FINDINGS: DEEP VEINS: Unremarkable. No DVT in the internal jugular, subclavian, axillary, or brachial veins. The veins demonstrate normal color flow, are normally compressible, with normal phasic flow and/or a ugmentation response. SUPERFICIAL VEINS: Unremarkable. No thrombus in the visualized basilic and cephalic veins. SOFT TISSUES: No acute findings. OTHER FINDINGS: . Anechoic lesion in the forearm measuring up to 6.0 cm, likely cysts. . . IMPRESSION: No DVT. HS:Y
--- NOTE | 2024-02-29 21:37 | DVHPN2 ---
Progress Note - Dictate Date Seen: Feb 29, 2024 Medical Necessity Reason Pt with a Central, PICC or Fol: Yes The following are medically ne: Central Line, Mccord Catheter Reason for mccord catheter: Strict I&O, Total Immobilization Subjective Patient seen and examined at bedside. Sedated, intubated on mechanical ventilator. Overnight events reviewed. vital signs Vital Sign Date Time Temp Pulse Resp B/P (MAP) Pulse Ox O2 Delivery O2 Flow Rate FiO2 02/29/24 20:15 69 26 148/40 (76 93 35 02/29/24 20:00 Mechanical Ventilator+ 02/29/24 09:30 99.1 210.4 Total Intake and Output 02/28/24 02/28/24 02/29/24 15:00 23:00 07:00 Intake Total 780.670 ml 1455.872 ml 1754.030 ml Output Total 375 ml 575 ml Balance 780.670 ml 1080.872 ml 1179.030 ml medications Current Medications Medications Dose Ordered Sig/Sherwin Route Start Time Stop Time Status Last Admin Dose Admin Nitroglycerin 0.4 mg Q5MINP PRN SL 02/18/24 06:45 Morphine Sulfate 2 mg Q30M PRN IV 02/18/24 06:45 Ondansetron HCl 4 mg Q6HPRN PRN IV 02/18/24 06:45 Ceftriaxone Sodium 50 ml @ 100 mls/hr DAILY@09 IV 02/18/24 09:00 02/29/24 08:05 100 MLS/HR Fentanyl Citrate 250 ml @ 2.5 mls/hr Q24H IV 02/18/24 11:15 02/29/24 00:22 10 MLS/HR Pantoprazole Sodium 40 mg DAILY IV 02/19/24 10:00 02/29/24 09:28 40 MG Labetalol HCl 10 mg Q4HPRN PRN IV 02/20/24 16:15 02/29/24 07:27 10 MG Acetaminophen 650 mg Q8HP PRN GA 02/21/24 11:30 02/25/24 05:54 650 MG Albuterol 2.5 mg Q4HR NEB 02/21/24 18:00 02/29/24 18:04 2.5 MG Ipratropium [place] 0.5 mg Q4HR NEB 02/21/24 18:00 02/29/24 18:04 0.5 MG Hydralazine HCl 10 mg Q4HR PRN IV 02/24/24 09:15 02/25/24 02:41 10 MG Midazolam HCl 5 mg [id number] PRN IV 02/24/24 10:00 02/25/24 08:15 5 MG Propofol 100 ml @ 1.785 mls/ hr Q24H IV 02/25/24 15:30 02/29/24 14:08 12.495 MLS/HR Acetylcysteine 200 mg Q8HR IN 02/26/24 14:00 Cancel Acetylcysteine 200 mg Q8HR NEB 02/26/24 14:00 02/29/24 14:09 200 MG Budesonide 0.5 mg BID NEB 02/27/24 22:00 02/29/24 06:44 0.5 MG Amlodipine Besylate 10 mg DAILY PO 02/27/24 10:30 02/29/24 09:28 10 MG Methylprednisolone Sodium Succinate 40 mg BID IV 02/27/24 12:45 02/29/24 09:28 40 MG Sodium Bicarbonate 150 ml/Dextrose 1,150 ml @ 100 mls/hr [id number] IV 02/28/24 08:15 02/29/24 20:23 100 MLS/HR Enteral Nutritional Formula 1,000 ml 30ML/HR GT 02/28/24 08:45 02/28/24 12:37 1,000 ML Bisacodyl 10 mg DAILYP PRN GA 02/28/24 08:45 Amiodarone HCl 250 ml @ 16.667 mls/ hr Q15H IV 02/29/24 00:30 02/29/24 15:42 16.667 MLS/HR Norepinephrine Bitartrate 250 ml @ 3.75 mls/hr Q24H IV 02/28/24 19:15 Digoxin 0.125 mg DAILY PO 03/01/24 10:00 Lactulose 30 ml DAILYPRN PRN PO 02/29/24 12:00 Enoxaparin Sodium 80 mg DAILY SC 03/01/24 10:00 objective Gen.: Patient lying in bed in medical ICU. Sedated, intubated on mechanical ventilator. Head: Normocephalic, atraumatic. Eyes: PERRLA. Ears: Normal external anatomy. Throat: Endotracheal tube and orogastric tube in place. Neck: Supple, trachea midline. Chest: Transmitted breath sounds bilaterally. Decreased air entry bilaterally. No wheezing. Bibasilar crackles. Cardiovascular: Positive S1, positive S2. Regular rate and rhythm. Abdomen: Positive bowel sounds in all 4 quadrants. Soft, nontender, nondistended. : Mccord in place. Normal external genitalia. Rectal: Deferred. Skin: Warm, dry. Intact. Extremities: 2+ radial pulses bilaterally. No lower extremity edema. Neuro: Sedated. laboratory and microbiology Laboratory Tests 02/29/24 03:15 Test 02/29/24 03:15 Range/Units Serum Glucose 188 H 74-106 mg/dL Assessment/Plan Impression: Acute hypoxic respiratory failure On mechanical ventilator Mitral valve replacement Pneumonia, likely gram negative. COPD Congestive heart failure Atrial fibrillation Events: Remains on vent support On AC mode; RR 26, VT 450, PEEP 5, FiO2 35%. ABG reviewed, compensated. Improved from yesterday. Off nicardipine drip since 02/25/24. On amiodarone drip + Digoxin for AFib episode. Sedated on Fentanyl 150 mcg, Propofol 25 mcg. Off Precedex Continue bicarb drip for metabolic acidosis Lactulose. Pt is having bowel movements. Tube feeds for nutritional support- Nepro Heparin drip Continue antibiotics Taper sedation as tolerated SBT/ALBIN Continue to monitor closely. LTAC eval. Labs and imaging reviewed. Rest of plan as noted below. Plan: s/p intubation on mechanical ventilator. ABG reviewed, compensated. On AC mode; RR 26, VT 450, PEEP 5, FiO2 35%. Titrate FIO2 to keep O2 saturation above 90%. VAP bundle. Daily ABG and CXR while intubated Sedated for ventilator synchrony- On Propofol and Fentanyl. Continue antibiotics. F/u cultures. Start pressors if necessary to maintain a mean arterial blood pressure greater than 65 mmHg. Heparin drip Tube feeds for nutritional support Patient failed CPAP - lasted 20 minutes Plan for CPAP trial in AM. Monitor renal function Monitor electrolytes. Supplement as necessary. Monitor ins and outs. Maintain euvolemia. GI prophylaxis. DVT prophylaxis. Prognosis: Poor given patient's multiple co-morbidities. Condition: Critical Rest of plan per hospitalist and other consultants. A total of 35 minutes of critical care time was spent reviewing the patient record, examining the patient, making a diagnostic and therapeutic plan, discussing this plan with the medical personnel, following up on diagnostic studies and following the patient for clinical stability excluding any and all procedures. At least 50% of this time was spent in direct, [id number] contact. Thank you Dr. Flakita Khan MD, for allowing me to participate in this patient's care. Further recommendations will depend on the patient's clinical course. Please do not hesitate to contact me if you have any questions or concerns. This medical document was created using an electronic medical record system with I[employer] dictation system. Although these documentations are being carefully reviewed, there may still be some phonetic and typographical changes. The errors are purely typographical, due to imperfection on the software program, and do not reflect any compromise in the patient's medical care. Dietary Evaluation Review Recommendations by RD: Dietary education by RD Comments: 1) If GI is accessible consider Pivot 1.5 @ 55 ml/hr x24 hr goal rate as tolerated 2) If pt remains NPO >7 days consider TPN to meet at least 75% of estimated goals 3) Advance pt diet when medically feasible to a Cardiac diet modified per DISPLAY FABRICATOR recommendations 4) Continue current plan of care Expected Outcomes/Goals: 1) Pt to receive nutrition support within 7 days of NPO status 2) Pt diet to advance 3) F/U in 2-3 days Plan discussed with: Other (JULIOCESAR Guevara) Critical Care Time(min): 35 Respiratory Effort: ET Tube Breath sounds: Clear, Diminished PRAVEEN NGUYEN MD Feb 29, 2024 21:37
--- NOTE | 2024-02-29 21:39 | DVHINCON2 ---
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 Per chart review, 02/17 the patient had a difficult time breathing for the last hour prior to ED arrival and was her second event that occurred on that weekend. Patient is normally on 3L of home O2 but was saturating in the mid 80s according to EMS. En route to the ED EMS placed patient on 10L via NC, breathing treatment via nebulizer at 6L and magnesium via IV. Despite EMS interventions the patient remained in severe respiratory distress and was intubated for airway protection. Patient has remained ventilator dependent unable to be extubated. Today, the patient developed A-fib with RVR and therefore I was asked to consult on this patient. Family History: FH: brain cancer G8 FATHER, Onset:Unknown FH: dementia G8 MOTHER, Onset:Unknown Allergies: Coded Allergies: NO KNOWN ALLERGIES (Unverified , 06/12/22) Home Meds Active Scripts Empagliflozin (Jardiance) 10 Mg Tab, 10 MG PO DAILY for 30 Days, #30 TAB Prov:DEE JOE RESIDENT 07/28/23 Reported Medications Fluticasone-Salmeterol (Fluticasone Propionate/SA 500-50 Mcg/Dose) 1 Aer Aer, 1 PUFF INH BID for 30 Days, #60 02/20/24 Albuterol Sulfate (Albuterol Sulfate Hfa) 108 Mcg/Act Aer, 2 PUFF INH Q4HR PRN for 50 Days, #25.5 02/20/24 Tiotropium [place] Monohydrate (Spiriva Respimat) 2.5 Mcg/Act Spr, 2 PUFF INH DAILY for 90 Days, #12 02/20/24 Ipratropium [place] Hfa (Atrovent Hfa) 17 Mcg Aer, 1 PUFF INH QID for 30 Days, #12.9 02/20/24 Torsemide (Torsemide) 20 Mg Tab, 1 TAB PO DAILY for 90 Days, #90 02/20/24 Nifedipine (Nifedipine Er) 60 Mg Tab, 1 TAB PO DAILY for 60 Days, #60 11/14/24 Warfarin Sodium (Warfarin Sodium) 6 Mg Tab, 1 TAB PO DAILY for 90 Days, #90 02/20/24 Warfarin Sodium (Warfarin Sodium) 2 Mg Tab, 1 TAB PO DAILY for 90 Days, #90 02/20/24 Atorvastatin Calcium (ATORVASTATIN CALCIUM) 20 Mg Tab, 1 TAB PO DAILY for 90 Days, #90 07/23/23 Spironolactone (Spironolactone) 50 Mg Tab, 1 TAB PO DAILY for 90 Days, #90 07/23/23 Metoprolol Succinate (Metoprolol Succinate Er) 50 Mg Tab, 1 TAB PO BID for 90 Days, #180 07/23/23 Gabapentin (Gabapentin) 100 Mg Cap, 1 CAP PO TID for 30 Days, #90 06/08/22 Losartan Potassium (Losartan Potassium) 25 Mg Tab, 3 TAB PO DAILY 06/08/22 Amlodipine Besylate (Amlodipine Besylate) 10 Mg Tab, 1 TAB PO DAILY 06/08/22 Latanoprost (LATANOPROST) 0.005 % Diane, 1 DROP EACHEYE HS for 30 Days, #2.5 PLACE 1 DROP INTO AFFECTED EYE(S) AT BEDTIME. 06/08/22 Fish Oil (Fish Oil) 1,200 Mg Cap 01/03/10 Current Medications Current Medications Medications (Trade) Dose Ordered Sig/Sherwin Route PRN Reason Start Time Stop Time Status Last Admin Amiodarone HCl 250 ml @ 16.667 mls/ hr Q15H IV 02/29/24 00:30 02/29/24 15:42 Digoxin (Lanoxin Tablet) 0.125 mg DAILY PO 03/01/24 10:00 Lactulose 30 ml DAILYPRN PRN PO FOR CONSTIPATION 02/29/24 12:00 Enoxaparin Sodium (Lovenox) 80 mg DAILY SC 03/01/24 10:00 Review of Systems Unable to review: intubated on ventilator Vital Signs Vital Signs Date Time Temp Pulse Resp B/P (MAP) Pulse Ox O2 Delivery O2 Flow Rate FiO2 02/29/24 20:15 69 26 148/40 (76) 93 35 02/29/24 18:00 Mechanical Ventilator+ 02/29/24 09:30 99.1 210.4 Physical Exam GENERAL: Intubated on ventilator. LUNGS: Decreased breath sounds. CARDIOVASCULAR: Heart sounds are good. ABDOMEN: Soft. Labs/Diagnostic Data Labs Test 02/29/24 14:09 11/23/24 07:56 02/29/24 03:15 02/28/24 20:22 Range/Units Stool Occult Blood Negative Negative Stool Occult Blood Sample #3 Negative Blood Gas Specimen Type Arterial Blood Gas Sample Site Left radial Blood Gas Patient Temperature 37.0 Arterial Blood Date Drawn [id number] Arterial Blood pH 7.394 7.350-7.450 Arterial Blood Partial Pressure CO2 38.2 32.0-45.0 mmHg Arterial Blood Partial Pressure O2 64.8 L 83.0-108.0 mmHg Arterial Blood HCO3 22.8 21.0-28.0 mmol/L Arterial Blood Oxygen Saturation 92.1 L 94.0-98.0 % Arterial Blood Base Excess -1.8 -2.0-3.0 mmol/L Arterial Blood Oxyhemoglobin 91.5 L 94.0-98.0 % Arterial Blood Carboxyhemoglobin 0.3 L 0.5-1.5 % Arterial Blood Methemoglobin 0.3 0.0-1.5 % Christos Test Modified Blood Gas Total Hemoglobin 10.20 L 12.0-16.0 g/dL Blood Gas Set Respiration Rate 26.0 Blood Gas Modality Vent - ac Blood Gas Spontaneous Rate 29 FiO2 % 35.0 Blood Gas Tidal Volume 450.0 Blood Gas Inspiratory Pressure 30.0 Blood Gas PEEP or CPAP 5.0 Bl Gas Inspiratory/Expiratory Ratio 1:1.8 Specimen Drawn By adonis maldonado White Blood Count 13.1 #H 4.4-10.8 10^3/uL Red Blood Count 2.89 L 4.0-5.20 10^6/uL Hemoglobin 8.3 L 12.2-16.2 g/dL Hematocrit 24.9 L 36.0-46.0 % Mean Corpuscular Volume 86.1 80.0-100.0 fL Mean Corpuscular Hemoglobin 28.6 28.0-32.0 pg Mean Corpuscular Hemoglobin Concent 33.2 32.0-36.0 g/dL Red Cell Distribution Width 17.3 H 11.8-14.3 % Platelet Count 169 140-450 10^3/uL Mean Platelet Volume 8.2 6.9-10.8 fL Neutrophils (%) (Auto) 37.0-80.0 % Lymphocytes (%) (Auto) 10.0-50.0 % Monocytes (%) (Auto) 0.0-12.0 % Basophils (%) (Auto) 0.0-2.0 % Neutrophils # (Auto) 1.6-8.6 10 ^3/uL Lymphocytes # (Auto) 0.4-5.4 10 ^3/uL Monocytes # (Auto) 0-1.3 10 ^3/uL Differential Total Cells Counted 100.0 100 Neutrophils % (Manual) 95 H 37.0-80.0 Band Neutrophils % (Manual) 0 Lymphocytes % (Manual) 3 L 10.0-50.0 Monocytes % (Manual) 2 0-12 Eosinophils % (Manual) 0 0-7 Basophils % (Manual) 0 0.0-2.0 Metamyelocytes % (manual) 0 Myelocytes % (Manual) 0 Promyelocytes % (Manual) 0 Blast Cells % (Manual) 0 Reactive Lymphocytes 0 Smudge Cells 3 /100 WBC Platelet Estimate Adequate Sodium Level 135 L 136-145 mmol/L Potassium Level 4.6 3.5-5.1 mmol/L Chloride Level 98 98-107 mmol/L Carbon Dioxide Level 26 20-31 mmol/L Anion Gap 11 5-15 Blood Urea Nitrogen 65 H 9-23 mg/dL Creatinine 2.18 H 0.550-1.02 mg/dL Glomerular Filtration Rate Calc 24 >90 mL/min BUN/Creatinine Ratio 29.8 H 10.0-20.0 Serum Glucose 188 H 74-106 mg/dL Calcium Level 8.5 L 8.7-10.4 mg/dL POC Glucose 231 H 70-106 mg/dl Test 02/28/24 18:07 02/28/24 03:15 02/27/24 09:42 02/27/24 08:13 Range/Units Magnesium Level 2.6 1.6-2.6 mg/dL Total Bilirubin 1.1 H 0.2-1.0 mg/dL Aspartate Amino Transferase (AST) 33 13-40 U/L Alanine Aminotransferase (ALT) 33 7-40 U/L Alkaline Phosphatase 224 H 46-116 U/L Ammonia 13 11-32 umol/L Total Protein 5.6 L 5.7-8.2 g/dL Albumin 3.4 3.2-4.8 g/dL Vitamin B12 Level 793 211-911 pg/mL Prothrombin Time 10.5 9.3-11.8 sec Prothrombin Time INR 0.99 0.9-1.15 Activated Partial Thromboplast Time 33.4 24.5-34.5 SEC Eosinophils (%) (Auto) 3.6 0.0-7.0 % Eosinophils # (Auto) 0.2 0-0.8 10 ^3/uL Basophils # (Auto) 0.1 0-0.2 10 ^3/uL Nucleated Red Blood Cells 0.3 % Test 02/27/24 06:17 02/25/24 09:21 02/19/24 11:46 02/19/24 03:14 Range/Units Blood Gas Critical Value Read Back yes Blood Gas Notified Whom kavita Jarrett md Blood Gas Notified Time [id number] Blood Gas Notified By Blood Gas Pressure Support 15 Iron Level 14 L 50-170 ug/dL Total Iron Binding Capacity 284 250-425 ug/dL Percent Iron Saturation 4.9 L 15-50 % Anisocytosis (manual) Slight Reticulocyte Count (auto) 3.19 H 0.5-1.5 % Test 02/18/24 08:20 02/18/24 03:54 02/18/24 02:28 02/18/24 01:45 Range/Units Influenza Type A Antigen Negative Negative Influenza Type B Antigen Negative Negative SARS-CoV-2 Antigen (Rapid) Negative NEGATIVE Troponin I High Sensitivity 34 </=34 ng/L Lactic Acid Level 1.2 0.4-2.0 mmol/L Urine Color Yellow Yellow Urine Clarity Clear Clear Urine pH 6.0 5.0-9.[address] 1.016 1.001-1.035 Urine Protein 3+ H Negative Urine Ketones Negative Negative Urine Blood 3+ H Negative /uL Urine Nitrite Negative Negative Urine Bilirubin Negative Negative Urine Urobilinogen Normal Negative mg/dL Urine Leukocyte Esterase Negative Negative /uL Urine RBC 23 0 - 4 /hpf Urine WBC 9 0 - 5 /hpf Urine Squamous Epithelial Cells Few <5 /hpf Urine Amorphous Crystals Few None Seen /hpf Urine Bacteria Few H None Seen /hpf Urine Hyaline Casts Mod 0 - 2 /lpf Urine Mucus Few None Seen Urine Glucose 1+ H Normal mg/dL Test 02/18/24 01:08 Range/Units Large Platelets Few B-Type Natriuretic Peptide 293.82 0-100 pg/mL Microbiology Date/Time Source Procedure Growth Status 02/21/24 13:45 Blood Blood Culture - Final NO GROWTH AFTER 5 DAYS OF INCUBATION. Complete 02/18/24 11:00 Nose MRSA Screen - Final Complete 02/18/24 01:00 Sputum Gram Stain - Final Complete 02/18/24 01:00 Sputum Respiratory Culture - Final Complete Assessment Acute on chronic hypoxic respiratory failure. Ventilator dependence with failure of CPAP/extubation. COPD with probable exacerbation. History of multiple intubations. History of mitral valve replacement, bioprosthetic. Atrial fibrillation. Primary hypertension. Anemia. Acute probable vasomotor nephropathy. Hyperkalemia. Plan/Recommendation I agree with your ongoing assessment and care of plan. IV Amiodarone. Amlodipine. Digoxin. IV antibiotics as ordered. DVT and GI prophylactics. Vasopressors for hemodynamic support. Additional plan as per the hospital course. Critical care time of 90 minutes provided to include time spent evaluation of patient at bedside, when appropriate patient/family education for diagnosis, treatment plan, review of pertinent medical information and discussion of care with specialty providers and PCP. Mechanical ventilator parameters, treatment and adjustments have personally been reviewed by me and treatment plan by mexican food cook has also been reviewed. Plan discussed with: Other LUKE ARIZMENDI MD Feb 29, 2024 20:36
[2024-03-01] VITALS (97 sets, daily range): BP systolic 87–173; BP diastolic 23–67; PULSE 71–104; RESP 15–30; TEMP 98.7–99.5; O2SAT 88–99
[2024-03-01 03:46] LABS: Basophils # (auto) 0 10 ^3/uL (0-0.2); Basophils % (auto) 0.1 % (0.0-2.0); Eosinophils # (auto) 0 10 ^3/uL (0-0.8); Hematocrit 26.9 % (36.0-46.0); Lymphocytes # (auto) 0.2 10 ^3/uL (0.4-5.4); Lymphocytes % (auto) 1.7 % (10.0-50.0); Mean Corpuscular Hemoglobin 28.8 pg (28.0-32.0); Mean Corpuscular Hgb Conc. 33.7 g/dL (32.0-36.0); Mean Corpuscular Volume 85.5 fL (80.0-100.0); Monocytes # (auto) 0.3 10 ^3/uL (0-1.3); Neutrophils # (auto) 14.3 10 ^3/uL (1.6-8.6); Neutrophils % (auto) 96.2 % (37.0-80.0); Nucleated Red Blood Cells % 0.1 %; Platelet Count (auto) 171 10^3/uL (140-450); Red Blood Cells 3.14 10^6/uL (4.0-5.20); White Blood Cell 14.8 10^3/uL (4.4-10.8)
[2024-03-01 03:54] LABS: Anion Gap 8 (5-15); Calcium 8.6 mg/dL (8.7-10.4); Carbon Dioxide 32 mmol/L (20-31); Chloride 94 mmol/L (98-107); Potassium 3.8 mmol/L (3.5-5.1); Sodium 134 mmol/L (136-145)
[2024-03-01 04:00] LABS: BUN/Creatinine Ratio 34.6 (10.0-20.0); Blood Urea Nitrogen 65 mg/dL (9-23); Glucose 159 mg/dL (74-106); Magnesium 2.7 mg/dL (1.6-2.6)
--- NOTE | 2024-03-01 05:38 | DVH ---
CHEST RADIOGRAPH Indication: intubated Technique: Single frontal view of the chest was obtained COMPARISON: XY CHEST PORTABLE on DOS: 02/28/24, XY CHEST PORTABLE on DOS: 02/27/24, XY CHEST PORTABLE on DOS: 02/26/24 FINDINGS: Lines and Tubes: Endotracheal tube, enteric catheter and right central venous catheter in satisfactor y position. Post median sternotomy. Lungs: Diffuse increased interstitial prominence. Pleura: No effusion. No pneumothorax. Cardiomediastinal contours: Cardiomegaly. Cardiac valve replacement. Bones: Unremarkable IMPRESSION: Lines and tubes in satisfactory position. No significant interval change.
[2024-03-01 07:03] LABS: Base Excess 7.4 mmol/L (-2.0-3.0)
[2024-03-01] MEDS: ENOXAPARIN SOD 80 MG/0.8ML SYRINGE SC SCH (09:52)
[2024-03-01] MEDS: DIGOXIN 0.125 MG TAB PO SCH (09:55)
--- NOTE | 2024-03-01 11:07 | DVHPN2 ---
Subjective Heart rate is better controlled Still on amiodarone drip Chest x-ray shows congestion diffusely The patient is with generalized edema Reviewed: Care Plan, H&P, Labs, Medications Changes from previous H/P or p: Changes General: Per HPI Objective Vitals Vital Signs Date Time Temp Pulse Resp B/P (MAP) Pulse Ox O2 Delivery O2 Flow Rate FiO2 03/01/24 09:55 74 03/01/24 09:55 110/28 03/01/24 09:13 26 93 35 03/01/24 08:00 Mechanical Ventilator+ 03/01/24 08:00 99.1 99.1 Intake/Output Intake and Output 03/01/24 07:00 Intake Total 3249.156 ml Output Total 1425 ml Balance 1824.156 ml IV Total 3202.156 ml Tube Feeding 47 ml Output Urine Total 1425 ml # Bowel Movements 4 General Appearance: moderate distress, Other (Chemically sedated) HEENT: Atraumatic, PERRLA Lungs: Clear to auscultation, Normal air movement, Other (Mechanical ventilation) Cardiovascular: Normal S1, Normal S2 Musculoskeletal: Normal sensory function Neuro: Normal speech Psych/Mental Status: Mental status NL, Mood NL Medications Current Medications Medications Dose Ordered Sig/Sherwin Route Start Time Stop Time Status Last Admin Dose Admin Nitroglycerin 0.4 mg Q5MINP PRN SL 02/18/24 06:45 Morphine Sulfate 2 mg Q30M PRN IV 02/18/24 06:45 Ondansetron HCl 4 mg Q6HPRN PRN IV 02/18/24 06:45 Ceftriaxone Sodium 50 ml @ 100 mls/hr DAILY@09 IV 02/18/24 09:00 03/01/24 09:53 100 MLS/HR Fentanyl Citrate 250 ml @ 2.5 mls/hr Q24H IV 02/18/24 11:15 03/01/24 00:06 15 MLS/HR Pantoprazole Sodium 40 mg DAILY IV 02/19/24 10:00 03/01/24 09:53 40 MG Labetalol HCl 10 mg Q4HPRN PRN IV 02/20/24 16:15 02/29/24 07:27 10 MG Acetaminophen 650 mg Q8HP PRN VA 02/21/24 11:30 02/25/24 05:54 650 MG Albuterol 2.5 mg Q4HR NEB 02/21/24 18:00 03/01/24 09:12 2.5 MG Ipratropium [place] 0.5 mg Q4HR NEB 02/21/24 18:00 03/01/24 09:12 0.5 MG Hydralazine HCl 10 mg Q4HR PRN IV 02/24/24 09:15 02/25/24 02:41 10 MG Midazolam HCl 5 mg [id number] PRN IV 02/24/24 10:00 02/25/24 08:15 5 MG Propofol 100 ml @ 1.785 mls/ hr Q24H IV 02/25/24 15:30 03/01/24 04:49 12.495 MLS/HR Acetylcysteine 200 mg Q8HR IN 02/26/24 14:00 Cancel Acetylcysteine 200 mg Q8HR NEB 02/26/24 14:00 03/01/24 06:15 200 MG Budesonide 0.5 mg BID NEB 02/27/24 22:00 03/01/24 09:13 0.5 MG Amlodipine Besylate 10 mg DAILY PO 02/27/24 10:30 02/29/24 09:28 10 MG Methylprednisolone Sodium Succinate 40 mg BID IV 02/27/24 12:45 03/01/24 09:53 40 MG Sodium Bicarbonate 150 ml/Dextrose 1,150 ml @ 100 mls/hr [id number] IV 02/28/24 08:15 03/01/24 08:35 100 MLS/HR Enteral Nutritional Formula 1,000 ml 30ML/HR GT 02/28/24 08:45 02/29/24 22:08 1,000 ML Bisacodyl 10 mg DAILYP PRN [place] 02/28/24 08:45 Amiodarone HCl 250 ml @ 16.667 mls/ hr Q15H IV 02/29/24 00:30 03/01/24 05:51 16.667 MLS/HR Norepinephrine Bitartrate 250 ml @ 3.75 mls/hr Q24H IV 02/28/24 19:15 Digoxin 0.125 mg DAILY PO 03/01/24 10:00 03/01/24 09:55 0.125 MG Lactulose 30 ml DAILYPRN PRN PO 02/29/24 12:00 Enoxaparin Sodium 80 mg DAILY SC 03/01/24 10:00 03/01/24 09:52 80 MG Laboratory Results Laboratory Tests 03/01/24 03:20 Chemistry Test 03/01/24 03:20 Calcium Level 8.6 mg/dL (8.7-10.4) L Magnesium Level 2.7 mg/dL (1.6-2.6) H Urinalysis Test 02/18/24 01:45 Urine Color Yellow (Yellow) Urine Clarity Clear (Clear) Urine pH 6.0 (5.0-9.0) Urine Specific [place] 1.016 (1.001-1.035) Urine Protein 3+ (Negative) H Urine Ketones Negative (Negative) Urine Blood 3+ /uL (Negative) H Urine Nitrite Negative (Negative) Urine Bilirubin Negative (Negative) Urine Urobilinogen Normal mg/dL (Negative) Urine Leukocyte Esterase Negative /uL (Negative) Urine RBC 23 /hpf (0 - 4) Urine WBC 9 /hpf (0 - 5) Urine Squamous Epithelial Cells Few /hpf (<5) Urine Amorphous Crystals Few /hpf (None Seen) Urine Bacteria Few /hpf (None Seen) H Urine Hyaline Casts Mod /lpf (0 - 2) Urine Mucus Few (None Seen) Urine Glucose 1+ mg/dL (Normal) H Blood Gas Results Test 03/01/24 06:45 Arterial Blood pH 7.391 (7.350-7.450) FiO2 % 35.0 Microbiology Microbiology Date/Time Source Procedure Growth Status 02/21/24 13:45 Blood Blood Culture - Final NO GROWTH AFTER 5 DAYS OF INCUBATION. Complete 02/18/24 11:00 Nose MRSA Screen - Final Complete 02/18/24 01:00 Sputum Gram Stain - Final Complete 02/18/24 01:00 Sputum Respiratory Culture - Final Complete Assessment/Plan Assessment/Plan Acute hypoxic respiratory failure on mechanical ventilation Atrial fibrillation with rapid ventricular response Acute kidney injury likely hemodynamically mediated with oliguria Chronic kidney disease stage 2 COPD exacerbation Pneumonia Extubation status post re-intubation History of mitral valve replacement Hypertension Anemia Rule out GI bleed Plan 02/29/2024: Add digoxin IV to control the RVR Continue IV amiodarone drip Cardiology consult IV antibiotics: Rocephin IV steroids Sedation as needed Mechanical ventilation Check the stool occult blood If there is no blood we will start anticoagulation Anticoagulation with Lovenox if there is no bleeding 03/01/2024: Stop IV amiodarone Start p.o. amiodarone Continue p.o. digoxin Start Lasix 40 mg IV twice a day Stopped the IV fluids and the bicarbonate drip Sedation as needed Continue IV steroids Continue IV antibiotic Rocephin Lovenox Discussed with the daughter at the bedside Plan discussed with: Daughter My Orders Orders - ANTONIO CEBALLOS MD Procedure Category Date Status Time Digoxin Tablet PHA 03/01/24 In Process (Lanoxin Tablet) 10:00 Lactulose Oral PHA 02/29/24 In Process 12:00 * Cardiology Consult CONS 02/29/24 Transmitted 14:30 Enoxaparin Sodium PHA 03/01/24 In Process (Lovenox) 10:00 * Wound Consult CONS 02/29/24 Transmitted Rt Upper Dvt US 02/29/24 Resulted 14:37 Furosemide Injection PHA 03/01/24 Verified (Lasix Injection) 11:15 Furosemide Injection PHA 03/01/24 Verified (Lasix Injection) 18:00 Complete Blood Count LAB 03/02/24 Verified 04:00 Comprehensive LAB 03/02/24 Verified Metabolic Panel 04:00 Magnesium LAB 03/02/24 Verified 04:00 Date of Service: Mar 01, 2024 Billing Provider: ANTONIO CEBALLOS MD Common Visit Codes: [id number] CARE 30-74 MIN ANTONIO CEBALLOS MD Mar 01, 2024 11:07
--- NOTE | 2024-03-01 14:44 | DVHPN2 ---
Progress Note - Dictate Date Seen: Mar 01, 2024 Medical Necessity Reason Pt with a Central, PICC or Fol: Yes The following are medically ne: Central Line, Mccord Catheter Reason for mccord catheter: Strict I&O, Total Immobilization Subjective remains intubated, urine output increased vital signs Vital Sign Date Time Temp Pulse Resp B/P (MAP) Pulse Ox O2 Delivery O2 Flow Rate FiO2 03/01/24 12:34 107/41 03/01/24 12:01 98 24 93 03/01/24 11:46 99.2 99.2 03/01/24 11:17 35 03/01/24 08:00 Mechanical Ventilator+ Total Intake and Output 02/29/24 02/29/24 03/01/24 15:00 23:00 07:00 Intake Total 1062.226 ml 1133.296 ml 1053.634 ml Output Total 750 ml 675 ml Balance 1062.226 ml 383.296 ml 378.634 ml medications Current Medications Medications Dose Ordered Sig/Sherwin Route Start Time Stop Time Status Last Admin Dose Admin Nitroglycerin 0.4 mg Q5MINP PRN SL 02/18/24 06:45 Morphine Sulfate 2 mg Q30M PRN IV 02/18/24 06:45 Ondansetron HCl 4 mg Q6HPRN PRN IV 02/18/24 06:45 Ceftriaxone Sodium 50 ml @ 100 mls/hr DAILY@09 IV 02/18/24 09:00 03/01/24 09:53 100 MLS/HR Fentanyl Citrate 250 ml @ 2.5 mls/hr Q24H IV 02/18/24 11:15 03/01/24 00:06 15 MLS/HR Pantoprazole Sodium 40 mg DAILY IV 02/19/24 10:00 03/01/24 09:53 40 MG Labetalol HCl 10 mg Q4HPRN PRN IV 02/20/24 16:15 02/29/24 07:27 10 MG Acetaminophen 650 mg Q8HP PRN PA 02/21/24 11:30 02/25/24 05:54 650 MG Albuterol 2.5 mg Q4HR NEB 02/21/24 18:00 03/01/24 13:33 2.5 MG Ipratropium [place] 0.5 mg Q4HR NEB 02/21/24 18:00 03/01/24 13:33 0.5 MG Hydralazine HCl 10 mg Q4HR PRN IV 02/24/24 09:15 02/25/24 02:41 10 MG Midazolam HCl 5 mg [id number] PRN IV 02/24/24 10:00 02/25/24 08:15 5 MG Propofol 100 ml @ 1.785 mls/ hr Q24H IV 02/25/24 15:30 03/01/24 12:34 8.925 MLS/HR Acetylcysteine 200 mg Q8HR IN 02/26/24 14:00 Cancel Acetylcysteine 200 mg Q8HR NEB 02/26/24 14:00 03/01/24 13:34 200 MG Budesonide 0.5 mg BID NEB 02/27/24 22:00 03/01/24 09:13 0.5 MG Amlodipine Besylate 10 mg DAILY PO 02/27/24 10:30 02/29/24 09:28 10 MG Methylprednisolone Sodium Succinate 40 mg BID IV 02/27/24 12:45 03/01/24 09:53 40 MG Enteral Nutritional Formula 1,000 ml 30ML/HR GT 02/28/24 08:45 02/29/24 22:08 1,000 ML Bisacodyl 10 mg DAILYP PRN [place] 02/28/24 08:45 Norepinephrine Bitartrate 250 ml @ 3.75 mls/hr Q24H IV 02/28/24 19:15 Digoxin 0.125 mg DAILY PO 03/01/24 10:00 03/01/24 09:55 0.125 MG Lactulose 30 ml DAILYPRN PRN PO 02/29/24 12:00 Furosemide 40 mg BIDD IV 03/01/24 18:00 Enoxaparin Sodium 70 mg DAILY SC 03/02/24 10:00 Amiodarone HCl 200 mg Q12HR PO 03/01/24 22:00 objective Gen: nad, intubated and sedated lungs: Occasional rhonchi cvs: No rub ext: no edema laboratory and microbiology Laboratory Tests 03/01/24 03:20 Test 03/01/24 03:20 Range/Units Serum Glucose 159 H 74-106 mg/dL Assessment/Plan IMP: Acute kidney injury likely hemodynamically mediated, oliguria Chronic kidney disease stage 2/3 Acute respiratory failure in the setting of possible COPD exacerbation Acute anemia unspecified Pneumonia REC: hyperkalemia and urine volumes have improved will continue to follow Dietary Evaluation Review Recommendations by RD: Dietary education by RD Comments: 1) If GI is accessible consider Pivot 1.5 @ 55 ml/hr x24 hr goal rate as tolerated 2) If pt remains NPO >7 days consider TPN to meet at least 75% of estimated goals 3) Advance pt diet when medically feasible to a Cardiac diet modified per ENGRAVER LETTER recommendations 4) Continue current plan of care Expected Outcomes/Goals: 1) Pt to receive nutrition support within 7 days of NPO status 2) Pt diet to advance 3) F/U in 2-3 days Plan discussed with: Other Respiratory Effort: ET Tube Breath sounds: Clear, Diminished ODELL MCCULLOUGH MD Mar 01, 2024 14:44
[2024-03-01] MEDS: FUROSEMIDE 40 MG/4 ML VIAL IV ONE (15:51)
[2024-03-01] MEDS: AMIODARONE HCL 200 MG TAB PO SCH (15:52)
[2024-03-01] MEDS: AMIODARONE HCL 200 MG TAB ONE (15:53)
[2024-03-01] MEDS: FUROSEMIDE 40 MG/4 ML VIAL IV SCH (15:53)
[2024-03-01] MEDS: AMIODARONE HCL 200 MG TAB PO ONE (15:54)
--- NOTE | 2024-03-01 20:48 | DVHPN2 ---
Progress Note - Dictate Date Seen: Mar 01, 2024 Medical Necessity Reason Pt with a Central, PICC or Fol: Yes The following are medically ne: Central Line, Mccord Catheter Reason for mccord catheter: Strict I&O, Total Immobilization Subjective Patient was seen and evaluated in follow-up in the ICU. Patient is intubated and sedated on ventilator. 35% FiO2. Patient's heart rate is better controlled on Amiodarone drip. Chest x-ray shows congestion diffusely. Patient is noted to have generalized edema. WBC 14.8, HGB 9, HCT 26.9, CL 94, BUN 65, DATA WAREHOUSE SPECIALIST 1.88. vital signs Vital Sign Date Time Temp Pulse Resp B/P (MAP) Pulse Ox O2 Delivery O2 Flow Rate FiO2 03/01/24 12:34 107/41 03/01/24 12:01 98 24 93 03/01/24 11:46 99.2 99.2 03/01/24 11:17 35 03/01/24 08:00 Mechanical Ventilator+ Total Intake and Output 02/29/24 02/29/24 03/01/24 15:00 23:00 07:00 Intake Total 1062.226 ml 1133.296 ml 1053.634 ml Output Total 750 ml 675 ml Balance 1062.226 ml 383.296 ml 378.634 ml medications Current Medications Medications Dose Ordered Sig/Sherwin Route Start Time Stop Time Status Last Admin Dose Admin Nitroglycerin 0.4 mg Q5MINP PRN SL 02/18/24 06:45 Morphine Sulfate 2 mg Q30M PRN IV 02/18/24 06:45 Ondansetron HCl 4 mg Q6HPRN PRN IV 02/18/24 06:45 Ceftriaxone Sodium 50 ml @ 100 mls/hr DAILY@09 IV 02/18/24 09:00 03/01/24 09:53 100 MLS/HR Fentanyl Citrate 250 ml @ 2.5 mls/hr Q24H IV 02/18/24 11:15 03/01/24 00:06 15 MLS/HR Pantoprazole Sodium 40 mg DAILY IV 02/19/24 10:00 03/01/24 09:53 40 MG Labetalol HCl 10 mg Q4HPRN PRN IV 02/20/24 16:15 02/29/24 07:27 10 MG Acetaminophen 650 mg Q8HP PRN [place] 02/21/24 11:30 02/25/24 05:54 650 MG Albuterol 2.5 mg Q4HR NEB 02/21/24 18:00 03/01/24 09:12 2.5 MG Ipratropium [place] 0.5 mg Q4HR NEB 02/21/24 18:00 03/01/24 09:12 0.5 MG Hydralazine HCl 10 mg Q4HR PRN IV 02/24/24 09:15 02/25/24 02:41 10 MG Midazolam HCl 5 mg [id number] PRN IV 02/24/24 10:00 02/25/24 08:15 5 MG Propofol 100 ml @ 1.785 mls/ hr Q24H IV 02/25/24 15:30 03/01/24 12:34 8.925 MLS/HR Acetylcysteine 200 mg Q8HR IN 02/26/24 14:00 Cancel Acetylcysteine 200 mg Q8HR NEB 02/26/24 14:00 03/01/24 06:15 200 MG Budesonide 0.5 mg BID NEB 02/27/24 22:00 03/01/24 09:13 0.5 MG Amlodipine Besylate 10 mg DAILY PO 02/27/24 10:30 02/29/24 09:28 10 MG Methylprednisolone Sodium Succinate 40 mg BID IV 02/27/24 12:45 03/01/24 09:53 40 MG Enteral Nutritional Formula 1,000 ml 30ML/HR GT 02/28/24 08:45 02/29/24 22:08 1,000 ML Bisacodyl 10 mg DAILYP PRN [place] 02/28/24 08:45 Norepinephrine Bitartrate 250 ml @ 3.75 mls/hr Q24H IV 02/28/24 19:15 Digoxin 0.125 mg DAILY PO 03/01/24 10:00 03/01/24 09:55 0.125 MG Lactulose 30 ml DAILYPRN PRN PO 02/29/24 12:00 Enoxaparin Sodium 80 mg DAILY SC 03/01/24 10:00 03/01/24 09:52 80 MG Furosemide 40 mg BIDD IV 03/01/24 18:00 objective GENERAL: Intubated on ventilator. LUNGS: Decreased breath sounds. CARDIOVASCULAR: Heart sounds are good. ABDOMEN: Soft. laboratory and microbiology Laboratory Tests 03/01/24 03:20 Test 03/01/24 03:20 Range/Units Serum Glucose 159 H 74-106 mg/dL Problem List Acute on chronic hypoxic respiratory failure. Ventilator dependence with failure of CPAP/extubation. COPD with probable exacerbation. History of multiple intubations. History of mitral valve replacement, bioprosthetic. Atrial fibrillation. Primary hypertension. Anemia. Acute probable vasomotor nephropathy. Hyperkalemia. Assessment/Plan Continued all current supportive medical care. IV Amiodarone. Amlodipine. Digoxin. IV antibiotics as ordered. DVT and GI prophylactics. Vasopressors for hemodynamic support. Additional plan as per the hospital course. Critical care time of 45 minutes provided to include time spent evaluation of patient at bedside, when appropriate patient/family education for diagnosis, treatment plan, review of pertinent medical information and discussion of care with specialty providers and PCP. Mechanical ventilator parameters, treatment and adjustments have personally been reviewed by me and treatment plan by budget consultant has also been reviewed. Dietary Evaluation Review Recommendations by RD: Dietary education by RD Comments: 1) If GI is accessible consider Pivot 1.5 @ 55 ml/hr x24 hr goal rate as tolerated 2) If pt remains NPO >7 days consider TPN to meet at least 75% of estimated goals 3) Advance pt diet when medically feasible to a Cardiac diet modified per SAP BOBJ DEVELOPER recommendations 4) Continue current plan of care Expected Outcomes/Goals: 1) Pt to receive nutrition support within 7 days of NPO status 2) Pt diet to advance 3) F/U in 2-3 days Plan discussed with: Other Respiratory Effort: ET Tube Breath sounds: Clear, Diminished LUKE ARIZMENDI MD Mar 01, 2024 13:42
--- NOTE | 2024-03-01 21:07 | DVHPN2 ---
Progress Note - Dictate Date Seen: Mar 01, 2024 Medical Necessity Reason Pt with a Central, PICC or Fol: Yes The following are medically ne: Central Line, Mccord Catheter Reason for mccord catheter: Strict I&O, Total Immobilization Subjective Patient seen and examined at bedside. Sedated, intubated on mechanical ventilator. Overnight events reviewed. vital signs Vital Sign Date Time Temp Pulse Resp B/P (MAP) Pulse Ox O2 Delivery O2 Flow Rate FiO2 03/01/24 20:00 72 26 95 03/01/24 19:46 35 03/01/24 19:45 99.5 99.5 03/01/24 18:00 Mechanical Ventilator+ Total Intake and Output 02/29/24 02/29/24 03/01/24 15:00 23:00 07:00 Intake Total 1062.226 ml 1133.296 ml 1197.789 ml Output Total 750 ml 675 ml Balance 1062.226 ml 383.296 ml 522.789 ml medications Current Medications Medications Dose Ordered Sig/Sherwin Route Start Time Stop Time Status Last Admin Dose Admin Nitroglycerin 0.4 mg Q5MINP PRN SL 02/18/24 06:45 Morphine Sulfate 2 mg Q30M PRN IV 02/18/24 06:45 Ondansetron HCl 4 mg Q6HPRN PRN IV 02/18/24 06:45 Ceftriaxone Sodium 50 ml @ 100 mls/hr DAILY@09 IV 02/18/24 09:00 03/01/24 09:53 100 MLS/HR Fentanyl Citrate 250 ml @ 2.5 mls/hr Q24H IV 02/18/24 11:15 03/01/24 16:13 15 MLS/HR Pantoprazole Sodium 40 mg DAILY IV 02/19/24 10:00 03/01/24 09:53 40 MG Labetalol HCl 10 mg Q4HPRN PRN IV 02/20/24 16:15 02/29/24 07:27 10 MG Acetaminophen 650 mg Q8HP PRN [place] 02/21/24 11:30 02/25/24 05:54 650 MG Albuterol 2.5 mg Q4HR NEB 02/21/24 18:00 03/01/24 18:10 2.5 MG Ipratropium [place] 0.5 mg Q4HR NEB 02/21/24 18:00 03/01/24 18:10 0.5 MG Hydralazine HCl 10 mg Q4HR PRN IV 02/24/24 09:15 02/25/24 02:41 10 MG Midazolam HCl 5 mg [id number] PRN IV 02/24/24 10:00 02/25/24 08:15 5 MG Propofol 100 ml @ 1.785 mls/ hr Q24H IV 02/25/24 15:30 03/01/24 20:00 8.925 MLS/HR Acetylcysteine 200 mg Q8HR IN 02/26/24 14:00 Cancel Acetylcysteine 200 mg Q8HR NEB 02/26/24 14:00 03/01/24 18:10 200 MG Budesonide 0.5 mg BID NEB 02/27/24 22:00 03/01/24 18:10 0.5 MG Amlodipine Besylate 10 mg DAILY PO 02/27/24 10:30 02/29/24 09:28 10 MG Methylprednisolone Sodium Succinate 40 mg BID IV 02/27/24 12:45 03/01/24 09:53 40 MG Enteral Nutritional Formula 1,000 ml 30ML/HR GT 02/28/24 08:45 02/29/24 22:08 1,000 ML Bisacodyl 10 mg DAILYP PRN [place] 02/28/24 08:45 Norepinephrine Bitartrate 250 ml @ 3.75 mls/hr Q24H IV 02/28/24 19:15 Digoxin 0.125 mg DAILY PO 03/01/24 10:00 03/01/24 09:55 0.125 MG Lactulose 30 ml DAILYPRN PRN PO 02/29/24 12:00 Furosemide 40 mg BIDD IV 03/01/24 18:00 Enoxaparin Sodium 70 mg DAILY SC 03/02/24 10:00 Amiodarone HCl 200 mg Q12HR PO 03/01/24 15:38 03/01/24 15:52 200 MG objective Gen.: Patient lying in bed in medical ICU. Sedated, intubated on mechanical ventilator. Head: Normocephalic, atraumatic. Eyes: PERRLA. Ears: Normal external anatomy. Throat: Endotracheal tube and orogastric tube in place. Neck: Supple, trachea midline. Chest: Transmitted breath sounds bilaterally. Decreased air entry bilaterally. No wheezing. Bibasilar crackles. Cardiovascular: Positive S1, positive S2. Regular rate and rhythm. Abdomen: Positive bowel sounds in all 4 quadrants. Soft, nontender, nondistended. : Mccord in place. Normal external genitalia. Rectal: Deferred. Skin: Warm, dry. Intact. Extremities: 2+ radial pulses bilaterally. No lower extremity edema. Neuro: Sedated. laboratory and microbiology Laboratory Tests 03/01/24 03:20 Test 03/01/24 03:20 Range/Units Serum Glucose 159 H 74-106 mg/dL Assessment/Plan Impression: Acute hypoxic respiratory failure On mechanical ventilator Mitral valve replacement Pneumonia, likely gram negative. COPD Congestive heart failure Atrial fibrillation Events: Remains on vent support On AC mode; RR 26, VT 450, PEEP 5, FiO2 35%. ABG reviewed, compensated. CXR demonstrates diffuse increased interstitial opacities. No pneumothorax or pleural effusion. Off nicardipine drip since 02/25/24. Continue antibiotics - Rocephin. On amiodarone drip + Digoxin for AFib episode. Sedated on Fentanyl 150 mcg, Propofol 25 mcg. Off Precedex Off bicarb drip Tube feeds for nutritional support- Nepro Heparin drip Taper sedation as tolerated OK to start Precedex for agitation. CPAP with PS 8, PEEP of 5 OK to increase PS to max 20 cmH2O to achieve tidal volume 400-450 mL. Continue to monitor closely. LTAC eval. Labs and imaging reviewed. Rest of plan as noted below. Plan: s/p intubation on mechanical ventilator. ABG reviewed, compensated. On AC mode; RR 26, VT 450, PEEP 5, FiO2 35%. Titrate FIO2 to keep O2 saturation above 90%. VAP bundle. Daily ABG and CXR while intubated Sedated for ventilator synchrony- On Propofol and Fentanyl. Continue antibiotics. F/u cultures. Start pressors if necessary to maintain a mean arterial blood pressure greater than 65 mmHg. Heparin drip Tube feeds for nutritional support Patient failed CPAP - lasted 20 minutes Plan for CPAP trial in AM. Monitor renal function Monitor electrolytes. Supplement as necessary. Monitor ins and outs. Maintain euvolemia. GI prophylaxis. DVT prophylaxis. Prognosis: Poor given patient's multiple co-morbidities. Condition: Critical Rest of plan per hospitalist and other consultants. A total of 35 minutes of critical care time was spent reviewing the patient record, examining the patient, making a diagnostic and therapeutic plan, discussing this plan with the medical personnel, following up on diagnostic studies and following the patient for clinical stability excluding any and all procedures. At least 50% of this time was spent in direct, [id number] contact. Thank you Dr. Flakita Khan MD, for allowing me to participate in this patient's care. Further recommendations will depend on the patient's clinical course. Please do not hesitate to contact me if you have any questions or concerns. This medical document was created using an electronic medical record system with [employer] dictation system. Although these documentations are being carefully reviewed, there may still be some phonetic and typographical changes. The errors are purely typographical, due to imperfection on the software program, and do not reflect any compromise in the patient's medical care. Dietary Evaluation Review Recommendations by RD: Dietary education by RD Comments: 1) If GI is accessible consider Pivot 1.5 @ 55 ml/hr x24 hr goal rate as tolerated 2) If pt remains NPO >7 days consider TPN to meet at least 75% of estimated goals 3) Advance pt diet when medically feasible to a Cardiac diet modified per PRECISION HONING MACHINE OPERATOR recommendations 4) Continue current plan of care Expected Outcomes/Goals: 1) Pt to receive nutrition support within 7 days of NPO status 2) Pt diet to advance 3) F/U in 2-3 days Plan discussed with: Other (JULIOCESAR Noland) Critical Care Time(min): 35 Respiratory Effort: ET Tube Breath sounds: Clear, Diminished PRAVEEN NGUYEN MD Mar 01, 2024 21:07
[2024-03-02] VITALS (105 sets, daily range): BP systolic 75–155; BP diastolic 24–88; PULSE 72–147; RESP 15–36; TEMP 98.4–99.5; O2SAT 88–100
[2024-03-02 04:29] LABS: Basophils # (auto) 0 10 ^3/uL (0-0.2); Basophils % (auto) 0.1 % (0.0-2.0); Eosinophils # (auto) 0 10 ^3/uL (0-0.8); Hematocrit 28.3 % (36.0-46.0); Hemoglobin 9.4 g/dL (12.2-16.2); Lymphocytes # (auto) 0.4 10 ^3/uL (0.4-5.4); Lymphocytes % (auto) 2.5 % (10.0-50.0); Mean Corpuscular Hemoglobin 28.6 pg (28.0-32.0); Mean Corpuscular Hgb Conc. 33.2 g/dL (32.0-36.0); Mean Corpuscular Volume 86.2 fL (80.0-100.0); Monocytes # (auto) 0.5 10 ^3/uL (0-1.3); Monocytes % (auto) 2.9 % (0.0-12.0); Neutrophils # (auto) 14.9 10 ^3/uL (1.6-8.6); Neutrophils % (auto) 94.5 % (37.0-80.0); Nucleated Red Blood Cells % 0.1 %; Platelet Count (auto) 189 10^3/uL (140-450); Red Blood Cells 3.28 10^6/uL (4.0-5.20); Red Cell Distribution Width 17.1 % (11.8-14.3); White Blood Cell 15.7 10^3/uL (4.4-10.8)
[2024-03-02 04:48] LABS: Alanine Aminotransferase 47 U/L (7-40); Alkaline Phosphatase 186 U/L (46-116); Anion Gap 9 (5-15); BUN/Creatinine Ratio 39.8 (10.0-20.0); Blood Urea Nitrogen 64 mg/dL (9-23); Calcium 8.8 mg/dL (8.7-10.4); Carbon Dioxide 33 mmol/L (20-31); Chloride 94 mmol/L (98-107); Glucose 135 mg/dL (74-106); Magnesium 2.7 mg/dL (1.6-2.6); Potassium 3.9 mmol/L (3.5-5.1); Sodium 136 mmol/L (136-145)
[2024-03-02 04:49] LABS: Albumin 3.3 g/dL (3.2-4.8); Aspartate Aminotransferase 22 U/L (13-40)
[2024-03-02 04:50] LABS: Bilirubin, Total 0.6 mg/dL (0.2-1.0); Total Protein 5.7 g/dL (5.7-8.2)
--- NOTE | 2024-03-02 04:54 | DVH ---
CHEST RADIOGRAPH Indication: cpap Technique: Single frontal view of the chest was obtained COMPARISON: XY CHEST PORTABLE on DOS: 03/01/24, XY CHEST PORTABLE on DOS: 02/28/24, XY CHEST PORTABLE on DOS: 02/27/24 FINDINGS: Lines and Tubes: Median sternotomy. Endotracheal tube, enteric catheter and right central venous cat heter in satisfactory position. Lungs: Chronic fibrotic changes. Mild congestion. Pleura: No effusion. No pneumothorax. Cardiomediastinal contours: Unremarkable Bones: Unremarkable IMPRESSION: Slightly improved aeration of the lungs. No other significant interval change.
[2024-03-02 07:36] LABS: Base Excess 8.6 mmol/L (-2.0-3.0)
--- NOTE | 2024-03-02 08:59 | DVHPN2 ---
Progress Note Date Seen: Mar 02, 2024 Medical Necessity Reason Pt with a Central, PICC or Fol: Yes The following are medically ne: Central Line, Mccord Catheter Reason for mccord catheter: Strict I&O, Total Immobilization Subjective Review of Systems: RESPIRATORY:Abnormal Objective vital signs Vital Sign Date Time Temp Pulse Resp B/P (MAP) Pulse Ox O2 Delivery O2 Flow Rate FiO2 03/02/24 07:55 110/65 03/02/24 07:50 89 26 96 35 03/02/24 06:00 Mechanical Ventilator+ 03/02/24 00:00 98.9 98.9 Total Intake and Output 03/01/24 03/01/24 03/02/24 15:00 23:00 07:00 Intake Total 680.035 ml 215.505 ml 591.63 ml Output Total 1150 ml 1600 ml Balance 680.035 ml -934.495 ml -1008.37 ml medications Current Medications Medications Dose Ordered Sig/Sherwin Route Start Time Stop Time Status Last Admin Dose Admin Nitroglycerin 0.4 mg Q5MINP PRN SL 02/18/24 06:45 Morphine Sulfate 2 mg Q30M PRN IV 02/18/24 06:45 Ondansetron HCl 4 mg Q6HPRN PRN IV 02/18/24 06:45 Ceftriaxone Sodium 50 ml @ 100 mls/hr DAILY@09 IV 02/18/24 09:00 03/01/24 09:53 100 MLS/HR Fentanyl Citrate 250 ml @ 2.5 mls/hr Q24H IV 02/18/24 11:15 03/01/24 16:13 15 MLS/HR Pantoprazole Sodium 40 mg DAILY IV 02/19/24 10:00 03/01/24 09:53 40 MG Labetalol HCl 10 mg Q4HPRN PRN IV 02/20/24 16:15 02/29/24 07:27 10 MG Acetaminophen 650 mg Q8HP PRN [place] 02/21/24 11:30 02/25/24 05:54 650 MG Albuterol 2.5 mg Q4HR NEB 02/21/24 18:00 03/02/24 06:15 2.5 MG Ipratropium [place] 0.5 mg Q4HR NEB 02/21/24 18:00 03/02/24 06:15 0.5 MG Hydralazine HCl 10 mg Q4HR PRN IV 02/24/24 09:15 02/25/24 02:41 10 MG Midazolam HCl 5 mg [id number] PRN IV 02/24/24 10:00 02/25/24 08:15 5 MG Propofol 100 ml @ 1.785 mls/ hr Q24H IV 02/25/24 15:30 03/02/24 02:37 8.925 MLS/HR Acetylcysteine 200 mg Q8HR IN 02/26/24 14:00 Cancel Acetylcysteine 200 mg Q8HR NEB 02/26/24 14:00 03/02/24 01:51 200 MG Budesonide 0.5 mg BID NEB 02/27/24 22:00 03/02/24 06:15 0.5 MG Amlodipine Besylate 10 mg DAILY PO 02/27/24 10:30 02/29/24 09:28 10 MG Methylprednisolone Sodium Succinate 40 mg BID IV 02/27/24 12:45 03/01/24 21:38 40 MG Enteral Nutritional Formula 1,000 ml 30ML/HR GT 02/28/24 08:45 02/29/24 22:08 1,000 ML Bisacodyl 10 mg DAILYP PRN [place] 02/28/24 08:45 Norepinephrine Bitartrate 250 ml @ 3.75 mls/hr Q24H IV 02/28/24 19:15 Digoxin 0.125 mg DAILY PO 03/01/24 10:00 03/01/24 09:55 0.125 MG Lactulose 30 ml DAILYPRN PRN PO 02/29/24 12:00 Furosemide 40 mg BIDD IV 03/01/24 18:00 03/02/24 05:28 40 MG Enoxaparin Sodium 70 mg DAILY SC 03/02/24 10:00 Amiodarone HCl 200 mg Q12HR PO 03/01/24 15:38 03/01/24 21:38 200 MG Examination: LUNGS:Abnormal laboratory and microbiology Laboratory Tests 03/02/24 03:00 Test 03/02/24 03:00 Range/Units Serum Glucose 135 H 74-106 mg/dL Microbiology Date/Time Source Procedure Growth Status 02/21/24 13:45 Blood Blood Culture - Final NO GROWTH AFTER 5 DAYS OF INCUBATION. Complete 02/18/24 11:00 Nose MRSA Screen - Final Complete 02/18/24 01:00 Sputum Gram Stain - Final Complete 02/18/24 01:00 Sputum Respiratory Culture - Final Complete Problem List/Assessment/Plan Problem List/Assessment/Plan acute resp failure 2 m ventilatrion 3 a b g adequate 4 i n r therapeutic 5 no acute bleeding 6 plan d c sedation and c p a p trial 02/21/24 pt is vented now on c p a p 01/11 pt is still on prop and precedex a b g good on 01/11 but pt is not awake d c sedation and cpap 11/10 . if pt is non cooperative may extubate 02/24/24 pt is still sedated as b p went up pt surya 35% peep 5 plan is to try to wean off the sedation and c pap 11/10 pt is anaemic as well hb is 7.8 02/25/24 pulm pt is intubated hu on precedex vital signs stable on nicardipine drip reduce predecx and do weaning parameters and a b g if adequate extubate 02/28/24 1 met acedosis 2 hyperkalemia 3 kidney function worse plan rate 26 and replace [id number] repeat a b g in few hrs 03/02/24 pis still vented pt developed a fib with r v r could not be weaned off the vent . will increase amiodarone to 400 b i d and wean down the sedation in 4 hrs followed by c p a p 01/10 followed by weaning parameters and a b g Plan discussed with: Daughter Dietary Evaluation Review Recommendations by RD: Dietary education by RD Comments: 1) If GI is accessible consider Pivot 1.5 @ 55 ml/hr x24 hr goal rate as tolerated 2) If pt remains NPO >7 days consider TPN to meet at least 75% of estimated goals 3) Advance pt diet when medically feasible to a Cardiac diet modified per DROSS SKIMMER recommendations 4) Continue current plan of care Expected Outcomes/Goals: 1) Pt to receive nutrition support within 7 days of NPO status 2) Pt diet to advance 3) F/U in 2-3 days Sepsis reassessment post fluid Respiratory Effort: ET Tube Breath sounds: Clear, Diminished YASHIRA VICK MD Mar 02, 2024 08:59
[2024-03-02] MEDS: ENOXAPARIN SOD 100 MG/1 ML SYRINGE SC SCH (09:47)
[2024-03-02] MEDS: AMIODARONE HCL 200 MG TAB PO SCH (09:50)
--- NOTE | 2024-03-02 15:13 | DVHPNRES ---
Progress Note Date Seen: Mar 02, 2024 Resident Creating Document: CHRISTIANO JONES RESIDENT Medical Necessity Reason Pt with a Central, PICC or Fol: Yes The following are medically ne: Central Line, Mccord Catheter Reason for mccord catheter: Strict I&O, Total Immobilization Subjective Review of Systems 68 y.o. female with COPD using 3L of home oxygen was brought to the ED c/o SOB despite using her oxygen. EMS started 10L and gave her nebulizer treatment but patient continued to be in severe respiratory distress. ER MD intubated the patient. Patient seen and examined at bedside. Sedated, intubated on mechanical ventilator. Overnight events reviewed. Objective vital signs Vital Sign Date Time Temp Pulse Resp B/P (MAP) Pulse Ox O2 Delivery O2 Flow Rate FiO2 03/02/24 15:00 94 26 116/24 (54) 95 03/02/24 14:25 35 03/02/24 14:05 Mechanical Ventilator+ 03/02/24 12:30 99.4 99.4 Total Intake and Output 03/01/24 03/01/24 03/02/24 15:00 23:00 07:00 Intake Total 680.035 ml 215.505 ml 591.63 ml Output Total 1150 ml 1600 ml Balance 680.035 ml -934.495 ml -1008.37 ml medications Current Medications Medications Dose Ordered Sig/Sherwin Route Start Time Stop Time Status Last Admin Dose Admin Nitroglycerin 0.4 mg Q5MINP PRN SL 02/18/24 06:45 Morphine Sulfate 2 mg Q30M PRN IV 02/18/24 06:45 Ondansetron HCl 4 mg Q6HPRN PRN IV 02/18/24 06:45 Fentanyl Citrate 250 ml @ 2.5 mls/hr Q24H IV 02/18/24 11:15 03/02/24 09:49 6 MLS/HR Pantoprazole Sodium 40 mg DAILY IV 02/19/24 10:00 03/02/24 09:47 40 MG Labetalol HCl 10 mg Q4HPRN PRN IV 02/20/24 16:15 02/29/24 07:27 10 MG Acetaminophen 650 mg Q8HP PRN [place] 02/21/24 11:30 02/25/24 05:54 650 MG Albuterol 2.5 mg Q4HR NEB 02/21/24 18:00 03/02/24 14:25 2.5 MG Ipratropium [place] 0.5 mg Q4HR NEB 02/21/24 18:00 03/02/24 14:25 0.5 MG Hydralazine HCl 10 mg Q4HR PRN IV 02/24/24 09:15 02/25/24 02:41 10 MG Midazolam HCl 5 mg [id number] PRN IV 02/24/24 10:00 02/25/24 08:15 5 MG Propofol 100 ml @ 1.785 mls/ hr Q24H IV 02/25/24 15:30 03/02/24 09:48 3.392 MLS/HR Acetylcysteine 200 mg Q8HR IN 02/26/24 14:00 Cancel Acetylcysteine 200 mg Q8HR NEB 02/26/24 14:00 03/02/24 14:28 200 MG Budesonide 0.5 mg BID NEB 02/27/24 22:00 03/02/24 06:15 0.5 MG Amlodipine Besylate 10 mg DAILY PO 02/27/24 10:30 03/02/24 09:50 10 MG Methylprednisolone Sodium Succinate 40 mg BID IV 02/27/24 12:45 03/02/24 09:47 40 MG Enteral Nutritional Formula 1,000 ml 30ML/HR GT 02/28/24 08:45 02/29/24 22:08 1,000 ML Bisacodyl 10 mg DAILYP PRN [place] 02/28/24 08:45 Norepinephrine Bitartrate 250 ml @ 3.75 mls/hr Q24H IV 02/28/24 19:15 Digoxin 0.125 mg DAILY PO 03/01/24 10:00 03/02/24 09:48 0.125 MG Lactulose 30 ml DAILYPRN PRN PO 02/29/24 12:00 Furosemide 40 mg BIDD IV 03/01/24 18:00 03/02/24 05:28 40 MG Enoxaparin Sodium 70 mg DAILY SC 03/02/24 10:00 03/02/24 09:47 70 MG Amiodarone HCl 400 mg Q12HR PO 03/02/24 10:00 03/02/24 09:50 400 MG Examination Gen.: Patient lying in bed in medical ICU. Sedated, intubated on mechanical ventilator. Head: Normocephalic, atraumatic. Eyes: PERRLA. Ears: Normal external anatomy. Throat: Endotracheal tube and orogastric tube in place. Neck: Supple, trachea midline. Chest: Transmitted breath sounds bilaterally. Decreased air entry bilaterally. No wheezing. Bibasilar crackles. Cardiovascular: Positive S1, positive S2. Regular rate and rhythm. Abdomen: Positive bowel sounds in all 4 quadrants. Soft, nontender, nondistended. : Mccord in place. Normal external genitalia. Rectal: Deferred. Skin: Warm, dry. Intact. Extremities: 2+ radial pulses bilaterally. No lower extremity edema. Neuro: Sedated. laboratory and microbiology Laboratory Tests 03/02/24 03:00 Test 03/02/24 03:00 Range/Units Serum Glucose 135 H 74-106 mg/dL Microbiology Date/Time Source Procedure Growth Status 02/21/24 13:45 Blood Blood Culture - Final NO GROWTH AFTER 5 DAYS OF INCUBATION. Complete 02/18/24 11:00 Nose MRSA Screen - Final Complete 02/18/24 01:00 Sputum Gram Stain - Final Complete 02/18/24 01:00 Sputum Respiratory Culture - Final Complete Problem List/Assessment/Plan Problem List/Assessment/Plan # sepsis secondary to pneumonia # community-acquired pneumonia possible GM+/- bacterial pneumonia # acute hypoxic respiratory failure secondary to COPD exacerbation, pneumonia # New Onset Anemia - Maintain Pox > 92%, Fi02 down to 35%, Mechanical Ventilation per Pulmonary, continue IV abx Rocephin and Azithromycin , Med Nebs Q 6 Hours, Solu Medrol 125mg IV Q 12 hours # Acute Kidney Injury on CKD Stage 3 - follow up with Nephrology - monitor kidney function # anemia secondary to possible blood loss - -GI Consulted, no plan for EGD at this time - daily AM Labs - patient # AFib # Hypertension # Hyperlipidemia # Hx of mechanical mitral valve replacement on home Coumadin, -INR goal of 2.5-3.5, holding Coumadin. DVT Prophy; no anticoagulation, GI Prophy; Protonix 40mg IV daily Critical Care time spent 51 minutes including patient care, chart review and updating family, excluding procedure. Case discussed with Dr. Marshall Plan discussed with: Other (RN) My Orders My Orders Orders - CHRISTIANO JONES RESIDENT Procedure Category Date Status Time Complete Blood Count LAB 03/03/24 Verified 04:00 Comprehensive LAB 03/03/24 Verified Metabolic Panel 04:00 Abg W/ Co-Ox RT 03/03/24 Verified 04:00 Chest Portable XY 03/03/24 Verified 04:00 Dietary Evaluation Review Recommendations by RD: Dietary education by RD Comments: 1) If GI is accessible consider Pivot 1.5 @ 55 ml/hr x24 hr goal rate as tolerated 2) If pt remains NPO >7 days consider TPN to meet at least 75% of estimated goals 3) Advance pt diet when medically feasible to a Cardiac diet modified per PICTURE FRAMES INSPECTOR recommendations 4) Continue current plan of care Expected Outcomes/Goals: 1) Pt to receive nutrition support within 7 days of NPO status 2) Pt diet to advance 3) F/U in 2-3 days Sepsis reassessment post fluid Respiratory Effort: ET Tube Breath sounds: Clear, Diminished Date of Service: Mar 02, 2024 Billing Provider: HELGA MARSHALL MD Common Visit Codes: 17309-[id number] CARE 30-74 MIN CHRISTIANO JONES RESIDENT Mar 02, 2024 15:13 HELGA MARSHALL MD Mar 04, 2024 12:51
--- NOTE | 2024-03-02 16:12 | DVHPN2 ---
Progress Note Date Seen: Mar 02, 2024 Medical Necessity Reason Pt with a Central, PICC or Fol: Yes The following are medically ne: Central Line, Mccord Catheter Reason for mccord catheter: Strict I&O, Total Immobilization Subjective Review of Systems: RESPIRATORY:Abnormal Other Systems: Patient seen and examined by myself on follow-up today, patient remained Objective vital signs Vital Sign Date Time Temp Pulse Resp B/P (MAP) Pulse Ox O2 Delivery O2 Flow Rate FiO2 03/02/24 15:39 99 26 92/67 (75) 98 40 03/02/24 14:05 Mechanical Ventilator+ 03/02/24 12:30 99.4 99.4 Total Intake and Output 03/01/24 03/01/24 03/02/24 15:00 23:00 07:00 Intake Total 680.035 ml 215.505 ml 591.63 ml Output Total 1150 ml 1600 ml Balance 680.035 ml -934.495 ml -1008.37 ml medications Current Medications Medications Dose Ordered Sig/Sherwin Route Start Time Stop Time Status Last Admin Dose Admin Nitroglycerin 0.4 mg Q5MINP PRN SL 02/18/24 06:45 Morphine Sulfate 2 mg Q30M PRN IV 02/18/24 06:45 Ondansetron HCl 4 mg Q6HPRN PRN IV 02/18/24 06:45 Fentanyl Citrate 250 ml @ 2.5 mls/hr Q24H IV 02/18/24 11:15 03/02/24 09:49 6 MLS/HR Pantoprazole Sodium 40 mg DAILY IV 02/19/24 10:00 03/02/24 09:47 40 MG Labetalol HCl 10 mg Q4HPRN PRN IV 02/20/24 16:15 02/29/24 07:27 10 MG Acetaminophen 650 mg Q8HP PRN MD 02/21/24 11:30 02/25/24 05:54 650 MG Albuterol 2.5 mg Q4HR NEB 02/21/24 18:00 03/02/24 14:25 2.5 MG Ipratropium [place] 0.5 mg Q4HR NEB 02/21/24 18:00 03/02/24 14:25 0.5 MG Hydralazine HCl 10 mg Q4HR PRN IV 02/24/24 09:15 02/25/24 02:41 10 MG Midazolam HCl 5 mg [id number] PRN IV 02/24/24 10:00 02/25/24 08:15 5 MG Propofol 100 ml @ 1.785 mls/ hr Q24H IV 02/25/24 15:30 03/02/24 09:48 3.392 MLS/HR Acetylcysteine 200 mg Q8HR IN 02/26/24 14:00 Cancel Acetylcysteine 200 mg Q8HR NEB 02/26/24 14:00 03/02/24 14:28 200 MG Budesonide 0.5 mg BID NEB 02/27/24 22:00 03/02/24 06:15 0.5 MG Amlodipine Besylate 10 mg DAILY PO 02/27/24 10:30 03/02/24 09:50 10 MG Methylprednisolone Sodium Succinate 40 mg BID IV 02/27/24 12:45 03/02/24 09:47 40 MG Enteral Nutritional Formula 1,000 ml 30ML/HR GT 02/28/24 08:45 02/29/24 22:08 1,000 ML Bisacodyl 10 mg DAILYP PRN MD 02/28/24 08:45 Norepinephrine Bitartrate 250 ml @ 3.75 mls/hr Q24H IV 02/28/24 19:15 Digoxin 0.125 mg DAILY PO 03/01/24 10:00 03/02/24 09:48 0.125 MG Lactulose 30 ml DAILYPRN PRN PO 02/29/24 12:00 Furosemide 40 mg BIDD IV 03/01/24 18:00 03/02/24 05:28 40 MG Enoxaparin Sodium 70 mg DAILY SC 03/02/24 10:00 03/02/24 09:47 70 MG Amiodarone HCl 400 mg Q12HR PO 03/02/24 10:00 03/02/24 09:50 400 MG Examination: LUNGS:Normal (Intubated on ventilator), CVS:Normal, MSK:Normal laboratory and microbiology Laboratory Tests 03/02/24 03:00 Test 03/02/24 03:00 Range/Units Serum Glucose 135 H 74-106 mg/dL Microbiology Date/Time Source Procedure Growth Status 02/21/24 13:45 Blood Blood Culture - Final NO GROWTH AFTER 5 DAYS OF INCUBATION. Complete 02/18/24 11:00 Nose MRSA Screen - Final Complete 02/18/24 01:00 Sputum Gram Stain - Final Complete 02/18/24 01:00 Sputum Respiratory Culture - Final Complete Problem List/Assessment/Plan Problem List/Assessment/Plan Acute kidney injury superimposed Chronic Kidney Disease secondary hemodynamic mediated Acute respiratory failure , patient intubated on ventilator COPD exacerbation Acute anemia unspecified Pneumonia Metabolic alkalosis due to aggressive diuresis Recommendations Kidney function is improving Increased urine output Mccord catheter Strict I&Os Decrease furosemide to 40 mg once daily IV antibiotics IV steroids We will continue to follow Plan discussed with: Other (Nurse) My Orders My Orders Orders - SOURAV RICHARDSON MD Procedure Category Date Status Time Furosemide Injection PHA 03/02/24 Logged (Lasix Injection) 16:15 Kidney US 03/02/24 Logged 16:02 Vitamin D, 25-Hydroxy LAB 03/02/24 Logged 16:02 Urine Sodium LAB 03/02/24 Logged 16:02 Urine LAB 03/02/24 Logged Protein/Creatinine Urine Creatinine LAB 03/02/24 Logged 16:02 Phosphorus LAB 03/02/24 Logged 16:02 Parathyroid Hormone LAB 03/02/24 Logged Intact 16:02 Magnesium LAB 03/02/24 Logged 16:02 Dietary Evaluation Review Recommendations by RD: Dietary education by RD Comments: 1) If GI is accessible consider Pivot 1.5 @ 55 ml/hr x24 hr goal rate as tolerated 2) If pt remains NPO >7 days consider TPN to meet at least 75% of estimated goals 3) Advance pt diet when medically feasible to a Cardiac diet modified per RUBBER DOWN recommendations 4) Continue current plan of care Expected Outcomes/Goals: 1) Pt to receive nutrition support within 7 days of NPO status 2) Pt diet to advance 3) F/U in 2-3 days Sepsis reassessment post fluid Respiratory Effort: ET Tube Breath sounds: Clear, Diminished SOURAV RICHARDSON MD Mar 02, 2024 16:12
[2024-03-02] MEDS: FUROSEMIDE 40 MG/4 ML VIAL IV ONE (16:31)
--- NOTE | 2024-03-02 16:53 | DVH ---
INDICATION: preeti TECHNIQUE: Multiple real-time sonographic images of the kidneys and bladder were obtained. COMPARISON: None FINDINGS: RIGHT kidney measures 9.1 cm in length. Normal cortical thickness and echogenicity. No stones or foc al lesions are identified. No hydronephrosis. LEFT kidney measures 9.9 cm in length. Normal cortical thickness and echogenicity. No stones are lauren ntified. There is a 1.3 cm simple appearing cyst. No hydronephrosis. The bladder appears contracted and is not well-visualized. IMPRESSION: 1. Suboptimal evaluation of the bladder due to underdistention. No sonographic evidence of acute abno rmality. 2. Simple appearing 1.3 cm left renal cyst. HS:Y
[2024-03-02] MEDS: FUROSEMIDE 40 MG/4 ML VIAL IV SCH (17:30)
--- NOTE | 2024-03-02 18:11 | DVHPN2 ---
Progress Note - Dictate Date Seen: Mar 02, 2024 Medical Necessity Reason Pt with a Central, PICC or Fol: Yes The following are medically ne: Central Line, Mccord Catheter Reason for mccord catheter: Strict I&O, Total Immobilization Subjective Patient was seen and evaluated in follow-up in the ICU. Patient is intubated and sedated on ventilator. 30% FiO2. Patient failed CPAP trial today due to tachcayrdia. She was transiiotned over to po AMiodarone. WBC 15.7, HGB 9.4, CO2 33, BUN 64, Recordist 1.61. Renal US showed a simple appearing 1.3 cm left renal cyst. Chest x-ray showed slightly improved aeration of the lungs. vital signs Vital Sign Date Time Temp Pulse Resp B/P (MAP) Pulse Ox O2 Delivery O2 Flow Rate FiO2 03/02/24 18:00 89 26 114/54 (74) 96 03/02/24 17:15 98.4 98.4 03/02/24 16:00 Mechanical Ventilator+ 30 30 Total Intake and Output 03/01/24 03/01/24 03/02/24 15:00 23:00 07:00 Intake Total 680.035 ml 215.505 ml 591.63 ml Output Total 1150 ml 1600 ml Balance 680.035 ml -934.495 ml -1008.37 ml medications Current Medications Medications Dose Ordered Sig/Sherwin Route Start Time Stop Time Status Last Admin Dose Admin Nitroglycerin 0.4 mg Q5MINP PRN SL 02/18/24 06:45 Morphine Sulfate 2 mg Q30M PRN IV 02/18/24 06:45 Ondansetron HCl 4 mg Q6HPRN PRN IV 02/18/24 06:45 Fentanyl Citrate 250 ml @ 2.5 mls/hr Q24H IV 02/18/24 11:15 03/02/24 09:49 6 MLS/HR Pantoprazole Sodium 40 mg DAILY IV 02/19/24 10:00 03/02/24 09:47 40 MG Labetalol HCl 10 mg Q4HPRN PRN IV 02/20/24 16:15 02/29/24 07:27 10 MG Acetaminophen [address] 02/21/24 11:30 02/25/24 05:54 650 MG Albuterol 2.5 mg Q4HR NEB 02/21/24 18:00 03/02/24 14:25 2.5 MG Ipratropium [place] 0.5 mg Q4HR NEB 02/21/24 18:00 03/02/24 14:25 0.5 MG Hydralazine HCl 10 mg Q4HR PRN IV 02/24/24 09:15 02/25/24 02:41 10 MG Midazolam HCl 5 mg [id number] PRN IV 02/24/24 10:00 02/25/24 08:15 5 MG Propofol 100 ml @ 1.785 mls/ hr Q24H IV 02/25/24 15:30 03/02/24 09:48 3.392 MLS/HR Acetylcysteine 200 mg Q8HR IN 02/26/24 14:00 Cancel Acetylcysteine 200 mg Q8HR NEB 02/26/24 14:00 03/02/24 14:28 200 MG Budesonide 0.5 mg BID NEB 02/27/24 22:00 03/02/24 06:15 0.5 MG Amlodipine Besylate 10 mg DAILY PO 02/27/24 10:30 03/02/24 09:50 10 MG Methylprednisolone Sodium Succinate 40 mg BID IV 02/27/24 12:45 03/02/24 09:47 40 MG Enteral Nutritional Formula 1,000 ml 30ML/HR GT 02/28/24 08:45 02/29/24 22:08 1,000 ML Bisacodyl [address] 02/28/24 08:45 Norepinephrine Bitartrate 250 ml @ 3.75 mls/hr Q24H IV 02/28/24 19:15 Digoxin 0.125 mg DAILY PO 03/01/24 10:00 03/02/24 09:48 0.125 MG Lactulose 30 ml DAILYPRN PRN PO 02/29/24 12:00 Enoxaparin Sodium 70 mg DAILY SC 03/02/24 10:00 Hold 03/02/24 09:47 70 MG Amiodarone HCl 400 mg Q12HR PO 03/02/24 10:00 03/02/24 09:50 400 MG Furosemide 40 mg DAILY IV 03/02/24 16:15 objective GENERAL: Intubated on ventilator. LUNGS: Decreased breath sounds. CARDIOVASCULAR: Heart sounds are good. ABDOMEN: Soft. laboratory and microbiology Laboratory Tests 03/02/24 03:00 Test 03/02/24 03:00 Range/Units Serum Glucose 135 H 74-106 mg/dL Problem List Acute on chronic hypoxic respiratory failure. Ventilator dependence with failure of CPAP/extubation. COPD with probable exacerbation. History of multiple intubations. History of mitral valve replacement, bioprosthetic. Atrial fibrillation. Primary hypertension. Anemia. Acute probable vasomotor nephropathy. Hyperkalemia. Assessment/Plan Continued all current supportive medical care. Amiodarone. Amlodipine. Digoxin. IV antibiotics as ordered. DVT and GI prophylactics. Vasopressors for hemodynamic support. Additional plan as per the hospital course. Critical care time of 45 minutes provided to include time spent evaluation of patient at bedside, when appropriate patient/family education for diagnosis, treatment plan, review of pertinent medical information and discussion of care with specialty providers and PCP. Mechanical ventilator parameters, treatment and adjustments have personally been reviewed by me and treatment plan by emd special education teacher has also been reviewed. Dietary Evaluation Review Recommendations by RD: Dietary education by RD Comments: 1) If GI is accessible consider Pivot 1.5 @ 55 ml/hr x24 hr goal rate as tolerated 2) If pt remains NPO >7 days consider TPN to meet at least 75% of estimated goals 3) Advance pt diet when medically feasible to a Cardiac diet modified per EQUIPMENT LEAD recommendations 4) Continue current plan of care Expected Outcomes/Goals: 1) Pt to receive nutrition support within 7 days of NPO status 2) Pt diet to advance 3) F/U in 2-3 days Plan discussed with: Other Respiratory Effort: ET Tube Breath sounds: Clear, Diminished LUKE ARIZMENDI MD Mar 02, 2024 18:11
[2024-03-02 19:37] LABS: Magnesium 2.6 mg/dL (1.6-2.6)
[2024-03-02 19:39] LABS: Phosphorus 3.9 mg/dL (2.4-5.1)
[2024-03-03] VITALS (63 sets, daily range): BP systolic 58–203; BP diastolic 26–93; PULSE 80–151; RESP 13–32; TEMP 98.6–99; O2SAT 89–100
[2024-03-03 04:12] LABS: Basophils # (auto) 0 10 ^3/uL (0-0.2); Basophils % (auto) 0.2 % (0.0-2.0); Eosinophils # (auto) 0 10 ^3/uL (0-0.8); Eosinophils % (auto) 0.2 % (0.0-7.0); Hemoglobin 10.2 g/dL (12.2-16.2); Lymphocytes # (auto) 0.9 10 ^3/uL (0.4-5.4); Lymphocytes % (auto) 4.5 % (10.0-50.0); Mean Corpuscular Hemoglobin 28.3 pg (28.0-32.0); Mean Corpuscular Volume 85.8 fL (80.0-100.0); Monocytes # (auto) 1.2 10 ^3/uL (0-1.3); Monocytes % (auto) 6.5 % (0.0-12.0); Neutrophils % (auto) 88.6 % (37.0-80.0); Nucleated Red Blood Cells % 0.1 %; Platelet Count (auto) 247 10^3/uL (140-450); Red Blood Cells 3.62 10^6/uL (4.0-5.20); Red Cell Distribution Width 17.3 % (11.8-14.3); White Blood Cell 19.1 10^3/uL (4.4-10.8)
[2024-03-03 04:32] LABS: Alanine Aminotransferase 41 U/L (7-40); Albumin 3.5 g/dL (3.2-4.8); Alkaline Phosphatase 159 U/L (46-116); Anion Gap 7 (5-15); Aspartate Aminotransferase 25 U/L (13-40); BUN/Creatinine Ratio 47.4 (10.0-20.0); Blood Urea Nitrogen 65 mg/dL (9-23); Carbon Dioxide 36 mmol/L (20-31); Chloride 98 mmol/L (98-107); Glucose 91 mg/dL (74-106); Potassium 3.7 mmol/L (3.5-5.1); Sodium 141 mmol/L (136-145); Total Protein 5.7 g/dL (5.7-8.2)
--- NOTE | 2024-03-03 04:37 | DVH ---
CHEST RADIOGRAPH Indication: intubated Technique: Single frontal view of the chest was obtained Comparison: XY CHEST PORTABLE on DOS: 03/02/24, XY CHEST PORTABLE on DOS: 03/01/24, XY CHEST PORTABLE on DOS: 02/28/24 IMPRESSION: The heart is prominent size. There are median sternotomy wires and cardiac valve. Support lines and tubes appear unchanged in satisfactory position. Predominantly interstitial airspace opacities appea r similar. No sizable effusion or pneumothorax.
[2024-03-03 11:43] LABS: Base Excess 7.9 mmol/L (-2.0-3.0)
[2024-03-03] MEDS: FUROSEMIDE 40 MG/4 ML VIAL IV ONE (12:40)
--- NOTE | 2024-03-03 12:40 | DVHPN2 ---
Progress Note Date Seen: Mar 03, 2024 Medical Necessity Reason Pt with a Central, PICC or Fol: Yes The following are medically ne: Central Line, Mccord Catheter Reason for mccord catheter: Strict I&O, Total Immobilization Subjective Patient reports: No new complaints Review of Systems: RESPIRATORY:Abnormal Other Systems: Patient seen and examined by myself today in follow-up Status post extubation earlier today Objective vital signs Vital Sign Date Time Temp Pulse Resp B/P (MAP) Pulse Ox O2 Delivery O2 Flow Rate FiO2 03/03/24 12:08 18 03/03/24 12:08 96 03/03/24 11:09 118 126/69 (88) 40 03/03/24 10:00 Mechanical Ventilator 03/03/24 08:30 99.0 99.0 Total Intake and Output 03/02/24 03/02/24 03/03/24 15:00 23:00 07:00 Intake Total 56.107 ml 270.62 ml 104.14 ml Output Total 0 ml 1975 ml Balance 56.107 ml -1704.38 ml 104.14 ml medications Current Medications Medications Dose Ordered Sig/Sherwin Route Start Time Stop Time Status Last Admin Dose Admin Nitroglycerin 0.4 mg Q5MINP PRN SL 02/18/24 06:45 Morphine Sulfate 2 mg Q30M PRN IV 02/18/24 06:45 Ondansetron HCl 4 mg Q6HPRN PRN IV 02/18/24 06:45 Fentanyl Citrate 250 ml @ 2.5 mls/hr Q24H IV 02/18/24 11:15 03/02/24 09:49 6 MLS/HR Pantoprazole Sodium 40 mg DAILY IV 02/19/24 10:00 03/03/24 10:38 40 MG Labetalol HCl 10 mg Q4HPRN PRN IV 02/20/24 16:15 02/29/24 07:27 10 MG Acetaminophen 650 mg Q8HP PRN [place] 02/21/24 11:30 02/25/24 05:54 650 MG Albuterol 2.5 mg Q4HR NEB 02/21/24 18:00 03/03/24 10:22 2.5 MG Ipratropium [place] 0.5 mg Q4HR NEB 02/21/24 18:00 03/03/24 10:22 0.5 MG Hydralazine HCl 10 mg Q4HR PRN IV 02/24/24 09:15 02/25/24 02:41 10 MG Midazolam HCl 5 mg [id number] PRN IV 02/24/24 10:00 02/25/24 08:15 5 MG Propofol 100 ml @ 1.785 mls/ hr Q24H IV 02/25/24 15:30 03/03/24 03:29 5.355 MLS/HR Acetylcysteine 200 mg Q8HR IN 02/26/24 14:00 Cancel Acetylcysteine 200 mg Q8HR NEB 02/26/24 14:00 03/03/24 05:42 200 MG Budesonide 0.5 mg BID NEB 02/27/24 22:00 03/03/24 05:41 0.5 MG Amlodipine Besylate 10 mg DAILY PO 02/27/24 10:30 03/03/24 10:36 10 MG Methylprednisolone Sodium Succinate 40 mg BID IV 02/27/24 12:45 03/03/24 10:36 40 MG Enteral Nutritional Formula 1,000 ml 30ML/HR GT 02/28/24 08:45 02/29/24 22:08 1,000 ML Bisacodyl 10 mg DAILYP PRN [place] 02/28/24 08:45 Norepinephrine Bitartrate 250 ml @ 3.75 mls/hr Q24H IV 02/28/24 19:15 03/02/24 22:47 3.75 MLS/HR Digoxin 0.125 mg DAILY PO 03/01/24 10:00 03/03/24 10:37 0.125 MG Lactulose 30 ml DAILYPRN PRN PO 02/29/24 12:00 Enoxaparin Sodium 70 mg DAILY SC 03/02/24 10:00 Hold 03/02/24 09:47 70 MG Amiodarone HCl 400 mg Q12HR PO 03/02/24 10:00 03/03/24 10:36 400 MG Furosemide 40 mg DAILY IV 03/02/24 16:15 03/03/24 10:35 40 MG Dexmedetomidine HCl 400 mcg/ Dextrose 100 ml @ 3.52 mls/hr Q24H IV 03/02/24 19:45 03/03/24 03:23 3.52 MLS/HR Potassium Chloride 100 ml @ 50 mls/hr Q2H IV 03/03/24 12:30 03/03/24 16:29 UNV Examination: LUNGS:Normal, CVS:Normal, MSK:Normal laboratory and microbiology Laboratory Tests 03/03/24 03:18 Test 03/03/24 03:18 Range/Units Serum Glucose 91 74-106 mg/dL Microbiology Date/Time Source Procedure Growth Status 02/21/24 13:45 Blood Blood Culture - Final NO GROWTH AFTER 5 DAYS OF INCUBATION. Complete 02/18/24 11:00 Nose MRSA Screen - Final Complete 02/18/24 01:00 Sputum Gram Stain - Final Complete 02/18/24 01:00 Sputum Respiratory Culture - Final Complete Problem List/Assessment/Plan Problem List/Assessment/Plan Acute kidney injury superimposed Chronic Kidney Disease secondary hemodynamic mediated Acute respiratory failure , extubated COPD exacerbation Acute anemia unspecified Pneumonia Metabolic alkalosis due to aggressive diuresis Recommendations Kidney function is improving Increased urine output Mccord catheter Strict I&Os Furosemide to 40 mg IV day IV antibiotics IV steroids We will continue to follow Plan discussed with: Patient My Orders My Orders Orders - SOURAV RICHARDSON MD Procedure Category Date Status Time Furosemide Injection PHA 03/02/24 In Process (Lasix Injection) 16:15 Kidney US 03/02/24 Resulted 16:02 Vitamin D, 25-Hydroxy LAB 03/02/24 In Process 16:02 Urine Sodium LAB 03/02/24 Logged 16:02 Urine LAB 03/02/24 Logged Protein/Creatinine Urine Creatinine LAB 03/02/24 Logged 16:02 Potassium Chl PHA 03/03/24 Logged 20meq/100ml 12:30 Dietary Evaluation Review Recommendations by RD: Dietary education by RD Comments: 1) If GI is accessible consider Pivot 1.5 @ 55 ml/hr x24 hr goal rate as tolerated 2) If pt remains NPO >7 days consider TPN to meet at least 75% of estimated goals 3) Advance pt diet when medically feasible to a Cardiac diet modified per STUDENT SUPPORT COUNSELOR recommendations 4) Continue current plan of care Expected Outcomes/Goals: 1) Pt to receive nutrition support within 7 days of NPO status 2) Pt diet to advance 3) F/U in 2-3 days Sepsis reassessment post fluid Respiratory Effort: ET Tube Breath sounds: Clear, Diminished SOURAV RICHARDSON MD Mar 03, 2024 12:40
[2024-03-03] MEDS: POTASSIUM CHL 20MEQ/100ML 100 ML IV SCH (13:48)
[2024-03-03] MEDS: methylPREDNISolone SOD SUCC 40 MG/ML VL IV SCH (14:00)
[2024-03-03] MEDS: AMIODARONE 450mg/250ml AE 250 ML IV ONE (14:31)
--- NOTE | 2024-03-03 14:48 | DVHPNRES ---
Progress Note Date Seen: Mar 03, 2024 Resident Creating Document: CHRISTIANO JONES RESIDENT Medical Necessity Reason Pt with a Central, PICC or Fol: Yes The following are medically ne: Central Line, Mccord Catheter Reason for mccord catheter: Strict I&O, Total Immobilization Subjective Review of Systems 68 y.o. female with COPD using 3L of home oxygen was brought to the ED c/o SOB despite using her oxygen. EMS started 10L and gave her nebulizer treatment but patient continued to be in severe respiratory distress. ER MD intubated the patient. Patient was seen and evaluated in follow up in the ICU. Patient was successfully extubated this afternoon. This evening patient went into a flutter, then A Fib with RVR with HR sustaining in the 170s. Patient desatted into the 80s. Patient was emergently intubated for airway protection. WBC increased to 19. CO2 36, BUN 65, Interlocking Machine Operator 1.37. PTH intact 213.7. Objective vital signs Vital Sign Date Time Temp Pulse Resp B/P (MAP) Pulse Ox O2 Delivery O2 Flow Rate FiO2 03/03/24 14:00 19 97 Cool Aerosol 8 70 70 03/03/24 13:53 102 03/03/24 12:40 104/66 03/03/24 08:30 99.0 99.0 Total Intake and Output 03/02/24 03/02/24 03/03/24 15:00 23:00 07:00 Intake Total 56.107 ml 270.62 ml 114.93 ml Output Total 0 ml 1975 ml Balance 56.107 ml -1704.38 ml 114.93 ml medications Current Medications Medications Dose Ordered Sig/Sherwin Route Start Time Stop Time Status Last Admin Dose Admin Nitroglycerin 0.4 mg Q5MINP PRN SL 02/18/24 06:45 Morphine Sulfate 2 mg Q30M PRN IV 02/18/24 06:45 Ondansetron HCl 4 mg Q6HPRN PRN IV 02/18/24 06:45 Fentanyl Citrate 250 ml @ 2.5 mls/hr Q24H IV 02/18/24 11:15 03/02/24 09:49 6 MLS/HR Pantoprazole Sodium 40 mg DAILY IV 02/19/24 10:00 03/03/24 10:38 40 MG Labetalol HCl 10 mg Q4HPRN PRN IV 02/20/24 16:15 02/29/24 07:27 10 MG Acetaminophen 650 mg Q8HP PRN [place] 02/21/24 11:30 02/25/24 05:54 650 MG Albuterol 2.5 mg Q4HR NEB 02/21/24 18:00 03/03/24 13:44 2.5 MG Ipratropium [place] 0.5 mg Q4HR NEB 02/21/24 18:00 03/03/24 13:44 0.5 MG Hydralazine HCl 10 mg Q4HR PRN IV 02/24/24 09:15 02/25/24 02:41 10 MG Midazolam HCl 5 mg [id number] PRN IV 02/24/24 10:00 02/25/24 08:15 5 MG Propofol 100 ml @ 1.785 mls/ hr Q24H IV 02/25/24 15:30 03/03/24 03:29 5.355 MLS/HR Acetylcysteine 200 mg Q8HR IN 02/26/24 14:00 Cancel Acetylcysteine 200 mg Q8HR NEB 02/26/24 14:00 03/03/24 13:44 200 MG Budesonide 0.5 mg BID NEB 02/27/24 22:00 03/03/24 05:41 0.5 MG Amlodipine Besylate 10 mg DAILY PO 02/27/24 10:30 03/03/24 10:36 10 MG Enteral Nutritional Formula 1,000 ml 30ML/HR GT 02/28/24 08:45 02/29/24 22:08 1,000 ML Bisacodyl 10 mg DAILYP PRN [place] 02/28/24 08:45 Norepinephrine Bitartrate 250 ml @ 3.75 mls/hr Q24H IV 02/28/24 19:15 03/02/24 22:47 3.75 MLS/HR Digoxin 0.125 mg DAILY PO 03/01/24 10:00 03/03/24 10:37 0.125 MG Lactulose 30 ml DAILYPRN PRN PO 02/29/24 12:00 Enoxaparin Sodium 70 mg DAILY SC 03/02/24 10:00 Hold 03/02/24 09:47 70 MG Amiodarone HCl 400 mg Q12HR PO 03/02/24 10:00 03/03/24 10:36 400 MG Furosemide 40 mg DAILY IV 03/02/24 16:15 03/03/24 10:35 40 MG Dexmedetomidine HCl 400 mcg/ Dextrose 100 ml @ 3.52 mls/hr Q24H IV 03/02/24 19:45 03/03/24 03:23 3.52 MLS/HR Potassium Chloride 100 ml @ 50 mls/hr Q2H IV 03/03/24 12:30 03/03/24 16:29 03/03/24 13:48 50 MLS/HR Methylprednisolone Sodium Succinate 40 mg Q6HR IV 03/03/24 14:00 Amiodarone HCl 250 ml @ 16.667 mls/ hr Q15H IV 03/03/24 20:45 UNV Examination Gen.: Patient lying in bed in medical ICU. Sedated, intubated on mechanical ventilator. Head: Normocephalic, atraumatic. Eyes: PERRLA. Ears: Normal external anatomy. Throat: Endotracheal tube and orogastric tube in place. Neck: Supple, trachea midline. Chest: Transmitted breath sounds bilaterally. Decreased air entry bilaterally. No wheezing. Bibasilar crackles. Cardiovascular: Positive S1, positive S2. Regular rate and rhythm. Abdomen: Positive bowel sounds in all 4 quadrants. Soft, nontender, nondistended. : Mccord in place. Normal external genitalia. Rectal: Deferred. Skin: Warm, dry. Intact. Extremities: 2+ radial pulses bilaterally. No lower extremity edema. Neuro: Sedated. laboratory and microbiology Laboratory Tests 03/03/24 03:18 Test 03/03/24 03:18 Range/Units Serum Glucose 91 74-106 mg/dL Microbiology Date/Time Source Procedure Growth Status 02/21/24 13:45 Blood Blood Culture - Final NO GROWTH AFTER 5 DAYS OF INCUBATION. Complete 02/18/24 11:00 Nose MRSA Screen - Final Complete 02/18/24 01:00 Sputum Gram Stain - Final Complete 02/18/24 01:00 Sputum Respiratory Culture - Final Complete Problem List/Assessment/Plan Problem List/Assessment/Plan # sepsis secondary to pneumonia # community-acquired pneumonia possible GM+/- bacterial pneumonia # acute hypoxic respiratory failure secondary to COPD exacerbation, pneumonia # New Onset Anemia - Maintain Pox > 92%, Fi02 down to 35%, Mechanical Ventilation per Pulmonary, continue IV abx Rocephin and Azithromycin , Med Nebs Q 6 Hours, Solu Medrol 125mg IV Q 12 hours # Acute Kidney Injury on CKD Stage 3 - follow up with Nephrology - monitor kidney function # anemia secondary to possible blood loss - -GI Consulted, no plan for EGD at this time - daily AM Labs - patient # AFib # Hypertension # Hyperlipidemia # Hx of mechanical mitral valve replacement on home Coumadin, -INR goal of 2.5-3.5, holding Coumadin. # atrial flutter - consulted with land department head recommends -Amiodarone. -Amlodipine. - Digoxin. # Hyperkalemia. - resolved Drips Fentanyl 225 Propofol 10 NE 2 Invasive access Mccord catheter 02/18/24 Endotracheal tube 02/18/24 Rt IG central line 02/18/24 DVT Prophy; no anticoagulation, GI Prophy; Protonix 40mg IV daily Critical Care time spent 117 minutes including Cpap trail patient care, chart review and updating family, excluding procedure. Case discussed with Dr. Marshall Plan discussed with: Other (RN) My Orders My Orders Orders - CHRISTIANO JONES RESIDENT Procedure Category Date Status Time Abg W/ Co-Ox RT 03/03/24 Logged 04:00 Chest Portable XY 03/03/24 Resulted 04:00 Dietary Evaluation Review Recommendations by RD: Dietary education by RD Comments: 1) If GI is accessible consider Pivot 1.5 @ 55 ml/hr x24 hr goal rate as tolerated 2) If pt remains NPO >7 days consider TPN to meet at least 75% of estimated goals 3) Advance pt diet when medically feasible to a Cardiac diet modified per MILK PICKUP DRIVER recommendations 4) Continue current plan of care Expected Outcomes/Goals: 1) Pt to receive nutrition support within 7 days of NPO status 2) Pt diet to advance 3) F/U in 2-3 days Sepsis reassessment post fluid Respiratory Effort: ET Tube Breath sounds: Clear, Diminished Date of Service: Mar 03, 2024 Billing Provider: HELGA MARSHALL MD Common Visit Codes: [id number] CARE 30-74 MIN CHRISTIANO JONES RESIDENT Mar 03, 2024 14:48 HELGA MARSHALL MD Mar 04, 2024 12:52
[2024-03-03 16:06] LABS: Vitamin D 25-Hydroxy 15 ng/mL (.); Vitamin D-2 25-Hydroxy <1.0 ng/mL (.); Vitamin D-3 25-Hydroxy 14 ng/mL (.)
[2024-03-03] MEDS: AMIODARONE 450mg/250ml AE 250 ML IV SCH (16:36)
[2024-03-03] MEDS: AMIODARONE BOLUS KIT 100 ML IV ONE ×2 (16:37→16:39)
[2024-03-03] MEDS: METOPROLOL TARTRATE 1MG/1ML-5ML VIAL IV ONE ×2 (17:39→19:14)
[2024-03-03] MEDS ORDERED: dilTIAZem 125mg/125ml BAG KIT 100 ML IV SCH (17:45)
[2024-03-03] MEDS: dilTIAZem 25 MG/5 ML VIAL IV ONE ×2 (17:57→19:13)
[2024-03-03] MEDS: ROCURONIUM 10MG/ML 10ML VIAL IV ONE ×2 (18:06→19:15)
[2024-03-03] MEDS: ETOMIDATE (2MG/ML) 20ML VIAL IV ONE ×2 (18:06→19:15)
[2024-03-03] MEDS: PROPOFOL 100 ML IV ONE (18:13)
--- NOTE | 2024-03-03 18:32 | DVHNC2 ---
Procedure - Procedure: Endotracheal Intubation INDICATION: Acute respiratory failure, accessory muscle usage Physician: Praveen Nguyen MD Assisted: Dr Gaines, Dr Granger, Dr Borges. Time: 1829 pm Date: 03/03/2024 CONSENT: Emergent procedure. Implied. Respiratory failure, tachypnea RR 30s. Respiratory distress. Time out time: 18:22 pm. Patient medications and allergies reviewed. Patient identification and proposed procedure were verified prior to the procedure by the physician, and a nurse in the patient's room. The heart rate, respiratory rate, oxygen saturations, blood pressure, adequacy of pulmonary ventilation, and response to care were monitored throughout the procedure. The physical status of the patient was reassessed after the procedure. PROCEDURE SUMMARY: A time out was performed. My hands were washed immediately prior to the procedure. I wore a surgical cap, mask with protective eyewear, gown and gloves throughout the procedure. The patient was placed on a classroom monitor including continuous pulse oximetry. The patient received 16 mg Etomidate and 50 mg rocuronium for induction. Cricoid pressure was maintained from time induction agent was given to time of cuff balloon inflation. Using a MAC 4 GlideoScope and a size 8.0 endotracheal tube with stylet, the patient was intubated on the 1 attempt. The stylet was removed and cuff balloon was inflated. Appropriate endotracheal tube position was confirmed by direct visualization of vocal cord passage, fogging of the tube, CO2 colorimetric indicator and symmetric breath sounds. The tube was secured at 23 cm at the lips. Post intubation chest x-ray is pending. CPT Code: 79897 PRAVEEN NGUYEN MD Mar 03, 2024 18:32
[2024-03-03] MEDS: MIDAZOLAM DRIP 50 mg/50mL 50 ML IV ONE (18:34)
--- NOTE | 2024-03-03 18:56 | DVH ---
CHEST RADIOGRAPH Indication: S/P INTUBATION Technique: Single frontal view of the chest was obtained Comparison: XY CHEST PORTABLE on DOS: 03/03/24, XY CHEST PORTABLE on DOS: 03/02/24, XY CHEST PORTABLE on DOS: 03/01/24 Findings/ IMPRESSION: Endotracheal tube projects 4.7 cm superior to the mikey. Right IJ CVC projects terminating near the cavoatrial junction. Enteric tube side port projected just below the GE junction. Lungs demonstrate no focal consolidation or pneumothorax. Trace bilateral pleural effusions.
[2024-03-03] MEDS: MIDAZOLAM DRIP 50 mg/50mL 50 ML IV SCH (19:15)
[2024-03-03] MEDS: PROPOFOL 100 ML IV SCH (19:45)
[2024-03-03 20:13] LABS: Base Excess 4.4 mmol/L (-2.0-3.0)
[2024-03-03] MEDS: dilTIAZem 125mg/125ml BAG KIT 100 ML IV SCH (20:25)
[2024-03-03] MEDS ORDERED: AMIODARONE 450mg/250ml AE 250 ML IV SCH (20:45)
--- NOTE | 2024-03-03 22:31 | DVHPN2 ---
Progress Note - Dictate Date Seen: Mar 03, 2024 Medical Necessity Reason Pt with a Central, PICC or Fol: Yes The following are medically ne: Central Line, Mccord Catheter Reason for mccord catheter: Strict I&O, Total Immobilization Subjective Patient was seen and evaluated in follow up in the ICU. Patient was successfully extubated this afternoon. This evening patient went into a flutter, then A Fib with RVR with HR sustaining in the 170s. Patient desatted into the 80s. Patient was emergently intubated for airway protection. WBC increased to 19. CO2 36, BUN 65, Architectural Representative 1.37. PTH intact 213.7. vital signs Vital Sign Date Time Temp Pulse Resp B/P (MAP) Pulse Ox O2 Delivery O2 Flow Rate FiO2 03/03/24 20:25 118/60 03/03/24 19:52 118 26 98 60 03/03/24 18:00 Mechanical Ventilator+ 03/03/24 16:00 8 03/03/24 11:00 98.8 98.8 Total Intake and Output 03/02/24 03/02/24 03/03/24 15:00 23:00 07:00 Intake Total 56.107 ml 270.62 ml 114.93 ml Output Total 0 ml 1975 ml Balance 56.107 ml -1704.38 ml 114.93 ml medications Current Medications Medications Dose Ordered Sig/Sherwin Route Start Time Stop Time Status Last Admin Dose Admin Nitroglycerin 0.4 mg Q5MINP PRN SL 02/18/24 06:45 Morphine Sulfate 2 mg Q30M PRN IV 02/18/24 06:45 Ondansetron HCl 4 mg Q6HPRN PRN IV 02/18/24 06:45 Fentanyl Citrate 250 ml @ 2.5 mls/hr Q24H IV 02/18/24 11:15 03/02/24 09:49 6 MLS/HR Pantoprazole Sodium 40 mg DAILY IV 02/19/24 10:00 03/03/24 10:38 40 MG Labetalol HCl 10 mg Q4HPRN PRN IV 02/20/24 16:15 02/29/24 07:27 10 MG Acetaminophen 650 mg Q8HP PRN [place] 02/21/24 11:30 02/25/24 05:54 650 MG Albuterol 2.5 mg Q4HR NEB 02/21/24 18:00 03/03/24 13:44 2.5 MG Ipratropium [place] 0.5 mg Q4HR NEB 02/21/24 18:00 03/03/24 13:44 0.5 MG Hydralazine HCl 10 mg Q4HR PRN IV 02/24/24 09:15 03/03/24 17:54 10 MG Midazolam HCl 5 mg [id number] PRN IV 02/24/24 10:00 02/25/24 08:15 5 MG Acetylcysteine 200 mg Q8HR IN 02/26/24 14:00 Cancel Acetylcysteine 200 mg Q8HR NEB 02/26/24 14:00 03/03/24 13:44 200 MG Budesonide 0.5 mg BID NEB 02/27/24 22:00 03/03/24 05:41 0.5 MG Amlodipine Besylate 10 mg DAILY PO 02/27/24 10:30 03/03/24 10:36 10 MG Enteral Nutritional Formula 1,000 ml 30ML/HR GT 02/28/24 08:45 02/29/24 22:08 1,000 ML Bisacodyl 10 mg DAILYP PRN [place] 02/28/24 08:45 Norepinephrine Bitartrate 250 ml @ 3.75 mls/hr Q24H IV 02/28/24 19:15 03/03/24 19:17 7.5 MLS/HR Digoxin 0.125 mg DAILY PO 03/01/24 10:00 03/03/24 10:37 0.125 MG Lactulose 30 ml DAILYPRN PRN PO 02/29/24 12:00 Enoxaparin Sodium 70 mg DAILY SC 03/02/24 10:00 Hold 03/02/24 09:47 70 MG Furosemide 40 mg DAILY IV 03/02/24 16:15 03/03/24 10:35 40 MG Dexmedetomidine HCl 400 mcg/ Dextrose 100 ml @ 3.52 mls/hr Q24H IV 03/02/24 19:45 03/03/24 03:23 3.52 MLS/HR Methylprednisolone Sodium Succinate 40 mg Q6HR IV 03/03/24 14:00 Amiodarone HCl 250 ml @ 33.333 mls/ hr Q7H30M IV 03/03/24 16:30 03/03/24 22:29 03/03/24 16:36 33.333 MLS/HR Diltiazem HCl 100 ml @ 5 mls/hr Q20H IV 03/03/24 19:15 03/03/24 20:25 5 MLS/HR Midazolam HCl 50 ml @ 1 mls/hr Q24H IV 03/03/24 19:15 Propofol 100 ml @ 2.118 mls/ hr Q24H IV 03/03/24 19:45 03/03/24 19:45 4.236 MLS/HR objective GENERAL: Intubated on ventilator. LUNGS: Decreased breath sounds. CARDIOVASCULAR: Heart sounds are good. ABDOMEN: Soft. laboratory and microbiology Laboratory Tests 03/03/24 03:18 Test 03/03/24 03:18 Range/Units Serum Glucose 91 74-106 mg/dL Problem List Acute on chronic hypoxic respiratory failure. Ventilator dependence with failure of CPAP/extubation. COPD with probable exacerbation. History of multiple intubations. History of mitral valve replacement, bioprosthetic. Atrial fibrillation. Primary hypertension. Anemia. Acute probable vasomotor nephropathy. Hyperkalemia. Assessment/Plan Continued all current supportive medical care. Amiodarone. Amlodipine. Digoxin. IV antibiotics as ordered. DVT and GI prophylactics. Vasopressors for hemodynamic support. Additional plan as per the hospital course. Critical care time of 45 minutes provided to include time spent evaluation of patient at bedside, when appropriate patient/family education for diagnosis, treatment plan, review of pertinent medical information and discussion of care with specialty providers and PCP. Mechanical ventilator parameters, treatment and adjustments have personally been reviewed by me and treatment plan by catalogue clerk has also been reviewed. Dietary Evaluation Review Recommendations by RD: Dietary education by RD Comments: 1) If GI is accessible consider Pivot 1.5 @ 55 ml/hr x24 hr goal rate as tolerated 2) If pt remains NPO >7 days consider TPN to meet at least 75% of estimated goals 3) Advance pt diet when medically feasible to a Cardiac diet modified per TAPE CONTROL SKIN OR SPAR MILL OPERATOR recommendations 4) Continue current plan of care Expected Outcomes/Goals: 1) Pt to receive nutrition support within 7 days of NPO status 2) Pt diet to advance 3) F/U in 2-3 days Plan discussed with: Other Respiratory Effort: ET Tube Breath sounds: Clear, Diminished LUKE ARIZMENDI MD Mar 03, 2024 22:31
[2024-03-04] VITALS (102 sets, daily range): BP systolic 96–157; BP diastolic 33–63; PULSE 59–96; RESP 12–26; TEMP 98.2–99; O2SAT 82–100
[2024-03-04] MEDS: AMIODARONE 450mg/250ml AE 250 ML IV SCH (04:00)
[2024-03-04 04:24] LABS: Basophils # (auto) 0 10 ^3/uL (0-0.2); Basophils % (auto) 0.1 % (0.0-2.0); Eosinophils # (auto) 0 10 ^3/uL (0-0.8); Eosinophils % (auto) 0.1 % (0.0-7.0); Hematocrit 28.8 % (36.0-46.0); Hemoglobin 9.6 g/dL (12.2-16.2); Lymphocytes # (auto) 0.3 10 ^3/uL (0.4-5.4); Lymphocytes % (auto) 2.4 % (10.0-50.0); Mean Corpuscular Hemoglobin 28.8 pg (28.0-32.0); Mean Corpuscular Hgb Conc. 33.5 g/dL (32.0-36.0); Mean Corpuscular Volume 85.9 fL (80.0-100.0); Monocytes # (auto) 0.3 10 ^3/uL (0-1.3); Neutrophils % (auto) 94.4 % (37.0-80.0); Nucleated Red Blood Cells % 0.1 %; Platelet Count (auto) 187 10^3/uL (140-450); Red Blood Cells 3.35 10^6/uL (4.0-5.20); Red Cell Distribution Width 17.4 % (11.8-14.3); White Blood Cell 11.6 10^3/uL (4.4-10.8)
[2024-03-04 04:41] LABS: Alanine Aminotransferase 32 U/L (7-40); Alkaline Phosphatase 129 U/L (46-116); Anion Gap 8 (5-15); BUN/Creatinine Ratio 48.6 (10.0-20.0); Blood Urea Nitrogen 67 mg/dL (9-23); Calcium 8.6 mg/dL (8.7-10.4); Carbon Dioxide 35 mmol/L (20-31); Chloride 99 mmol/L (98-107); Glucose 116 mg/dL (74-106); Potassium 4.5 mmol/L (3.5-5.1); Sodium 142 mmol/L (136-145)
[2024-03-04 04:42] LABS: Albumin 3.1 g/dL (3.2-4.8)
[2024-03-04 04:43] LABS: Aspartate Aminotransferase 22 U/L (13-40); Total Protein 5.1 g/dL (5.7-8.2)
[2024-03-04 07:14] LABS: Base Excess 11.1 mmol/L (-2.0-3.0)
--- NOTE | 2024-03-04 09:58 | DVHPN2 ---
Progress Note Date Seen: Mar 04, 2024 Medical Necessity Reason Pt with a Central, PICC or Fol: Yes The following are medically ne: Central Line, Mccord Catheter Reason for mccord catheter: Strict I&O, Total Immobilization Subjective Review of Systems: RESPIRATORY:Abnormal Other Systems: Patient seen and examined by myself on follow-up today, patient remained intubated on ventilator Objective vital signs Vital Sign Date Time Temp Pulse Resp B/P (MAP) Pulse Ox O2 Delivery O2 Flow Rate FiO2 03/04/24 09:45 82 03/04/24 09:42 143/56 03/04/24 08:15 22 82 03/04/24 08:01 40 03/04/24 08:00 Mechanical Ventilator+ 03/04/24 08:00 99.0 99.0 03/03/24 16:00 8 Total Intake and Output 03/03/24 03/03/24 03/04/24 15:00 23:00 07:00 Intake Total 39.41 ml 477.182 ml 312.403 ml Output Total 0 ml 1850 ml 750 ml Balance 39.41 ml -1372.818 ml -437.597 ml medications Current Medications Medications Dose Ordered Sig/Sherwin Route Start Time Stop Time Status Last Admin Dose Admin Nitroglycerin 0.4 mg Q5MINP PRN SL 02/18/24 06:45 Morphine Sulfate 2 mg Q30M PRN IV 02/18/24 06:45 Ondansetron HCl 4 mg Q6HPRN PRN IV 02/18/24 06:45 Fentanyl Citrate 250 ml @ 2.5 mls/hr Q24H IV 02/18/24 11:15 03/02/24 09:49 6 MLS/HR Pantoprazole Sodium 40 mg DAILY IV 02/19/24 10:00 03/04/24 09:42 40 MG Labetalol HCl 10 mg Q4HPRN PRN IV 02/20/24 16:15 02/29/24 07:27 10 MG Acetaminophen 650 mg Q8HP PRN [place] 02/21/24 11:30 02/25/24 05:54 650 MG Albuterol 2.5 mg Q4HR NEB 02/21/24 18:00 03/04/24 06:03 2.5 MG Ipratropium [place] 0.5 mg Q4HR NEB 02/21/24 18:00 03/04/24 06:03 0.5 MG Hydralazine HCl 10 mg Q4HR PRN IV 02/24/24 09:15 03/03/24 17:54 10 MG Midazolam HCl 5 mg [id number] PRN IV 02/24/24 10:00 02/25/24 08:15 5 MG Acetylcysteine 200 mg Q8HR IN 02/26/24 14:00 Cancel Acetylcysteine 200 mg Q8HR NEB 02/26/24 14:00 03/04/24 06:04 200 MG Budesonide 0.5 mg BID NEB 02/27/24 22:00 03/04/24 06:34 0.5 MG Amlodipine Besylate 10 mg DAILY PO 02/27/24 10:30 Hold 03/03/24 10:36 10 MG Enteral Nutritional Formula 1,000 ml 30ML/HR GT 02/28/24 08:45 02/29/24 22:08 1,000 ML Bisacodyl 10 mg DAILYP PRN [place] 02/28/24 08:45 Norepinephrine Bitartrate 250 ml @ 3.75 mls/hr Q24H IV 02/28/24 19:15 03/03/24 19:17 7.5 MLS/HR Digoxin 0.125 mg DAILY PO 03/01/24 10:00 03/04/24 09:45 0.125 MG Lactulose 30 ml DAILYPRN PRN PO 02/29/24 12:00 Enoxaparin Sodium 70 mg DAILY SC 03/02/24 10:00 03/04/24 09:42 70 MG Furosemide 40 mg DAILY IV 03/02/24 16:15 03/04/24 09:42 40 MG Dexmedetomidine HCl 400 mcg/ Dextrose 100 ml @ 3.52 mls/hr Q24H IV 03/02/24 19:45 03/03/24 03:23 3.52 MLS/HR Methylprednisolone Sodium Succinate 40 mg Q6HR IV 03/03/24 14:00 03/04/24 05:45 40 MG Diltiazem HCl 100 ml @ 5 mls/hr Q20H IV 03/03/24 19:15 03/03/24 20:25 5 MLS/HR Midazolam HCl 50 ml @ 1 mls/hr Q24H IV 03/03/24 19:15 11/27/24 03:34 4 MLS/HR Propofol 100 ml @ 2.118 mls/ hr Q24H IV 03/03/24 19:45 03/04/24 09:45 4.236 MLS/HR Amiodarone HCl 250 ml @ 16.667 mls/ hr Q15H IV 03/04/24 04:00 03/04/24 04:00 16.667 MLS/HR laboratory and microbiology Laboratory Tests 03/04/24 03:45 Test 03/04/24 03:45 Range/Units Serum Glucose 116 H 74-106 mg/dL Microbiology Date/Time Source Procedure Growth Status 02/21/24 13:45 Blood Blood Culture - Final NO GROWTH AFTER 5 DAYS OF INCUBATION. Complete 02/18/24 11:00 Nose MRSA Screen - Final Complete 02/18/24 01:00 Sputum Gram Stain - Final Complete 02/18/24 01:00 Sputum Respiratory Culture - Final Complete Problem List/Assessment/Plan Problem List/Assessment/Plan Acute kidney injury superimposed Chronic Kidney Disease secondary hemodynamic mediated Acute respiratory failure , extubated COPD exacerbation Acute anemia unspecified Pneumonia Metabolic alkalosis due to aggressive diuresis and post hypercarbia Recommendations Kidney function is improving Increased urine output Mccord catheter Strict I&Os Decreased Furosemide to 40 mg IV day IV antibiotics IV steroids We will continue to follow Plan discussed with: Other (Nurse) Dietary Evaluation Review Recommendations by RD: Dietary education by RD Comments: 1) If GI is accessible consider Pivot 1.5 @ 55 ml/hr x24 hr goal rate as tolerated 2) If pt remains NPO >7 days consider TPN to meet at least 75% of estimated goals 3) Advance pt diet when medically feasible to a Cardiac diet modified per HORSE FARM MANAGER recommendations 4) Continue current plan of care Expected Outcomes/Goals: 1) Pt to receive nutrition support within 7 days of NPO status 2) Pt diet to advance 3) F/U in 2-3 days Sepsis reassessment post fluid Respiratory Effort: ET Tube Breath sounds: Clear, Diminished SOURAV RICHARDSON MD Mar 04, 2024 09:58
[2024-03-04 10:53] LABS: Base Excess 9.9 mmol/L (-2.0-3.0)
--- NOTE | 2024-03-04 12:58 | DVHPNRES ---
Progress Note Date Seen: Mar 04, 2024 Resident Creating Document: CHRISTIANO JONES RESIDENT Medical Necessity Reason Pt with a Central, PICC or Fol: Yes The following are medically ne: Central Line, Mccord Catheter Reason for mccord catheter: Strict I&O, Total Immobilization Subjective Review of Systems 68 y.o. female with COPD using 3L of home oxygen was brought to the ED c/o SOB despite using her oxygen. EMS started 10L and gave her nebulizer treatment but patient continued to be in severe respiratory distress. ER MD intubated the patient. Patient was extubated yesterday morning, patient got AFib with RVR heart rate more than 160, patient also had aflutter and nonsustained V-tach, amiodarone Drip was started, metoprolol 5 mg IV push given, and started Cardizem drip. Patient has confused and desaturating to 80s. Patient was reintubated eventually yesterday evening. Objective vital signs Vital Sign Date Time Temp Pulse Resp B/P (MAP) Pulse Ox O2 Delivery O2 Flow Rate FiO2 03/04/24 10:45 87 22 111/42 (65) 90 03/04/24 10:18 40 03/04/24 10:00 Mechanical Ventilator+ 03/04/24 08:00 99.0 99.0 03/03/24 16:00 8 Total Intake and Output 03/03/24 03/03/24 03/04/24 15:00 23:00 07:00 Intake Total 39.41 ml 471.382 ml 312.403 ml Output Total 0 ml 1850 ml 750 ml Balance 39.41 ml -1378.618 ml -437.597 ml medications Current Medications Medications Dose Ordered Sig/Sherwin Route Start Time Stop Time Status Last Admin Dose Admin Nitroglycerin 0.4 mg Q5MINP PRN SL 02/18/24 06:45 Morphine Sulfate 2 mg Q30M PRN IV 02/18/24 06:45 Ondansetron HCl 4 mg Q6HPRN PRN IV 02/18/24 06:45 Fentanyl Citrate 250 ml @ 2.5 mls/hr Q24H IV 02/18/24 11:15 03/02/24 09:49 6 MLS/HR Pantoprazole Sodium 40 mg DAILY IV 02/19/24 10:00 03/04/24 09:42 40 MG Labetalol HCl 10 mg Q4HPRN PRN IV 02/20/24 16:15 02/29/24 07:27 10 MG Acetaminophen 650 mg Q8HP PRN [place] 02/21/24 11:30 02/25/24 05:54 650 MG Albuterol 2.5 mg Q4HR NEB 02/21/24 18:00 03/04/24 10:18 2.5 MG Ipratropium [place] 0.5 mg Q4HR NEB 02/21/24 18:00 03/04/24 10:18 0.5 MG Hydralazine HCl 10 mg Q4HR PRN IV 02/24/24 09:15 03/03/24 17:54 10 MG Midazolam HCl 5 mg [id number] PRN IV 02/24/24 10:00 02/25/24 08:15 5 MG Acetylcysteine 200 mg Q8HR IN 02/26/24 14:00 Cancel Acetylcysteine 200 mg Q8HR NEB 02/26/24 14:00 03/04/24 06:04 200 MG Budesonide 0.5 mg BID NEB 02/27/24 22:00 03/04/24 06:34 0.5 MG Amlodipine Besylate 10 mg DAILY PO 02/27/24 10:30 Hold 03/03/24 10:36 10 MG Enteral Nutritional Formula 1,000 ml 30ML/HR GT 02/28/24 08:45 02/29/24 22:08 1,000 ML Bisacodyl 10 mg DAILYP PRN [place] 02/28/24 08:45 Norepinephrine Bitartrate 250 ml @ 3.75 mls/hr Q24H IV 02/28/24 19:15 03/03/24 19:17 7.5 MLS/HR Digoxin 0.125 mg DAILY PO 03/01/24 10:00 03/04/24 09:45 0.125 MG Lactulose 30 ml DAILYPRN PRN PO 02/29/24 12:00 Enoxaparin Sodium 70 mg DAILY SC 03/02/24 10:00 03/04/24 09:42 70 MG Furosemide 40 mg DAILY IV 03/02/24 16:15 03/04/24 09:42 40 MG Dexmedetomidine HCl 400 mcg/ Dextrose 100 ml @ 3.52 mls/hr Q24H IV 03/02/24 19:45 03/03/24 03:23 3.52 MLS/HR Methylprednisolone Sodium Succinate 40 mg Q6HR IV 03/03/24 14:00 03/04/24 11:56 40 MG Diltiazem HCl 100 ml @ 5 mls/hr Q20H IV 03/03/24 19:15 03/03/24 20:25 5 MLS/HR Midazolam HCl 50 ml @ 1 mls/hr Q24H IV 03/03/24 19:15 03/04/24 03:34 4 MLS/HR Propofol 100 ml @ 2.118 mls/ hr Q24H IV 03/03/24 19:45 03/04/24 09:45 4.236 MLS/HR Amiodarone HCl 250 ml @ 16.667 mls/ hr Q15H IV 03/04/24 04:00 03/04/24 04:00 16.667 MLS/HR Examination Gen.: Patient lying in bed in medical ICU. Sedated, intubated on mechanical ventilator. Head: Normocephalic, atraumatic. Eyes: PERRLA. Ears: Normal external anatomy. Throat: Endotracheal tube and orogastric tube in place. Neck: Supple, trachea midline. Chest: Transmitted breath sounds bilaterally. Decreased air entry bilaterally. No wheezing. Bibasilar crackles. Cardiovascular: Positive S1, positive S2. Regular rate and rhythm. Abdomen: Positive bowel sounds in all 4 quadrants. Soft, nontender, nondistended. : Mccord in place. Normal external genitalia. Rectal: Deferred. Skin: Warm, dry. Intact. Extremities: 2+ radial pulses bilaterally. No lower extremity edema. Neuro: Sedated. laboratory and microbiology Laboratory Tests 03/04/24 03:45 Test 03/04/24 03:45 Range/Units Serum Glucose 116 H 74-106 mg/dL Microbiology Date/Time Source Procedure Growth Status 03/03/24 18:57 Sputum Gram Stain - Final Resulted 03/03/24 18:57 Sputum Respiratory Culture - Preliminary Resulted 02/21/24 13:45 Blood Blood Culture - Final NO GROWTH AFTER 5 DAYS OF INCUBATION. Complete 02/18/24 11:00 Nose MRSA Screen - Final Complete Problem List/Assessment/Plan Problem List/Assessment/Plan # septic shock secondary to pneumonia # community-acquired pneumonia possible GM+/- bacterial pneumonia # acute hypoxic respiratory failure secondary to COPD exacerbation, pneumonia # New Onset Anemia - Maintain Pox > 92%, Fi02 down to 35%, Mechanical Ventilation per Pulmonary, continue IV abx Rocephin and Azithromycin , Med Nebs Q 6 Hours, methylprednisolone 40 mg IV Q 12 hours # Acute Kidney Injury on CKD Stage 3 - follow up with Nephrology - monitor kidney function # anemia secondary to possible blood loss - -GI Consulted, no plan for EGD at this time - daily AM Labs - patient # AFib # Hypertension # Hyperlipidemia # Hx of mechanical mitral valve replacement on home Coumadin, -INR goal of 2.5-3.5, holding Coumadin. # atrial flutter - consulted with plastics fabricator or welder recommends -Amiodarone drip -metoprolol 25 mg b.i.d. - Digoxin. # Hyperkalemia. - resolved Drips Fentanyl 75 Propofol 10 NE 1 Invasive access Mccord catheter 02/18/24 Endotracheal tube 02/18/24 Rt IG central line 02/18/24 DVT Prophy; no anticoagulation, GI Prophy; Protonix 40mg IV daily We had a long family discussion with her two daughters at bedside, and and her on phone, family agreed to make her comfort measure and we will change the code status to DNR DNI and comfort measures only. Family we will visit the patient and then they will make the final decision. Critical Care time spent 78 minutes including family meeting, patient care, chart review, excluding procedure. Case discussed with Dr. Marshall Plan discussed with: Spouse, Daughter, Other (RN) My Orders My Orders Orders - CHRISTIANO JONES RESIDENT Procedure Category Date Status Time Abg W/ Co-Ox RT 03/04/24 Logged 04:00 Furosemide Injection PHA 03/05/24 Logged (Lasix Injection) 10:00 Methylprednisolone PHA 03/04/24 Logged Sod Succ (Solu Medrol 22:00 Metoprolol Tartrate PHA 03/04/24 Logged Tablet (Lopressor Ta 22:00 Dietary Evaluation Review Recommendations by RD: Dietary education by RD Comments: 1) If GI is accessible consider Pivot 1.5 @ 55 ml/hr x24 hr goal rate as tolerated 2) If pt remains NPO >7 days consider TPN to meet at least 75% of estimated goals 3) Advance pt diet when medically feasible to a Cardiac diet modified per ENTERPRISE ANALYST recommendations 4) Continue current plan of care Expected Outcomes/Goals: 1) Pt to receive nutrition support within 7 days of NPO status 2) Pt diet to advance 3) F/U in 2-3 days Sepsis reassessment post fluid Respiratory Effort: ET Tube Breath sounds: Clear, Diminished Date of Service: Mar 04, 2024 Billing Provider: HELGA MARSHALL MD Common Visit Codes: [id number] CARE 30-74 MIN CHRISTIANO JONES RESIDENT Mar 04, 2024 12:58 HELGA MARSHALL MD Mar 05, 2024 13:47
--- NOTE | 2024-03-04 20:19 | DVHPN2 ---
Progress Note - Dictate Date Seen: Mar 04, 2024 Medical Necessity Reason Pt with a Central, PICC or Fol: Yes The following are medically ne: Central Line, Mccord Catheter Reason for mccord catheter: Strict I&O, Total Immobilization Subjective Patient was seen and evaluated in follow up in the ICU. Patient is intubated and sedated on a ventilator. FiO2 40%. CM is working on LTAC placement. WBC 11.6, HGB 9.6, HCT 28.8, CO2 35, CO2 35, BUN 67, IRRIGATOR HEAD 1.38. vital signs Vital Sign Date Time Temp Pulse Resp B/P (MAP) Pulse Ox O2 Delivery O2 Flow Rate FiO2 03/04/24 12:15 84 22 101/41 (61) 03/04/24 12:00 95 03/04/24 12:00 Mechanical Ventilator+ 40 40 03/04/24 08:00 99.0 99.0 03/03/24 16:00 8 Total Intake and Output 03/03/24 03/03/24 03/04/24 15:00 23:00 07:00 Intake Total 39.41 ml 471.382 ml 312.403 ml Output Total 0 ml 1850 ml 750 ml Balance 39.41 ml -1378.618 ml -437.597 ml medications Current Medications Medications Dose Ordered Sig/Sherwin Route Start Time Stop Time Status Last Admin Dose Admin Nitroglycerin 0.4 mg Q5MINP PRN SL 02/18/24 06:45 Morphine Sulfate 2 mg Q30M PRN IV 02/18/24 06:45 Ondansetron HCl 4 mg Q6HPRN PRN IV 02/18/24 06:45 Fentanyl Citrate 250 ml @ 2.5 mls/hr Q24H IV 02/18/24 11:15 03/02/24 09:49 6 MLS/HR Pantoprazole Sodium 40 mg DAILY IV 02/19/24 10:00 03/04/24 09:42 40 MG Labetalol HCl 10 mg Q4HPRN PRN IV 02/20/24 16:15 02/29/24 07:27 10 MG Acetaminophen 650 mg Q8HP PRN [place] 02/21/24 11:30 02/25/24 05:54 650 MG Albuterol 2.5 mg Q4HR NEB 02/21/24 18:00 03/04/24 10:18 2.5 MG Ipratropium [place] 0.5 mg Q4HR NEB 02/21/24 18:00 03/04/24 10:18 0.5 MG Hydralazine HCl 10 mg Q4HR PRN IV 02/24/24 09:15 03/03/24 17:54 10 MG Midazolam HCl 5 mg [id number] PRN IV 02/24/24 10:00 02/25/24 08:15 5 MG Acetylcysteine 200 mg Q8HR IN 02/26/24 14:00 Cancel Acetylcysteine 200 mg Q8HR NEB 02/26/24 14:00 03/04/24 06:04 200 MG Budesonide 0.5 mg BID NEB 02/27/24 22:00 03/04/24 06:34 0.5 MG Amlodipine Besylate 10 mg DAILY PO 02/27/24 10:30 Hold 03/03/24 10:36 10 MG Enteral Nutritional Formula 1,000 ml 30ML/HR GT 02/28/24 08:45 02/29/24 22:08 1,000 ML Bisacodyl 10 mg DAILYP PRN [place] 02/28/24 08:45 Norepinephrine Bitartrate 250 ml @ 3.75 mls/hr Q24H IV 02/28/24 19:15 03/03/24 19:17 7.5 MLS/HR Digoxin 0.125 mg DAILY PO 03/01/24 10:00 03/04/24 09:45 0.125 MG Lactulose 30 ml DAILYPRN PRN PO 02/29/24 12:00 Enoxaparin Sodium 70 mg DAILY SC 03/02/24 10:00 03/04/24 09:42 70 MG Dexmedetomidine HCl 400 mcg/ Dextrose 100 ml @ 3.52 mls/hr Q24H IV 03/02/24 19:45 03/03/24 03:23 3.52 MLS/HR Diltiazem HCl 100 ml @ 5 mls/hr Q20H IV 03/03/24 19:15 03/03/24 20:25 5 MLS/HR Midazolam HCl 50 ml @ 1 mls/hr Q24H IV 03/03/24 19:15 03/04/24 03:34 4 MLS/HR Propofol 100 ml @ 2.118 mls/ hr Q24H IV 03/03/24 19:45 03/04/24 09:45 4.236 MLS/HR Amiodarone HCl 250 ml @ 16.667 mls/ hr Q15H IV 03/04/24 04:00 03/04/24 04:00 16.667 MLS/HR Furosemide 60 mg DAILY IV 03/05/24 10:00 UNV Methylprednisolone Sodium Succinate 40 mg Q12HR IV 03/04/24 22:00 UNV Metoprolol Tartrate 25 mg BID PO 03/04/24 22:00 UNV objective GENERAL: Intubated on ventilator. LUNGS: Decreased breath sounds. CARDIOVASCULAR: Heart sounds are good. ABDOMEN: Soft. laboratory and microbiology Laboratory Tests 03/04/24 03:45 Test 03/04/24 03:45 Range/Units Serum Glucose 116 H 74-106 mg/dL Problem List Acute on chronic hypoxic respiratory failure. Ventilator dependence with failure of CPAP/extubation. COPD with probable exacerbation. History of multiple intubations. History of mitral valve replacement, bioprosthetic. Atrial fibrillation. Primary hypertension. Anemia. Acute probable vasomotor nephropathy. Hyperkalemia. Assessment/Plan Continued all current supportive medical care. Amiodarone. Amlodipine. Digoxin. IV antibiotics as ordered. DVT and GI prophylactics. Vasopressors for hemodynamic support. Additional plan as per the hospital course. Critical care time of 45 minutes provided to include time spent evaluation of patient at bedside, when appropriate patient/family education for diagnosis, treatment plan, review of pertinent medical information and discussion of care with specialty providers and PCP. Mechanical ventilator parameters, treatment and adjustments have personally been reviewed by me and treatment plan by extruder operator horizontal has also been reviewed. Dietary Evaluation Review Recommendations by RD: Dietary education by RD Comments: 1) If GI is accessible consider Pivot 1.5 @ 55 ml/hr x24 hr goal rate as tolerated 2) If pt remains NPO >7 days consider TPN to meet at least 75% of estimated goals 3) Advance pt diet when medically feasible to a Cardiac diet modified per COMPUTER INFORMATION SYSTEMS INSTRUCTOR recommendations 4) Continue current plan of care Expected Outcomes/Goals: 1) Pt to receive nutrition support within 7 days of NPO status 2) Pt diet to advance 3) F/U in 2-3 days Plan discussed with: Other Respiratory Effort: ET Tube Breath sounds: Clear, Diminished LUKE ARIZMENDI MD Mar 04, 2024 13:52
[2024-03-04] MEDS: METOPROLOL TARTRATE 25 MG TAB PO SCH (21:48)
[2024-03-04] MEDS: methylPREDNISolone SOD SUCC 40 MG/ML VL IV SCH (21:50)
[2024-03-05] VITALS (111 sets, daily range): BP systolic 110–177; BP diastolic 25–66; PULSE 61–94; RESP 9–23; TEMP 98–98.9; O2SAT 86–100
[2024-03-05 04:02] LABS: Basophils # (auto) 0.1 10 ^3/uL (0-0.2); Basophils % (auto) 0.5 % (0.0-2.0); Eosinophils # (auto) 0 10 ^3/uL (0-0.8); Eosinophils % (auto) 0.1 % (0.0-7.0); Hematocrit 26.7 % (36.0-46.0); Hemoglobin 8.7 g/dL (12.2-16.2); Lymphocytes # (auto) 0.3 10 ^3/uL (0.4-5.4); Lymphocytes % (auto) 3.2 % (10.0-50.0); Mean Corpuscular Hemoglobin 28.5 pg (28.0-32.0); Mean Corpuscular Hgb Conc. 32.6 g/dL (32.0-36.0); Mean Corpuscular Volume 87.3 fL (80.0-100.0); Monocytes # (auto) 0.3 10 ^3/uL (0-1.3); Monocytes % (auto) 2.7 % (0.0-12.0); Neutrophils # (auto) 9.7 10 ^3/uL (1.6-8.6); Neutrophils % (auto) 93.5 % (37.0-80.0); Nucleated Red Blood Cells % 0.2 %; Platelet Count (auto) 180 10^3/uL (140-450); Red Blood Cells 3.05 10^6/uL (4.0-5.20); Red Cell Distribution Width 17.3 % (11.8-14.3); White Blood Cell 10.4 10^3/uL (4.4-10.8)
[2024-03-05 04:24] LABS: Alanine Aminotransferase 25 U/L (7-40); Alkaline Phosphatase 105 U/L (46-116); Anion Gap 7 (5-15); Aspartate Aminotransferase 14 U/L (13-40); BUN/Creatinine Ratio 52.6 (10.0-20.0); Bilirubin, Total 0.8 mg/dL (0.2-1.0); Chloride 100 mmol/L (98-107); Potassium 4.3 mmol/L (3.5-5.1); Sodium 143 mmol/L (136-145)
[2024-03-05 04:27] LABS: Calcium 8.6 mg/dL (8.7-10.4); Carbon Dioxide 36 mmol/L (20-31); Glucose 178 mg/dL (74-106)
[2024-03-05 04:35] LABS: Blood Urea Nitrogen 82 mg/dL (9-23)
--- NOTE | 2024-03-05 05:44 | DVH ---
CHEST RADIOGRAPH Indication: Intubated Technique: Single frontal view of the chest was obtained Comparison: XY CHEST PORTABLE on DOS: 03/03/24, XY CHEST PORTABLE on DOS: 03/03/24, XY CHEST PORTABLE on DOS: 03/02/24 IMPRESSION: There are low lung volumes. Cardiomegaly with median sternotomy wires, prosthetic cardiac valve. Support lines and tubes appear unchanged in satisfactory position. Persistent coarsened interstitial markings with mild increased opacities at the lung bases. No pneumothorax.
[2024-03-05 06:46] LABS: Base Excess 9.2 mmol/L (-2.0-3.0)
[2024-03-05] MEDS: FUROSEMIDE 100 MG/10ML VIAL IV SCH (09:44)
[2024-03-05] MEDS: AMIODARONE HCL 200 MG TAB PO SCH (11:44)
--- NOTE | 2024-03-05 13:58 | DVHPN2 ---
Progress Note Date Seen: Mar 05, 2024 Medical Necessity Reason Pt with a Central, PICC or Fol: Yes The following are medically ne: Central Line, Mccord Catheter Reason for mccord catheter: Strict I&O, Total Immobilization Subjective Patient reports: Other (Patient remains intubated opens eyes) Review of Systems: Deferred Objective vital signs Vital Sign Date Time Temp Pulse Resp B/P (MAP) Pulse Ox O2 Delivery O2 Flow Rate FiO2 03/05/24 13:03 160/40 03/05/24 12:45 71 20 90 03/05/24 12:20 35 03/05/24 12:00 98.4 98.4 03/05/24 12:00 Mechanical Ventilator+ 03/03/24 16:00 8 Total Intake and Output 03/04/24 03/04/24 03/05/24 15:00 23:00 07:00 Intake Total 260.974 ml 280.890 ml 343.121 ml Output Total 850 ml 450 ml Balance 260.974 ml -569.110 ml -106.879 ml medications Current Medications Medications Dose Ordered Sig/Sherwin Route Start Time Stop Time Status Last Admin Dose Admin Nitroglycerin 0.4 mg Q5MINP PRN SL 02/18/24 06:45 Morphine Sulfate 2 mg Q30M PRN IV 02/18/24 06:45 Ondansetron HCl 4 mg Q6HPRN PRN IV 02/18/24 06:45 Fentanyl Citrate 250 ml @ 2.5 mls/hr Q24H IV 02/18/24 11:15 03/05/24 13:03 15 MLS/HR Pantoprazole Sodium 40 mg DAILY IV 02/19/24 10:00 03/05/24 09:44 40 MG Labetalol HCl 10 mg Q4HPRN PRN IV 02/20/24 16:15 02/29/24 07:27 10 MG Acetaminophen 650 mg Q8HP PRN [place] 02/21/24 11:30 02/25/24 05:54 650 MG Albuterol 2.5 mg Q4HR NEB 02/21/24 18:00 03/05/24 10:27 2.5 MG Ipratropium [place] 0.5 mg Q4HR NEB 02/21/24 18:00 03/05/24 10:27 0.5 MG Hydralazine HCl 10 mg Q4HR PRN IV 02/24/24 09:15 03/03/24 17:54 10 MG Midazolam HCl 5 mg [id number] PRN IV 02/24/24 10:00 02/25/24 08:15 5 MG Acetylcysteine 200 mg Q8HR IN 02/26/24 14:00 Cancel Acetylcysteine 200 mg Q8HR NEB 02/26/24 14:00 03/05/24 10:27 200 MG Budesonide 0.5 mg BID NEB 02/27/24 22:00 03/05/24 05:59 0.5 MG Amlodipine Besylate 10 mg DAILY PO 02/27/24 10:30 Hold 03/03/24 10:36 10 MG Enteral Nutritional Formula 1,000 ml 30ML/HR GT 02/28/24 08:45 03/04/24 19:01 1,000 ML Bisacodyl 10 mg DAILYP PRN [place] 02/28/24 08:45 Norepinephrine Bitartrate 250 ml @ 3.75 mls/hr Q24H IV 02/28/24 19:15 03/03/24 19:17 7.5 MLS/HR Digoxin 0.125 mg DAILY PO 03/01/24 10:00 03/05/24 09:45 0.125 MG Lactulose 30 ml DAILYPRN PRN PO 02/29/24 12:00 Enoxaparin Sodium 70 mg DAILY SC 03/02/24 10:00 03/05/24 09:45 70 MG Dexmedetomidine HCl 400 mcg/ Dextrose 100 ml @ 3.52 mls/hr Q24H IV 03/02/24 19:45 03/03/24 03:23 3.52 MLS/HR Diltiazem HCl 100 ml @ 5 mls/hr Q20H IV 03/03/24 19:15 03/03/24 20:25 5 MLS/HR Midazolam HCl 50 ml @ 1 mls/hr Q24H IV 03/03/24 19:15 03/04/24 03:34 4 MLS/HR Propofol 100 ml @ 2.118 mls/ hr Q24H IV 03/03/24 19:45 03/04/24 09:45 4.236 MLS/HR Amiodarone HCl 250 ml @ 16.667 mls/ hr Q15H IV 03/04/24 04:00 03/05/24 07:29 16.667 MLS/HR Furosemide 60 mg DAILY IV 03/05/24 10:00 03/05/24 09:44 60 MG Methylprednisolone Sodium Succinate 40 mg Q12HR IV 03/04/24 22:00 03/05/24 09:45 40 MG Metoprolol Tartrate 25 mg BID PO 03/04/24 22:00 03/05/24 09:45 25 MG Amiodarone HCl 200 mg Q12HR PO 03/05/24 10:30 03/05/24 11:44 200 MG Examination: GENERAL:Normal, LUNGS:Abnormal, MSK:Abnormal, SKIN:Abnormal, NEURO:Normal laboratory and microbiology Laboratory Tests 03/05/24 03:23 Test 03/05/24 03:23 Range/Units Serum Glucose 178 H 74-106 mg/dL Microbiology Date/Time Source Procedure Growth Status 03/03/24 18:57 Sputum Gram Stain - Final Resulted 03/03/24 18:57 Sputum Respiratory Culture - Preliminary Resulted 02/21/24 13:45 Blood Blood Culture - Final NO GROWTH AFTER 5 DAYS OF INCUBATION. Complete 02/18/24 11:00 Nose MRSA Screen - Final Complete Problem List/Assessment/Plan Problem List/Assessment/Plan Acute kidney injury superimposed Chronic Kidney Disease secondary hemodynamic mediated Acute respiratory failure , extubated and then reintubated COPD exacerbation Acute anemia unspecified Pneumonia Metabolic alkalosis due to aggressive diuresis recs BUN high secondary to steroids / Lasix Lasix 40 mg IV once daily Plan discussed with: Other Dietary Evaluation Review Recommendations by RD: Dietary education by RD Comments: 1) If GI is accessible consider Pivot 1.5 @ 55 ml/hr x24 hr goal rate as tolerated 2) If pt remains NPO >7 days consider TPN to meet at least 75% of estimated goals 3) Advance pt diet when medically feasible to a Cardiac diet modified per CAMERA REPAIR TECHNICIAN recommendations 4) Continue current plan of care Expected Outcomes/Goals: 1) Pt to receive nutrition support within 7 days of NPO status 2) Pt diet to advance 3) F/U in 2-3 days Sepsis reassessment post fluid Respiratory Effort: ET Tube Breath sounds: Clear, Diminished ALTA FRANKEL MD Mar 05, 2024 13:58
--- NOTE | 2024-03-05 14:23 | DVHPNRES ---
Progress Note Date Seen: Mar 05, 2024 Resident Creating Document: CHRISTIANO JONES RESIDENT Medical Necessity Reason Pt with a Central, PICC or Fol: Yes The following are medically ne: Central Line, Mccord Catheter Reason for mcocrd catheter: Strict I&O, Total Immobilization Subjective Review of Systems 68 y.o. female with COPD using 3L of home oxygen was brought to the ED c/o SOB despite using her oxygen. EMS started 10L and gave her nebulizer treatment but patient continued to be in severe respiratory distress. ER MD intubated the patient. Patient seen and examined at bedside. Sedated, intubated on mechanical ventilator. Overnight events reviewed. Objective vital signs Vital Sign Date Time Temp Pulse Resp B/P (MAP) Pulse Ox O2 Delivery O2 Flow Rate FiO2 03/05/24 13:03 160/40 03/05/24 12:45 71 20 90 03/05/24 12:20 35 03/05/24 12:00 98.4 98.4 03/05/24 12:00 Mechanical Ventilator+ 03/03/24 16:00 8 Total Intake and Output 03/04/24 03/04/24 03/05/24 15:00 23:00 07:00 Intake Total 260.974 ml 280.890 ml 343.121 ml Output Total 850 ml 450 ml Balance 260.974 ml -569.110 ml -106.879 ml medications Current Medications Medications Dose Ordered Sig/Sherwin Route Start Time Stop Time Status Last Admin Dose Admin Nitroglycerin 0.4 mg Q5MINP PRN SL 02/18/24 06:45 Morphine Sulfate 2 mg Q30M PRN IV 02/18/24 06:45 Ondansetron HCl 4 mg Q6HPRN PRN IV 02/18/24 06:45 Fentanyl Citrate 250 ml @ 2.5 mls/hr Q24H IV 02/18/24 11:15 03/05/24 13:03 15 MLS/HR Pantoprazole Sodium 40 mg DAILY IV 02/19/24 10:00 03/05/24 09:44 40 MG Labetalol HCl 10 mg Q4HPRN PRN IV 02/20/24 16:15 02/29/24 07:27 10 MG Acetaminophen 650 mg Q8HP PRN [place] 02/21/24 11:30 02/25/24 05:54 650 MG Albuterol 2.5 mg Q4HR NEB 02/21/24 18:00 03/05/24 14:09 2.5 MG Ipratropium [place] 0.5 mg Q4HR NEB 02/21/24 18:00 03/05/24 14:09 0.5 MG Hydralazine HCl 10 mg Q4HR PRN IV 02/24/24 09:15 03/03/24 17:54 10 MG Midazolam HCl 5 mg [id number] PRN IV 02/24/24 10:00 02/25/24 08:15 5 MG Acetylcysteine 200 mg Q8HR IN 02/26/24 14:00 Cancel Acetylcysteine 200 mg Q8HR NEB 02/26/24 14:00 03/05/24 14:09 200 MG Budesonide 0.5 mg BID NEB 02/27/24 22:00 03/05/24 05:59 0.5 MG Amlodipine Besylate 10 mg DAILY PO 02/27/24 10:30 Hold 03/03/24 10:36 10 MG Enteral Nutritional Formula 1,000 ml 30ML/HR GT 02/28/24 08:45 03/04/24 19:01 1,000 ML Bisacodyl 10 mg DAILYP PRN [place] 02/28/24 08:45 Norepinephrine Bitartrate 250 ml @ 3.75 mls/hr Q24H IV 02/28/24 19:15 03/03/24 19:17 7.5 MLS/HR Digoxin 0.125 mg DAILY PO 03/01/24 10:00 03/05/24 09:45 0.125 MG Lactulose 30 ml DAILYPRN PRN PO 02/29/24 12:00 Enoxaparin Sodium 70 mg DAILY SC 03/02/24 10:00 03/05/24 09:45 70 MG Dexmedetomidine HCl 400 mcg/ Dextrose 100 ml @ 3.52 mls/hr Q24H IV 03/02/24 19:45 03/03/24 03:23 3.52 MLS/HR Diltiazem HCl 100 ml @ 5 mls/hr Q20H IV 03/03/24 19:15 03/03/24 20:25 5 MLS/HR Midazolam HCl 50 ml @ 1 mls/hr Q24H IV 03/03/24 19:15 03/04/24 03:34 4 MLS/HR Propofol 100 ml @ 2.118 mls/ hr Q24H IV 03/03/24 19:45 03/04/24 09:45 4.236 MLS/HR Amiodarone HCl 250 ml @ 16.667 mls/ hr Q15H IV 03/04/24 04:00 03/05/24 07:29 16.667 MLS/HR Methylprednisolone Sodium Succinate 40 mg Q12HR IV 03/04/24 22:00 03/05/24 09:45 40 MG Metoprolol Tartrate 25 mg BID PO 03/04/24 22:00 03/05/24 09:45 25 MG Amiodarone HCl 200 mg Q12HR PO 03/05/24 10:30 03/05/24 11:44 200 MG Furosemide 40 mg DAILY IV 03/06/24 10:00 UNV Examination Gen.: Patient lying in bed in medical ICU. Sedated, intubated on mechanical ventilator. Head: Normocephalic, atraumatic. Eyes: PERRLA. Ears: Normal external anatomy. Throat: Endotracheal tube and orogastric tube in place. Neck: Supple, trachea midline. Chest: Transmitted breath sounds bilaterally. Decreased air entry bilaterally. No wheezing. Bibasilar crackles. Cardiovascular: Positive S1, positive S2. Regular rate and rhythm. Abdomen: Positive bowel sounds in all 4 quadrants. Soft, nontender, nondistended. : Mccord in place. Normal external genitalia. Rectal: Deferred. Skin: Warm, dry. Intact. Extremities: 2+ radial pulses bilaterally. No lower extremity edema. Neuro: Sedated. laboratory and microbiology Laboratory Tests 03/05/24 03:23 Test 03/05/24 03:23 Range/Units Serum Glucose 178 H 74-106 mg/dL Microbiology Date/Time Source Procedure Growth Status 03/03/24 18:57 Sputum Gram Stain - Final Resulted 03/03/24 18:57 Sputum Respiratory Culture - Preliminary Resulted 02/21/24 13:45 Blood Blood Culture - Final NO GROWTH AFTER 5 DAYS OF INCUBATION. Complete 02/18/24 11:00 Nose MRSA Screen - Final Complete Problem List/Assessment/Plan Problem List/Assessment/Plan # septic shock secondary to pneumonia # community-acquired pneumonia possible GM+/- bacterial pneumonia # acute hypoxic respiratory failure secondary to COPD exacerbation, pneumonia # New Onset Anemia - Maintain Pox > 92%, Fi02 down to 35%, Mechanical Ventilation per Pulmonary, continue IV abx Rocephin and Azithromycin , Med Nebs Q 6 Hours, methylprednisolone 40 mg IV Q 12 hours # Acute Kidney Injury on CKD Stage 3 - follow up with Nephrology - monitor kidney function # anemia secondary to possible blood loss - -GI Consulted, no plan for EGD at this time - daily AM Labs - patient # AFib # Hypertension # Hyperlipidemia # Hx of mechanical mitral valve replacement on home Coumadin, -INR goal of 2.5-3.5, holding Coumadin. # atrial flutter - consulted with driving teacher recommends -Amiodarone drip -metoprolol 25 mg b.i.d. - Digoxin. # Hyperkalemia. - resolved Drips Fentanyl 100 Propofol 10 NE 1 Invasive access Mccord catheter 02/18/24 Endotracheal tube 02/18/24 Rt IG central line 02/18/24 DVT Prophy; no anticoagulation, GI Prophy; Protonix 40mg IV daily Critical Care time spent 57 minutes including patient care, chart review, Family updating excluding procedure. Case discussed with Dr. Marshall Plan discussed with: Other (RN) My Orders My Orders Orders - CHRISTINAO JONES RESIDENT Procedure Category Date Status Time Abg W/ Co-Ox RT 03/05/24 Logged 04:00 Chest Xray 1 View XY 03/05/24 Resulted 04:00 Ventilator Orders RT 03/04/24 Transmitted 07:32 Abg W/ Co-Ox RT 03/04/24 Logged 10:00 Dietary Evaluation Review Recommendations by RD: Dietary education by RD Comments: 1) If GI is accessible consider Pivot 1.5 @ 55 ml/hr x24 hr goal rate as tolerated 2) If pt remains NPO >7 days consider TPN to meet at least 75% of estimated goals 3) Advance pt diet when medically feasible to a Cardiac diet modified per FIELD TRAINING AGENT recommendations 4) Continue current plan of care Expected Outcomes/Goals: 1) Pt to receive nutrition support within 7 days of NPO status 2) Pt diet to advance 3) F/U in 2-3 days Sepsis reassessment post fluid Respiratory Effort: ET Tube Breath sounds: Clear, Diminished Date of Service: Mar 05, 2024 Billing Provider: HELGA MARSHALL MD Common Visit Codes: [id number] CARE [id number] CHRISTIANO SCHAFFER Mar 05, 2024 14:23 HELGA MARSHALL MD Mar 06, 2024 12:44
[2024-03-05] MEDS: acetaZOLAMIDE SODIUM 500 MG VL IV ONE (16:42)
--- NOTE | 2024-03-05 20:57 | DVHPN2 ---
Progress Note - Dictate Date Seen: Mar 05, 2024 Medical Necessity Reason Pt with a Central, PICC or Fol: Yes The following are medically ne: Central Line, Mccord Catheter Reason for mccord catheter: Strict I&O, Total Immobilization Subjective Patient was seen and evaluated in follow up in the ICU. Patient is intubated and sedated on a ventilator. FiO2 35%. CPAP trial will be held until family is able to be present at bedside. HGB 8.7, HCT 26.7, CO2 36, BUN 82, TELEPHONE TECHNICIAN 1.56, CA 8.6. Chest x-ray shows cardiomegaly with median sternotomy wires, prosthetic cardiac valve, persistent coarsened interstitial markings with mild increased opacities at the lung bases. No pneumothorax. vital signs Vital Sign Date Time Temp Pulse Resp B/P (MAP) Pulse Ox O2 Delivery O2 Flow Rate FiO2 03/05/24 10:14 77 22 123/39 (67) 93 35 03/05/24 08:00 Mechanical Ventilator+ 03/05/24 04:00 98.9 98.9 03/03/24 16:00 8 Total Intake and Output 03/04/24 03/04/24 03/05/24 15:00 23:00 07:00 Intake Total 260.974 ml 280.890 ml 343.121 ml Output Total 850 ml 450 ml Balance 260.974 ml -569.110 ml -106.879 ml medications Current Medications Medications Dose Ordered Sig/Sherwin Route Start Time Stop Time Status Last Admin Dose Admin Nitroglycerin 0.4 mg Q5MINP PRN SL 02/18/24 06:45 Morphine Sulfate 2 mg Q30M PRN IV 02/18/24 06:45 Ondansetron HCl 4 mg Q6HPRN PRN IV 02/18/24 06:45 Fentanyl Citrate 250 ml @ 2.5 mls/hr Q24H IV 02/18/24 11:15 03/02/24 09:49 6 MLS/HR Pantoprazole Sodium 40 mg DAILY IV 02/19/24 10:00 03/05/24 09:44 40 MG Labetalol HCl 10 mg Q4HPRN PRN IV 02/20/24 16:15 02/29/24 07:27 10 MG Acetaminophen 650 mg Q8HP PRN [place] 02/21/24 11:30 02/25/24 05:54 650 MG Albuterol 2.5 mg Q4HR NEB 02/21/24 18:00 03/05/24 10:27 2.5 MG Ipratropium [place] 0.5 mg Q4HR NEB 02/21/24 18:00 03/05/24 10:27 0.5 MG Hydralazine HCl 10 mg Q4HR PRN IV 02/24/24 09:15 03/03/24 17:54 10 MG Midazolam HCl 5 mg [id number] PRN IV 02/24/24 10:00 02/25/24 08:15 5 MG Acetylcysteine 200 mg Q8HR IN 02/26/24 14:00 Cancel Acetylcysteine 200 mg Q8HR NEB 02/26/24 14:00 03/05/24 10:27 200 MG Budesonide 0.5 mg BID NEB 02/27/24 22:00 03/05/24 05:59 0.5 MG Amlodipine Besylate 10 mg DAILY PO 02/27/24 10:30 Hold 03/03/24 10:36 10 MG Enteral Nutritional Formula 1,000 ml 30ML/HR GT 02/28/24 08:45 03/04/24 19:01 1,000 ML Bisacodyl 10 mg DAILYP PRN [place] 02/28/24 08:45 Norepinephrine Bitartrate 250 ml @ 3.75 mls/hr Q24H IV 02/28/24 19:15 03/03/24 19:17 7.5 MLS/HR Digoxin 0.125 mg DAILY PO 03/01/24 10:00 03/05/24 09:45 0.125 MG Lactulose 30 ml DAILYPRN PRN PO 02/29/24 12:00 Enoxaparin Sodium 70 mg DAILY SC 03/02/24 10:00 03/05/24 09:45 70 MG Dexmedetomidine HCl 400 mcg/ Dextrose 100 ml @ 3.52 mls/hr Q24H IV 03/02/24 19:45 03/03/24 03:23 3.52 MLS/HR Diltiazem HCl 100 ml @ 5 mls/hr Q20H IV 03/03/24 19:15 03/03/24 20:25 5 MLS/HR Midazolam HCl 50 ml @ 1 mls/hr Q24H IV 03/03/24 19:15 03/04/24 03:34 4 MLS/HR Propofol 100 ml @ 2.118 mls/ hr Q24H IV 03/03/24 19:45 03/04/24 09:45 4.236 MLS/HR Amiodarone HCl 250 ml @ 16.667 mls/ hr Q15H IV 03/04/24 04:00 03/05/24 07:29 16.667 MLS/HR Furosemide 60 mg DAILY IV 03/05/24 10:00 03/05/24 09:44 60 MG Methylprednisolone Sodium Succinate 40 mg Q12HR IV 03/04/24 22:00 03/05/24 09:45 40 MG Metoprolol Tartrate 25 mg BID PO 03/04/24 22:00 03/05/24 09:45 25 MG Amiodarone HCl 200 mg Q12HR PO 03/05/24 10:30 objective GENERAL: Intubated on ventilator. LUNGS: Decreased breath sounds. CARDIOVASCULAR: Heart sounds are good. ABDOMEN: Soft. laboratory and microbiology Laboratory Tests 03/05/24 03:23 Test 03/05/24 03:23 Range/Units Serum Glucose 178 H 74-106 mg/dL Problem List Acute on chronic hypoxic respiratory failure. Ventilator dependence with failure of CPAP/extubation. COPD with probable exacerbation. History of multiple intubations. History of mitral valve replacement, bioprosthetic. Atrial fibrillation. Primary hypertension. Anemia. Acute probable vasomotor nephropathy. Hyperkalemia. Assessment/Plan Continued all current supportive medical care. Amiodarone. Amlodipine. Digoxin. IV antibiotics as ordered. DVT and GI prophylactics. Vasopressors for hemodynamic support. Additional plan as per the hospital course. Critical care time of 45 minutes provided to include time spent evaluation of patient at bedside, when appropriate patient/family education for diagnosis, treatment plan, review of pertinent medical information and discussion of care with specialty providers and PCP. Mechanical ventilator parameters, treatment and adjustments have personally been reviewed by me and treatment plan by spot remover has also been reviewed. Dietary Evaluation Review Recommendations by RD: Dietary education by RD Comments: 1) If GI is accessible consider Pivot 1.5 @ 55 ml/hr x24 hr goal rate as tolerated 2) If pt remains NPO >7 days consider TPN to meet at least 75% of estimated goals 3) Advance pt diet when medically feasible to a Cardiac diet modified per MAGNETIC TAPE WINDER recommendations 4) Continue current plan of care Expected Outcomes/Goals: 1) Pt to receive nutrition support within 7 days of NPO status 2) Pt diet to advance 3) F/U in 2-3 days Plan discussed with: Other Respiratory Effort: ET Tube Breath sounds: Clear, Diminished LUKE ARIZMENDI MD Mar 05, 2024 11:32
[2024-03-06] VITALS (108 sets, daily range): BP systolic 112–193; BP diastolic 33–110; PULSE 55–93; RESP 0–25; TEMP 98–98.6; O2SAT 89–100
[2024-03-06 03:52] LABS: Basophils # (auto) 0 10 ^3/uL (0-0.2); Basophils % (auto) 0.1 % (0.0-2.0); Eosinophils # (auto) 0 10 ^3/uL (0-0.8); Hematocrit 28.4 % (36.0-46.0); Hemoglobin 9.4 g/dL (12.2-16.2); Lymphocytes # (auto) 0.2 10 ^3/uL (0.4-5.4); Lymphocytes % (auto) 1.5 % (10.0-50.0); Mean Corpuscular Hemoglobin 28.7 pg (28.0-32.0); Monocytes # (auto) 0.3 10 ^3/uL (0-1.3); Monocytes % (auto) 2.9 % (0.0-12.0); Neutrophils # (auto) 9.8 10 ^3/uL (1.6-8.6); Neutrophils % (auto) 95.5 % (37.0-80.0); Platelet Count (auto) 188 10^3/uL (140-450); Red Blood Cells 3.27 10^6/uL (4.0-5.20); Red Cell Distribution Width 17.4 % (11.8-14.3); White Blood Cell 10.3 10^3/uL (4.4-10.8)
[2024-03-06 04:15] LABS: Alanine Aminotransferase 29 U/L (7-40); Albumin 3.6 g/dL (3.2-4.8); Alkaline Phosphatase 102 U/L (46-116); Anion Gap 11 (5-15); Aspartate Aminotransferase 26 U/L (13-40); BUN/Creatinine Ratio 62.5 (10.0-20.0); Calcium 8.8 mg/dL (8.7-10.4); Chloride 101 mmol/L (98-107); Potassium 3.8 mmol/L (3.5-5.1)
[2024-03-06 04:16] LABS: Bilirubin, Total 0.9 mg/dL (0.2-1.0)
[2024-03-06 04:28] LABS: Carbon Dioxide 34 mmol/L (20-31); Glucose 125 mg/dL (74-106); Sodium 146 mmol/L (136-145); Total Protein 5.5 g/dL (5.7-8.2)
[2024-03-06 04:35] LABS: Blood Urea Nitrogen 80 mg/dL (9-23)
--- NOTE | 2024-03-06 05:54 | DVH ---
CHEST RADIOGRAPH Indication: intubated Technique: Single frontal view of the chest was obtained Comparison: XY CHEST XRAY 1 VIEW on DOS: 03/05/24 FINDINGS: Lines and Tubes: The endotracheal tube terminates 4.6 cm above the mikey. Right central venous geovany ter terminates in the superior cavoatrial junction. The enteric tube courses below the left hemidiaph ragm but the tip extends outside the field of view. There is a cardiac valve prosthesis. Lungs: Prominent interstitial markings are similar to the prior study. No superimposed consolidation. Pleura: No effusion. No pneumothorax. Cardiomediastinal contours: Unremarkable Bones: No acute osseous abnormality. IMPRESSION: 1. Stable prominent interstitial markings. No superimposed consolidation.
[2024-03-06] MEDS: FUROSEMIDE 100 MG/10ML VIAL IV SCH (11:47)
--- NOTE | 2024-03-06 12:53 | DVHPNRES ---
Progress Note Date Seen: Mar 06, 2024 Resident Creating Document: CHRISTIANO JONES RESIDENT Medical Necessity Reason Pt with a Central, PICC or Fol: Yes The following are medically ne: Central Line, Mccord Catheter Reason for mccord catheter: Strict I&O, Total Immobilization Subjective Review of Systems 68 y.o. female with COPD using 3L of home oxygen was brought to the ED c/o SOB despite using her oxygen. EMS started 10L and gave her nebulizer treatment but patient continued to be in severe respiratory distress. ER MD intubated the patient. Patient seen and examined at bedside. Sedated, intubated on mechanical ventilator. Overnight events reviewed. Objective vital signs Vital Sign Date Time Temp Pulse Resp B/P (MAP) Pulse Ox O2 Delivery O2 Flow Rate FiO2 03/06/24 12:04 85 22 133/46 (75) 97 35 03/06/24 08:00 Mechanical Ventilator+ 03/06/24 08:00 98.6 98.6 Total Intake and Output 03/05/24 03/05/24 03/06/24 15:00 23:00 07:00 Intake Total 229.931 ml 235.651 ml 199.652 ml Output Total 1425 ml 725 ml Balance 229.931 ml -1189.349 ml -525.348 ml medications Current Medications Medications Dose Ordered Sig/Sherwin Route Start Time Stop Time Status Last Admin Dose Admin Nitroglycerin 0.4 mg Q5MINP PRN SL 02/18/24 06:45 Morphine Sulfate 2 mg Q30M PRN IV 02/18/24 06:45 Ondansetron HCl 4 mg Q6HPRN PRN IV 02/18/24 06:45 Fentanyl Citrate 250 ml @ 2.5 mls/hr Q24H IV 02/18/24 11:15 03/05/24 13:03 15 MLS/HR Pantoprazole Sodium 40 mg DAILY IV 02/19/24 10:00 03/06/24 11:51 40 MG Labetalol HCl 10 mg Q4HPRN PRN IV 02/20/24 16:15 02/29/24 07:27 10 MG Acetaminophen 650 mg Q8HP PRN [place] 02/21/24 11:30 02/25/24 05:54 650 MG Albuterol 2.5 mg Q4HR NEB 02/21/24 18:00 03/06/24 09:57 2.5 MG Ipratropium [place] 0.5 mg Q4HR NEB 02/21/24 18:00 03/06/24 09:57 0.5 MG Hydralazine HCl 10 mg Q4HR PRN IV 02/24/24 09:15 03/06/24 01:08 10 MG Midazolam HCl 5 mg [id number] PRN IV 02/24/24 10:00 02/25/24 08:15 5 MG Acetylcysteine 200 mg Q8HR IN 02/26/24 14:00 Cancel Acetylcysteine 200 mg Q8HR NEB 02/26/24 14:00 03/06/24 06:15 200 MG Budesonide 0.5 mg BID NEB 02/27/24 22:00 03/06/24 06:15 0.5 MG Amlodipine Besylate 10 mg DAILY PO 02/27/24 10:30 Hold 03/03/24 10:36 10 MG Enteral Nutritional Formula 1,000 ml 30ML/HR GT 02/28/24 08:45 03/04/24 19:01 1,000 ML Bisacodyl 10 mg DAILYP PRN IN 02/28/24 08:45 Norepinephrine Bitartrate 250 ml @ 3.75 mls/hr Q24H IV 02/28/24 19:15 03/03/24 19:17 7.5 MLS/HR Digoxin 0.125 mg DAILY PO 03/01/24 10:00 03/05/24 09:45 0.125 MG Lactulose 30 ml DAILYPRN PRN PO 02/29/24 12:00 Enoxaparin Sodium 70 mg DAILY SC 03/02/24 10:00 03/06/24 10:00 70 MG Dexmedetomidine HCl 400 mcg/ Dextrose 100 ml @ 3.52 mls/hr Q24H IV 03/02/24 19:45 03/03/24 03:23 3.52 MLS/HR Diltiazem HCl 100 ml @ 5 mls/hr Q20H IV 03/03/24 19:15 03/03/24 20:25 5 MLS/HR Midazolam HCl 50 ml @ 1 mls/hr Q24H IV 03/03/24 19:15 03/04/24 03:34 4 MLS/HR Propofol 100 ml @ 2.118 mls/ hr Q24H IV 03/03/24 19:45 03/06/24 01:03 4.236 MLS/HR Amiodarone HCl 250 ml @ 16.667 mls/ hr Q15H IV 03/04/24 04:00 03/05/24 07:29 16.667 MLS/HR Methylprednisolone Sodium Succinate 40 mg Q12HR IV 03/04/24 22:00 03/06/24 11:46 40 MG Metoprolol Tartrate 25 mg BID PO 03/04/24 22:00 03/05/24 09:45 25 MG Amiodarone HCl 200 mg Q12HR PO 03/05/24 10:30 03/06/24 12:05 200 MG Furosemide 40 mg BIDD IV 03/06/24 18:00 Examination Gen.: Patient lying in bed in medical ICU. Sedated, intubated on mechanical ventilator. Head: Normocephalic, atraumatic. Eyes: PERRLA. Ears: Normal external anatomy. Throat: Endotracheal tube and orogastric tube in place. Neck: Supple, trachea midline. Chest: Transmitted breath sounds bilaterally. Decreased air entry bilaterally. No wheezing. Bibasilar crackles. Cardiovascular: Positive S1, positive S2. Regular rate and rhythm. Abdomen: Positive bowel sounds in all 4 quadrants. Soft, nontender, nondistended. : Mccord in place. Normal external genitalia. Rectal: Deferred. Skin: Warm, dry. Intact. Extremities: 2+ radial pulses bilaterally. No lower extremity edema. Neuro: Sedated. laboratory and microbiology Laboratory Tests 03/06/24 03:21 Test 03/06/24 03:21 Range/Units Serum Glucose 125 H 74-106 mg/dL Microbiology Date/Time Source Procedure Growth Status 03/03/24 18:57 Sputum Gram Stain - Final Complete 03/03/24 18:57 Sputum Respiratory Culture - Final Complete 02/21/24 13:45 Blood Blood Culture - Final NO GROWTH AFTER 5 DAYS OF INCUBATION. Complete 02/18/24 11:00 Nose MRSA Screen - Final Complete Problem List/Assessment/Plan Problem List/Assessment/Plan # septic shock secondary to pneumonia # community-acquired pneumonia possible GM+/- bacterial pneumonia # acute hypoxic respiratory failure secondary to COPD exacerbation, pneumonia # New Onset Anemia - Maintain Pox > 92%, Fi02 down to 35%, Mechanical Ventilation per Pulmonary, continue IV abx Rocephin and Azithromycin , Med Nebs Q 6 Hours, methylprednisolone 40 mg IV Q 12 hours # Acute Kidney Injury on CKD Stage 3 - follow up with Nephrology - monitor kidney function # anemia secondary to possible blood loss - -GI Consulted, no plan for EGD at this time - daily AM Labs - patient # AFib # Hypertension # Hyperlipidemia # Hx of mechanical mitral valve replacement on home Coumadin, -INR goal of 2.5-3.5, holding Coumadin. # atrial flutter - consulted with orthotic aide recommends -Amiodarone drip -metoprolol 25 mg b.i.d. - Digoxin. # Hyperkalemia. - resolved Drips Fentanyl 100 Propofol 10 NE 1 Invasive access Mccord catheter 02/18/24 Endotracheal tube 02/18/24 Rt IG central line 02/18/24 DVT Prophy; no anticoagulation, GI Prophy; Protonix 40mg IV daily We had a long family discussion with her two daughters, son and at bedside, before family agreed to make her comfort measure. But today they change their decision to have Full Code with Trachiostomy and PEG tube and agreed to placement in LTAC. Critical Care time spent 109 minutes including family meeting, patient care, chart review, excluding procedure. Case discussed with Dr. Marshall Plan discussed with: Spouse, Daughter, Son My Orders My Orders Orders - CHRISTIANO JONES RESIDENT Procedure Category Date Status Time Chest Xray 1 View XY 03/06/24 Resulted 04:00 Complete Blood Count LAB 03/07/24 Verified 04:00 Comprehensive LAB 03/07/24 Verified Metabolic Panel 04:00 Chest Xray 1 View XY 03/07/24 Logged 04:00 Abg W/ Co-Ox RT 03/07/24 Logged 04:00 * Surgical Consult CONS 03/06/24 Transmitted * [facility] Information Provider CONS 03/06/24 Transmitted 12:44 Dietary Evaluation Review Recommendations by RD: Dietary education by RD Comments: 1) If GI is accessible consider Pivot 1.5 @ 55 ml/hr x24 hr goal rate as tolerated 2) If pt remains NPO >7 days consider TPN to meet at least 75% of estimated goals 3) Advance pt diet when medically feasible to a Cardiac diet modified per SERVICE CENTER SUPERVISOR recommendations 4) Continue current plan of care Expected Outcomes/Goals: 1) Pt to receive nutrition support within 7 days of NPO status 2) Pt diet to advance 3) F/U in 2-3 days Sepsis reassessment post fluid Respiratory Effort: ET Tube Breath sounds: Clear, Diminished Date of Service: Mar 06, 2024 Billing Provider: HELGA MARSHALL MD Common Visit Codes: [id number] CARE 30-74 MIN CHRISTIANO JONES RESIDENT Mar 06, 2024 12:53 HELGA MARSHALL MD Mar 06, 2024 13:28
[2024-03-06] MEDS: FUROSEMIDE 40 MG/4 ML VIAL IV SCH (18:02)
--- NOTE | 2024-03-06 18:48 | DVHINCON2 ---
GI Consult Consult Note Date of Consultation: 03/06/2024 Chief Complaint: G-tube request Referring Physician: Consuelo History of present illness: The patient is a 60-year-old female with acute on chronic respiratory failure, having difficulty weaning off the vent. GI consultation was obtained for G-tube placement. History of hypertension, AFib, COPD, hyperlipidemia, history of CABG. History of tonsillectomy and appendectomy Past Medical History: As above Past Surgical History: As above Social History: No current tobacco alcohol or recreation drug use Family History: Gastrointestinal diseases or malignancies Current Medications Medications (Trade) Dose Ordered Sig/Sherwin Route Start Time Stop Time Status Last Admin Dose Admin Nitroglycerin (Ntrostat Sublingual) 0.4 mg Q5MINP PRN SL 02/18/24 06:45 Morphine Sulfate 2 mg Q30M PRN IV 02/18/24 06:45 Ondansetron HCl (Zofran) 4 mg Q6HPRN PRN IV 02/18/24 06:45 Fentanyl Citrate 250 ml @ 2.5 mls/hr Q24H IV 02/18/24 11:15 03/05/24 13:03 15 MLS/HR Pantoprazole Sodium (Protonix) 40 mg DAILY IV 02/19/24 10:00 03/06/24 11:51 40 MG Labetalol HCl (Labetalol HCl) 10 mg Q4HPRN PRN IV 02/20/24 16:15 02/29/24 07:27 10 MG Acetaminophen (Tylenol Suppository) 650 mg Q8HP PRN TN 02/21/24 11:30 02/25/24 05:54 650 MG Albuterol (Ventolin Medneb) 2.5 mg Q4HR NEB 02/21/24 18:00 03/06/24 18:23 2.5 MG Ipratropium [place] (Atrovent Medneb) 0.5 mg Q4HR NEB 02/21/24 18:00 03/06/24 18:23 0.5 MG Hydralazine HCl (Apresoline Injection) 10 mg Q4HR PRN IV 02/24/24 09:15 03/06/24 13:31 10 MG Midazolam HCl (Versed Injection) 5 mg [id number] PRN IV 02/24/24 10:00 02/25/24 08:15 5 MG Acetylcysteine (Mucomyst Inahalation 10%) 200 mg Q8HR IN 02/26/24 14:00 Cancel Acetylcysteine (Mucomyst Inhalation 20%) 200 mg Q8HR NEB 02/26/24 14:00 03/06/24 14:21 200 MG Budesonide (Pulmicort) 0.5 mg BID NEB 02/27/24 22:00 03/06/24 06:15 0.5 MG Amlodipine Besylate (Norvasc Tablet) 10 mg DAILY PO 02/27/24 10:30 Hold 03/03/24 10:36 10 MG Enteral Nutritional Formula (Nepro With Carb Steady) 1,000 ml 30ML/HR GT 02/28/24 08:45 03/04/24 19:01 1,000 ML Bisacodyl (Dulcolax Suppository) 10 mg DAILYP PRN TN 02/28/24 08:45 Norepinephrine Bitartrate 250 ml @ 3.75 mls/hr Q24H IV 02/28/24 19:15 03/03/24 19:17 7.5 MLS/HR Digoxin (Lanoxin Tablet) 0.125 mg DAILY PO 03/01/24 10:00 03/05/24 09:45 0.125 MG Lactulose 30 ml DAILYPRN PRN PO 02/29/24 12:00 Enoxaparin Sodium (Lovenox) 70 mg DAILY SC 03/02/24 10:00 03/06/24 10:00 70 MG Dexmedetomidine HCl 400 mcg/ Dextrose 100 ml @ 3.52 mls/hr Q24H IV 03/02/24 19:45 03/03/24 03:23 3.52 MLS/HR Diltiazem HCl 100 ml @ 5 mls/hr Q20H IV 03/03/24 19:15 03/03/24 20:25 5 MLS/HR Midazolam HCl 50 ml @ 1 mls/hr Q24H IV 03/03/24 19:15 03/04/24 03:34 4 MLS/HR Propofol 100 ml @ 2.118 mls/ hr Q24H IV 03/03/24 19:45 03/06/24 01:03 4.236 MLS/HR Methylprednisolone Sodium Succinate (Solu Medrol) 40 mg Q12HR IV 03/04/24 22:00 03/06/24 11:46 40 MG Metoprolol Tartrate (Lopressor Tablet) 25 mg BID PO 03/04/24 22:00 03/06/24 13:28 25 MG Amiodarone HCl (Cordarone Tablet) 200 mg Q12HR PO 03/05/24 10:30 03/06/24 12:05 200 MG Furosemide (Lasix Injection) 40 mg BIDD IV 03/06/24 18:00 03/06/24 18:02 40 MG Review of Systems: Review of systems as per chart No diabetes or hypothyroidism No stroke or seizure History of coronary artery disease GI see HPI no dysuria hematuria no UTI Heme anemia no malignancy Vital Signs Date Time Temp Pulse Resp B/P (MAP) Pulse Ox O2 Delivery O2 Flow Rate FiO2 03/06/24 18:02 136/47 03/06/24 18:00 75 03/06/24 18:00 22 96 Mechanical Ventilator+ 35 35 03/06/24 08:00 98.6 98.6 Physical exam: General: Intubated sedated Head: NC/AT, EOMI, PERRLA oropharynx clear Heart: Regular rate and rhythm Abdomen: Soft nontender nondistended Extremity: No clubbing cyanosis edema Labs: Reviewed Assessment: 1. Respiratory failure, G-tube request 2. Anemia Plan: 1. Will schedule for EGD with G-tube placement 2. We will obtain consent 3. Follow labs 4. Avoid anticoagulation Date of Service: Mar 06, 2024 Billing Provider: NANDO GARCIA MD Common Visit Codes: [id number] INP/OBS CARE (HIGH) Consultation Codes: [id number] CONSULT <60MIN NANDO GARCIA MD Mar 06, 2024 18:48
--- NOTE | 2024-03-06 19:36 | DVHPN2 ---
Progress Note - Dictate Date Seen: Mar 06, 2024 Medical Necessity Reason Pt with a Central, PICC or Fol: Yes The following are medically ne: Central Line, Mccord Catheter Reason for mccord catheter: Strict I&O, Total Immobilization Subjective Patient was seen and evaluated in follow up in the ICU. Patient is intubated and sedated on a ventilator. FiO2 35%. Patient spontaneously opens eyes and nodding head. HGB 9.4, HCT 28.4, NA 146, CO2 34, BUN 80, MANAGING PARTNER 1.28. Chest x-ray shows stable prominent interstitial markings. No superimposed consolidation. vital signs Vital Sign Date Time Temp Pulse Resp B/P (MAP) Pulse Ox O2 Delivery O2 Flow Rate FiO2 03/06/24 12:04 85 22 133/46 (75) 97 35 03/06/24 08:00 Mechanical Ventilator+ 03/06/24 08:00 98.6 98.6 Total Intake and Output 03/05/24 03/05/24 03/06/24 15:00 23:00 07:00 Intake Total 229.931 ml 235.651 ml 199.652 ml Output Total 1425 ml 725 ml Balance 229.931 ml -1189.349 ml -525.348 ml medications Current Medications Medications Dose Ordered Sig/Sherwin Route Start Time Stop Time Status Last Admin Dose Admin Nitroglycerin 0.4 mg Q5MINP PRN SL 02/18/24 06:45 Morphine Sulfate 2 mg Q30M PRN IV 02/18/24 06:45 Ondansetron HCl 4 mg Q6HPRN PRN IV 02/18/24 06:45 Fentanyl Citrate 250 ml @ 2.5 mls/hr Q24H IV 02/18/24 11:15 03/05/24 13:03 15 MLS/HR Pantoprazole Sodium 40 mg DAILY IV 02/19/24 10:00 03/06/24 11:51 40 MG Labetalol HCl 10 mg Q4HPRN PRN IV 02/20/24 16:15 02/29/24 07:27 10 MG Acetaminophen 650 mg Q8HP PRN AR 02/21/24 11:30 02/25/24 05:54 650 MG Albuterol 2.5 mg Q4HR NEB 02/21/24 18:00 03/06/24 09:57 2.5 MG Ipratropium [place] 0.5 mg Q4HR NEB 02/21/24 18:00 03/06/24 09:57 0.5 MG Hydralazine HCl 10 mg Q4HR PRN IV 02/24/24 09:15 03/06/24 01:08 10 MG Midazolam HCl 5 mg [id number] PRN IV 02/24/24 10:00 02/25/24 08:15 5 MG Acetylcysteine 200 mg Q8HR IN 02/26/24 14:00 Cancel Acetylcysteine 200 mg Q8HR NEB 02/26/24 14:00 03/06/24 06:15 200 MG Budesonide 0.5 mg BID NEB 02/27/24 22:00 03/06/24 06:15 0.5 MG Amlodipine Besylate 10 mg DAILY PO 02/27/24 10:30 Hold 03/03/24 10:36 10 MG Enteral Nutritional Formula 1,000 ml 30ML/HR GT 02/28/24 08:45 03/04/24 19:01 1,000 ML Bisacodyl 10 mg DAILYP PRN AR 02/28/24 08:45 Norepinephrine Bitartrate 250 ml @ 3.75 mls/hr Q24H IV 02/28/24 19:15 03/03/24 19:17 7.5 MLS/HR Digoxin 0.125 mg DAILY PO 03/01/24 10:00 03/05/24 09:45 0.125 MG Lactulose 30 ml DAILYPRN PRN PO 02/29/24 12:00 Enoxaparin Sodium 70 mg DAILY SC 03/02/24 10:00 03/06/24 10:00 70 MG Dexmedetomidine HCl 400 mcg/ Dextrose 100 ml @ 3.52 mls/hr Q24H IV 03/02/24 19:45 03/03/24 03:23 3.52 MLS/HR Diltiazem HCl 100 ml @ 5 mls/hr Q20H IV 03/03/24 19:15 03/03/24 20:25 5 MLS/HR Midazolam HCl 50 ml @ 1 mls/hr Q24H IV 03/03/24 19:15 03/04/24 03:34 4 MLS/HR Propofol 100 ml @ 2.118 mls/ hr Q24H IV 03/03/24 19:45 03/06/24 01:03 4.236 MLS/HR Amiodarone HCl 250 ml @ 16.667 mls/ hr Q15H IV 03/04/24 04:00 03/05/24 07:29 16.667 MLS/HR Methylprednisolone Sodium Succinate 40 mg Q12HR IV 03/04/24 22:00 03/06/24 11:46 40 MG Metoprolol Tartrate 25 mg BID PO 03/04/24 22:00 03/05/24 09:45 25 MG Amiodarone HCl 200 mg Q12HR PO 03/05/24 10:30 03/06/24 12:05 200 MG Furosemide 40 mg DAILY IV 03/06/24 10:00 03/06/24 11:47 40 MG objective GENERAL: Intubated on ventilator. LUNGS: Decreased breath sounds. CARDIOVASCULAR: Heart sounds are good. ABDOMEN: Soft. laboratory and microbiology Laboratory Tests 03/06/24 03:21 Test 03/06/24 03:21 Range/Units Serum Glucose 125 H 74-106 mg/dL Problem List Acute on chronic hypoxic respiratory failure. Ventilator dependence with failure of CPAP/extubation. COPD with probable exacerbation. History of multiple intubations. History of mitral valve replacement, bioprosthetic. Atrial fibrillation. Primary hypertension. Anemia. Acute probable vasomotor nephropathy. Hyperkalemia. Assessment/Plan Continued all current supportive medical care. Amiodarone. Amlodipine. Digoxin. IV antibiotics as ordered. DVT and GI prophylactics. Vasopressors for hemodynamic support. Additional plan as per the hospital course. Critical care time of 45 minutes provided to include time spent evaluation of patient at bedside, when appropriate patient/family education for diagnosis, treatment plan, review of pertinent medical information and discussion of care with specialty providers and PCP. Mechanical ventilator parameters, treatment and adjustments have personally been reviewed by me and treatment plan by water trainer has also been reviewed. Dietary Evaluation Review Recommendations by RD: Dietary education by RD Comments: 1) If GI is accessible consider Pivot 1.5 @ 55 ml/hr x24 hr goal rate as tolerated 2) If pt remains NPO >7 days consider TPN to meet at least 75% of estimated goals 3) Advance pt diet when medically feasible to a Cardiac diet modified per COBOL MAINFRAME DEVELOPER recommendations 4) Continue current plan of care Expected Outcomes/Goals: 1) Pt to receive nutrition support within 7 days of NPO status 2) Pt diet to advance 3) F/U in 2-3 days Plan discussed with: Other Respiratory Effort: ET Tube Breath sounds: Clear, Diminished LUKE ARIZMENDI MD Mar 06, 2024 12:20
--- NOTE | 2024-03-06 21:53 | DVHPN2 ---
Progress Note Date Seen: Mar 06, 2024 Medical Necessity Reason Pt with a Central, PICC or Fol: Yes The following are medically ne: Central Line, Mccord Catheter Reason for mccord catheter: Strict I&O, Total Immobilization Subjective Patient reports: Other (awake on vent) Review of Systems: Deferred Objective vital signs Vital Sign Date Time Temp Pulse Resp B/P (MAP) Pulse Ox O2 Delivery O2 Flow Rate FiO2 03/06/24 21:30 63 20 127/45 (72) 97 03/06/24 20:12 35 03/06/24 20:00 Mechanical Ventilator+ 03/06/24 20:00 98.4 98.4 Total Intake and Output 03/05/24 03/05/24 03/06/24 15:00 23:00 07:00 Intake Total 229.931 ml 235.651 ml 199.652 ml Output Total 1425 ml 725 ml Balance 229.931 ml -1189.349 ml -525.348 ml medications Current Medications Medications Dose Ordered Sig/Sherwin Route Start Time Stop Time Status Last Admin Dose Admin Nitroglycerin 0.4 mg Q5MINP PRN SL 02/18/24 06:45 Morphine Sulfate 2 mg Q30M PRN IV 02/18/24 06:45 Ondansetron HCl 4 mg Q6HPRN PRN IV 02/18/24 06:45 Fentanyl Citrate 250 ml @ 2.5 mls/hr Q24H IV 02/18/24 11:15 03/06/24 21:21 20 MLS/HR Pantoprazole Sodium 40 mg DAILY IV 02/19/24 10:00 03/06/24 11:51 40 MG Labetalol HCl 10 mg Q4HPRN PRN IV 02/20/24 16:15 02/29/24 07:27 10 MG Acetaminophen 650 mg Q8HP PRN HI 02/21/24 11:30 02/25/24 05:54 650 MG Albuterol 2.5 mg Q4HR NEB 02/21/24 18:00 03/06/24 18:23 2.5 MG Ipratropium [place] 0.5 mg Q4HR NEB 02/21/24 18:00 03/06/24 18:23 0.5 MG Hydralazine HCl 10 mg Q4HR PRN IV 02/24/24 09:15 03/06/24 13:31 10 MG Midazolam HCl 5 mg [id number] PRN IV 02/24/24 10:00 02/25/24 08:15 5 MG Acetylcysteine 200 mg Q8HR IN 02/26/24 14:00 Cancel Acetylcysteine 200 mg Q8HR NEB 02/26/24 14:00 03/06/24 14:21 200 MG Budesonide 0.5 mg BID NEB 02/27/24 22:00 03/06/24 06:15 0.5 MG Amlodipine Besylate 10 mg DAILY PO 02/27/24 10:30 Hold 03/03/24 10:36 10 MG Enteral Nutritional Formula 1,000 ml 30ML/HR GT 02/28/24 08:45 03/04/24 19:01 1,000 ML Bisacodyl 10 mg DAILYP PRN [place] 02/28/24 08:45 Norepinephrine Bitartrate 250 ml @ 3.75 mls/hr Q24H IV 02/28/24 19:15 03/03/24 19:17 7.5 MLS/HR Digoxin 0.125 mg DAILY PO 03/01/24 10:00 03/05/24 09:45 0.125 MG Lactulose 30 ml DAILYPRN PRN PO 02/29/24 12:00 Enoxaparin Sodium 70 mg DAILY SC 03/02/24 10:00 03/06/24 10:00 70 MG Dexmedetomidine HCl 400 mcg/ Dextrose 100 ml @ 3.52 mls/hr Q24H IV 03/02/24 19:45 03/03/24 03:23 3.52 MLS/HR Diltiazem HCl 100 ml @ 5 mls/hr Q20H IV 03/03/24 19:15 03/03/24 20:25 5 MLS/HR Midazolam HCl 50 ml @ 1 mls/hr Q24H IV 03/03/24 19:15 03/04/24 03:34 4 MLS/HR Propofol 100 ml @ 2.118 mls/ hr Q24H IV 03/03/24 19:45 03/06/24 01:03 4.236 MLS/HR Methylprednisolone Sodium Succinate 40 mg Q12HR IV 03/04/24 22:00 03/06/24 21:23 40 MG Metoprolol Tartrate 25 mg BID PO 03/04/24 22:00 03/06/24 13:28 25 MG Amiodarone HCl 200 mg Q12HR PO 03/05/24 10:30 03/06/24 21:24 200 MG Furosemide 40 mg BIDD IV 03/06/24 18:00 03/06/24 18:02 40 MG Examination: LUNGS:Abnormal, MSK:Abnormal (edema ), SKIN:Abnormal laboratory and microbiology Laboratory Tests 03/06/24 03:21 Test 03/06/24 03:21 Range/Units Serum Glucose 125 H 74-106 mg/dL Microbiology Date/Time Source Procedure Growth Status 03/03/24 18:57 Sputum Gram Stain - Final Complete 03/03/24 18:57 Sputum Respiratory Culture - Final Complete 02/21/24 13:45 Blood Blood Culture - Final NO GROWTH AFTER 5 DAYS OF INCUBATION. Complete 02/18/24 11:00 Nose MRSA Screen - Final Complete Problem List/Assessment/Plan Problem List/Assessment/Plan Acute kidney injury superimposed Chronic Kidney Disease secondary hemodynamic mediated Acute respiratory failure , extubated and then reintubated COPD exacerbation Acute anemia unspecified Pneumonia Metabolic alkalosis due to aggressive diuresis recs BUN high secondary to steroids / Lasix Lasix 40 mg IV bid daily +edema Plan discussed with: Other My Orders My Orders Orders - ALTA FRANKEL MD Procedure Category Date Status Time Furosemide Injection PHA 03/06/24 In Process (Lasix Injection) 18:00 Dietary Evaluation Review Recommendations by RD: Dietary education by RD Comments: 1) If GI is accessible consider Pivot 1.5 @ 55 ml/hr x24 hr goal rate as tolerated 2) If pt remains NPO >7 days consider TPN to meet at least 75% of estimated goals 3) Advance pt diet when medically feasible to a Cardiac diet modified per GARAGE DOOR SERVICE TECHNICIAN recommendations 4) Continue current plan of care Expected Outcomes/Goals: 1) Pt to receive nutrition support within 7 days of NPO status 2) Pt diet to advance 3) F/U in 2-3 days Sepsis reassessment post fluid Respiratory Effort: ET Tube Breath sounds: Clear, Diminished ALTA FRANKEL MD Mar 06, 2024 21:53
[2024-03-07] VITALS (110 sets, daily range): BP systolic 106–182; BP diastolic 27–89; PULSE 65–92; RESP 10–23; TEMP 97.9–99.1; O2SAT 90–100
[2024-03-07 03:47] LABS: Basophils # (auto) 0 10 ^3/uL (0-0.2); Basophils % (auto) 0.1 % (0.0-2.0); Eosinophils # (auto) 0 10 ^3/uL (0-0.8); Hematocrit 28.5 % (36.0-46.0); Hemoglobin 9.3 g/dL (12.2-16.2); Lymphocytes # (auto) 0.2 10 ^3/uL (0.4-5.4); Lymphocytes % (auto) 2.9 % (10.0-50.0); Mean Corpuscular Hgb Conc. 32.8 g/dL (32.0-36.0); Mean Corpuscular Volume 88.4 fL (80.0-100.0); Monocytes # (auto) 0.1 10 ^3/uL (0-1.3); Monocytes % (auto) 2.2 % (0.0-12.0); Neutrophils # (auto) 5.1 10 ^3/uL (1.6-8.6); Neutrophils % (auto) 94.8 % (37.0-80.0); Platelet Count (auto) 174 10^3/uL (140-450); Red Blood Cells 3.22 10^6/uL (4.0-5.20); Red Cell Distribution Width 17.6 % (11.8-14.3); White Blood Cell 5.4 10^3/uL (4.4-10.8)
[2024-03-07 04:02] LABS: INR 1.18 (0.9-1.15); Partial Thromboplastin Time 25.5 SEC (24.5-34.5); Prothrombin Time 12.4 sec (9.3-11.8)
[2024-03-07 04:05] LABS: Alanine Aminotransferase 33 U/L (7-40); Albumin 3.5 g/dL (3.2-4.8); Alkaline Phosphatase 94 U/L (46-116); Anion Gap 12 (5-15); Aspartate Aminotransferase 25 U/L (13-40); BUN/Creatinine Ratio 58.7 (10.0-20.0); Bilirubin, Total 1.1 mg/dL (0.2-1.0); Chloride 105 mmol/L (98-107); Potassium 3.6 mmol/L (3.5-5.1)
[2024-03-07 04:07] LABS: Blood Urea Nitrogen 74 mg/dL (9-23); Calcium 8.6 mg/dL (8.7-10.4); Carbon Dioxide 32 mmol/L (20-31); Glucose 126 mg/dL (74-106); Sodium 149 mmol/L (136-145); Total Protein 5.4 g/dL (5.7-8.2)
--- NOTE | 2024-03-07 05:41 | DVH ---
CHEST RADIOGRAPH Indication: intubated Technique: Single frontal view of the chest was obtained Comparison: XY CHEST XRAY 1 VIEW on DOS: 03/06/24, XY CHEST XRAY 1 VIEW on DOS: 03/05/24, XY CHEST PO RTABLE on DOS: 03/03/24 IMPRESSION: Heart appears prominent size with median sternotomy wires and prosthetic cardiac valve. Support line s and tubes appear unchanged in satisfactory position. Increased interstitial markings in the lung ba ses. No sizable effusion or pneumothorax.
[2024-03-07 08:07] LABS: Base Excess 7.3 mmol/L (-2.0-3.0)
--- NOTE | 2024-03-07 10:48 | DVHPN2 ---
Subjective Continue to be intubated and sedated Reviewed: Care Plan, H&P, Labs, Medications, Previous Orders, Radiology, Other (Consultations) Changes from previous H/P or p: No Changes Objective Vitals Vital Signs Date Time Temp Pulse Resp B/P (MAP) Pulse Ox O2 Delivery O2 Flow Rate FiO2 03/07/24 10:12 73 22 117/33 (61) 96 35 03/07/24 10:00 Mechanical Ventilator+ 03/07/24 08:00 98.7 98.7 Intake/Output Intake and Output 03/07/24 07:00 Intake Total 710.596 ml Output Total 2425 ml Balance -1714.404 ml Intake Oral 120 ml IV Total 590.596 ml Output Urine Total 2425 ml General Appearance: Other (Intubated and sedated) HEENT: Atraumatic Lungs: Other (Mechanical ventilation breathing sounds) Cardiovascular: Other (Irregularly irregular) Abdomen: Other (Hypoactive bowel sounds) Genitourinary: Other (Sam's catheter) Neuro: Other (Sedated) Psych/Mental Status: Other (Sedated) Medications Current Medications Medications Dose Ordered Sig/Sherwin Route Start Time Stop Time Status Last Admin Dose Admin Nitroglycerin 0.4 mg Q5MINP PRN SL 02/18/24 06:45 Morphine Sulfate 2 mg Q30M PRN IV 02/18/24 06:45 Ondansetron HCl 4 mg Q6HPRN PRN IV 02/18/24 06:45 Fentanyl Citrate 250 ml @ 2.5 mls/hr Q24H IV 02/18/24 11:15 03/07/24 09:06 20 MLS/HR Pantoprazole Sodium 40 mg DAILY IV 02/19/24 10:00 03/07/24 09:03 40 MG Labetalol HCl 10 mg Q4HPRN PRN IV 02/20/24 16:15 02/29/24 07:27 10 MG Acetaminophen 650 mg Q8HP PRN ME 02/21/24 11:30 02/25/24 05:54 650 MG Albuterol 2.5 mg Q4HR NEB 02/21/24 18:00 03/07/24 10:12 2.5 MG Ipratropium [place] 0.5 mg Q4HR NEB 02/21/24 18:00 03/07/24 10:12 0.5 MG Hydralazine HCl 10 mg Q4HR PRN IV 02/24/24 09:15 03/06/24 13:31 10 MG Midazolam HCl 5 mg [id number] PRN IV 02/24/24 10:00 02/25/24 08:15 5 MG Acetylcysteine 200 mg Q8HR IN 02/26/24 14:00 Cancel Acetylcysteine 200 mg Q8HR NEB 02/26/24 14:00 03/07/24 06:25 200 MG Budesonide 0.5 mg BID NEB 02/27/24 22:00 03/07/24 06:25 0.5 MG Amlodipine Besylate 10 mg DAILY PO 02/27/24 10:30 Hold 03/03/24 10:36 10 MG Enteral Nutritional Formula 1,000 ml 30ML/HR GT 02/28/24 08:45 03/04/24 19:01 1,000 ML Bisacodyl 10 mg DAILYP PRN ME 02/28/24 08:45 Norepinephrine Bitartrate 250 ml @ 3.75 mls/hr Q24H IV 02/28/24 19:15 03/03/24 19:17 7.5 MLS/HR Digoxin 0.125 mg DAILY PO 03/01/24 10:00 03/07/24 09:05 0.125 MG Lactulose 30 ml DAILYPRN PRN PO 02/29/24 12:00 Enoxaparin Sodium 70 mg DAILY SC 03/02/24 10:00 03/07/24 09:07 70 MG Dexmedetomidine HCl 400 mcg/ Dextrose 100 ml @ 3.52 mls/hr Q24H IV 03/02/24 19:45 03/03/24 03:23 3.52 MLS/HR Diltiazem HCl 100 ml @ 5 mls/hr Q20H IV 03/03/24 19:15 03/03/24 20:25 5 MLS/HR Midazolam HCl 50 ml @ 1 mls/hr Q24H IV 03/03/24 19:15 03/04/24 03:34 4 MLS/HR Propofol 100 ml @ 2.118 mls/ hr Q24H IV 03/03/24 19:45 03/07/24 07:54 14.826 MLS/HR Methylprednisolone Sodium Succinate 40 mg Q12HR IV 03/04/24 22:00 03/07/24 09:03 40 MG Metoprolol Tartrate 25 mg BID PO 03/04/24 22:00 03/07/24 09:02 25 MG Amiodarone HCl 200 mg Q12HR PO 03/05/24 10:30 03/07/24 09:04 200 MG Furosemide 40 mg BIDD IV 03/06/24 18:00 03/07/24 05:20 40 MG Laboratory Results Laboratory Tests 03/07/24 03:17 Chemistry Test 03/07/24 03:17 Albumin 3.5 g/dL (3.2-4.8) Calcium Level 8.6 mg/dL (8.7-10.4) L Total Protein 5.4 g/dL (5.7-8.2) L Coagulation Test 03/07/24 03:17 Prothrombin Time 12.4 sec (9.3-11.8) H Prothrombin Time INR 1.18 (0.9-1.15) H Activated Partial Thromboplast Time 25.5 SEC (24.5-34.5) LFT Test 03/07/24 03:17 Alanine Aminotransferase (ALT) 33 U/L (7-40) Alkaline Phosphatase 94 U/L (46-116) Aspartate Amino Transferase (AST) 25 U/L (13-40) Total Bilirubin 1.1 mg/dL (0.2-1.0) H Urinalysis Test 02/18/24 01:45 Urine Color Yellow (Yellow) Urine Clarity Clear (Clear) Urine pH 6.0 (5.0-9.0) Urine Specific [place] 1.016 (1.001-1.035) Urine Protein 3+ (Negative) H Urine Ketones Negative (Negative) Urine Blood 3+ /uL (Negative) H Urine Nitrite Negative (Negative) Urine Bilirubin Negative (Negative) Urine Urobilinogen Normal mg/dL (Negative) Urine Leukocyte Esterase Negative /uL (Negative) Urine RBC 23 /hpf (0 - 4) Urine WBC 9 /hpf (0 - 5) Urine Squamous Epithelial Cells Few /hpf (<5) Urine Amorphous Crystals Few /hpf (None Seen) Urine Bacteria Few /hpf (None Seen) H Urine Hyaline Casts Mod /lpf (0 - 2) Urine Mucus Few (None Seen) Urine Glucose 1+ mg/dL (Normal) H Blood Gas Results Test 03/07/24 07:31 Arterial Blood pH 7.478 (7.350-7.450) FiO2 % 35.0 Microbiology Microbiology Date/Time Source Procedure Growth Status 03/03/24 18:57 Sputum Gram Stain - Final Complete 03/03/24 18:57 Sputum Respiratory Culture - Final Complete 02/21/24 13:45 Blood Blood Culture - Final NO GROWTH AFTER 5 DAYS OF INCUBATION. Complete 02/18/24 11:00 Nose MRSA Screen - Final Complete Labs and/or images reviewed: Labs reviewed by me, Image(s) reviewed by me Assessment/Plan Assessment/Plan Covering Dr. Marshall/Dr. Samaniego: #Acute metabolic/toxic encephalopathy due to septic shock #Septic shock secondary to pneumonia #Community-acquired pneumonia #Acute hypoxic respiratory failure secondary to COPD exacerbation due to pneumonia #New onset anemia; most likely due to blood loss; stable hemoglobin #RAYMOND most likely vasomotor nephropathy on CKD stage III #Hyperkalemia due to RAYMOND on CKD #Atrial flutter/Atrial fibrillation #Status post mechanical mitral valve replacement Reviewed available imaging studies including chest x-rays Reviewed available lab studies including ABGs Continue oxygen therapy via mechanical ventilation as per pulmonology Continue anti arrhythmias treatment as per cardiology Continue IV pressors as indicated Avoid nephrotoxic agents and follow recommendations of nephrology Continue IV antibiotics Continue anticoagulation as per cardiology Continue close monitoring Goals of care discussed for 20 minutes; full code. 120 minutes of critical care time This medical document was created using an electronic medical record system with computerized dictation system. Although this document has been carefully reviewed, there might still be some phonetic and typographical errors. These areas are purely typographical due to imperfections of the software programs, and do not reflect any compromise in the patient's medical care. Plan discussed with: Spouse (By the nurse), Other (Nurse) Date of Service: Mar 07, 2024 Billing Provider: KENISHA JACOME MD Common Visit Codes: [id number] CARE 30-74 MIN (120 minutes), [id number] CARE-EACH +30MIN Secondary Visit Codes: [id number] CARE PLAN 30 MINUTES (20 minutes) KENISHA JACOME MD Mar 07, 2024 10:47
--- NOTE | 2024-03-07 14:22 | DVHPN2 ---
Progress Note - Dictate Date Seen: Mar 07, 2024 Medical Necessity Reason Pt with a Central, PICC or Fol: Yes The following are medically ne: Central Line, Mccord Catheter Reason for mccord catheter: Strict I&O, Total Immobilization Subjective Patient was seen and evaluated in follow up in the ICU. Patient is intubated and sedated on a ventilator. FiO2 35%. Family intially wanted to transitioned patient to comfort measures but have now decided for full code with trach and PEG tube with LTAC placement. Chest x-ray shows increased interstitial markings in the lung bases, no sizable effusion or pneumothorax. HGB 9.3, HCT 28.5, PT 12.4, INR 1.18, NA 149, CO2 32, BUN 74, VALIDATION MANAGER 1.26, CA 8.6. vital signs Vital Sign Date Time Temp Pulse Resp B/P (MAP) Pulse Ox O2 Delivery O2 Flow Rate FiO2 03/07/24 10:12 73 22 117/33 (61) 96 35 03/07/24 10:00 Mechanical Ventilator+ 03/07/24 08:00 98.7 98.7 Total Intake and Output 03/06/24 03/06/24 03/07/24 15:00 23:00 07:00 Intake Total 59.270 ml 314.164 ml 337.162 ml Output Total 1575 ml 850 ml Balance 59.270 ml -1260.836 ml -512.838 ml medications Current Medications Medications Dose Ordered Sig/Sherwin Route Start Time Stop Time Status Last Admin Dose Admin Nitroglycerin 0.4 mg Q5MINP PRN SL 02/18/24 06:45 Morphine Sulfate 2 mg Q30M PRN IV 02/18/24 06:45 Ondansetron HCl 4 mg Q6HPRN PRN IV 02/18/24 06:45 Fentanyl Citrate 250 ml @ 2.5 mls/hr Q24H IV 02/18/24 11:15 03/07/24 09:06 20 MLS/HR Pantoprazole Sodium 40 mg DAILY IV 02/19/24 10:00 03/07/24 09:03 40 MG Labetalol HCl 10 mg Q4HPRN PRN IV 02/20/24 16:15 02/29/24 07:27 10 MG Acetaminophen 650 mg Q8HP PRN [place] 02/21/24 11:30 02/25/24 05:54 650 MG Albuterol 2.5 mg Q4HR NEB 02/21/24 18:00 03/07/24 10:12 2.5 MG Ipratropium [place] 0.5 mg Q4HR NEB 02/21/24 18:00 03/07/24 10:12 0.5 MG Hydralazine HCl 10 mg Q4HR PRN IV 02/24/24 09:15 03/06/24 13:31 10 MG Midazolam HCl 5 mg [id number] PRN IV 02/24/24 10:00 02/25/24 08:15 5 MG Acetylcysteine 200 mg Q8HR [place] 02/26/24 14:00 Cancel Acetylcysteine 200 mg Q8HR NEB 02/26/24 14:00 03/07/24 06:25 200 MG Budesonide 0.5 mg BID NEB 02/27/24 22:00 03/07/24 06:25 0.5 MG Amlodipine Besylate 10 mg DAILY PO 02/27/24 10:30 Hold 03/03/24 10:36 10 MG Enteral Nutritional Formula 1,000 ml 30ML/HR GT 02/28/24 08:45 03/04/24 19:01 1,000 ML Bisacodyl 10 mg DAILYP PRN [place] 02/28/24 08:45 Norepinephrine Bitartrate 250 ml @ 3.75 mls/hr Q24H IV 02/28/24 19:15 03/03/24 19:17 7.5 MLS/HR Digoxin 0.125 mg DAILY PO 03/01/24 10:00 03/07/24 09:05 0.125 MG Lactulose 30 ml DAILYPRN PRN PO 02/29/24 12:00 Enoxaparin Sodium 70 mg DAILY SC 03/02/24 10:00 03/07/24 09:07 70 MG Dexmedetomidine HCl 400 mcg/ Dextrose 100 ml @ 3.52 mls/hr Q24H IV 03/02/24 19:45 03/03/24 03:23 3.52 MLS/HR Diltiazem HCl 100 ml @ 5 mls/hr Q20H IV 03/03/24 19:15 03/03/24 20:25 5 MLS/HR Midazolam HCl 50 ml @ 1 mls/hr Q24H IV 03/03/24 19:15 03/04/24 03:34 4 MLS/HR Propofol 100 ml @ 2.118 mls/ hr Q24H IV 03/03/24 19:45 03/07/24 07:54 14.826 MLS/HR Methylprednisolone Sodium Succinate 40 mg Q12HR IV 03/04/24 22:00 03/07/24 09:03 40 MG Metoprolol Tartrate 25 mg BID PO 03/04/24 22:00 03/07/24 09:02 25 MG Amiodarone HCl 200 mg Q12HR PO 03/05/24 10:30 03/07/24 09:04 200 MG Furosemide 40 mg BIDD IV 03/06/24 18:00 03/07/24 05:20 40 MG objective GENERAL: Intubated on ventilator. LUNGS: Decreased breath sounds. CARDIOVASCULAR: Heart sounds are good. ABDOMEN: Soft. laboratory and microbiology Laboratory Tests 03/07/24 03:17 Test 03/07/24 03:17 Range/Units Serum Glucose 126 H 74-106 mg/dL Problem List Acute on chronic hypoxic respiratory failure. Ventilator dependence with failure of CPAP/extubation. COPD with probable exacerbation. History of multiple intubations. History of mitral valve replacement, bioprosthetic. Atrial fibrillation. Primary hypertension. Anemia. Acute probable vasomotor nephropathy. Hyperkalemia. Assessment/Plan Continued all current supportive medical care. Amiodarone. Amlodipine. Digoxin. IV antibiotics as ordered. DVT and GI prophylactics. Vasopressors for hemodynamic support. Additional plan as per the hospital course. Critical care time of 45 minutes provided to include time spent evaluation of patient at bedside, when appropriate patient/family education for diagnosis, treatment plan, review of pertinent medical information and discussion of care with specialty providers and PCP. Mechanical ventilator parameters, treatment and adjustments have personally been reviewed by me and treatment plan by coffee weigher has also been reviewed. Dietary Evaluation Review Recommendations by RD: Dietary education by RD Comments: 1) If GI is accessible consider Pivot 1.5 @ 55 ml/hr x24 hr goal rate as tolerated 2) If pt remains NPO >7 days consider TPN to meet at least 75% of estimated goals 3) Advance pt diet when medically feasible to a Cardiac diet modified per GEOTHERMAL OPERATING ENGINEER recommendations 4) Continue current plan of care Expected Outcomes/Goals: 1) Pt to receive nutrition support within 7 days of NPO status 2) Pt diet to advance 3) F/U in 2-3 days Plan discussed with: Other Respiratory Effort: ET Tube Breath sounds: Clear, Diminished LUKE ARIZMENDI MD Mar 07, 2024 12:04
--- NOTE | 2024-03-07 19:07 | PRN ---
Misceleneous Note Note Note 03/07/2024 Subjective: No significant changes. Patient awaiting G-tube placement. Consent has been obtained from the family. Current Medications Medications (Trade) Dose Ordered Sig/Sherwin Route Start Time Stop Time Status Last Admin Dose Admin Nitroglycerin (Ntrostat Sublingual) 0.4 mg Q5MINP PRN SL 02/18/24 06:45 Morphine Sulfate 2 mg Q30M PRN IV 02/18/24 06:45 Ondansetron HCl (Zofran) 4 mg Q6HPRN PRN IV 02/18/24 06:45 Fentanyl Citrate 250 ml @ 2.5 mls/hr Q24H IV 02/18/24 11:15 03/07/24 09:06 20 MLS/HR Pantoprazole Sodium (Protonix) 40 mg DAILY IV 02/19/24 10:00 03/07/24 09:03 40 MG Labetalol HCl (Labetalol HCl) 10 mg Q4HPRN PRN IV 02/20/24 16:15 02/29/24 07:27 10 MG Acetaminophen (Tylenol Suppository) 650 mg Q8HP PRN [place] 02/21/24 11:30 02/25/24 05:54 650 MG Albuterol (Ventolin Medneb) 2.5 mg Q4HR NEB 02/21/24 18:00 03/07/24 18:22 2.5 MG Ipratropium [place] (Atrovent Medneb) 0.5 mg Q4HR NEB 02/21/24 18:00 03/07/24 18:22 0.5 MG Hydralazine HCl (Apresoline Injection) 10 mg Q4HR PRN IV 02/24/24 09:15 03/06/24 13:31 10 MG Midazolam HCl (Versed Injection) 5 mg [id number] PRN IV 02/24/24 10:00 02/25/24 08:15 5 MG Acetylcysteine (Mucomyst Inahalation 10%) 200 mg Q8HR IN 02/26/24 14:00 Cancel Acetylcysteine (Mucomyst Inhalation 20%) 200 mg Q8HR NEB 02/26/24 14:00 03/07/24 14:10 200 MG Budesonide (Pulmicort) 0.5 mg BID NEB 02/27/24 22:00 03/07/24 06:25 0.5 MG Amlodipine Besylate (Norvasc Tablet) 10 mg DAILY PO 02/27/24 10:30 Hold 03/03/24 10:36 10 MG Enteral Nutritional Formula (Nepro With Carb Steady) 1,000 ml 30ML/HR GT 02/28/24 08:45 03/04/24 19:01 1,000 ML Bisacodyl (Dulcolax Suppository) 10 mg DAILYP PRN [place] 02/28/24 08:45 Norepinephrine Bitartrate 250 ml @ 3.75 mls/hr Q24H IV 02/28/24 19:15 03/03/24 19:17 7.5 MLS/HR Digoxin (Lanoxin Tablet) 0.125 mg DAILY PO 03/01/24 10:00 03/07/24 09:05 0.125 MG Lactulose 30 ml DAILYPRN PRN PO 02/29/24 12:00 Enoxaparin Sodium (Lovenox) 70 mg DAILY SC 03/02/24 10:00 03/07/24 09:07 70 MG Dexmedetomidine HCl 400 mcg/ Dextrose 100 ml @ 3.52 mls/hr Q24H IV 03/02/24 19:45 03/03/24 03:23 3.52 MLS/HR Diltiazem HCl 100 ml @ 5 mls/hr Q20H IV 03/03/24 19:15 03/03/24 20:25 5 MLS/HR Midazolam HCl 50 ml @ 1 mls/hr Q24H IV 03/03/24 19:15 03/04/24 03:34 4 MLS/HR Propofol 100 ml @ 2.118 mls/ hr Q24H IV 03/03/24 19:45 03/07/24 12:51 14.826 MLS/HR Methylprednisolone Sodium Succinate (Solu Medrol) 40 mg Q12HR IV 03/04/24 22:00 03/07/24 09:03 40 MG Metoprolol Tartrate (Lopressor Tablet) 25 mg BID PO 03/04/24 22:00 03/07/24 09:02 25 MG Amiodarone HCl (Cordarone Tablet) 200 mg Q12HR PO 03/05/24 10:30 03/07/24 09:04 200 MG Furosemide (Lasix Injection) 40 mg BIDD IV 03/06/24 18:00 03/07/24 17:32 40 MG Vital Signs Date Time Temp Pulse Resp B/P (MAP) Pulse Ox O2 Delivery O2 Flow Rate FiO2 03/07/24 18:45 82 22 151/51 (84) 95 03/07/24 18:22 35 03/07/24 18:00 Mechanical Ventilator+ 03/07/24 16:00 98.5 98.5 Physical exam: General: Intubated sedated Head: NC/AT, EOMI, PERRLA oropharynx clear Heart: Regular rate and rhythm Abdomen: Soft nontender nondistended Extremity: No clubbing cyanosis edema Labs: Reviewed Assessment: 1. Respiratory failure, G-tube request 2. Anemia Plan: 1. Will schedule for EGD with G-tube placement 2. Check PT INR 3. Hold Lovenox tomorrow morning NANDO GARCIA MD Mar 07, 2024 19:07
--- NOTE | 2024-03-07 19:39 | DVHPN2 ---
Progress Note Date Seen: Mar 07, 2024 Medical Necessity Reason Pt with a Central, PICC or Fol: Yes The following are medically ne: Central Line, Mccord Catheter Reason for mccord catheter: Strict I&O, Total Immobilization Subjective Patient reports: Other (No events) Review of Systems: Deferred Objective vital signs Vital Sign Date Time Temp Pulse Resp B/P (MAP) Pulse Ox O2 Delivery O2 Flow Rate FiO2 03/07/24 18:45 82 22 151/51 (84) 95 03/07/24 18:22 35 03/07/24 18:00 Mechanical Ventilator+ 03/07/24 16:00 98.5 98.5 Total Intake and Output 03/06/24 03/06/24 03/07/24 15:00 23:00 07:00 Intake Total 59.270 ml 314.164 ml 337.162 ml Output Total 1575 ml 850 ml Balance 59.270 ml -1260.836 ml -512.838 ml medications Current Medications Medications Dose Ordered Sig/Sherwin Route Start Time Stop Time Status Last Admin Dose Admin Nitroglycerin 0.4 mg Q5MINP PRN SL 02/18/24 06:45 Morphine Sulfate 2 mg Q30M PRN IV 02/18/24 06:45 Ondansetron HCl 4 mg Q6HPRN PRN IV 02/18/24 06:45 Fentanyl Citrate 250 ml @ 2.5 mls/hr Q24H IV 02/18/24 11:15 03/07/24 09:06 20 MLS/HR Pantoprazole Sodium 40 mg DAILY IV 02/19/24 10:00 03/07/24 09:03 40 MG Labetalol HCl 10 mg Q4HPRN PRN IV 02/20/24 16:15 02/29/24 07:27 10 MG Acetaminophen 650 mg Q8HP PRN [place] 02/21/24 11:30 02/25/24 05:54 650 MG Albuterol 2.5 mg Q4HR NEB 02/21/24 18:00 03/07/24 18:22 2.5 MG Ipratropium [place] 0.5 mg Q4HR NEB 02/21/24 18:00 03/07/24 18:22 0.5 MG Hydralazine HCl 10 mg Q4HR PRN IV 02/24/24 09:15 03/06/24 13:31 10 MG Midazolam HCl 5 mg [id number] PRN IV 02/24/24 10:00 02/25/24 08:15 5 MG Acetylcysteine 200 mg Q8HR IN 02/26/24 14:00 Cancel Acetylcysteine 200 mg Q8HR NEB 02/26/24 14:00 03/07/24 14:10 200 MG Budesonide 0.5 mg BID NEB 02/27/24 22:00 03/07/24 06:25 0.5 MG Amlodipine Besylate 10 mg DAILY PO 02/27/24 10:30 Hold 03/03/24 10:36 10 MG Enteral Nutritional Formula 1,000 ml 30ML/HR GT 02/28/24 08:45 03/04/24 19:01 1,000 ML Bisacodyl 10 mg DAILYP PRN [place] 02/28/24 08:45 Norepinephrine Bitartrate 250 ml @ 3.75 mls/hr Q24H IV 02/28/24 19:15 03/03/24 19:17 7.5 MLS/HR Digoxin 0.125 mg DAILY PO 03/01/24 10:00 03/07/24 09:05 0.125 MG Lactulose 30 ml DAILYPRN PRN PO 02/29/24 12:00 Enoxaparin Sodium 70 mg DAILY SC 03/02/24 10:00 03/07/24 09:07 70 MG Dexmedetomidine HCl 400 mcg/ Dextrose 100 ml @ 3.52 mls/hr Q24H IV 03/02/24 19:45 03/03/24 03:23 3.52 MLS/HR Diltiazem HCl 100 ml @ 5 mls/hr Q20H IV 03/03/24 19:15 03/03/24 20:25 5 MLS/HR Midazolam HCl 50 ml @ 1 mls/hr Q24H IV 03/03/24 19:15 03/04/24 03:34 4 MLS/HR Propofol 100 ml @ 2.118 mls/ hr Q24H IV 03/03/24 19:45 03/07/24 12:51 14.826 MLS/HR Methylprednisolone Sodium Succinate 40 mg Q12HR IV 03/04/24 22:00 03/07/24 09:03 40 MG Metoprolol Tartrate 25 mg BID PO 03/04/24 22:00 03/07/24 09:02 25 MG Amiodarone HCl 200 mg Q12HR PO 03/05/24 10:30 03/07/24 09:04 200 MG Furosemide 40 mg BIDD IV 03/06/24 18:00 03/07/24 17:32 40 MG Examination: LUNGS:Abnormal, MSK:Abnormal, SKIN:Abnormal, NEURO:Abnormal laboratory and microbiology Laboratory Tests 03/07/24 03:17 Test 03/07/24 03:17 Range/Units Serum Glucose 126 H 74-106 mg/dL Microbiology Date/Time Source Procedure Growth Status 03/03/24 18:57 Sputum Gram Stain - Final Complete 03/03/24 18:57 Sputum Respiratory Culture - Final Complete 02/21/24 13:45 Blood Blood Culture - Final NO GROWTH AFTER 5 DAYS OF INCUBATION. Complete 02/18/24 11:00 Nose MRSA Screen - Final Complete Problem List/Assessment/Plan Problem List/Assessment/Plan Acute kidney injury superimposed Chronic Kidney Disease secondary hemodynamic mediated Acute respiratory failure , extubated and then reintubated COPD exacerbation Acute anemia unspecified Pneumonia Mild hypernatremia recs BUN high secondary to steroids / Lasix Lasix 40 mg IV bid daily +edema Plan discussed with: Other Dietary Evaluation Review Recommendations by RD: Dietary education by RD Comments: 1) If GI is accessible consider Pivot 1.5 @ 55 ml/hr x24 hr goal rate as tolerated 2) If pt remains NPO >7 days consider TPN to meet at least 75% of estimated goals 3) Advance pt diet when medically feasible to a Cardiac diet modified per APARTMENT RENTAL CLERK recommendations 4) Continue current plan of care Expected Outcomes/Goals: 1) Pt to receive nutrition support within 7 days of NPO status 2) Pt diet to advance 3) F/U in 2-3 days Sepsis reassessment post fluid Respiratory Effort: ET Tube Breath sounds: Clear, Diminished ALTA FRANKEL MD Mar 07, 2024 19:39
--- NOTE | 2024-03-07 23:47 | DVHPN2 ---
Progress Note - Dictate Date Seen: Mar 07, 2024 Medical Necessity Reason Pt with a Central, PICC or Fol: Yes The following are medically ne: Central Line, Mccord Catheter Reason for mccord catheter: Strict I&O, Total Immobilization Subjective Patient seen and examined at bedside. Sedated, intubated on mechanical ventilator. Overnight events reviewed. vital signs Vital Sign Date Time Temp Pulse Resp B/P (MAP) Pulse Ox O2 Delivery O2 Flow Rate FiO2 03/07/24 23:00 88 22 135/51 (79) 94 03/07/24 22:06 35 03/07/24 22:00 Mechanical Ventilator+ 03/07/24 20:01 98.3 98.3 Total Intake and Output 03/06/24 03/06/24 03/07/24 15:00 23:00 07:00 Intake Total 59.270 ml 314.164 ml 337.162 ml Output Total 1575 ml 850 ml Balance 59.270 ml -1260.836 ml -512.838 ml medications Current Medications Medications Dose Ordered Sig/Sherwin Route Start Time Stop Time Status Last Admin Dose Admin Nitroglycerin 0.4 mg Q5MINP PRN SL 02/18/24 06:45 Morphine Sulfate 2 mg Q30M PRN IV 02/18/24 06:45 Ondansetron HCl 4 mg Q6HPRN PRN IV 02/18/24 06:45 Fentanyl Citrate 250 ml @ 2.5 mls/hr Q24H IV 02/18/24 11:15 03/07/24 20:12 20 MLS/HR Pantoprazole Sodium 40 mg DAILY IV 02/19/24 10:00 03/07/24 09:03 40 MG Labetalol HCl 10 mg Q4HPRN PRN IV 02/20/24 16:15 02/29/24 07:27 10 MG Acetaminophen 650 mg Q8HP PRN [place] 02/21/24 11:30 02/25/24 05:54 650 MG Albuterol 2.5 mg Q4HR NEB 02/21/24 18:00 03/07/24 22:05 2.5 MG Ipratropium [place] 0.5 mg Q4HR NEB 02/21/24 18:00 03/07/24 22:05 0.5 MG Hydralazine HCl 10 mg Q4HR PRN IV 02/24/24 09:15 03/06/24 13:31 10 MG Midazolam HCl 5 mg [id number] PRN IV 02/24/24 10:00 02/25/24 08:15 5 MG Acetylcysteine 200 mg Q8HR IN 02/26/24 14:00 Cancel Acetylcysteine 200 mg Q8HR NEB 02/26/24 14:00 03/07/24 22:05 200 MG Budesonide 0.5 mg BID NEB 02/27/24 22:00 03/07/24 22:05 0.5 MG Amlodipine Besylate 10 mg DAILY PO 02/27/24 10:30 Hold 03/03/24 10:36 10 MG Enteral Nutritional Formula 1,000 ml 30ML/HR GT 02/28/24 08:45 03/04/24 19:01 1,000 ML Bisacodyl 10 mg DAILYP PRN [place] 02/28/24 08:45 Norepinephrine Bitartrate 250 ml @ 3.75 mls/hr Q24H IV 02/28/24 19:15 03/03/24 19:17 7.5 MLS/HR Digoxin 0.125 mg DAILY PO 03/01/24 10:00 03/07/24 09:05 0.125 MG Lactulose 30 ml DAILYPRN PRN PO 02/29/24 12:00 Enoxaparin Sodium 70 mg DAILY SC 03/02/24 10:00 03/07/24 09:07 70 MG Dexmedetomidine HCl 400 mcg/ Dextrose 100 ml @ 3.52 mls/hr Q24H IV 03/02/24 19:45 03/03/24 03:23 3.52 MLS/HR Diltiazem HCl 100 ml @ 5 mls/hr Q20H IV 03/03/24 19:15 03/03/24 20:25 5 MLS/HR Midazolam HCl 50 ml @ 1 mls/hr Q24H IV 03/03/24 19:15 03/04/24 03:34 4 MLS/HR Propofol 100 ml @ 2.118 mls/ hr Q24H IV 03/03/24 19:45 03/07/24 20:07 14.826 MLS/HR Methylprednisolone Sodium Succinate 40 mg Q12HR IV 03/04/24 22:00 03/07/24 22:07 40 MG Metoprolol Tartrate 25 mg BID PO 03/04/24 22:00 03/07/24 22:07 25 MG Amiodarone HCl 200 mg Q12HR PO 03/05/24 10:30 03/07/24 22:07 200 MG Furosemide 40 mg BIDD IV 03/06/24 18:00 03/07/24 17:32 40 MG objective Gen.: Patient lying in bed in medical ICU. Sedated, intubated on mechanical ventilator. Head: Normocephalic, atraumatic. Eyes: PERRLA. Ears: Normal external anatomy. Throat: Endotracheal tube and orogastric tube in place. Neck: Supple, trachea midline. Chest: Transmitted breath sounds bilaterally. Decreased air entry bilaterally. No wheezing. Bibasilar crackles. Cardiovascular: Positive S1, positive S2. Regular rate and rhythm. Abdomen: Positive bowel sounds in all 4 quadrants. Soft, nontender, nondistended. : Mccord in place. Normal external genitalia. Rectal: Deferred. Skin: Warm, dry. Intact. Extremities: 2+ radial pulses bilaterally. No lower extremity edema. Neuro: Sedated. laboratory and microbiology Laboratory Tests 03/07/24 03:17 Test 03/07/24 03:17 Range/Units Serum Glucose 126 H 74-106 mg/dL Assessment/Plan Impression: Acute hypoxic respiratory failure On mechanical ventilator Mitral valve replacement Pneumonia, likely gram negative. COPD Congestive heart failure Atrial fibrillation Events: Remains on vent support On AC mode; RR 22, VT 450, PEEP 5, FiO2 35%. ABG reviewed, notable for alkalemia. CXR demonstrates increased interstitial markings in the lung bases. No sizable effusion or pneumothorax. Sedated on Propofol and Fentanyl. Plan for PEG tube in the AM. Awaiting family decision on trach. Continue bronchodilators On amiodarone drip + Digoxin Tube feeds for nutritional support- Nepro Continue to monitor closely. Labs and imaging reviewed. Rest of plan as noted below. Plan: s/p intubation on mechanical ventilator. ABG reviewed, compensated. On AC mode; RR 22, VT 450, PEEP 5, FiO2 35%. Titrate FIO2 to keep O2 saturation above 90%. VAP bundle. Daily ABG and CXR while intubated Sedated for ventilator synchrony- On Propofol and Fentanyl. Continue antibiotics. F/u cultures. Start pressors if necessary to maintain a mean arterial blood pressure greater than 65 mmHg. Heparin drip Tube feeds for nutritional support Patient failed CPAP - lasted 20 minutes Plan for CPAP trial in AM. Monitor renal function Monitor electrolytes. Supplement as necessary. Monitor ins and outs. Maintain euvolemia. GI prophylaxis. DVT prophylaxis. Prognosis: Poor given patient's multiple co-morbidities. Condition: Critical Rest of plan per hospitalist and other consultants. A total of 35 minutes of critical care time was spent reviewing the patient record, examining the patient, making a diagnostic and therapeutic plan, discussing this plan with the medical personnel, following up on diagnostic studies and following the patient for clinical stability excluding any and all procedures. At least 50% of this time was spent in direct, [id number] contact. Thank you Dr. Flakita Khan MD, for allowing me to participate in this patient's care. Further recommendations will depend on the patient's clinical course. Please do not hesitate to contact me if you have any questions or concerns. This medical document was created using an electronic medical record system with [employer] dictation system. Although these documentations are being carefully reviewed, there may still be some phonetic and typographical changes. The errors are purely typographical, due to imperfection on the software program, and do not reflect any compromise in the patient's medical care. Dietary Evaluation Review Recommendations by RD: Dietary education by RD Comments: 1) If GI is accessible consider Pivot 1.5 @ 55 ml/hr x24 hr goal rate as tolerated 2) If pt remains NPO >7 days consider TPN to meet at least 75% of estimated goals 3) Advance pt diet when medically feasible to a Cardiac diet modified per DATABASE SOFTWARE TECHNICIAN recommendations 4) Continue current plan of care Expected Outcomes/Goals: 1) Pt to receive nutrition support within 7 days of NPO status 2) Pt diet to advance 3) F/U in 2-3 days Plan discussed with: Other (JULIOCESAR Giang) Critical Care Time(min): 35 Respiratory Effort: ET Tube Breath sounds: Clear, Diminished PRAVEEN NGUYEN MD Mar 07, 2024 23:47
[2024-03-08] VITALS (111 sets, daily range): BP systolic 85–175; BP diastolic 31–68; PULSE 41–92; RESP 9–24; TEMP 97.7–99.1; O2SAT 91–100
[2024-03-08 04:03] LABS: Hematocrit 27.7 % (36.0-46.0); Mean Corpuscular Hemoglobin 28.8 pg (28.0-32.0); Mean Corpuscular Hgb Conc. 32.5 g/dL (32.0-36.0); Mean Corpuscular Volume 88.6 fL (80.0-100.0); Platelet Count (auto) 194 10^3/uL (140-450); Red Blood Cells 3.13 10^6/uL (4.0-5.20); Red Cell Distribution Width 18.4 % (11.8-14.3); White Blood Cell 7.3 10^3/uL (4.4-10.8)
[2024-03-08 04:12] LABS: Band Neutrophils % (manual) 0
[2024-03-08 04:13] LABS: Basophils % (manual) 0 (0.0-2.0); Blast Cells 0; Eosinophils % (manual) 0 (0-7); Metamyelocytes % 0; Myelocytes % 0; Promyelocytes % 0; Reactive Lymphocytes 0
[2024-03-08 04:29] LABS: Alanine Aminotransferase 38 U/L (7-40); Albumin 3.3 g/dL (3.2-4.8); Alkaline Phosphatase 85 U/L (46-116); Anion Gap 13 (5-15); Aspartate Aminotransferase 29 U/L (13-40); BUN/Creatinine Ratio 56.3 (10.0-20.0); Carbon Dioxide 30 mmol/L (20-31); Magnesium 2.5 mg/dL (1.6-2.6); Potassium 3.6 mmol/L (3.5-5.1)
[2024-03-08 04:34] LABS: Bilirubin, Total 1.3 mg/dL (0.2-1.0); Blood Urea Nitrogen 67 mg/dL (9-23); Calcium 8.5 mg/dL (8.7-10.4); Chloride 109 mmol/L (98-107); Glucose 128 mg/dL (74-106); Sodium 152 mmol/L (136-145); Total Protein 5.1 g/dL (5.7-8.2)
[2024-03-08 05:10] LABS: Lymphocytes % (manual) 1 (10.0-50.0); Monocytes % (manual) 2 (0-12); Platelet Estimate Adequate
--- NOTE | 2024-03-08 07:55 | DVH ---
XY CHEST PORTABLE, HISTORY: Intubated. Thank You! COMPARISON: XY CHEST XRAY 1 VIEW on DOS: 03/07/24, XY CHEST XRAY 1 VIEW on DOS: 03/06/24, XY CHEST XR AY 1 VIEW on DOS: 03/05/24 XY CHEST XRAY 1 VIEW on DOS: 03/07/24, XY CHEST XRAY 1 VIEW on DOS: 03/06/24, XY CHEST XRAY 1 VIEW on DOS: 03/05/24 TECHNICAL DATA: 1 view of the chest was obtained. FINDINGS: Lines and tubes: ET in the mid thoracic trachea. NG in the stomach. Right CVC in the RA. Cardiomediastinal silhouette: normal Pulmonary vasculature: Prominent Lung expansion: normal Lung airspace: normal Lung interstitium: Prominent Pleura: normal Pneumothorax: no Bones: Unremarkable Other: Sternotomy wires and prosthetic heart valve seen. IMPRESSION: Lines and tubes, in stable position. Similar lung aeration bilaterally.
[2024-03-08] MEDS ORDERED: LIDOCAINE 2%HCL (LOCAL ANESTH.) INJ 20ML MDV ONE (07:58)
[2024-03-08] MEDS ORDERED: SODIUM CHLORIDE LOCK 10 ML ONE (07:58)
[2024-03-08] MEDS ORDERED: fentaNYL CITRATE 100 MCG/2 ML VL ONE (07:58)
[2024-03-08] MEDS: FREE WATER GT SCH (08:17)
[2024-03-08 08:27] LABS: Base Excess 7.7 mmol/L (-2.0-3.0)
--- NOTE | 2024-03-08 09:28 | ECG ---
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
--- NOTE | 2024-03-08 09:29 | ECG ---
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
--- NOTE | 2024-03-08 10:52 | ECG ---
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
--- NOTE | 2024-03-08 15:18 | DVHPN2 ---
Subjective Continue to be intubated and sedated; G-tube insertion planned for today Reviewed: Care Plan, H&P, Labs, Medications, Previous Orders, Radiology, Other (Consultations) Changes from previous H/P or p: No Changes Objective Vitals Vital Signs Date Time Temp Pulse Resp B/P (MAP) Pulse Ox O2 Delivery O2 Flow Rate FiO2 03/08/24 14:15 65 22 150/56 (87) 95 03/08/24 14:11 35 03/08/24 14:00 Mechanical Ventilator+ 03/08/24 12:00 98.4 98.4 Intake/Output Intake and Output 03/08/24 07:00 Intake Total 923.260 ml Output Total 1875 ml Balance -951.740 ml Intake Oral 120 ml IV Total 803.260 ml Tube Feeding 0 ml Output Urine Total 1875 ml Stool Total 0 ml General Appearance: Other (Intubated and sedated) HEENT: Atraumatic Lungs: Other (Mechanical ventilation breathing sounds) Cardiovascular: Other (Irregularly irregular) Abdomen: Other (Hypoactive bowel sounds) Genitourinary: Other (Sam's catheter) Neuro: Other (Sedated) Psych/Mental Status: Other (Sedated) Medications Current Medications Medications Dose Ordered Sig/Sherwin Route Start Time Stop Time Status Last Admin Dose Admin Nitroglycerin 0.4 mg Q5MINP PRN SL 02/18/24 06:45 Ondansetron HCl 4 mg Q6HPRN PRN IV 02/18/24 06:45 Pantoprazole Sodium 40 mg DAILY IV 02/19/24 10:00 03/08/24 08:23 40 MG Labetalol HCl 10 mg Q4HPRN PRN IV 02/20/24 16:15 02/29/24 07:27 10 MG Acetaminophen 650 mg Q8HP PRN [place] 02/21/24 11:30 02/25/24 05:54 650 MG Albuterol 2.5 mg Q4HR NEB 02/21/24 18:00 03/08/24 14:08 2.5 MG Ipratropium [place] 0.5 mg Q4HR NEB 02/21/24 18:00 03/08/24 14:08 0.5 MG Hydralazine HCl 10 mg Q4HR PRN IV 02/24/24 09:15 03/06/24 13:31 10 MG Midazolam HCl 5 mg [id number] PRN IV 02/24/24 10:00 02/25/24 08:15 5 MG Acetylcysteine 200 mg Q8HR IN 02/26/24 14:00 Cancel Acetylcysteine 200 mg Q8HR NEB 02/26/24 14:00 03/08/24 14:08 200 MG Budesonide 0.5 mg BID NEB 02/27/24 22:00 03/08/24 06:26 0.5 MG Amlodipine Besylate 10 mg DAILY PO 02/27/24 10:30 Hold 03/03/24 10:36 10 MG Enteral Nutritional Formula 1,000 ml 30ML/HR GT 02/28/24 08:45 03/04/24 19:01 1,000 ML Bisacodyl 10 mg DAILYP PRN [place] 02/28/24 08:45 Norepinephrine Bitartrate 250 ml @ 3.75 mls/hr Q24H IV 02/28/24 19:15 03/03/24 19:17 7.5 MLS/HR Digoxin 0.125 mg DAILY PO 03/01/24 10:00 03/08/24 08:17 0.125 MG Lactulose 30 ml DAILYPRN PRN PO 02/29/24 12:00 Enoxaparin Sodium 70 mg DAILY SC 03/02/24 10:00 03/07/24 09:07 70 MG Dexmedetomidine HCl 400 mcg/ Dextrose 100 ml @ 3.52 mls/hr Q24H IV 03/02/24 19:45 03/03/24 03:23 3.52 MLS/HR Diltiazem HCl 100 ml @ 5 mls/hr Q20H IV 03/03/24 19:15 03/03/24 20:25 5 MLS/HR Midazolam HCl 50 ml @ 1 mls/hr Q24H IV 03/03/24 19:15 03/04/24 03:34 4 MLS/HR Methylprednisolone Sodium Succinate 40 mg Q12HR IV 03/04/24 22:00 03/08/24 08:23 40 MG Metoprolol Tartrate 25 mg BID PO 03/04/24 22:00 03/08/24 10:24 25 MG Amiodarone HCl 200 mg Q12HR PO 03/05/24 10:30 03/08/24 08:16 200 MG Furosemide 40 mg BIDD IV 03/06/24 18:00 03/08/24 05:37 40 MG Purified Water 250 ml Q6HR GT 03/08/24 12:00 03/08/24 08:17 250 ML Propofol 100 ml @ 2.016 mls/ hr Q24H IV 03/08/24 12:30 Fentanyl Citrate 250 ml @ 2.5 mls/hr Q24H IV 03/08/24 12:30 Laboratory Results Laboratory Tests 03/08/24 03:19 Chemistry Test 03/08/24 03:19 Albumin 3.3 g/dL (3.2-4.8) Calcium Level 8.5 mg/dL (8.7-10.4) L Magnesium Level 2.5 mg/dL (1.6-2.6) Total Protein 5.1 g/dL (5.7-8.2) L LFT Test 03/08/24 03:19 Alanine Aminotransferase (ALT) 38 U/L (7-40) Alkaline Phosphatase 85 U/L (46-116) Aspartate Amino Transferase (AST) 29 U/L (13-40) Total Bilirubin 1.3 mg/dL (0.2-1.0) H Urinalysis Test 02/18/24 01:45 Urine Color Yellow (Yellow) Urine Clarity Clear (Clear) Urine pH 6.0 (5.0-9.0) Urine Specific [place] 1.016 (1.001-1.035) Urine Protein 3+ (Negative) H Urine Ketones Negative (Negative) Urine Blood 3+ /uL (Negative) H Urine Nitrite Negative (Negative) Urine Bilirubin Negative (Negative) Urine Urobilinogen Normal mg/dL (Negative) Urine Leukocyte Esterase Negative /uL (Negative) Urine RBC 23 /hpf (0 - 4) Urine WBC 9 /hpf (0 - 5) Urine Squamous Epithelial Cells Few /hpf (<5) Urine Amorphous Crystals Few /hpf (None Seen) Urine Bacteria Few /hpf (None Seen) H Urine Hyaline Casts Mod /lpf (0 - 2) Urine Mucus Few (None Seen) Urine Glucose 1+ mg/dL (Normal) H Blood Gas Results Test 03/08/24 07:35 Arterial Blood pH 7.507 (7.350-7.450) FiO2 % 35.0 Microbiology Microbiology Date/Time Source Procedure Growth Status 03/03/24 18:57 Sputum Gram Stain - Final Complete 03/03/24 18:57 Sputum Respiratory Culture - Final Complete 02/21/24 13:45 Blood Blood Culture - Final NO GROWTH AFTER 5 DAYS OF INCUBATION. Complete 02/18/24 11:00 Nose MRSA Screen - Final Complete Labs and/or images reviewed: Labs reviewed by me, Image(s) reviewed by me Assessment/Plan Assessment/Plan Covering Dr. Marshall/Dr. Samaniego: #Acute metabolic/toxic encephalopathy due to septic shock #Septic shock secondary to pneumonia #Community-acquired pneumonia #Acute hypoxic respiratory failure secondary to COPD exacerbation due to pneumonia #New onset anemia; most likely due to blood loss; stable hemoglobin #RAYMOND most likely vasomotor nephropathy on CKD stage III #Hyperkalemia due to RAYMOND on CKD #Atrial flutter/Atrial fibrillation #Status post mechanical mitral valve replacement Reviewed available imaging studies including chest x-rays Reviewed available lab studies including ABGs Continue oxygen therapy via mechanical ventilation as per pulmonology Continue anti arrhythmias treatment as per cardiology Continue IV pressors as indicated Avoid nephrotoxic agents and follow recommendations of nephrology Continue IV antibiotics Continue anticoagulation as per cardiology G-tube placement planned for today Continue close monitoring 60 minutes of critical care time Late Entry This medical document was created using an electronic medical record system with computerized dictation system. Although this document has been carefully reviewed, there might still be some phonetic and typographical errors. These areas are purely typographical due to imperfections of the software programs, and do not reflect any compromise in the patient's medical care. Plan discussed with: Other (Patient's niece; nurse) My Orders Orders - KENISHA JACOME MD Procedure Category Date Status Time Complete Blood Count LAB 03/09/24 Verified 04:00 Comprehensive LAB 03/09/24 Verified Metabolic Panel 04:00 Magnesium LAB 03/09/24 Verified 04:00 1 View Decubitus XY 03/09/24 Logged Chest Xray 07:00 Abg W/ Co-Ox RT 03/09/24 Logged 06:00 Code Status CODE 03/08/24 Transmitted 06:53 Propofol (Diprivan) PHA 03/08/24 In Process 12:30 Fentanyl Drip PHA 03/08/24 In Process 2500mcg/250mlns 12:30 Date of Service: Mar 08, 2024 Billing Provider: KENISHA JACOME MD Common Visit Codes: [id number] CARE 30-74 MIN (60 minutes) KENISHA JACOME MD Mar 08, 2024 15:18
[2024-03-08] MEDS: PROPOFOL 100 ML IV SCH (15:37)
--- NOTE | 2024-03-08 16:35 | DVHPN2 ---
Progress Note - Dictate Date Seen: Mar 08, 2024 Medical Necessity Reason Pt with a Central, PICC or Fol: Yes The following are medically ne: Central Line, Mccord Catheter Reason for mccord catheter: Strict I&O, Total Immobilization Subjective Patient was seen and evaluated in follow up in the ICU. Patient is intubated and sedated on a ventilator. FiO2 35%. PEG tube placement planned for later today. HGB 9, HCT 27.7, NA 152, CL 109, BUN 67, PHOTOSTAT OPERATOR 1.19, CA 8.5. Chest x-ray showed similar lung aeration bilaterally. vital signs Vital Sign Date Time Temp Pulse Resp B/P (MAP) Pulse Ox O2 Delivery O2 Flow Rate FiO2 03/08/24 12:00 65 03/08/24 12:00 22 95 Mechanical Ventilator+ 35 35 03/08/24 12:00 98.4 142/48 (79) 98.4 Total Intake and Output 03/07/24 03/07/24 03/08/24 15:00 23:00 07:00 Intake Total 280 ml 339.304 ml 303.956 ml Output Total 875 ml 1000 ml Balance 280 ml -535.696 ml -696.044 ml medications Current Medications Medications Dose Ordered Sig/Sherwin Route Start Time Stop Time Status Last Admin Dose Admin Nitroglycerin 0.4 mg Q5MINP PRN SL 02/18/24 06:45 Ondansetron HCl 4 mg Q6HPRN PRN IV 02/18/24 06:45 Pantoprazole Sodium 40 mg DAILY IV 02/19/24 10:00 03/08/24 08:23 40 MG Labetalol HCl 10 mg Q4HPRN PRN IV 02/20/24 16:15 02/29/24 07:27 10 MG Acetaminophen 650 mg Q8HP PRN [place] 02/21/24 11:30 02/25/24 05:54 650 MG Albuterol 2.5 mg Q4HR NEB 02/21/24 18:00 03/08/24 10:07 2.5 MG Ipratropium [place] 0.5 mg Q4HR NEB 02/21/24 18:00 03/08/24 10:07 0.5 MG Hydralazine HCl 10 mg Q4HR PRN IV 02/24/24 09:15 03/06/24 13:31 10 MG Midazolam HCl 5 mg [id number] PRN IV 02/24/24 10:00 02/25/24 08:15 5 MG Acetylcysteine 200 mg Q8HR IN 02/26/24 14:00 Cancel Acetylcysteine 200 mg Q8HR NEB 02/26/24 14:00 03/08/24 06:26 200 MG Budesonide 0.5 mg BID NEB 02/27/24 22:00 03/08/24 06:26 0.5 MG Amlodipine Besylate 10 mg DAILY PO 02/27/24 10:30 Hold 03/03/24 10:36 10 MG Enteral Nutritional Formula 1,000 ml 30ML/HR GT 02/28/24 08:45 03/04/24 19:01 1,000 ML Bisacodyl 10 mg DAILYP PRN [place] 02/28/24 08:45 Norepinephrine Bitartrate 250 ml @ 3.75 mls/hr Q24H IV 02/28/24 19:15 03/03/24 19:17 7.5 MLS/HR Digoxin 0.125 mg DAILY PO 03/01/24 10:00 03/08/24 08:17 0.125 MG Lactulose 30 ml DAILYPRN PRN PO 02/29/24 12:00 Enoxaparin Sodium 70 mg DAILY SC 03/02/24 10:00 03/07/24 09:07 70 MG Dexmedetomidine HCl 400 mcg/ Dextrose 100 ml @ 3.52 mls/hr Q24H IV 03/02/24 19:45 03/03/24 03:23 3.52 MLS/HR Diltiazem HCl 100 ml @ 5 mls/hr Q20H IV 03/03/24 19:15 03/03/24 20:25 5 MLS/HR Midazolam HCl 50 ml @ 1 mls/hr Q24H IV 03/03/24 19:15 03/04/24 03:34 4 MLS/HR Propofol 100 ml @ 2.118 mls/ hr Q24H IV 03/03/24 19:45 03/08/24 08:23 14.826 MLS/HR Methylprednisolone Sodium Succinate 40 mg Q12HR IV 03/04/24 22:00 03/08/24 08:23 40 MG Metoprolol Tartrate 25 mg BID PO 03/04/24 22:00 03/08/24 10:24 25 MG Amiodarone HCl 200 mg Q12HR PO 03/05/24 10:30 03/08/24 08:16 200 MG Furosemide 40 mg BIDD IV 03/06/24 18:00 03/08/24 05:37 40 MG Purified Water 250 ml Q6HR GT 03/08/24 12:00 03/08/24 08:17 250 ML Propofol 100 ml @ 2.016 mls/ hr Q24H IV 03/08/24 12:30 UNV Fentanyl Citrate 250 ml @ 2.5 mls/hr Q24H IV 03/08/24 12:30 UNV objective GENERAL: Intubated on ventilator. LUNGS: Decreased breath sounds. CARDIOVASCULAR: Heart sounds are good. ABDOMEN: Soft. laboratory and microbiology Laboratory Tests 03/08/24 03:19 Test 03/08/24 03:19 Range/Units Serum Glucose 128 H 74-106 mg/dL Problem List Acute on chronic hypoxic respiratory failure. Ventilator dependence with failure of CPAP/extubation. COPD with probable exacerbation. History of multiple intubations. History of mitral valve replacement, bioprosthetic. Atrial fibrillation. Primary hypertension. Anemia. Acute probable vasomotor nephropathy. Hyperkalemia. Assessment/Plan Continued all current supportive medical care. Amiodarone. Amlodipine. Digoxin. IV antibiotics as ordered. DVT and GI prophylactics. Vasopressors for hemodynamic support. Additional plan as per the hospital course. Critical care time of 45 minutes provided to include time spent evaluation of patient at bedside, when appropriate patient/family education for diagnosis, treatment plan, review of pertinent medical information and discussion of care with specialty providers and PCP. Mechanical ventilator parameters, treatment and adjustments have personally been reviewed by me and treatment plan by senior net software engineer has also been reviewed. Dietary Evaluation Review Recommendations by RD: Dietary education by RD Comments: 1) If GI is accessible consider Pivot 1.5 @ 55 ml/hr x24 hr goal rate as tolerated 2) If pt remains NPO >7 days consider TPN to meet at least 75% of estimated goals 3) Advance pt diet when medically feasible to a Cardiac diet modified per MINILAB OPERATOR recommendations 4) Continue current plan of care Expected Outcomes/Goals: 1) Pt to receive nutrition support within 7 days of NPO status 2) Pt diet to advance 3) F/U in 2-3 days Plan discussed with: Other Respiratory Effort: ET Tube Breath sounds: Clear, Diminished ARIZMENDI,MUKESHCHANDRA M MD Mar 08, 2024 13:17
[2024-03-08] MEDS: MIDAZOLAM HCL 5 MG/ML-1ML VIAL ONE (17:19)
--- NOTE | 2024-03-08 17:35 | DVHNC2 ---
Procedure - EGD/PEG Note DATE OF PROCEDURE: 03/08/2024 PATIENT NAME: Court Castaneda : 1955 PATIENT [facility] KAY STITCHER: Rox Vazquez MD TITLE OF OPERATION: Esophagogastroduodenoscopy, and percutaneous endoscopic gastrostomy tube placement. INDICATION FOR PROCEDURE: Dysphagia ASA: III MALLAMPATI SCORE: II ANESTHESIA: On Fentanyl drip, Ancef 2g IV PROCEDURE: After explanation of risks, benefits and alternatives of the procedure to the patient's family, an informed consent was obtained. The patient was brought to the GI suite, placed in the supine position, connected to monitoring devices including pulse oximetry and EKG, then premedication was given. The Olympus gastroscope was inserted through the patient's mouth and advanced under direct guidance to the esophagus which was normal to the gastroesophageal junction. The stomach was normal to the pylorus including retroflexion of the cardia and fundus, except mild antral gastritis. Scope was then advanced further into the duodenal bulb and second portion of duodenum which were normal. Afterwards, a point with good 1:1 finger palpation and transillumination was identified on the abdominal wall. The area was prepped and draped in a sterile fashion. 1% lidocaine was used to anesthetize the skin and subcutaneous tissue. 25-gauge needle was used and negative pressure was applied on the syringe as the needle was penetrating the subcutaneous tissue into the stomach, and no air bubbles were seen in the syringe itself until the needle was seen penetrating the stomach on the endoscopy monitor. A 9 mm cut was performed on the abdominal wall, then a trocar needle was inserted which was threaded with a color-coded wire. The wire was then grabbed using a snare. Then a [employer] 20- [place] PEG tube was placed successfully using the pull method with the outside asael noted at 4 cm. The gastroscope was again inserted through the patient's mouth, advanced to the esophagus and the stomach, and the internal bolster of the PEG tube was seen in the stomach, freely mobile in a 360 degrees fashion. The scope was then withdrawn. Afterwards, a triple antibiotic ointment was applied to the PEG tube site followed by a dry dressing The procedure then concluded and the patient was transferred to the recovery area to recover in a satisfactory condition. COMPLICATIONS: None and patient is medically stable. PROCEDURE TOLERANCE: Good ESTIMATED BLOOD LOSS (EBL): 0mL IMPRESSION: 1. Mild antral gastritis 2. Successful placement of a 20-Telugu PEG tube with the outside asael noted at 4 cm. Sedation Start Time: on Fentanyl drip Procedure Start Time: see nursing note Procedure End Time: see nursing note RECOMMENDATION: 1. Abdominal binder at all times. 2. May use PEG tube for medications in four hours and for feeding tomorrow. 3. Avoid dressing, keep stoma site clean and dry. 4. Resume Lovenox in 24 hours SPECIMENS: None Thank you for allowing me to participate in the care of your patient. ROX VAZQUEZ MD Mar 08, 2024 17:35
--- NOTE | 2024-03-08 17:39 | DVHPN2 ---
Progress Note Date Seen: Mar 08, 2024 Medical Necessity Reason Pt with a Central, PICC or Fol: Yes The following are medically ne: Central Line, Mccord Catheter Reason for mccord catheter: Strict I&O, Total Immobilization Subjective Patient reports: Other (no events) Review of Systems: Deferred Objective vital signs Vital Sign Date Time Temp Pulse Resp B/P (MAP) Pulse Ox O2 Delivery O2 Flow Rate FiO2 03/08/24 17:00 55 21 151/46 (81) 96 03/08/24 16:00 Mechanical Ventilator+ 35 35 03/08/24 16:00 98.2 98.2 Total Intake and Output 03/07/24 03/07/24 03/08/24 15:00 23:00 07:00 Intake Total 280 ml 339.304 ml 303.956 ml Output Total 875 ml 1000 ml Balance 280 ml -535.696 ml -696.044 ml medications Current Medications Medications Dose Ordered Sig/Sherwin Route Start Time Stop Time Status Last Admin Dose Admin Nitroglycerin 0.4 mg Q5MINP PRN SL 02/18/24 06:45 Ondansetron HCl 4 mg Q6HPRN PRN IV 02/18/24 06:45 Pantoprazole Sodium 40 mg DAILY IV 02/19/24 10:00 03/08/24 08:23 40 MG Labetalol HCl 10 mg Q4HPRN PRN IV 02/20/24 16:15 02/29/24 07:27 10 MG Acetaminophen 650 mg Q8HP PRN [place] 02/21/24 11:30 02/25/24 05:54 650 MG Albuterol 2.5 mg Q4HR NEB 02/21/24 18:00 03/08/24 14:08 2.5 MG Ipratropium [place] 0.5 mg Q4HR NEB 02/21/24 18:00 03/08/24 14:08 0.5 MG Hydralazine HCl 10 mg Q4HR PRN IV 02/24/24 09:15 03/06/24 13:31 10 MG Midazolam HCl 5 mg [id number] PRN IV 02/24/24 10:00 02/25/24 08:15 5 MG Acetylcysteine 200 mg Q8HR IN 02/26/24 14:00 Cancel Acetylcysteine 200 mg Q8HR NEB 02/26/24 14:00 03/08/24 14:08 200 MG Budesonide 0.5 mg BID NEB 02/27/24 22:00 03/08/24 06:26 0.5 MG Amlodipine Besylate 10 mg DAILY PO 02/27/24 10:30 Hold 03/03/24 10:36 10 MG Enteral Nutritional Formula 1,000 ml 30ML/HR GT 02/28/24 08:45 03/04/24 19:01 1,000 ML Bisacodyl 10 mg DAILYP PRN [place] 02/28/24 08:45 Norepinephrine Bitartrate 250 ml @ 3.75 mls/hr Q24H IV 02/28/24 19:15 03/03/24 19:17 7.5 MLS/HR Digoxin 0.125 mg DAILY PO 03/01/24 10:00 03/08/24 08:17 0.125 MG Lactulose 30 ml DAILYPRN PRN PO 02/29/24 12:00 Enoxaparin Sodium 70 mg DAILY SC 03/02/24 10:00 03/07/24 09:07 70 MG Dexmedetomidine HCl 400 mcg/ Dextrose 100 ml @ 3.52 mls/hr Q24H IV 03/02/24 19:45 03/03/24 03:23 3.52 MLS/HR Diltiazem HCl 100 ml @ 5 mls/hr Q20H IV 03/03/24 19:15 03/03/24 20:25 5 MLS/HR Midazolam HCl 50 ml @ 1 mls/hr Q24H IV 03/03/24 19:15 03/04/24 03:34 4 MLS/HR Methylprednisolone Sodium Succinate 40 mg Q12HR IV 03/04/24 22:00 03/08/24 08:23 40 MG Metoprolol Tartrate 25 mg BID PO 03/04/24 22:00 03/08/24 10:24 25 MG Amiodarone HCl 200 mg Q12HR PO 03/05/24 10:30 03/08/24 08:16 200 MG Furosemide 40 mg BIDD IV 03/06/24 18:00 03/08/24 05:37 40 MG Purified Water 250 ml Q6HR GT 03/08/24 12:00 03/08/24 08:17 250 ML Propofol 100 ml @ 2.016 mls/ hr Q24H IV 03/08/24 12:30 121/24 15:37 14.112 MLS/HR Fentanyl Citrate 250 ml @ 2.5 mls/hr Q24H IV 03/08/24 12:30 Examination: GENERAL:Abnormal, LUNGS:Abnormal, MSK:Abnormal, SKIN:Abnormal laboratory and microbiology Laboratory Tests 03/08/24 03:19 Test 03/08/24 03:19 Range/Units Serum Glucose 128 H 74-106 mg/dL Microbiology Date/Time Source Procedure Growth Status 03/03/24 18:57 Sputum Gram Stain - Final Complete 03/03/24 18:57 Sputum Respiratory Culture - Final Complete 02/21/24 13:45 Blood Blood Culture - Final NO GROWTH AFTER 5 DAYS OF INCUBATION. Complete 02/18/24 11:00 Nose MRSA Screen - Final Complete Problem List/Assessment/Plan Problem List/Assessment/Plan Acute kidney injury superimposed Chronic Kidney Disease secondary hemodynamic mediated Acute respiratory failure , extubated and then reintubated COPD exacerbation Acute anemia unspecified Pneumonia hypernatremia recs BUN high secondary to steroids / Lasix Lasix 40 mg IV daily--reducing dose free water for Na correction Plan discussed with: Other My Orders My Orders Orders - ALTA FRANKEL MD Procedure Category Date Status Time Furosemide Injection PHA 03/09/24 Verified (Lasix Injection) 10:00 Dietary Evaluation Review Recommendations by RD: Dietary education by RD Comments: 1) If GI is accessible consider Pivot 1.5 @ 55 ml/hr x24 hr goal rate as tolerated 2) If pt remains NPO >7 days consider TPN to meet at least 75% of estimated goals 3) Advance pt diet when medically feasible to a Cardiac diet modified per STOCKBROKER recommendations 4) Continue current plan of care Expected Outcomes/Goals: 1) Pt to receive nutrition support within 7 days of NPO status 2) Pt diet to advance 3) F/U in 2-3 days Sepsis reassessment post fluid Respiratory Effort: ET Tube Breath sounds: Clear, Diminished ALTA FRANKEL MD Mar 08, 2024 17:39
[2024-03-08] MEDS: ceFAZolin 2 GM/D5W50ml 50 ML IV ONE (18:22)
[2024-03-08] MEDS: fentaNYL Drip 2500mCg/250mlNS 250 ML IV SCH (21:00)
--- NOTE | 2024-03-08 23:06 | DVHPN2 ---
Progress Note - Dictate Date Seen: Mar 08, 2024 Medical Necessity Reason Pt with a Central, PICC or Fol: Yes The following are medically ne: Central Line, Mccord Catheter Reason for mccord catheter: Strict I&O, Total Immobilization Subjective Patient seen and examined at bedside. Sedated, intubated on mechanical ventilator. Overnight events reviewed. vital signs Vital Sign Date Time Temp Pulse Resp B/P (MAP) Pulse Ox O2 Delivery O2 Flow Rate FiO2 03/08/24 22:46 63 19 157/44 (81) 99 03/08/24 22:18 30 03/08/24 22:00 Mechanical Ventilator+ 03/08/24 20:01 97.7 97.7 Total Intake and Output 03/07/24 03/07/24 03/08/24 15:00 23:00 07:00 Intake Total 280 ml 339.304 ml 303.956 ml Output Total 875 ml 1000 ml Balance 280 ml -535.696 ml -696.044 ml medications Current Medications Medications Dose Ordered Sig/Sherwin Route Start Time Stop Time Status Last Admin Dose Admin Nitroglycerin 0.4 mg Q5MINP PRN SL 02/18/24 06:45 Ondansetron HCl 4 mg Q6HPRN PRN IV 02/18/24 06:45 Pantoprazole Sodium 40 mg DAILY IV 02/19/24 10:00 03/08/24 08:23 40 MG Labetalol HCl 10 mg Q4HPRN PRN IV 02/20/24 16:15 02/29/24 07:27 10 MG Acetaminophen 650 mg Q8HP PRN [place] 02/21/24 11:30 02/25/24 05:54 650 MG Albuterol 2.5 mg Q4HR NEB 02/21/24 18:00 03/08/24 22:15 2.5 MG Ipratropium [place] 0.5 mg Q4HR NEB 02/21/24 18:00 03/08/24 22:15 0.5 MG Hydralazine HCl 10 mg Q4HR PRN IV 02/24/24 09:15 03/06/24 13:31 10 MG Midazolam HCl 5 mg [id number] PRN IV 02/24/24 10:00 02/25/24 08:15 5 MG Acetylcysteine 200 mg Q8HR IN 02/26/24 14:00 Cancel Acetylcysteine 200 mg Q8HR NEB 02/26/24 14:00 03/08/24 18:32 200 MG Budesonide 0.5 mg BID NEB 02/27/24 22:00 03/08/24 22:18 0.5 MG Amlodipine Besylate 10 mg DAILY PO 02/27/24 10:30 Hold 03/03/24 10:36 10 MG Enteral Nutritional Formula 1,000 ml 30ML/HR GT 02/28/24 08:45 03/04/24 19:01 1,000 ML Bisacodyl 10 mg DAILYP PRN [place] 02/28/24 08:45 Norepinephrine Bitartrate 250 ml @ 3.75 mls/hr Q24H IV 02/28/24 19:15 03/03/24 19:17 7.5 MLS/HR Digoxin 0.125 mg DAILY PO 03/01/24 10:00 03/08/24 08:17 0.125 MG Lactulose 30 ml DAILYPRN PRN PO 02/29/24 12:00 Enoxaparin Sodium 70 mg DAILY SC 03/02/24 10:00 03/07/24 09:07 70 MG Dexmedetomidine HCl 400 mcg/ Dextrose 100 ml @ 3.52 mls/hr Q24H IV 03/02/24 19:45 03/03/24 03:23 3.52 MLS/HR Diltiazem HCl 100 ml @ 5 mls/hr Q20H IV 03/03/24 19:15 03/03/24 20:25 5 MLS/HR Midazolam HCl 50 ml @ 1 mls/hr Q24H IV 03/03/24 19:15 03/04/24 03:34 4 MLS/HR Methylprednisolone Sodium Succinate 40 mg Q12HR IV 03/04/24 22:00 03/08/24 21:30 40 MG Metoprolol Tartrate 25 mg BID PO 03/04/24 22:00 03/08/24 10:24 25 MG Amiodarone HCl 200 mg Q12HR PO 03/05/24 10:30 03/08/24 21:30 200 MG Purified Water 250 ml Q6HR GT 03/08/24 12:00 03/08/24 08:17 250 ML Propofol 100 ml @ 2.016 mls/ hr Q24H IV 03/08/24 12:30 03/08/24 20:51 14.112 MLS/HR Fentanyl Citrate 250 ml @ 2.5 mls/hr Q24H IV 03/08/24 12:30 03/08/24 21:00 20 MLS/HR Furosemide 40 mg DAILY IV 03/09/24 10:00 objective Gen.: Patient lying in bed in medical ICU. Sedated, intubated on mechanical ventilator. Head: Normocephalic, atraumatic. Eyes: PERRLA. Ears: Normal external anatomy. Throat: Endotracheal tube and orogastric tube in place. Neck: Supple, trachea midline. Chest: Transmitted breath sounds bilaterally. Decreased air entry bilaterally. No wheezing. Bibasilar crackles. Cardiovascular: Positive S1, positive S2. Regular rate and rhythm. Abdomen: Positive bowel sounds in all 4 quadrants. Soft, nontender, nondistended. : Mccord in place. Normal external genitalia. Rectal: Deferred. Skin: Warm, dry. Intact. Extremities: 2+ radial pulses bilaterally. No lower extremity edema. Neuro: Sedated. laboratory and microbiology Laboratory Tests 03/08/24 03:19 Test 03/08/24 03:19 Range/Units Serum Glucose 128 H 74-106 mg/dL Assessment/Plan Impression: Acute hypoxic respiratory failure On mechanical ventilator Mitral valve replacement Pneumonia, likely gram negative. COPD Congestive heart failure Atrial fibrillation Events: Remains on vent support On AC mode; RR 22, VT 450, PEEP 5, FiO2 35%. ABG reviewed, notable for alkalemia. Sedated on Propofol and Fentanyl. S/p PEG Plan for trach by Surgery. Continue antibiotics Continue bronchodilators On amiodarone drip + Digoxin Tube feeds for nutritional support- Nepro Supportive care. Continue to monitor closely. Labs and imaging reviewed. Rest of plan as noted below. Plan: s/p intubation on mechanical ventilator. ABG reviewed, compensated. On AC mode; RR 22, VT 450, PEEP 5, FiO2 35%. Titrate FIO2 to keep O2 saturation above 90%. VAP bundle. Daily ABG and CXR while intubated Sedated for ventilator synchrony- On Propofol and Fentanyl. Continue antibiotics. F/u cultures. Start pressors if necessary to maintain a mean arterial blood pressure greater than 65 mmHg. Heparin drip Tube feeds for nutritional support Monitor renal function Monitor electrolytes. Supplement as necessary. Monitor ins and outs. Maintain euvolemia. GI prophylaxis. DVT prophylaxis. Prognosis: Poor given patient's multiple co-morbidities. Condition: Critical Rest of plan per hospitalist and other consultants. A total of 35 minutes of critical care time was spent reviewing the patient record, examining the patient, making a diagnostic and therapeutic plan, discussing this plan with the medical personnel, following up on diagnostic studies and following the patient for clinical stability excluding any and all procedures. At least 50% of this time was spent in direct, [id number] contact. Thank you Dr. Flakita Khan MD, for allowing me to participate in this patient's care. Further recommendations will depend on the patient's clinical course. Please do not hesitate to contact me if you have any questions or concerns. This medical document was created using an electronic medical record system with [employer] dictation system. Although these documentations are being carefully reviewed, there may still be some phonetic and typographical changes. The errors are purely typographical, due to imperfection on the software program, and do not reflect any compromise in the patient's medical care. Dietary Evaluation Review Recommendations by RD: Dietary education by RD Comments: 1) If GI is accessible consider Pivot 1.5 @ 55 ml/hr x24 hr goal rate as tolerated 2) If pt remains NPO >7 days consider TPN to meet at least 75% of estimated goals 3) Advance pt diet when medically feasible to a Cardiac diet modified per CARBURIZING FURNACE OPERATOR recommendations 4) Continue current plan of care Expected Outcomes/Goals: 1) Pt to receive nutrition support within 7 days of NPO status 2) Pt diet to advance 3) F/U in 2-3 days Plan discussed with: Other (JULIOCESAR Ulloa) Critical Care Time(min): 35 Respiratory Effort: ET Tube Breath sounds: Clear, Diminished PRAVEEN NGUYEN MD Mar 08, 2024 23:06
[2024-03-09] VITALS (109 sets, daily range): BP systolic 106–176; BP diastolic 24–85; PULSE 60–99; RESP 10–23; TEMP 97.8–99.1; O2SAT 90–98
[2024-03-09 03:58] LABS: Basophils # (auto) 0 10 ^3/uL (0-0.2); Basophils % (auto) 0.2 % (0.0-2.0); Eosinophils # (auto) 0 10 ^3/uL (0-0.8); Hematocrit 28.8 % (36.0-46.0); Hemoglobin 9.4 g/dL (12.2-16.2); Lymphocytes # (auto) 0.2 10 ^3/uL (0.4-5.4); Lymphocytes % (auto) 1.8 % (10.0-50.0); Mean Corpuscular Hemoglobin 29.2 pg (28.0-32.0); Mean Corpuscular Hgb Conc. 32.8 g/dL (32.0-36.0); Monocytes # (auto) 0.3 10 ^3/uL (0-1.3); Monocytes % (auto) 2.6 % (0.0-12.0); Neutrophils # (auto) 9.3 10 ^3/uL (1.6-8.6); Neutrophils % (auto) 95.4 % (37.0-80.0); Nucleated Red Blood Cells % 0.1 %; Platelet Count (auto) 183 10^3/uL (140-450); Red Blood Cells 3.23 10^6/uL (4.0-5.20); Red Cell Distribution Width 18.2 % (11.8-14.3); White Blood Cell 9.8 10^3/uL (4.4-10.8)
[2024-03-09 04:11] LABS: Alkaline Phosphatase 84 U/L (46-116); Anion Gap 13 (5-15); Carbon Dioxide 29 mmol/L (20-31); Magnesium 2.4 mg/dL (1.6-2.6); Potassium 3.5 mmol/L (3.5-5.1)
[2024-03-09 04:12] LABS: Albumin 3.4 g/dL (3.2-4.8)
[2024-03-09 04:13] LABS: Aspartate Aminotransferase 39 U/L (13-40)
[2024-03-09 04:23] LABS: Alanine Aminotransferase 54 U/L (7-40); Bilirubin, Total 1.8 mg/dL (0.2-1.0); Blood Urea Nitrogen 60 mg/dL (9-23); Calcium 8.5 mg/dL (8.7-10.4); Chloride 110 mmol/L (98-107); Glucose 121 mg/dL (74-106); Sodium 152 mmol/L (136-145); Total Protein 5.1 g/dL (5.7-8.2)
--- NOTE | 2024-03-09 04:37 | DVH ---
CHEST RADIOGRAPH Indication: Intubated. Thank You! Technique: Single frontal view of the chest was obtained COMPARISON: XY CHEST PORTABLE on DOS: 03/08/24, XY CHEST XRAY 1 VIEW on DOS: 03/07/24, XY CHEST XRAY 1 VIEW on DOS: 03/06/24 FINDINGS: Lines and Tubes: Median sternotomy. Endotracheal tube , enteric catheter and right central venous ca theter in satisfactory position. Lungs: Clear Pleura: No effusion. No pneumothorax. Cardiomediastinal contours: Unremarkable Bones: Unremarkable IMPRESSION: Lines and tubes in satisfactory position. No significant interval change.
[2024-03-09] MEDS ORDERED: FUROSEMIDE 40 MG/4 ML VIAL IV SCH (10:00)
--- NOTE | 2024-03-09 10:27 | DVHPN2 ---
Progress Note - Dictate Date Seen: Mar 09, 2024 Medical Necessity Reason Pt with a Central, PICC or Fol: Yes The following are medically ne: Central Line, Mccord Catheter Reason for mccord catheter: Strict I&O, Total Immobilization Subjective remains intubated vital signs Vital Sign Date Time Temp Pulse Resp B/P (MAP) Pulse Ox O2 Delivery O2 Flow Rate FiO2 03/09/24 09:16 72 22 136/32 (66) 95 35 03/09/24 06:00 Mechanical Ventilator+ 03/09/24 04:00 98.1 98.1 Total Intake and Output 03/08/24 03/08/24 03/09/24 15:00 23:00 07:00 Intake Total 280 ml 520.704 ml 786.768 ml Output Total 1350 ml 1250 ml Balance 280 ml -829.296 ml -463.232 ml medications Current Medications Medications Dose Ordered Sig/Sherwin Route Start Time Stop Time Status Last Admin Dose Admin Nitroglycerin 0.4 mg Q5MINP PRN SL 02/18/24 06:45 Ondansetron HCl 4 mg Q6HPRN PRN IV 02/18/24 06:45 Pantoprazole Sodium 40 mg DAILY IV 02/19/24 10:00 03/08/24 08:23 40 MG Labetalol HCl 10 mg Q4HPRN PRN IV 02/20/24 16:15 02/29/24 07:27 10 MG Acetaminophen 650 mg Q8HP PRN [place] 02/21/24 11:30 02/25/24 05:54 650 MG Albuterol 2.5 mg Q4HR NEB 02/21/24 18:00 03/09/24 10:20 2.5 MG Ipratropium [place] 0.5 mg Q4HR NEB 02/21/24 18:00 03/09/24 10:20 0.5 MG Hydralazine HCl 10 mg Q4HR PRN IV 02/24/24 09:15 03/06/24 13:31 10 MG Midazolam HCl 5 mg [id number] PRN IV 02/24/24 10:00 02/25/24 08:15 5 MG Acetylcysteine 200 mg Q8HR IN 02/26/24 14:00 Cancel Acetylcysteine 200 mg Q8HR NEB 02/26/24 14:00 03/09/24 06:02 200 MG Budesonide 0.5 mg BID NEB 02/27/24 22:00 03/09/24 06:01 0.5 MG Amlodipine Besylate 10 mg DAILY PO 02/27/24 10:30 Hold 03/03/24 10:36 10 MG Enteral Nutritional Formula 1,000 ml 30ML/HR GT 02/28/24 08:45 03/04/24 19:01 1,000 ML Bisacodyl 10 mg DAILYP PRN [place] 02/28/24 08:45 Norepinephrine Bitartrate 250 ml @ 3.75 mls/hr Q24H IV 02/28/24 19:15 03/03/24 19:17 7.5 MLS/HR Digoxin 0.125 mg DAILY PO 03/01/24 10:00 03/08/24 08:17 0.125 MG Lactulose 30 ml DAILYPRN PRN PO 02/29/24 12:00 Enoxaparin Sodium 70 mg DAILY SC 03/02/24 10:00 03/07/24 09:07 70 MG Dexmedetomidine HCl 400 mcg/ Dextrose 100 ml @ 3.52 mls/hr Q24H IV 03/02/24 19:45 03/03/24 03:23 3.52 MLS/HR Diltiazem HCl 100 ml @ 5 mls/hr Q20H IV 03/03/24 19:15 03/03/24 20:25 5 MLS/HR Midazolam HCl 50 ml @ 1 mls/hr Q24H IV 03/03/24 19:15 03/04/24 03:34 4 MLS/HR Methylprednisolone Sodium Succinate 40 mg Q12HR IV 03/04/24 22:00 03/08/24 21:30 40 MG Metoprolol Tartrate 25 mg BID PO 03/04/24 22:00 03/08/24 10:24 25 MG Amiodarone HCl 200 mg Q12HR PO 03/05/24 10:30 03/08/24 21:30 200 MG Purified Water 250 ml Q6HR GT 03/08/24 12:00 03/09/24 05:49 250 ML Propofol 100 ml @ 2.016 mls/ hr Q24H IV 03/08/24 12:30 03/09/24 07:12 12.096 MLS/HR Fentanyl Citrate 250 ml @ 2.5 mls/hr Q24H IV 03/08/24 12:30 03/09/24 07:29 20 MLS/HR Furosemide 40 mg DAILY IV 03/09/24 10:00 objective Morbidly obese white female Intubated Not on pressors Sedated Blood pressure stable Positive murmur No crackles Bruising on her chest and hands Mccord catheter laboratory and microbiology Laboratory Tests 03/09/24 03:00 Test 03/09/24 03:00 Range/Units Serum Glucose 121 H 74-106 mg/dL Assessment/Plan Acute kidney injury likely hemodynamically mediated Chronic kidney disease stage 2/3 Acute respiratory failure in the setting of possible COPD exacerbation Acute anemia unspecified Pneumonia mechanical valve renal function normalizing, hold lasix today, can consider resume tomorrow continue free water Not on pressors Monitoring urinary output keep MAP > 65 Gastroenterology on the case Critical care time spent 35 minutes Dietary Evaluation Review Recommendations by RD: Dietary education by RD Comments: 1) If GI is accessible consider Pivot 1.5 @ 55 ml/hr x24 hr goal rate as tolerated 2) If pt remains NPO >7 days consider TPN to meet at least 75% of estimated goals 3) Advance pt diet when medically feasible to a Cardiac diet modified per SAFETY SCIENTIST recommendations 4) Continue current plan of care Expected Outcomes/Goals: 1) Pt to receive nutrition support within 7 days of NPO status 2) Pt diet to advance 3) F/U in 2-3 days Plan discussed with: Other Critical Care Time(min): 35 Respiratory Effort: ET Tube Breath sounds: Clear, Diminished CHARLI WINN MD Mar 09, 2024 10:27
[2024-03-09] MEDS: POTASSIUM CHL 20MEQ/100ML 100 ML IV ONE (12:47)
[2024-03-09] MEDS: LIDOCAINE 1% (LOCAL ANESTH.) PF 5ml SDV ID ONE (14:18)
--- NOTE | 2024-03-09 15:46 | DVH ---
CHEST RADIOGRAPH Indication: PICC TIP VERIFICATION Technique: Single frontal view of the chest was obtained Comparison: XY CHEST XRAY 1 VIEW on DOS: 03/09/24, XY CHEST PORTABLE on DOS: 03/08/24, XY CHEST XRAY 1 VIEW on DOS: 03/07/24, XY CHEST XRAY 1 VIEW on DOS: 03/06/24, XY CHEST XRAY 1 VIEW on DOS: 03/05/24, XY CHEST XRAY 1 VIEW on DOS: 03/09/24 FINDINGS: Lines and Tubes: Median sternotomy. Endotracheal tube , enteric catheter and right central venous ca theter in satisfactory position. Right PICC tip in svc. Lungs: Clear Pleura: No effusion. No pneumothorax. Cardiomediastinal contours: Unremarkable Bones: Unremarkable IMPRESSION: 1. Right PICC tip in svc. Lines and tubes in satisfactory position. No significant interval change.
[2024-03-09] MEDS: FREE WATER GT SCH (17:25)
--- NOTE | 2024-03-09 17:46 | DVHPN2 ---
Progress Note - Dictate Date Seen: Mar 09, 2024 Medical Necessity Reason Pt with a Central, PICC or Fol: Yes The following are medically ne: Central Line, Mccord Catheter Reason for mccord catheter: Strict I&O, Total Immobilization Subjective Patient was seen and evaluated in follow up in the ICU. Patient is intubated and sedated on ventilator. FiO2 35%. Patient is s/p EGD with PEG tube placement. HGB 9, HCT 28, NA 152, BUN 60, DRAMATIC READER 1.09. vital signs Vital Sign Date Time Temp Pulse Resp B/P (MAP) Pulse Ox O2 Delivery O2 Flow Rate FiO2 03/09/24 17:15 88 22 128/45 (72) 95 03/09/24 16:00 Mechanical Ventilator+ 35 35 03/09/24 16:00 98.9 98.9 Total Intake and Output 03/08/24 03/08/24 03/09/24 15:00 23:00 07:00 Intake Total 280 ml 520.704 ml 786.768 ml Output Total 1350 ml 1250 ml Balance 280 ml -829.296 ml -463.232 ml medications Current Medications Medications Dose Ordered Sig/Sherwin Route Start Time Stop Time Status Last Admin Dose Admin Nitroglycerin 0.4 mg Q5MINP PRN SL 02/18/24 06:45 Ondansetron HCl 4 mg Q6HPRN PRN IV 02/18/24 06:45 Pantoprazole Sodium 40 mg DAILY IV 02/19/24 10:00 03/09/24 10:45 40 MG Labetalol HCl 10 mg Q4HPRN PRN IV 02/20/24 16:15 02/29/24 07:27 10 MG Acetaminophen 650 mg Q8HP PRN [place] 02/21/24 11:30 02/25/24 05:54 650 MG Albuterol 2.5 mg Q4HR NEB 02/21/24 18:00 03/09/24 13:16 2.5 MG Ipratropium [place] 0.5 mg Q4HR NEB 02/21/24 18:00 03/09/24 13:16 0.5 MG Midazolam HCl 5 mg [id number] PRN IV 02/24/24 10:00 02/25/24 08:15 5 MG Acetylcysteine 200 mg Q8HR IN 02/26/24 14:00 Cancel Acetylcysteine 200 mg Q8HR NEB 02/26/24 14:00 03/09/24 13:17 200 MG Budesonide 0.5 mg BID NEB 02/27/24 22:00 03/09/24 06:01 0.5 MG Amlodipine Besylate 10 mg DAILY PO 02/27/24 10:30 Hold 03/03/24 10:36 10 MG Enteral Nutritional Formula 1,000 ml 30ML/HR GT 02/28/24 08:45 03/04/24 19:01 1,000 ML Bisacodyl 10 mg DAILYP PRN [place] 02/28/24 08:45 Norepinephrine Bitartrate 250 ml @ 3.75 mls/hr Q24H IV 02/28/24 19:15 03/03/24 19:17 7.5 MLS/HR Digoxin 0.125 mg DAILY PO 03/01/24 10:00 03/08/24 08:17 0.125 MG Lactulose 30 ml DAILYPRN PRN PO 02/29/24 12:00 Enoxaparin Sodium 70 mg DAILY SC 03/02/24 10:00 03/07/24 09:07 70 MG Dexmedetomidine HCl 400 mcg/ Dextrose 100 ml @ 3.52 mls/hr Q24H IV 03/02/24 19:45 03/03/24 03:23 3.52 MLS/HR Midazolam HCl 50 ml @ 1 mls/hr Q24H IV 03/03/24 19:15 03/04/24 03:34 4 MLS/HR Methylprednisolone Sodium Succinate 40 mg Q12HR IV 03/04/24 22:00 03/09/24 10:46 40 MG Metoprolol Tartrate 25 mg BID PO 03/04/24 22:00 03/09/24 10:49 25 MG Amiodarone HCl 200 mg Q12HR PO 03/05/24 10:30 03/09/24 10:00 200 MG Propofol 100 ml @ 2.016 mls/ hr Q24H IV 03/08/24 12:30 03/09/24 16:01 10.08 MLS/HR Fentanyl Citrate 250 ml @ 2.5 mls/hr Q24H IV 03/08/24 12:30 03/09/24 16:02 20 MLS/HR Purified Water 200 ml Q6HR GT 03/09/24 18:00 03/09/24 17:25 200 ML Sodium Chloride 10 ml QSHIFT@10,22 IV 03/09/24 22:00 objective GENERAL: Intubated on ventilator. LUNGS: Decreased breath sounds. CARDIOVASCULAR: Heart sounds are good. ABDOMEN: Soft. laboratory and microbiology Laboratory Tests 03/09/24 03:00 Test 03/09/24 03:00 Range/Units Serum Glucose 121 H 74-106 mg/dL Problem List Acute on chronic hypoxic respiratory failure. Ventilator dependence with failure of CPAP/extubation. COPD with probable exacerbation. History of multiple intubations. History of mitral valve replacement, bioprosthetic. Atrial fibrillation. Primary hypertension. Anemia. Acute probable vasomotor nephropathy. Hyperkalemia. Assessment/Plan Continued all current supportive medical care. Amiodarone. Amlodipine. Digoxin. IV antibiotics as ordered. DVT and GI prophylactics. Vasopressors for hemodynamic support. Additional plan as per the hospital course. Critical care time of 45 minutes provided to include time spent evaluation of patient at bedside, when appropriate patient/family education for diagnosis, treatment plan, review of pertinent medical information and discussion of care with specialty providers and PCP. Mechanical ventilator parameters, treatment and adjustments have personally been reviewed by me and treatment plan by legal support manager has also been reviewed. Dietary Evaluation Review Recommendations by RD: Dietary education by RD Comments: 1) If GI is accessible consider Pivot 1.5 @ 55 ml/hr x24 hr goal rate as tolerated 2) If pt remains NPO >7 days consider TPN to meet at least 75% of estimated goals 3) Advance pt diet when medically feasible to a Cardiac diet modified per LEATHER LEVELER recommendations 4) Continue current plan of care Expected Outcomes/Goals: 1) Pt to receive nutrition support within 7 days of NPO status 2) Pt diet to advance 3) F/U in 2-3 days Plan discussed with: Other Respiratory Effort: ET Tube Breath sounds: Clear, Diminished LUKE ARIZMENDI MD Mar 09, 2024 17:46
--- NOTE | 2024-03-09 17:53 | DVHPNRES ---
Progress Note Date Seen: Mar 09, 2024 Resident Creating Document: CHRISTIANO JONES RESIDENT Medical Necessity Reason Pt with a Central, PICC or Fol: Yes The following are medically ne: Central Line, Mccord Catheter Reason for mccord catheter: Strict I&O, Total Immobilization Subjective Review of Systems 68 y.o. female with COPD using 3L of home oxygen was brought to the ED c/o SOB despite using her oxygen. EMS started 10L and gave her nebulizer treatment but patient continued to be in severe respiratory distress. ER MD intubated the patient. Patient seen and examined at bedside. Sedated, intubated on mechanical ventilator. Overnight events reviewed. Objective vital signs Vital Sign Date Time Temp Pulse Resp B/P (MAP) Pulse Ox O2 Delivery O2 Flow Rate FiO2 03/09/24 17:15 88 22 128/45 (72) 95 03/09/24 16:00 Mechanical Ventilator+ 35 35 03/09/24 16:00 98.9 98.9 Total Intake and Output 03/08/24 03/08/24 03/09/24 15:00 23:00 07:00 Intake Total 280 ml 520.704 ml 786.768 ml Output Total 1350 ml 1250 ml Balance 280 ml -829.296 ml -463.232 ml medications Current Medications Medications Dose Ordered Sig/Sherwin Route Start Time Stop Time Status Last Admin Dose Admin Nitroglycerin 0.4 mg Q5MINP PRN SL 02/18/24 06:45 Ondansetron HCl 4 mg Q6HPRN PRN IV 02/18/24 06:45 Pantoprazole Sodium 40 mg DAILY IV 02/19/24 10:00 03/09/24 10:45 40 MG Labetalol HCl 10 mg Q4HPRN PRN IV 02/20/24 16:15 02/29/24 07:27 10 MG Acetaminophen 650 mg Q8HP PRN [place] 02/21/24 11:30 02/25/24 05:54 650 MG Albuterol 2.5 mg Q4HR NEB 02/21/24 18:00 03/09/24 13:16 2.5 MG Ipratropium [place] 0.5 mg Q4HR NEB 02/21/24 18:00 03/09/24 13:16 0.5 MG Midazolam HCl 5 mg [id number] PRN IV 02/24/24 10:00 02/25/24 08:15 5 MG Acetylcysteine 200 mg Q8HR IN 02/26/24 14:00 Cancel Acetylcysteine 200 mg Q8HR NEB 02/26/24 14:00 03/09/24 13:17 200 MG Budesonide 0.5 mg BID NEB 02/27/24 22:00 03/09/24 06:01 0.5 MG Amlodipine Besylate 10 mg DAILY PO 02/27/24 10:30 Hold 03/03/24 10:36 10 MG Enteral Nutritional Formula 1,000 ml 30ML/HR GT 02/28/24 08:45 03/04/24 19:01 1,000 ML Bisacodyl 10 mg DAILYP PRN [place] 02/28/24 08:45 Norepinephrine Bitartrate 250 ml @ 3.75 mls/hr Q24H IV 02/28/24 19:15 03/03/24 19:17 7.5 MLS/HR Digoxin 0.125 mg DAILY PO 03/01/24 10:00 03/08/24 08:17 0.125 MG Lactulose 30 ml DAILYPRN PRN PO 02/29/24 12:00 Enoxaparin Sodium 70 mg DAILY SC 03/02/24 10:00 03/07/24 09:07 70 MG Dexmedetomidine HCl 400 mcg/ Dextrose 100 ml @ 3.52 mls/hr Q24H IV 03/02/24 19:45 03/03/24 03:23 3.52 MLS/HR Midazolam HCl 50 ml @ 1 mls/hr Q24H IV 03/03/24 19:15 03/04/24 03:34 4 MLS/HR Methylprednisolone Sodium Succinate 40 mg Q12HR IV 03/04/24 22:00 03/09/24 10:46 40 MG Metoprolol Tartrate 25 mg BID PO 03/04/24 22:00 03/09/24 10:49 25 MG Amiodarone HCl 200 mg Q12HR PO 03/05/24 10:30 03/09/24 10:00 200 MG Propofol 100 ml @ 2.016 mls/ hr Q24H IV 03/08/24 12:30 03/09/24 16:01 10.08 MLS/HR Fentanyl Citrate 250 ml @ 2.5 mls/hr Q24H IV 03/08/24 12:30 03/09/24 16:02 20 MLS/HR Purified Water 200 ml Q6HR GT 03/09/24 18:00 03/09/24 17:25 200 ML Sodium Chloride 10 ml QSHIFT@10,22 IV 03/09/24 22:00 Examination Gen.: Patient lying in bed in medical ICU. Sedated, intubated on mechanical ventilator. Head: Normocephalic, atraumatic. Eyes: PERRLA. Ears: Normal external anatomy. Throat: Endotracheal tube and orogastric tube in place. Neck: Supple, trachea midline. Chest: Transmitted breath sounds bilaterally. Decreased air entry bilaterally. No wheezing. Bibasilar crackles. Cardiovascular: Positive S1, positive S2. Regular rate and rhythm. Abdomen: Positive bowel sounds in all 4 quadrants. Soft, nontender, nondistended. : Mccord in place. Normal external genitalia. Rectal: Deferred. Skin: Warm, dry. Intact. Extremities: 2+ radial pulses bilaterally. No lower extremity edema. Neuro: Sedated. laboratory and microbiology Laboratory Tests 03/09/24 03:00 Test 03/09/24 03:00 Range/Units Serum Glucose 121 H 74-106 mg/dL Microbiology Date/Time Source Procedure Growth Status 03/03/24 18:57 Sputum Gram Stain - Final Complete 03/03/24 18:57 Sputum Respiratory Culture - Final Complete 02/21/24 13:45 Blood Blood Culture - Final NO GROWTH AFTER 5 DAYS OF INCUBATION. Complete 02/18/24 11:00 Nose MRSA Screen - Final Complete Problem List/Assessment/Plan Problem List/Assessment/Plan Neurology: Patiet is Sedated Cardiovascular: # AFib # Hypertension # Hyperlipidemia # Hx of mechanical mitral valve replacement on home Coumadin, -INR goal of 2.5-3.5, holding Coumadin. # atrial flutter - consulted with bore miner operator recommends -Amiodarone drip -metoprolol 25 mg b.i.d. - Digoxin. Respiratory: # septic shock secondary to pneumonia # community-acquired pneumonia possible GM+/- bacterial pneumonia # acute hypoxic respiratory failure secondary to COPD exacerbation, pneumonia # New Onset Anemia - Maintain Pox > 92%, Fi02 down to 35%, Mechanical Ventilation per Pulmonary, Med Nebs Q 6 Hours, methylprednisolone 40 mg IV Q 12 hours Gastrointestinal # Transaminitis Secondary to above # S/P PEG placement on 03/08/24 Genitourinary/Nephrology # Acute Kidney Injury - follow up with Nephrology - monitor kidney function Metabolic: # Hyperkalemia. - resolved # Hyernatremia - Na today is 152 - Free water. Hematology # anemia secondary to possible blood loss - -GI Consulted, no plan for EGD at this time - daily AM Labs Lines: Mccord catheter 02/18/24 Endotracheal tube 02/18/24 PICC line 03/09/24 Drips Fentanyl 200 Propofol 30 NE 0 DVT Prophy; no anticoagulation, GI Prophy; Protonix 40mg IV daily Patient will be placed to LTAC after tracheostomy Critical Care time spent 81 minutes including, patient care, chart review and updating family, excluding procedure. Case discussed with Dr Mccormick Plan discussed with: Other (RN) Dietary Evaluation Review Recommendations by RD: Dietary education by RD Comments: 1) If GI is accessible consider Pivot 1.5 @ 55 ml/hr x24 hr goal rate as tolerated 2) If pt remains NPO >7 days consider TPN to meet at least 75% of estimated goals 3) Advance pt diet when medically feasible to a Cardiac diet modified per POLYMER SCIENTIST recommendations 4) Continue current plan of care Expected Outcomes/Goals: 1) Pt to receive nutrition support within 7 days of NPO status 2) Pt diet to advance 3) F/U in 2-3 days Sepsis reassessment post fluid Respiratory Effort: ET Tube Breath sounds: Clear, Diminished Date of Service: Mar 09, 2024 Billing Provider: JAYDE MCCORMICK MD Common Visit Codes: 50081-[id number] CARE 30-74 MIN, [id number] CARE-EACH +30MIN CHRISTIANO JONES RESIDENT Mar 09, 2024 17:53 JAYDE MCCORMICK MD Mar 10, 2024 14:43
[2024-03-09] MEDS: SODIUM CHLOR 0.9% PF (SALINE LOCK) 10ML VIAL/SYR IV SCH (21:31)
--- NOTE | 2024-03-09 23:25 | DVHPN2 ---
Progress Note - Dictate Date Seen: Mar 09, 2024 Medical Necessity Reason Pt with a Central, PICC or Fol: Yes The following are medically ne: Central Line, Mccord Catheter Reason for mccord catheter: Strict I&O, Total Immobilization Subjective No acute events, on vent vital signs Vital Sign Date Time Temp Pulse Resp B/P (MAP) Pulse Ox O2 Delivery O2 Flow Rate FiO2 03/09/24 22:46 78 22 126/37 (66) 96 03/09/24 22:11 35 03/09/24 22:00 Mechanical Ventilator+ 03/09/24 20:00 97.8 97.8 Total Intake and Output 03/08/24 03/08/24 03/09/24 15:00 23:00 07:00 Intake Total 280 ml 520.704 ml 786.768 ml Output Total 1350 ml 1250 ml Balance 280 ml -829.296 ml -463.232 ml medications Current Medications Medications Dose Ordered Sig/Sherwin Route Start Time Stop Time Status Last Admin Dose Admin Nitroglycerin 0.4 mg Q5MINP PRN SL 02/18/24 06:45 Ondansetron HCl 4 mg Q6HPRN PRN IV 02/18/24 06:45 Pantoprazole Sodium 40 mg DAILY IV 02/19/24 10:00 03/09/24 10:45 40 MG Labetalol HCl 10 mg Q4HPRN PRN IV 02/20/24 16:15 02/29/24 07:27 10 MG Acetaminophen 650 mg Q8HP PRN [place] 02/21/24 11:30 02/25/24 05:54 650 MG Albuterol 2.5 mg Q4HR NEB 02/21/24 18:00 03/09/24 22:11 2.5 MG Ipratropium [place] 0.5 mg Q4HR NEB 02/21/24 18:00 03/09/24 22:11 0.5 MG Midazolam HCl 5 mg [id number] PRN IV 02/24/24 10:00 02/25/24 08:15 5 MG Acetylcysteine 200 mg Q8HR IN 02/26/24 14:00 Cancel Acetylcysteine 200 mg Q8HR NEB 02/26/24 14:00 03/09/24 22:11 200 MG Budesonide 0.5 mg BID NEB 02/27/24 22:00 03/09/24 22:11 0.5 MG Amlodipine Besylate 10 mg DAILY PO 02/27/24 10:30 Hold 03/03/24 10:36 10 MG Enteral Nutritional Formula 1,000 ml 30ML/HR GT 02/28/24 08:45 03/04/24 19:01 1,000 ML Bisacodyl 10 mg DAILYP PRN [place] 02/28/24 08:45 Norepinephrine Bitartrate 250 ml @ 3.75 mls/hr Q24H IV 02/28/24 19:15 03/03/24 19:17 7.5 MLS/HR Digoxin 0.125 mg DAILY PO 03/01/24 10:00 03/08/24 08:17 0.125 MG Lactulose 30 ml DAILYPRN PRN PO 02/29/24 12:00 Enoxaparin Sodium 70 mg DAILY SC 03/02/24 10:00 03/07/24 09:07 70 MG Midazolam HCl 50 ml @ 1 mls/hr Q24H IV 03/03/24 19:15 03/04/24 03:34 4 MLS/HR Methylprednisolone Sodium Succinate 40 mg Q12HR IV 03/04/24 22:00 03/09/24 21:30 40 MG Metoprolol Tartrate 25 mg BID PO 03/04/24 22:00 03/09/24 21:30 25 MG Amiodarone HCl 200 mg Q12HR PO 03/05/24 10:30 03/09/24 21:30 200 MG Propofol 100 ml @ 2.016 mls/ hr Q24H IV 03/08/24 12:30 03/09/24 21:31 10.08 MLS/HR Fentanyl Citrate 250 ml @ 2.5 mls/hr Q24H IV 03/08/24 12:30 03/09/24 16:02 20 MLS/HR Purified Water 200 ml Q6HR GT 03/09/24 18:00 03/09/24 17:25 200 ML Sodium Chloride 10 ml QSHIFT@10,22 IV 03/09/24 22:00 03/09/24 21:31 10 ML objective GE; on vent CVS; S1S2+ Lungs: clear Abdomen; soft, nondistended, BS+, PEG tube in place laboratory and microbiology Laboratory Tests 03/09/24 03:00 Test 03/09/24 03:00 Range/Units Serum Glucose 121 H 74-106 mg/dL Assessment/Plan #Dysphagia, s/p PEG tube placemet #Acute resp failure #Acute encephalopathy -TF as tolerated -Keep the stoma site dry and clean -Care plan discussed with RN Thank you for allowing to participate in the care of this pt. Dietary Evaluation Review Recommendations by RD: Dietary education by RD Comments: 1) If GI is accessible consider Pivot 1.5 @ 55 ml/hr x24 hr goal rate as tolerated 2) If pt remains NPO >7 days consider TPN to meet at least 75% of estimated goals 3) Advance pt diet when medically feasible to a Cardiac diet modified per [employer] SYSTEMS INSTALLER recommendations 4) Continue current plan of care Expected Outcomes/Goals: 1) Pt to receive nutrition support within 7 days of NPO status 2) Pt diet to advance 3) F/U in 2-3 days Plan discussed with: Other Respiratory Effort: ET Tube Breath sounds: Clear, Diminished ROX MAHER MD Mar 09, 2024 23:24
[2024-03-09] MEDS: LACTULOSE 20Gm/30ML SOLN PO PRN (23:34)
[2024-03-10] VITALS (106 sets, daily range): BP systolic 114–197; BP diastolic 31–77; PULSE 48–104; RESP 15–29; TEMP 98.5–98.9; O2SAT 92–99
--- NOTE | 2024-03-10 04:55 | DVH ---
CHEST RADIOGRAPH Indication: intubated Technique: Single frontal view of the chest was obtained COMPARISON: XY CHEST PORTABLE on DOS: 03/09/24, XY CHEST XRAY 1 VIEW on DOS: 03/09/24, XY CHEST PORTABL E on DOS: 03/08/24, XY CHEST PORTABLE on DOS: 03/09/24 FINDINGS: Lines and Tubes: Median sternotomy. Endotracheal tube , enteric catheter and right central venous ca theter in satisfactory position. Right PICC tip in svc. Lungs: Clear Pleura: No effusion. No pneumothorax. Cardiomediastinal contours: Unremarkable Bones: Unremarkable IMPRESSION: 1. Right PICC tip in svc. Lines and tubes in satisfactory position. No significant interval change.
[2024-03-10 06:40] LABS: Basophils # (auto) 0 10 ^3/uL (0-0.2); Basophils % (auto) 0.2 % (0.0-2.0); Eosinophils # (auto) 0 10 ^3/uL (0-0.8); Hematocrit 28.6 % (36.0-46.0); Hemoglobin 9.5 g/dL (12.2-16.2); Lymphocytes # (auto) 0.2 10 ^3/uL (0.4-5.4); Lymphocytes % (auto) 1.5 % (10.0-50.0); Mean Corpuscular Hemoglobin 30.1 pg (28.0-32.0); Mean Corpuscular Hgb Conc. 33.1 g/dL (32.0-36.0); Monocytes # (auto) 0.3 10 ^3/uL (0-1.3); Monocytes % (auto) 2.6 % (0.0-12.0); Neutrophils # (auto) 10.5 10 ^3/uL (1.6-8.6); Neutrophils % (auto) 95.7 % (37.0-80.0); Nucleated Red Blood Cells % 0.1 %; Platelet Count (auto) 149 10^3/uL (140-450); Red Blood Cells 3.14 10^6/uL (4.0-5.20); Red Cell Distribution Width 18.5 % (11.8-14.3)
[2024-03-10 06:52] LABS: Alanine Aminotransferase 70 U/L (7-40); Albumin 3.2 g/dL (3.2-4.8); Alkaline Phosphatase 82 U/L (46-116); Anion Gap 13 (5-15); Aspartate Aminotransferase 41 U/L (13-40); BUN/Creatinine Ratio 51.1 (10.0-20.0); Bilirubin, Total 1.8 mg/dL (0.2-1.0); Calcium 8.4 mg/dL (8.7-10.4); Carbon Dioxide 26 mmol/L (20-31); Chloride 111 mmol/L (98-107); Glucose 131 mg/dL (74-106); Potassium 3.8 mmol/L (3.5-5.1); Sodium 150 mmol/L (136-145); Total Protein 4.9 g/dL (5.7-8.2)
[2024-03-10 06:53] LABS: Blood Urea Nitrogen 47 mg/dL (9-23)
[2024-03-10 07:31] LABS: Base Excess 3.3 mmol/L (-2.0-3.0)
[2024-03-10] MEDS ORDERED: CLINIMIX PER PHARMACY 0 ML IV SCH (10:45)
--- NOTE | 2024-03-10 11:54 | DVHPN2 ---
Progress Note - Dictate Date Seen: Mar 10, 2024 Medical Necessity Reason Pt with a Central, PICC or Fol: Yes The following are medically ne: Central Line, Mccord Catheter Reason for mccord catheter: Strict I&O, Total Immobilization Subjective remains intubated vital signs Vital Sign Date Time Temp Pulse Resp B/P (MAP) Pulse Ox O2 Delivery O2 Flow Rate FiO2 03/10/24 11:30 73 167/52 03/10/24 11:20 22 95 30 03/10/24 08:00 98.6 98.6 03/10/24 08:00 Mechanical Ventilator+ 03/09/24 21:00 0.0 Total Intake and Output 03/09/24 03/09/24 03/10/24 15:00 23:00 07:00 Intake Total 250.720 ml 641.36 ml 240.61 ml Output Total 1125 ml 625 ml Balance 250.720 ml -483.64 ml -384.39 ml medications Current Medications Medications Dose Ordered Sig/Sherwin Route Start Time Stop Time Status Last Admin Dose Admin Nitroglycerin 0.4 mg Q5MINP PRN SL 02/18/24 06:45 Ondansetron HCl 4 mg Q6HPRN PRN IV 02/18/24 06:45 Pantoprazole Sodium 40 mg DAILY IV 02/19/24 10:00 03/10/24 09:40 40 MG Labetalol HCl 10 mg Q4HPRN PRN IV 02/20/24 16:15 03/10/24 11:30 10 MG Acetaminophen 650 mg Q8HP PRN [place] 02/21/24 11:30 02/25/24 05:54 650 MG Albuterol 2.5 mg Q4HR NEB 02/21/24 18:00 03/10/24 09:53 2.5 MG Ipratropium [place] 0.5 mg Q4HR NEB 02/21/24 18:00 03/10/24 09:53 0.5 MG Midazolam HCl 5 mg [id number] PRN IV 02/24/24 10:00 02/25/24 08:15 5 MG Acetylcysteine 200 mg Q8HR IN 02/26/24 14:00 Cancel Acetylcysteine 200 mg Q8HR NEB 02/26/24 14:00 03/10/24 06:13 200 MG Budesonide 0.5 mg BID NEB 02/27/24 22:00 03/10/24 06:13 0.5 MG Amlodipine Besylate 10 mg DAILY PO 02/27/24 10:30 Hold 03/03/24 10:36 10 MG Enteral Nutritional Formula 1,000 ml 30ML/HR GT 02/28/24 08:45 03/04/24 19:01 1,000 ML Bisacodyl 10 mg DAILYP PRN [place] 02/28/24 08:45 Norepinephrine Bitartrate 250 ml @ 3.75 mls/hr Q24H IV 02/28/24 19:15 03/03/24 19:17 7.5 MLS/HR Digoxin 0.125 mg DAILY PO 03/01/24 10:00 03/10/24 09:41 0.125 MG Lactulose 30 ml DAILYPRN PRN PO 02/29/24 12:00 03/09/24 23:34 30 ML Enoxaparin Sodium 70 mg DAILY SC 03/02/24 10:00 03/10/24 09:44 70 MG Midazolam HCl 50 ml @ 1 mls/hr Q24H IV 03/03/24 19:15 03/04/24 03:34 4 MLS/HR Methylprednisolone Sodium Succinate 40 mg Q12HR IV 03/04/24 22:00 03/10/24 09:40 40 MG Metoprolol Tartrate 25 mg BID PO 03/04/24 22:00 03/10/24 09:41 25 MG Amiodarone HCl 200 mg Q12HR PO 03/05/24 10:30 03/10/24 09:41 200 MG Propofol 100 ml @ 2.016 mls/ hr Q24H IV 03/08/24 12:30 03/10/24 09:45 10.08 MLS/HR Fentanyl Citrate 250 ml @ 2.5 mls/hr Q24H IV 03/08/24 12:30 03/09/24 16:02 20 MLS/HR Purified Water 200 ml Q6HR GT 03/09/24 18:00 03/10/24 11:30 200 ML Sodium Chloride 10 ml QSHIFT@10,22 IV 03/09/24 22:00 03/10/24 09:40 10 ML Amino Acids 0 ml @ 0 mls/hr PER PHARMACY IV 03/10/24 10:45 UNV objective Morbidly obese white female Intubated Not on pressors Sedated Blood pressure stable Positive murmur No crackles Bruising on her chest and hands Mccord catheter PEG tube laboratory and microbiology Laboratory Tests 03/10/24 04:53 Test 03/10/24 04:53 Range/Units Serum Glucose 131 H 74-106 mg/dL Assessment/Plan Acute kidney injury likely hemodynamically mediated Chronic kidney disease stage 2/3 Acute respiratory failure in the setting of possible COPD exacerbation Acute anemia unspecified Pneumonia mechanical valve hypernatremia continue free water Not on pressors Monitoring urinary output keep MAP > 65 Gastroenterology on the case Dietary Evaluation Review Recommendations by RD: Dietary education by RD Comments: 1) If GI is accessible consider Pivot 1.5 @ 55 ml/hr x24 hr goal rate as tolerated 2) If pt remains NPO >7 days consider TPN to meet at least 75% of estimated goals 3) Advance pt diet when medically feasible to a Cardiac diet modified per [employer]S SUPERINTENDENT recommendations 4) Continue current plan of care Expected Outcomes/Goals: 1) Pt to receive nutrition support within 7 days of NPO status 2) Pt diet to advance 3) F/U in 2-3 days Plan discussed with: Other Respiratory Effort: ET Tube Breath sounds: Clear, Diminished CHARLI WINN MD Mar 10, 2024 11:53
[2024-03-10 12:13] LABS: INR 1.11 (0.9-1.15); Partial Thromboplastin Time 25.7 SEC (24.5-34.5); Prothrombin Time 11.7 sec (9.3-11.8)
[2024-03-10 12:55] LABS: Magnesium 2.5 mg/dL (1.6-2.6)
[2024-03-10] MEDS: hydrALAZINE HCL 20 MG/ML VL IV PRN (13:15)
[2024-03-10] MEDS ORDERED: DEXTROSE (50%) 50ML SYRG IV SCH (16:00)
--- NOTE | 2024-03-10 16:41 | DVHPNRES ---
Progress Note Date Seen: Mar 10, 2024 Resident Creating Document: CHRISTIANO JONES Medical Necessity Reason Pt with a Central, PICC or Fol: Yes The following are medically ne: PICC Line, Mccord Catheter Reason for mccord catheter: Strict I&O, Total Immobilization Subjective Review of Systems 68 y.o. female with COPD using 3L of home oxygen was brought to the ED c/o SOB despite using her oxygen. EMS started 10L and gave her nebulizer treatment but patient continued to be in severe respiratory distress. ER MD intubated the patient. Patient seen and examined at bedside. Sedated, intubated on mechanical ventilator. Overnight events reviewed. Objective vital signs Vital Sign Date Time Temp Pulse Resp B/P (MAP) Pulse Ox O2 Delivery O2 Flow Rate FiO2 03/10/24 15:49 75 22 148/42 (77) 94 30 03/10/24 12:00 98.9 98.9 03/10/24 12:00 Mechanical Ventilator+ 03/09/24 21:00 0.0 Total Intake and Output 03/09/24 03/09/24 03/10/24 15:00 23:00 07:00 Intake Total 250.720 ml 641.36 ml 240.61 ml Output Total 1125 ml 625 ml Balance 250.720 ml -483.64 ml -384.39 ml medications Current Medications Medications Dose Ordered Sig/Sherwin Route Start Time Stop Time Status Last Admin Dose Admin Nitroglycerin 0.4 mg Q5MINP PRN SL 02/18/24 06:45 Ondansetron HCl 4 mg Q6HPRN PRN IV 02/18/24 06:45 Pantoprazole Sodium 40 mg DAILY IV 02/19/24 10:00 03/10/24 09:40 40 MG Labetalol HCl 10 mg Q4HPRN PRN IV 02/20/24 16:15 03/10/24 11:30 10 MG Acetaminophen 650 mg Q8HP PRN [place] 02/21/24 11:30 02/25/24 05:54 650 MG Albuterol 2.5 mg Q4HR NEB 02/21/24 18:00 03/10/24 13:36 2.5 MG Ipratropium [place] 0.5 mg Q4HR NEB 02/21/24 18:00 03/10/24 13:36 0.5 MG Midazolam HCl 5 mg [id number] PRN IV 02/24/24 10:00 02/25/24 08:15 5 MG Acetylcysteine 200 mg Q8HR IN 02/26/24 14:00 Cancel Acetylcysteine 200 mg Q8HR NEB 02/26/24 14:00 03/10/24 13:36 200 MG Budesonide 0.5 mg BID NEB 02/27/24 22:00 03/10/24 06:13 0.5 MG Enteral Nutritional Formula 1,000 ml 30ML/HR GT 02/28/24 08:45 03/10/24 16:29 1,000 ML Bisacodyl 10 mg DAILYP PRN [place] 02/28/24 08:45 Norepinephrine Bitartrate 250 ml @ 3.75 mls/hr Q24H IV 02/28/24 19:15 03/03/24 19:17 7.5 MLS/HR Digoxin 0.125 mg DAILY PO 03/01/24 10:00 03/10/24 09:41 0.125 MG Lactulose 30 ml DAILYPRN PRN PO 02/29/24 12:00 03/09/24 23:34 30 ML Midazolam HCl 50 ml @ 1 mls/hr Q24H IV 03/03/24 19:15 03/04/24 03:34 4 MLS/HR Methylprednisolone Sodium Succinate 40 mg Q12HR IV 03/04/24 22:00 03/10/24 09:40 40 MG Metoprolol Tartrate 25 mg BID PO 03/04/24 22:00 03/10/24 09:41 25 MG Amiodarone HCl 200 mg Q12HR PO 03/05/24 10:30 03/10/24 09:41 200 MG Propofol 100 ml @ 2.016 mls/ hr Q24H IV 03/08/24 12:30 03/10/24 09:45 10.08 MLS/HR Fentanyl Citrate 250 ml @ 2.5 mls/hr Q24H IV 03/08/24 12:30 03/10/24 16:08 20 MLS/HR Purified Water 200 ml Q6HR GT 03/09/24 18:00 03/10/24 11:30 200 ML Sodium Chloride 10 ml QSHIFT@10,22 IV 03/09/24 22:00 03/10/24 09:40 10 ML Amino Acids 0 ml @ 0 mls/hr PER PHARMACY IV 03/10/24 10:45 Hydralazine HCl 10 mg Q6HP PRN IV 03/10/24 12:45 03/10/24 13:15 10 MG Amlodipine Besylate 10 mg DAILY PO 03/11/24 10:00 Enoxaparin Sodium 70 mg DAILY SC 03/11/24 10:00 Amino Acids/ Electrolytes/ Dextrose 1,000 ml @ 41 mls/hr DAILY@2200 IV 03/10/24 22:00 Diagnostic Test (Pha) 1 strip Q6HR 03/10/24 18:00 Insulin Human Regular FOLLOW SLIDING SCALE Q6HR SC 03/10/24 18:00 Dextrose 50 ml UD IV 03/10/24 16:00 Examination Gen.: Patient lying in bed in medical ICU. Sedated, intubated on mechanical ventilator. Head: Normocephalic, atraumatic. Eyes: PERRLA. Ears: Normal external anatomy. Throat: Endotracheal tube and orogastric tube in place. Neck: Supple, trachea midline. Chest: Transmitted breath sounds bilaterally. Decreased air entry bilaterally. No wheezing. Bibasilar crackles. Cardiovascular: Positive S1, positive S2. Regular rate and rhythm. Abdomen: Positive bowel sounds in all 4 quadrants. Soft, nontender, nondistended. : Mccord in place. Normal external genitalia. Rectal: Deferred. Skin: Warm, dry. Intact. Extremities: 2+ radial pulses bilaterally. No lower extremity edema. Neuro: Sedated. laboratory and microbiology Laboratory Tests 03/10/24 04:53 Test 03/10/24 04:53 Range/Units Serum Glucose 131 H 74-106 mg/dL Microbiology Date/Time Source Procedure Growth Status 03/03/24 18:57 Sputum Gram Stain - Final Complete 03/03/24 18:57 Sputum Respiratory Culture - Final Complete 02/21/24 13:45 Blood Blood Culture - Final NO GROWTH AFTER 5 DAYS OF INCUBATION. Complete 02/18/24 11:00 Nose MRSA Screen - Final Complete Problem List/Assessment/Plan Problem List/Assessment/Plan Neurology: Patiet is Sedated Cardiovascular: # AFib # Hypertension # Hyperlipidemia # Hx of mechanical mitral valve replacement on home Coumadin, -INR goal of 2.5-3.5, holding Coumadin. # atrial flutter - consulted with proc tech recommends -Amiodarone drip -metoprolol 25 mg b.i.d. - Digoxin. Respiratory: # septic shock secondary to pneumonia # community-acquired pneumonia possible GM+/- bacterial pneumonia # acute hypoxic respiratory failure secondary to COPD exacerbation, pneumonia - Maintain Pox > 92%, Fi02 down to 35%, Mechanical Ventilation per Pulmonary, - Med Nebs Q 6 Hours, methylprednisolone 40 mg IV Q 12 hours Gastrointestinal # Transaminitis Secondary to above # S/P PEG placement on 03/08/24 Genitourinary/Nephrology # Acute Kidney Injury - follow up with Nephrology - monitor kidney function Metabolic: # Hyperkalemia. - resolved # Hypernatremia - Na today is 150 - Free water. Hematology # anemia secondary to possible blood loss - -GI Consulted, - daily AM Labs Lines: Mccord catheter 02/18/24 Endotracheal tube 02/18/24 PICC line 03/09/24 Drips Fentanyl 200 Propofol 25 NE 0 DVT Prophy; Lovenox 70mg sc daily GI Prophy; Protonix 40mg IV daily Patient will be placed to LTAC after tracheostomy. Tracheostomy is scheduled tomorrow. Critical Care time spent 83 minutes including, patient care, chart review and updating family, excluding procedure. Case discussed with Dr Mccormick Plan discussed with: Other (RN) My Orders My Orders Orders - CHRISTIANO JONES RESIDENT Procedure Category Date Status Time Chest Xray 1 View XY 03/10/24 Resulted 04:00 Abg W/ Co-Ox RT 03/10/24 Logged 04:00 Clinimix Per Pharmacy PHA 03/10/24 In Process 10:45 Hydralazine Injection PHA 03/10/24 In Process (Apresoline Inject 12:45 Amino Acid Infusion PHA 03/10/24 In Process In D10w (Clinimix 4. 22:00 Glucose Blood PHA 03/10/24 In Process (Accu-Chek Comfort 18:00 Insulin R (Human) PHA 03/10/24 In Process (Insulin R) 18:00 Dextrose 50% Syringe PHA 03/10/24 In Process 16:00 Comprehensive LAB 03/11/24 Verified Metabolic Panel 04:00 Magnesium LAB 03/11/24 Verified 04:00 Phosphorus LAB 03/11/24 Verified 04:00 Clinimix Per Pharmacy ANUP 03/10/24 In Process 22:00 Dietary Evaluation Review Recommendations by RD: Dietary education by RD Comments: 1) If GI is accessible consider Pivot 1.5 @ 55 ml/hr x24 hr goal rate as tolerated 2) If pt remains NPO >7 days consider TPN to meet at least 75% of estimated goals 3) Advance pt diet when medically feasible to a Cardiac diet modified per [employer] SHAPER OPERATOR recommendations 4) Continue current plan of care Expected Outcomes/Goals: 1) Pt to receive nutrition support within 7 days of NPO status 2) Pt diet to advance 3) F/U in 2-3 days Sepsis reassessment post fluid Respiratory Effort: ET Tube Breath sounds: Clear, Diminished Date of Service: Mar 10, 2024 Billing Provider: JAYDE MCCORMICK MD Common Visit Codes: 61331-[id number] CARE 30-74 MIN, 31551-[id number] CARE-EACH +30MIN CHRISTIANO JONES RESIDENT Mar 10, 2024 16:41 JAYDE MCCORMICK MD Mar 11, 2024 14:20
--- NOTE | 2024-03-10 16:45 | DVHPN2 ---
Progress Note - Dictate Date Seen: Mar 10, 2024 Medical Necessity Reason Pt with a Central, PICC or Fol: Yes The following are medically ne: Central Line, Mccord Catheter Reason for mccord catheter: Strict I&O, Total Immobilization Subjective Tolerating Tf well vital signs Vital Sign Date Time Temp Pulse Resp B/P (MAP) Pulse Ox O2 Delivery O2 Flow Rate FiO2 03/10/24 16:00 98.9 78 22 142/45 (77) 94 98.9 03/10/24 15:49 30 03/10/24 12:00 Mechanical Ventilator+ 03/09/24 21:00 0.0 Total Intake and Output 03/09/24 03/09/24 03/10/24 15:00 23:00 07:00 Intake Total 250.720 ml 641.36 ml 240.61 ml Output Total 1125 ml 625 ml Balance 250.720 ml -483.64 ml -384.39 ml medications Current Medications Medications Dose Ordered Sig/[place]win Route Start Time Stop Time Status Last Admin Dose Admin Nitroglycerin 0.4 mg Q5MINP PRN SL 02/18/24 06:45 Ondansetron HCl 4 mg Q6HPRN PRN IV 02/18/24 06:45 Pantoprazole Sodium 40 mg DAILY IV 02/19/24 10:00 03/10/24 09:40 40 MG Labetalol HCl 10 mg Q4HPRN PRN IV 02/20/24 16:15 03/10/24 11:30 10 MG Acetaminophen 650 mg Q8HP PRN [place] 02/21/24 11:30 02/25/24 05:54 650 MG Albuterol 2.5 mg Q4HR NEB 02/21/24 18:00 03/10/24 13:36 2.5 MG Ipratropium [place] 0.5 mg Q4HR NEB 02/21/24 18:00 03/10/24 13:36 0.5 MG Midazolam HCl 5 mg [id number] PRN IV 02/24/24 10:00 02/25/24 08:15 5 MG Acetylcysteine 200 mg Q8HR IN 02/26/24 14:00 Cancel Acetylcysteine 200 mg Q8HR NEB 02/26/24 14:00 03/10/24 13:36 200 MG Budesonide 0.5 mg BID NEB 02/27/24 22:00 03/10/24 06:13 0.5 MG Enteral Nutritional Formula 1,000 ml 30ML/HR GT 02/28/24 08:45 03/10/24 16:29 1,000 ML Bisacodyl 10 mg DAILYP PRN [place] 02/28/24 08:45 Norepinephrine Bitartrate 250 ml @ 3.75 mls/hr Q24H IV 02/28/24 19:15 03/03/24 19:17 7.5 MLS/HR Digoxin 0.125 mg DAILY PO 03/01/24 10:00 03/10/24 09:41 0.125 MG Lactulose 30 ml DAILYPRN PRN PO 02/29/24 12:00 03/09/24 23:34 30 ML Midazolam HCl 50 ml @ 1 mls/hr Q24H IV 03/03/24 19:15 03/04/24 03:34 4 MLS/HR Methylprednisolone Sodium Succinate 40 mg Q12HR IV 03/04/24 22:00 03/10/24 09:40 40 MG Metoprolol Tartrate 25 mg BID PO 03/04/24 22:00 03/10/24 09:41 25 MG Amiodarone HCl 200 mg Q12HR PO 03/05/24 10:30 03/10/24 09:41 200 MG Propofol 100 ml @ 2.016 mls/ hr Q24H IV 03/08/24 12:30 03/10/24 09:45 10.08 MLS/HR Fentanyl Citrate 250 ml @ 2.5 mls/hr Q24H IV 03/08/24 12:30 03/10/24 16:08 20 MLS/HR Purified Water 200 ml Q6HR GT 03/09/24 18:00 03/10/24 11:30 200 ML Sodium Chloride 10 ml QSHIFT@10,22 IV 03/09/24 22:00 03/10/24 09:40 10 ML Amino Acids 0 ml @ 0 mls/hr PER PHARMACY IV 03/10/24 10:45 Hydralazine HCl 10 mg Q6HP PRN IV 03/10/24 12:45 03/10/24 13:15 10 MG Amlodipine Besylate 10 mg DAILY PO 03/11/24 10:00 Enoxaparin Sodium 70 mg DAILY SC 03/11/24 10:00 Amino Acids/ Electrolytes/ Dextrose 1,000 ml @ 41 mls/hr DAILY@2200 IV 03/10/24 22:00 Diagnostic Test (Pha) 1 strip Q6HR 03/10/24 18:00 Insulin Human Regular FOLLOW SLIDING SCALE Q6HR SC 03/10/24 18:00 Dextrose 50 ml UD IV 03/10/24 16:00 objective GE : on vent CVS; S1S2+ Lungs; clear Abdomen: soft, nondistended, BS+. PEG in place, stoma site clean, no bleeding or discharge laboratory and microbiology Laboratory Tests 03/10/24 04:53 Test 03/10/24 04:53 Range/Units Serum Glucose 131 H 74-106 mg/dL Assessment/Plan #Dysphagia, s/p PEG tube placemet #Acute resp failure #Acute encephalopathy -TF as tolerated -Keep the stoma site dry and clean -Care plan discussed with RN Thank you for allowing to participate in the care of this pt. Dietary Evaluation Review Recommendations by RD: Dietary education by RD Comments: 1) If GI is accessible consider Pivot 1.5 @ 55 ml/hr x24 hr goal rate as tolerated 2) If pt remains NPO >7 days consider TPN to meet at least 75% of estimated goals 3) Advance pt diet when medically feasible to a Cardiac diet modified per RECOVERY ANALYST recommendations 4) Continue current plan of care Expected Outcomes/Goals: 1) Pt to receive nutrition support within 7 days of NPO status 2) Pt diet to advance 3) F/U in 2-3 days Plan discussed with: Other Respiratory Effort: ET Tube Breath sounds: Clear, Diminished ROX MAHER MD Mar 10, 2024 16:45
[2024-03-10] MEDS: InsuLIN REG 1unit/0.01ml Soln (100units/ml) SC SCH (17:28)
[2024-03-10] MEDS: ACCU-CHEK COMFORT CURVE STRIP VI SCH (17:28)
--- NOTE | 2024-03-10 17:57 | DVHPN2 ---
Progress Note - Dictate Date Seen: Mar 10, 2024 Medical Necessity Reason Pt with a Central, PICC or Fol: Yes The following are medically ne: Central Line, Mccord Catheter Reason for mccord catheter: Strict I&O, Total Immobilization Subjective Patient was seen and evaluated in follow up in the ICU. Patient is intubated and sedated on ventilator. 30% FiO2. WBC 11, HGB 9.5, HCT 28.6, NA 150, BUN 47, AST 41, ALT 70. vital signs Vital Sign Date Time Temp Pulse Resp B/P (MAP) Pulse Ox O2 Delivery O2 Flow Rate FiO2 03/10/24 17:00 75 22 143/50 (81) 93 03/10/24 16:00 98.9 98.9 03/10/24 16:00 Mechanical Ventilator+ 30 30 03/09/24 21:00 0.0 Total Intake and Output 03/09/24 03/09/24 03/10/24 15:00 23:00 07:00 Intake Total 250.720 ml 641.36 ml 240.61 ml Output Total 1125 ml 625 ml Balance 250.720 ml -483.64 ml -384.39 ml medications Current Medications Medications Dose Ordered Sig/Sherwin Route Start Time Stop Time Status Last Admin Dose Admin Nitroglycerin 0.4 mg Q5MINP PRN SL 02/18/24 06:45 Ondansetron HCl 4 mg Q6HPRN PRN IV 02/18/24 06:45 Pantoprazole Sodium 40 mg DAILY IV 02/19/24 10:00 03/10/24 09:40 40 MG Labetalol HCl 10 mg Q4HPRN PRN IV 02/20/24 16:15 03/10/24 11:30 10 MG Acetaminophen 650 mg Q8HP PRN [place] 02/21/24 11:30 02/25/24 05:54 650 MG Albuterol 2.5 mg Q4HR NEB 02/21/24 18:00 03/10/24 13:36 2.5 MG Ipratropium [place] 0.5 mg Q4HR NEB 02/21/24 18:00 03/10/24 13:36 0.5 MG Midazolam HCl 5 mg [id number] PRN IV 02/24/24 10:00 02/25/24 08:15 5 MG Acetylcysteine 200 mg Q8HR IN 02/26/24 14:00 Cancel Acetylcysteine 200 mg Q8HR NEB 02/26/24 14:00 03/10/24 13:36 200 MG Budesonide 0.5 mg BID NEB 02/27/24 22:00 03/10/24 06:13 0.5 MG Enteral Nutritional Formula 1,000 ml 30ML/HR GT 02/28/24 08:45 03/10/24 16:29 1,000 ML Bisacodyl 10 mg DAILYP PRN [place] 02/28/24 08:45 Norepinephrine Bitartrate 250 ml @ 3.75 mls/hr Q24H IV 02/28/24 19:15 03/03/24 19:17 7.5 MLS/HR Digoxin 0.125 mg DAILY PO 03/01/24 10:00 03/10/24 09:41 0.125 MG Lactulose 30 ml DAILYPRN PRN PO 02/29/24 12:00 03/09/24 23:34 30 ML Midazolam HCl 50 ml @ 1 mls/hr Q24H IV 03/03/24 19:15 03/04/24 03:34 4 MLS/HR Methylprednisolone Sodium Succinate 40 mg Q12HR IV 03/04/24 22:00 03/10/24 09:40 40 MG Metoprolol Tartrate 25 mg BID PO 03/04/24 22:00 03/10/24 09:41 25 MG Amiodarone HCl 200 mg Q12HR PO 03/05/24 10:30 03/10/24 09:41 200 MG Propofol 100 ml @ 2.016 mls/ hr Q24H IV 03/08/24 12:30 03/10/24 09:45 10.08 MLS/HR Fentanyl Citrate 250 ml @ 2.5 mls/hr Q24H IV 03/08/24 12:30 03/10/24 16:08 20 MLS/HR Purified Water 200 ml Q6HR GT 03/09/24 18:00 03/10/24 17:35 200 ML Sodium Chloride 10 ml QSHIFT@10,22 IV 03/09/24 22:00 03/10/24 09:40 10 ML Amino Acids 0 ml @ 0 mls/hr PER PHARMACY IV 03/10/24 10:45 Hydralazine HCl 10 mg Q6HP PRN IV 03/10/24 12:45 03/10/24 13:15 10 MG Amlodipine Besylate 10 mg DAILY PO 03/11/24 10:00 Enoxaparin Sodium 70 mg DAILY SC 03/11/24 10:00 Amino Acids/ Electrolytes/ Dextrose 1,000 ml @ 41 mls/hr DAILY@2200 IV 03/10/24 22:00 Diagnostic Test (Pha) 1 strip Q6HR 03/10/24 18:00 Insulin Human Regular FOLLOW SLIDING SCALE Q6HR SC 03/10/24 18:00 Dextrose 50 ml UD IV 03/10/24 16:00 objective GENERAL: Intubated on ventilator. Morbidly obese. LUNGS: Decreased breath sounds. CARDIOVASCULAR: Heart sounds are good. ABDOMEN: Soft. laboratory and microbiology Laboratory Tests 03/10/24 04:53 Test 03/10/24 04:53 Range/Units Serum Glucose 131 H 74-106 mg/dL Problem List Acute on chronic hypoxic respiratory failure. Ventilator dependence with failure of CPAP/extubation. COPD with probable exacerbation. History of multiple intubations. History of mitral valve replacement, bioprosthetic. Atrial fibrillation. Primary hypertension. Anemia. Acute probable vasomotor nephropathy. Hyperkalemia. Morbidly obese. Assessment/Plan Continued all current supportive medical care. Amiodarone. Amlodipine. Digoxin. IV antibiotics as ordered. DVT and GI prophylactics. Vasopressors for hemodynamic support. Additional plan as per the hospital course. Critical care time of 45 minutes provided to include time spent evaluation of patient at bedside, when appropriate patient/family education for diagnosis, treatment plan, review of pertinent medical information and discussion of care with specialty providers and PCP. Mechanical ventilator parameters, treatment and adjustments have personally been reviewed by me and treatment plan by curer acid drum has also been reviewed. Dietary Evaluation Review Recommendations by RD: Dietary education by RD Comments: 1) If GI is accessible consider Pivot 1.5 @ 55 ml/hr x24 hr goal rate as tolerated 2) If pt remains NPO >7 days consider TPN to meet at least 75% of estimated goals 3) Advance pt diet when medically feasible to a Cardiac diet modified per ROTO GRAVURE PRESS OPERATOR recommendations 4) Continue current plan of care Expected Outcomes/Goals: 1) Pt to receive nutrition support within 7 days of NPO status 2) Pt diet to advance 3) F/U in 2-3 days Plan discussed with: Other Respiratory Effort: ET Tube Breath sounds: Clear, Diminished ARIZMENDI,MUKESHCHANDRA M MD Mar 10, 2024 17:57
[2024-03-10] MEDS: AMINO ACID INFUSION IN D10W 1,000 ML IV SCH (23:43)
[2024-03-11] VITALS (108 sets, daily range): BP systolic 125–224; BP diastolic 29–83; PULSE 47–83; RESP 11–24; TEMP 97.1–99.2; O2SAT 91–100
--- NOTE | 2024-03-11 04:42 | DVH ---
CHEST RADIOGRAPH Indication: Intubated Technique: Single frontal view of the chest was obtained Comparison: XY CHEST XRAY 1 VIEW on DOS: 03/10/24 FINDINGS: Lines and Tubes: The endotracheal tube terminates 3.9 cm above the mikey. Right upper extremity PIC C terminates in the superior vena cava. There is a cardiac valve prosthesis. Lungs: Bilateral interstitial prominence. Pleura: No effusion. No pneumothorax. Cardiomediastinal contours: Unremarkable Bones: No acute osseous abnormality. Status post median sternotomy. IMPRESSION: 1. Stable position of the support lines and tubes. 2. Pulmonary vascular congestion.
[2024-03-11 05:17] LABS: Basophils # (auto) 0 10 ^3/uL (0-0.2); Basophils % (auto) 0.3 % (0.0-2.0); Eosinophils # (auto) 0 10 ^3/uL (0-0.8); Hematocrit 28.5 % (36.0-46.0); Hemoglobin 9.1 g/dL (12.2-16.2); Lymphocytes # (auto) 0.2 10 ^3/uL (0.4-5.4); Lymphocytes % (auto) 1.8 % (10.0-50.0); Mean Corpuscular Hemoglobin 28.8 pg (28.0-32.0); Mean Corpuscular Hgb Conc. 31.9 g/dL (32.0-36.0); Mean Corpuscular Volume 90.3 fL (80.0-100.0); Monocytes # (auto) 0.3 10 ^3/uL (0-1.3); Monocytes % (auto) 3.3 % (0.0-12.0); Neutrophils % (auto) 94.6 % (37.0-80.0); Platelet Count (auto) 147 10^3/uL (140-450); Red Blood Cells 3.16 10^6/uL (4.0-5.20); Red Cell Distribution Width 18.1 % (11.8-14.3); White Blood Cell 10.5 10^3/uL (4.4-10.8)
[2024-03-11 05:30] LABS: INR 1.09 (0.9-1.15); Partial Thromboplastin Time 24.8 SEC (24.5-34.5); Prothrombin Time 11.5 sec (9.3-11.8)
[2024-03-11 05:32] LABS: Alkaline Phosphatase 99 U/L (46-116); Anion Gap 9 (5-15); BUN/Creatinine Ratio 62.9 (10.0-20.0); Carbon Dioxide 28 mmol/L (20-31); Magnesium 2.4 mg/dL (1.6-2.6); Phosphorus 2.7 mg/dL (2.4-5.1); Potassium 3.5 mmol/L (3.5-5.1)
[2024-03-11 05:35] LABS: Alanine Aminotransferase 159 U/L (7-40); Albumin 3.1 g/dL (3.2-4.8); Aspartate Aminotransferase 107 U/L (13-40); Bilirubin, Total 1.4 mg/dL (0.2-1.0); Blood Urea Nitrogen 61 mg/dL (9-23); Calcium 8.6 mg/dL (8.7-10.4); Chloride 113 mmol/L (98-107); Glucose 164 mg/dL (74-106); Sodium 150 mmol/L (136-145); Total Protein 4.9 g/dL (5.7-8.2)
[2024-03-11] MEDS: POTASSIUM CHL 20MEQ/100ML 100 ML IV SCH (06:55)
[2024-03-11 07:53] LABS: Base Excess 3.1 mmol/L (-2.0-3.0)
--- NOTE | 2024-03-11 08:08 | DVHPNRES ---
Progress Note Date Seen: Mar 11, 2024 Resident Creating Document: CHRISTIANO JONES RESIDENT Medical Necessity Reason Pt with a Central, PICC or Fol: Yes The following are medically ne: PICC Line, Mccord Catheter Reason for mccord catheter: Strict I&O, Total Immobilization Subjective Review of Systems 68 y.o. female with COPD using 3L of home oxygen was brought to the ED c/o SOB despite using her oxygen. EMS started 10L and gave her nebulizer treatment but patient continued to be in severe respiratory distress. ER MD intubated the patient. Patient seen and examined at bedside. Sedated, intubated on mechanical ventilator. Overnight events reviewed. Objective vital signs Vital Sign Date Time Temp Pulse Resp B/P (MAP) Pulse Ox O2 Delivery O2 Flow Rate FiO2 03/11/24 07:28 61 22 145/42 (76) 95 30 03/11/24 06:00 Mechanical Ventilator+ 03/11/24 04:00 98.0 98.0 03/09/24 21:00 0.0 Total Intake and Output 03/10/24 03/10/24 03/11/24 15:00 23:00 07:00 Intake Total 240.64 ml 660.56 ml 337.252 ml Output Total 575 ml 550 ml Balance 240.64 ml 85.56 ml -212.748 ml medications Current Medications Medications Dose Ordered Sig/Sherwin Route Start Time Stop Time Status Last Admin Dose Admin Nitroglycerin 0.4 mg Q5MINP PRN SL 02/18/24 06:45 Ondansetron HCl 4 mg Q6HPRN PRN IV 02/18/24 06:45 Pantoprazole Sodium 40 mg DAILY IV 02/19/24 10:00 03/10/24 09:40 40 MG Labetalol HCl 10 mg Q4HPRN PRN IV 02/20/24 16:15 03/10/24 23:45 10 MG Acetaminophen 650 mg Q8HP PRN [place] 02/21/24 11:30 02/25/24 05:54 650 MG Albuterol 2.5 mg Q4HR NEB 02/21/24 18:00 03/11/24 06:26 2.5 MG Ipratropium [place] 0.5 mg Q4HR NEB 02/21/24 18:00 03/11/24 06:26 0.5 MG Midazolam HCl 5 mg [id number] PRN IV 02/24/24 10:00 02/25/24 08:15 5 MG Acetylcysteine 200 mg Q8HR IN 02/26/24 14:00 Cancel Acetylcysteine 200 mg Q8HR NEB 02/26/24 14:00 03/11/24 06:26 200 MG Budesonide 0.5 mg BID NEB 02/27/24 22:00 03/11/24 06:26 0.5 MG Enteral Nutritional Formula 1,000 ml 30ML/HR GT 02/28/24 08:45 03/10/24 16:29 1,000 ML Bisacodyl 10 mg DAILYP PRN [place] 02/28/24 08:45 Norepinephrine Bitartrate 250 ml @ 3.75 mls/hr Q24H IV 02/28/24 19:15 03/03/24 19:17 7.5 MLS/HR Digoxin 0.125 mg DAILY PO 03/01/24 10:00 03/10/24 09:41 0.125 MG Lactulose 30 ml DAILYPRN PRN PO 02/29/24 12:00 03/09/24 23:34 30 ML Midazolam HCl 50 ml @ 1 mls/hr Q24H IV 03/03/24 19:15 03/04/24 03:34 4 MLS/HR Methylprednisolone Sodium Succinate 40 mg Q12HR IV 03/04/24 22:00 03/10/24 21:35 40 MG Metoprolol Tartrate 25 mg BID PO 03/04/24 22:00 03/10/24 21:26 25 MG Amiodarone HCl 200 mg Q12HR PO 03/05/24 10:30 03/10/24 21:26 200 MG Propofol 100 ml @ 2.016 mls/ hr Q24H IV 03/08/24 12:30 03/11/24 05:25 14.112 MLS/HR Fentanyl Citrate 250 ml @ 2.5 mls/hr Q24H IV 03/08/24 12:30 03/11/24 05:04 20 MLS/HR Purified Water 200 ml Q6HR GT 03/09/24 18:00 03/10/24 23:43 200 ML Sodium Chloride 10 ml QSHIFT@10,22 IV 03/09/24 22:00 03/10/24 21:27 10 ML Amino Acids 0 ml @ 0 mls/hr PER PHARMACY IV 03/10/24 10:45 Hydralazine HCl 10 mg Q6HP PRN IV 03/10/24 12:45 03/11/24 00:37 10 MG Amlodipine Besylate 10 mg DAILY PO 03/11/24 10:00 Enoxaparin Sodium 70 mg DAILY SC 03/11/24 10:00 Amino Acids/ Electrolytes/ Dextrose 1,000 ml @ 41 mls/hr DAILY@2200 IV 03/10/24 22:00 03/10/24 23:43 41 MLS/HR Diagnostic Test (Pha) 1 strip Q6HR 03/10/24 18:00 03/11/24 06:17 1 STRIP Insulin Human Regular FOLLOW SLIDING SCALE Q6HR SC 03/10/24 18:00 03/11/24 06:17 2 UNITS Dextrose 50 ml UD IV 03/10/24 16:00 Potassium Chloride 100 ml @ 50 mls/hr Q2H IV 03/11/24 06:45 03/11/24 12:44 03/11/24 06:55 50 MLS/HR Examination Gen.: Patient lying in bed in medical ICU. Sedated, intubated on mechanical ventilator. Head: Normocephalic, atraumatic. Eyes: PERRLA. Ears: Normal external anatomy. Throat: Endotracheal tube and orogastric tube in place. Neck: Supple, trachea midline. Chest: Transmitted breath sounds bilaterally. Decreased air entry bilaterally. No wheezing. Bibasilar crackles. Cardiovascular: Positive S1, positive S2. Regular rate and rhythm. Abdomen: Positive bowel sounds in all 4 quadrants. Soft, nontender, nondistended. : Mccord in place. Normal external genitalia. Rectal: Deferred. Skin: Warm, dry. Intact. Extremities: 2+ radial pulses bilaterally. No lower extremity edema. Neuro: Sedated. laboratory and microbiology Laboratory Tests 03/11/24 04:49 03/11/24 04:40 Test 03/11/24 04:49 Range/Units Serum Glucose 164 H 74-106 mg/dL Microbiology Date/Time Source Procedure Growth Status 03/03/24 18:57 Sputum Gram Stain - Final Complete 03/03/24 18:57 Sputum Respiratory Culture - Final Complete 02/21/24 13:45 Blood Blood Culture - Final NO GROWTH AFTER 5 DAYS OF INCUBATION. Complete 02/18/24 11:00 Nose MRSA Screen - Final Complete Problem List/Assessment/Plan Problem List/Assessment/Plan Neurology: Patiet is Sedated Cardiovascular: # AFib # Hypertension # Hyperlipidemia # Hx of mechanical mitral valve replacement on home Coumadin, -INR goal of 2.5-3.5, holding Coumadin. # atrial flutter - consulted with natural resource technician recommends -Amiodarone drip -metoprolol 25 mg b.i.d. - Digoxin. Respiratory: # septic shock secondary to pneumonia # community-acquired pneumonia possible GM+/- bacterial pneumonia # acute hypoxic respiratory failure secondary to COPD exacerbation, pneumonia - Maintain Pox > 92%, Fi02 down to 35%, Mechanical Ventilation per Pulmonary, - Med Nebs Q 6 Hours, methylprednisolone 40 mg IV Q 12 hours Gastrointestinal # Transaminitis Secondary to above # S/P PEG placement on 03/08/24 Genitourinary/Nephrology # Acute Kidney Injury - follow up with Nephrology - monitor kidney function Metabolic: # Hyperkalemia. - resolved # Hypernatremia - Na today is 150 - Free water. Hematology # anemia secondary to possible blood loss - -GI Consulted, - daily AM Labs Lines: Mccord catheter 02/18/24 Endotracheal tube 02/18/24 PICC line 03/09/24 Drips Fentanyl 225 Propofol 30 NE 0 DVT Prophy; Lovenox 70mg sc daily GI Prophy; Protonix 40mg IV daily Tracheostomy is done today, possible Transfer to LTAC Critical Care time spent 64 minutes including, patient care, chart review and updating family, excluding procedure. Case discussed with Dr Mccormick Plan discussed with: Other (RN) My Orders My Orders Orders - CHRISTIANO JONES RESIDENT Procedure Category Date Status Time Clinimix Per Pharmacy PHA 03/10/24 In Process 10:45 Hydralazine Injection PHA 03/10/24 In Process (Apresoline Inject 12:45 Amino Acid Infusion PHA 03/10/24 In Process In D10w (Clinimix 4. 22:00 Glucose Blood PHA 03/10/24 In Process (Accu-Chek Comfort 18:00 Insulin R (Human) PHA 03/10/24 In Process (Insulin R) 18:00 Dextrose 50% Syringe PHA 03/10/24 In Process 16:00 Clinimix Per Pharmacy ANUP 03/10/24 In Process 22:00 Chest Xray 1 View XY 12/4/24 Resulted 04:00 Abg W/ Co-Ox RT 03/11/24 Logged 04:00 Dietary Evaluation Review Recommendations by RD: Dietary education by RD Comments: 1) If GI is accessible consider Pivot 1.5 @ 55 ml/hr x24 hr goal rate as tolerated 2) If pt remains NPO >7 days consider TPN to meet at least 75% of estimated goals 3) Advance pt diet when medically feasible to a Cardiac diet modified per PLATFORM BUILDER recommendations 4) Continue current plan of care Expected Outcomes/Goals: 1) Pt to receive nutrition support within 7 days of NPO status 2) Pt diet to advance 3) F/U in 2-3 days Sepsis reassessment post fluid Respiratory Effort: ET Tube Breath sounds: Clear, Diminished Date of Service: Mar 11, 2024 Billing Provider: JAYDE MCCORMICK MD Common Visit Codes: 65311-[id number] CARE 30-74 MIN CHRISTIANO JONES RESIDENT Mar 11, 2024 08:08 JAYDE MCCORMICK MD Mar 12, 2024 12:19
[2024-03-11] MEDS: amLODIPine BESYLATE 5 MG TAB PO SCH (09:47)
[2024-03-11] MEDS: ENOXAPARIN SOD 80 MG/0.8ML SYRINGE SC SCH (09:49)
[2024-03-11] MEDS ORDERED: ROCURONIUM 10MG/ML 10ML VIAL IV ONE (11:52)
[2024-03-11] MEDS ORDERED: fentaNYL CITRATE 100 MCG/2 ML VL ONE (11:52)
[2024-03-11] MEDS ORDERED: ePHEDrine SULFATE 50 MG/ML AMP ONE (12:02)
[2024-03-11] MEDS: BUPIVACAINE 0.5% P/F INJ 10 ML VIAL ONE (12:20)
[2024-03-11] MEDS: LIDOCAINE W/ EPINEPHRINE 1% 20ML VIAL ONE (12:20)
--- NOTE | 2024-03-11 13:04 | DVH ---
CHEST RADIOGRAPH Indication: s/p tracheostomy Technique: Single frontal view of the chest was obtained Comparison: XY CHEST XRAY 1 VIEW on DOS: 03/11/24, XY CHEST XRAY 1 VIEW on DOS: 03/10/24, XY CHEST PORT ABLE on DOS: 03/09/24, XY CHEST XRAY 1 VIEW on DOS: 03/09/24, XY CHEST PORTABLE on DOS: 03/08/24, XY BRIGIDO ST XRAY 1 VIEW on DOS: 03/11/24 FINDINGS: Lines and Tubes: The endotracheal tube terminates 3.9 cm above the mikey. Right upper extremity PIC C terminates in the superior vena cava. There is a cardiac valve prosthesis. Lungs: Bilateral interstitial prominence. Pleura: No effusion. No pneumothorax. Cardiomediastinal contours: Unremarkable Bones: No acute osseous abnormality. Status post median sternotomy. IMPRESSION: 1. Stable position of the support lines and tubes. 2. Pulmonary vascular congestion.
--- NOTE | 2024-03-11 13:39 | DVHOP ---
DATE OF SURGERY: 03/11/2024 PREOPERATIVE DIAGNOSIS: Ventilator-dependent respiratory failure. POSTOPERATIVE DIAGNOSIS: Ventilator-dependent respiratory failure. SURGEON: Emanuel Gracia MD ADVENTURE GUIDE: Travis Rogers NP ANESTHESIA: General endotracheal. ANESTHESIOLOGIST: Dr. Thornton. DESCRIPTION OF PROCEDURE: Under adequate anesthesia, with the patient's skin prepped and draped, an anterior cervical incision was made and the adipose tissue divided. Strap muscles divided in the midline and retracted laterally. Thyroid gland was traced superior, inferior, thyroid then was ligated and retracted. The pretracheal areolar tissue was swept away with a Kitner dissector and then subsequently the third ring was used for a ____ incision. The wings of the trap door was secured to the tracheostomy cuff eventually using 0 Dexon suture. The tracheotomy was dilated to allow an insertion of a size 8 tracheostomy tube, which was then advanced as the anesthesiologist withdrew the endotracheal tube reaching the final position, the tracheostomy allowed immediate recapture of CO2 and return of normal gas exchange. The tracheostomy was then secured utilizing the previously placed Dexon sutures and interrupted Prolene sutures as well as a circumferential umbilical tape. The patient remained in unchanged condition at the termination of procedure was returned to the ICU on the ventilator with the same settings. Emanuel Gracia MD PF TID: [id number] RECEIPT: [id number]
--- NOTE | 2024-03-11 14:23 | DVHPN2 ---
Progress Note - Dictate Date Seen: Mar 11, 2024 Medical Necessity Reason Pt with a Central, PICC or Fol: Yes The following are medically ne: PICC Line, Mccord Catheter Reason for mccord catheter: Strict I&O, Total Immobilization Subjective Status post tracheostomy placement today vital signs Vital Sign Date Time Temp Pulse Resp B/P (MAP) Pulse Ox O2 Delivery O2 Flow Rate FiO2 03/11/24 13:54 184/56 03/11/24 12:43 77 22 99 30 03/11/24 12:00 Mechanical Ventilator+ 03/11/24 08:00 97.8 97.8 03/09/24 21:00 0.0 Total Intake and Output 03/10/24 03/10/24 03/11/24 15:00 23:00 07:00 Intake Total 240.64 ml 660.56 ml 423.864 ml Output Total 575 ml 550 ml Balance 240.64 ml 85.56 ml -126.136 ml medications Current Medications Medications Dose Ordered Sig/Sherwin Route Start Time Stop Time Status Last Admin Dose Admin Nitroglycerin 0.4 mg Q5MINP PRN SL 02/18/24 06:45 Ondansetron HCl 4 mg Q6HPRN PRN IV 02/18/24 06:45 Pantoprazole Sodium 40 mg DAILY IV 02/19/24 10:00 03/11/24 09:49 40 MG Labetalol HCl 10 mg Q4HPRN PRN IV 02/20/24 16:15 03/10/24 23:45 10 MG Acetaminophen 650 mg Q8HP PRN [place] 02/21/24 11:30 02/25/24 05:54 650 MG Albuterol 2.5 mg Q4HR NEB 02/21/24 18:00 03/11/24 10:05 2.5 MG Ipratropium [place] 0.5 mg Q4HR NEB 02/21/24 18:00 03/11/24 10:05 0.5 MG Midazolam HCl 5 mg [id number] PRN IV 02/24/24 10:00 02/25/24 08:15 5 MG Acetylcysteine 200 mg Q8HR IN 02/26/24 14:00 Cancel Acetylcysteine 200 mg Q8HR NEB 02/26/24 14:00 03/11/24 06:26 200 MG Budesonide 0.5 mg BID NEB 02/27/24 22:00 03/11/24 06:26 0.5 MG Enteral Nutritional Formula 1,000 ml 30ML/HR GT 02/28/24 08:45 03/10/24 16:29 1,000 ML Bisacodyl 10 mg DAILYP PRN [place] 02/28/24 08:45 Norepinephrine Bitartrate 250 ml @ 3.75 mls/hr Q24H IV 02/28/24 19:15 03/03/24 19:17 7.5 MLS/HR Digoxin 0.125 mg DAILY PO 03/01/24 10:00 03/10/24 09:41 0.125 MG Lactulose 30 ml DAILYPRN PRN PO 02/29/24 12:00 03/09/24 23:34 30 ML Midazolam HCl 50 ml @ 1 mls/hr Q24H IV 03/03/24 19:15 03/04/24 03:34 4 MLS/HR Methylprednisolone Sodium Succinate 40 mg Q12HR IV 03/04/24 22:00 03/11/24 09:50 40 MG Metoprolol Tartrate 25 mg BID PO 03/04/24 22:00 03/10/24 21:26 25 MG Amiodarone HCl 200 mg Q12HR PO 03/05/24 10:30 03/10/24 21:26 200 MG Propofol 100 ml @ 2.016 mls/ hr Q24H IV 03/08/24 12:30 03/11/24 13:54 14.112 MLS/HR Fentanyl Citrate 250 ml @ 2.5 mls/hr Q24H IV 03/08/24 12:30 03/11/24 05:04 20 MLS/HR Purified Water 200 ml Q6HR GT 03/09/24 18:00 03/10/24 23:43 200 ML Sodium Chloride 10 ml QSHIFT@10,22 IV 03/09/24 22:00 03/11/24 09:50 10 ML Hydralazine HCl 10 mg Q6HP PRN IV 03/10/24 12:45 03/11/24 13:00 10 MG Amlodipine Besylate 10 mg DAILY PO 03/11/24 10:00 03/11/24 09:47 10 MG Enoxaparin Sodium 70 mg DAILY SC 03/11/24 10:00 03/11/24 09:49 70 MG Diagnostic Test (Pha) 1 strip Q6HR 03/10/24 18:00 03/11/24 06:17 1 STRIP Insulin Human Regular FOLLOW SLIDING SCALE Q6HR SC 03/10/24 18:00 03/11/24 06:17 2 UNITS Dextrose 50 ml UD IV 03/10/24 16:00 objective Morbidly obese white female Trach to vent Not on pressors Lethargic but arousable Blood pressure stable Positive murmur No crackles Bruising on her chest and hands Mccord catheter PEG tube laboratory and microbiology Laboratory Tests 03/11/24 04:49 03/11/24 04:40 Test 03/11/24 04:49 Range/Units Serum Glucose 164 H 74-106 mg/dL Assessment/Plan Acute kidney injury likely hemodynamically mediated Chronic kidney disease stage 2/3 Acute respiratory failure in the setting of possible COPD exacerbation now s/p trach to vent Acute anemia unspecified Pneumonia mechanical valve hypernatremia continue free water Not on pressors Monitoring urinary output keep MAP > 65 stable renal function, nutrition via PEG when suitable Dietary Evaluation Review Recommendations by RD: Dietary education by RD Comments: 1) If GI is accessible consider Pivot 1.5 @ 55 ml/hr x24 hr goal rate as tolerated 2) If pt remains NPO >7 days consider TPN to meet at least 75% of estimated goals 3) Advance pt diet when medically feasible to a Cardiac diet modified per CLIENT DELIVERY SPECIALIST recommendations 4) Continue current plan of care Expected Outcomes/Goals: 1) Pt to receive nutrition support within 7 days of NPO status 2) Pt diet to advance 3) F/U in 2-3 days Plan discussed with: Patient Respiratory Effort: ET Tube Breath sounds: Clear, Diminished CHARLI WINN MD Mar 11, 2024 14:23
--- NOTE | 2024-03-11 14:33 | DVHPN2 ---
Progress Note - Dictate Date Seen: Mar 11, 2024 Medical Necessity Reason Pt with a Central, PICC or Fol: Yes The following are medically ne: PICC Line, Mccord Catheter Reason for mccord catheter: Strict I&O, Total Immobilization Subjective Patient was seen and evaluated in follow up in the ICU. Patient is intubated and sedated on ventilator. 30% FiO2. HGB 91, HCT 28.5, NA 150, CL 113, BUN 61, AST 107, ALT 159. Patient is pending placement at LTAC. vital signs Vital Sign Date Time Temp Pulse Resp B/P (MAP) Pulse Ox O2 Delivery O2 Flow Rate FiO2 03/11/24 13:54 184/56 03/11/24 12:43 77 22 99 30 03/11/24 12:00 Mechanical Ventilator+ 03/11/24 08:00 97.8 97.8 03/09/24 21:00 0.0 Total Intake and Output 03/10/24 03/10/24 03/11/24 15:00 23:00 07:00 Intake Total 240.64 ml 660.56 ml 423.864 ml Output Total 575 ml 550 ml Balance 240.64 ml 85.56 ml -126.136 ml medications Current Medications Medications Dose Ordered Sig/Sherwin Route Start Time Stop Time Status Last Admin Dose Admin Nitroglycerin 0.4 mg Q5MINP PRN SL 02/18/24 06:45 Ondansetron HCl 4 mg Q6HPRN PRN IV 02/18/24 06:45 Pantoprazole Sodium 40 mg DAILY IV 02/19/24 10:00 03/11/24 09:49 40 MG Labetalol HCl 10 mg Q4HPRN PRN IV 02/20/24 16:15 03/10/24 23:45 10 MG Acetaminophen 650 mg Q8HP PRN IA 02/21/24 11:30 02/25/24 05:54 650 MG Albuterol 2.5 mg Q4HR NEB 02/21/24 18:00 03/11/24 10:05 2.5 MG Ipratropium [place] 0.5 mg Q4HR NEB 02/21/24 18:00 03/11/24 10:05 0.5 MG Midazolam HCl 5 mg [id number] PRN IV 02/24/24 10:00 02/25/24 08:15 5 MG Acetylcysteine 200 mg Q8HR IN 02/26/24 14:00 Cancel Acetylcysteine 200 mg Q8HR NEB 02/26/24 14:00 03/11/24 06:26 200 MG Budesonide 0.5 mg BID NEB 02/27/24 22:00 03/11/24 06:26 0.5 MG Enteral Nutritional Formula 1,000 ml 30ML/HR GT 02/28/24 08:45 03/10/24 16:29 1,000 ML Bisacodyl 10 mg DAILYP PRN [place] 02/28/24 08:45 Norepinephrine Bitartrate 250 ml @ 3.75 mls/hr Q24H IV 02/28/24 19:15 03/03/24 19:17 7.5 MLS/HR Digoxin 0.125 mg DAILY PO 03/01/24 10:00 03/10/24 09:41 0.125 MG Lactulose 30 ml DAILYPRN PRN PO 02/29/24 12:00 03/09/24 23:34 30 ML Midazolam HCl 50 ml @ 1 mls/hr Q24H IV 03/03/24 19:15 03/04/24 03:34 4 MLS/HR Methylprednisolone Sodium Succinate 40 mg Q12HR IV 03/04/24 22:00 03/11/24 09:50 40 MG Metoprolol Tartrate 25 mg BID PO 03/04/24 22:00 03/10/24 21:26 25 MG Amiodarone HCl 200 mg Q12HR PO 03/05/24 10:30 03/10/24 21:26 200 MG Propofol 100 ml @ 2.016 mls/ hr Q24H IV 03/08/24 12:30 03/11/24 13:54 14.112 MLS/HR Fentanyl Citrate 250 ml @ 2.5 mls/hr Q24H IV 03/08/24 12:30 03/11/24 05:04 20 MLS/HR Purified Water 200 ml Q6HR GT 03/09/24 18:00 03/10/24 23:43 200 ML Sodium Chloride 10 ml QSHIFT@10,22 IV 03/09/24 22:00 03/11/24 09:50 10 ML Amino Acids 0 ml @ 0 mls/hr PER PHARMACY IV 03/10/24 10:45 Hydralazine HCl 10 mg Q6HP PRN IV 12/3/24 12:45 03/11/24 13:00 10 MG Amlodipine Besylate 10 mg DAILY PO 03/11/24 10:00 03/11/24 09:47 10 MG Enoxaparin Sodium 70 mg DAILY SC 03/11/24 10:00 03/11/24 09:49 70 MG Amino Acids/ Electrolytes/ Dextrose 1,000 ml @ 41 mls/hr DAILY@2200 IV 03/10/24 22:00 03/10/24 23:43 41 MLS/HR Diagnostic Test (Pha) 1 strip Q6HR 03/10/24 18:00 03/11/24 06:17 1 STRIP Insulin Human Regular FOLLOW SLIDING SCALE Q6HR SC 03/10/24 18:00 03/11/24 06:17 2 UNITS Dextrose 50 ml UD IV 03/10/24 16:00 objective GENERAL: Intubated on ventilator. Morbidly obese. LUNGS: Decreased breath sounds. CARDIOVASCULAR: Heart sounds are good. ABDOMEN: Soft. laboratory and microbiology Laboratory Tests 03/11/24 04:49 03/11/24 04:40 Test 03/11/24 04:49 Range/Units Serum Glucose 164 H 74-106 mg/dL Problem List Acute on chronic hypoxic respiratory failure. Ventilator dependence with failure of CPAP/extubation. COPD with probable exacerbation. History of multiple intubations. History of mitral valve replacement, bioprosthetic. Atrial fibrillation. Primary hypertension. Anemia. Acute probable vasomotor nephropathy. Hyperkalemia. Morbidly obese. Assessment/Plan Continued all current supportive medical care. Amiodarone. Amlodipine. Digoxin. DVT and GI prophylactics. Metoprolol. Vasopressors for hemodynamic support. Additional plan as per the hospital course. Critical care time of 45 minutes provided to include time spent evaluation of patient at bedside, when appropriate patient/family education for diagnosis, treatment plan, review of pertinent medical information and discussion of care with specialty providers and PCP. Mechanical ventilator parameters, treatment and adjustments have personally been reviewed by me and treatment plan by director organizational has also been reviewed. Dietary Evaluation Review Recommendations by RD: Dietary education by RD Comments: 1) If GI is accessible consider Pivot 1.5 @ 55 ml/hr x24 hr goal rate as tolerated 2) If pt remains NPO >7 days consider TPN to meet at least 75% of estimated goals 3) Advance pt diet when medically feasible to a Cardiac diet modified per SALES AND MARKETING ADMINISTRATOR recommendations 4) Continue current plan of care Expected Outcomes/Goals: 1) Pt to receive nutrition support within 7 days of NPO status 2) Pt diet to advance 3) F/U in 2-3 days Plan discussed with: Other Respiratory Effort: ET Tube Breath sounds: Clear, Diminished LUKE ARIZMENDI MD Mar 11, 2024 14:03
[2024-03-12] VITALS (101 sets, daily range): BP systolic 115–163; BP diastolic 23–78; PULSE 59–102; RESP 10–23; TEMP 98.3–99.9; O2SAT 92–100
[2024-03-12 07:02] LABS: Alkaline Phosphatase 83 U/L (46-116); Anion Gap 11 (5-15); Aspartate Aminotransferase 35 U/L (13-40); BUN/Creatinine Ratio 59.5 (10.0-20.0); Carbon Dioxide 23 mmol/L (20-31); Magnesium 2.4 mg/dL (1.6-2.6); Potassium 3.8 mmol/L (3.5-5.1)
[2024-03-12 07:14] LABS: Alanine Aminotransferase 100 U/L (7-40); Blood Urea Nitrogen 50 mg/dL (9-23); Calcium 8.3 mg/dL (8.7-10.4); Chloride 115 mmol/L (98-107); Glucose 131 mg/dL (74-106); Phosphorus 2.3 mg/dL (2.4-5.1); Sodium 149 mmol/L (136-145); Total Protein 4.8 g/dL (5.7-8.2)
[2024-03-12] MEDS ORDERED: Jevity 1.2 Cal/Fiber 1 Liter GT SCH (08:00)
[2024-03-12 08:23] LABS: Base Excess -0.4 mmol/L (-2.0-3.0)
[2024-03-12] MEDS: ENOXAPARIN SOD 40 MG/0.4 ML SYRINGE SC SCH (09:47)
--- NOTE | 2024-03-12 10:20 | DVHPN2 ---
Progress Note Date Seen: Mar 12, 2024 Medical Necessity Reason Pt with a Central, PICC or Fol: Yes The following are medically ne: PICC Line, Mccord Catheter Reason for mccord catheter: Strict I&O, Total Immobilization Objective vital signs Vital Sign Date Time Temp Pulse Resp B/P (MAP) Pulse Ox O2 Delivery O2 Flow Rate FiO2 03/12/24 09:57 70 133/36 03/12/24 06:53 22 95 30 03/12/24 05:53 Mechanical Ventilator+ 03/12/24 04:00 98.8 98.8 Total Intake and Output 03/11/24 03/11/24 03/12/24 15:00 23:00 07:00 Intake Total 760.268 ml 530.152 ml 859.992 ml Output Total 550 ml 600 ml Balance 760.268 ml -19.848 ml 259.992 ml medications Current Medications Medications Dose Ordered Sig/Sherwin Route Start Time Stop Time Status Last Admin Dose Admin Nitroglycerin 0.4 mg Q5MINP PRN SL 02/18/24 06:45 Ondansetron HCl 4 mg Q6HPRN PRN IV 02/18/24 06:45 Pantoprazole Sodium 40 mg DAILY IV 02/19/24 10:00 03/12/24 09:47 40 MG Labetalol HCl 10 mg Q4HPRN PRN IV 02/20/24 16:15 03/10/24 23:45 10 MG Acetaminophen [address] 02/21/24 11:30 02/25/24 05:54 650 MG Albuterol 2.5 mg Q4HR NEB 02/21/24 18:00 03/12/24 06:54 2.5 MG Ipratropium [place] 0.5 mg Q4HR NEB 02/21/24 18:00 03/12/24 06:54 0.5 MG Midazolam HCl 5 mg [id number] PRN IV 02/24/24 10:00 02/25/24 08:15 5 MG Acetylcysteine 200 mg Q8HR IN 02/26/24 14:00 Cancel Acetylcysteine 200 mg Q8HR NEB 02/26/24 14:00 03/12/24 06:54 200 MG Budesonide 0.5 mg BID NEB 02/27/24 22:00 03/12/24 06:54 0.5 MG Bisacodyl [address] 02/28/24 08:45 Norepinephrine Bitartrate 250 ml @ 3.75 mls/hr Q24H IV 02/28/24 19:15 03/03/24 19:17 7.5 MLS/HR Digoxin 0.125 mg DAILY PO 03/01/24 10:00 03/10/24 09:41 0.125 MG Lactulose 30 ml DAILYPRN PRN PO 02/29/24 12:00 03/09/24 23:34 30 ML Midazolam HCl 50 ml @ 1 mls/hr Q24H IV 03/03/24 19:15 03/04/24 03:34 4 MLS/HR Methylprednisolone Sodium Succinate 40 mg Q12HR IV 03/04/24 22:00 03/12/24 09:47 40 MG Metoprolol Tartrate 25 mg BID PO 03/04/24 22:00 03/12/24 09:57 25 MG Amiodarone HCl 200 mg Q12HR PO 03/05/24 10:30 03/12/24 09:57 200 MG Propofol 100 ml @ 2.016 mls/ hr Q24H IV 03/08/24 12:30 03/12/24 05:34 18.144 MLS/HR Fentanyl Citrate 250 ml @ 2.5 mls/hr Q24H IV 03/08/24 12:30 03/12/24 05:37 22.5 MLS/HR Purified Water 200 ml Q6HR GT 03/09/24 18:00 03/12/24 05:38 200 ML Sodium Chloride 10 ml QSHIFT@10,22 IV 03/09/24 22:00 03/12/24 09:47 10 ML Hydralazine HCl 10 mg Q6HP PRN IV 03/10/24 12:45 03/11/24 13:00 10 MG Amlodipine Besylate 10 mg DAILY PO 03/11/24 10:00 03/12/24 09:48 10 MG Enoxaparin Sodium 40 mg DAILY SC 03/12/24 10:00 03/12/24 09:47 40 MG Enteral Nutritional Formula 1,000 ml 30ML/HR GT 03/12/24 08:00 laboratory and microbiology Laboratory Tests 03/12/24 04:46 03/11/24 04:40 Test 03/12/24 04:46 Range/Units Serum Glucose 131 H 74-106 mg/dL Problem List/Assessment/Plan Problem List/Assessment/Plan 03/12/24 tracheostomy good position on X ray, no pneumothorax, no mediastinal widening, Will sign off, please recall if needed Plan discussed with: Other Dietary Evaluation Review Recommendations by RD: Dietary education by RD Comments: 1) If GI is accessible consider Pivot 1.5 @ 55 ml/hr x24 hr goal rate as tolerated 2) If pt remains NPO >7 days consider TPN to meet at least 75% of estimated goals 3) Advance pt diet when medically feasible to a Cardiac diet modified per SCRUB TECH recommendations 4) Continue current plan of care Expected Outcomes/Goals: 1) Pt to receive nutrition support within 7 days of NPO status 2) Pt diet to advance 3) F/U in 2-3 days Sepsis reassessment post fluid Respiratory Effort: ET Tube Breath sounds: Clear, Diminished XI JASMINE MD Mar 12, 2024 10:20
--- NOTE | 2024-03-12 13:39 | DVHPN2 ---
Progress Note - Dictate Date Seen: Mar 12, 2024 Medical Necessity Reason Pt with a Central, PICC or Fol: Yes The following are medically ne: PICC Line, Mccord Catheter Reason for mccord catheter: Strict I&O, Total Immobilization Subjective Patient was seen and evaluated in follow up in the ICU. Patient is intubated and sedated on ventilator via tracheostomy. 30% FiO2. NA 149, CL 115, BUN 50, ALT 100. Patient was accepted to [facility], pending bed availability. vital signs Vital Sign Date Time Temp Pulse Resp B/P (MAP) Pulse Ox O2 Delivery O2 Flow Rate FiO2 03/12/24 10:29 70 22 140/43 (75) 97 30 03/12/24 08:00 99.0 99.0 03/12/24 05:53 Mechanical Ventilator+ Total Intake and Output 03/11/24 03/11/24 03/12/24 15:00 23:00 07:00 Intake Total 760.268 ml 530.152 ml 859.992 ml Output Total 550 ml 600 ml Balance 760.268 ml -19.848 ml 259.992 ml medications Current Medications Medications Dose Ordered Sig/Sherwin Route Start Time Stop Time Status Last Admin Dose Admin Nitroglycerin 0.4 mg Q5MINP PRN SL 02/18/24 06:45 Ondansetron HCl 4 mg Q6HPRN PRN IV 02/18/24 06:45 Pantoprazole Sodium 40 mg DAILY IV 02/19/24 10:00 03/12/24 09:47 40 MG Labetalol HCl 10 mg Q4HPRN PRN IV 02/20/24 16:15 03/10/24 23:45 10 MG Acetaminophen 650 mg Q8HP PRN MA 02/21/24 11:30 02/25/24 05:54 650 MG Albuterol 2.5 mg Q4HR NEB 02/21/24 18:00 03/12/24 10:29 2.5 MG Ipratropium [place] 0.5 mg Q4HR NEB 02/21/24 18:00 03/12/24 10:29 0.5 MG Midazolam HCl 5 mg [id number] PRN IV 02/24/24 10:00 02/25/24 08:15 5 MG Acetylcysteine 200 mg Q8HR IN 02/26/24 14:00 Cancel Acetylcysteine 200 mg Q8HR NEB 02/26/24 14:00 03/12/24 06:54 200 MG Budesonide 0.5 mg BID NEB 02/27/24 22:00 03/12/24 06:54 0.5 MG Bisacodyl 10 mg DAILYP PRN MA 02/28/24 08:45 Norepinephrine Bitartrate 250 ml @ 3.75 mls/hr Q24H IV 02/28/24 19:15 03/03/24 19:17 7.5 MLS/HR Digoxin 0.125 mg DAILY PO 03/01/24 10:00 03/10/24 09:41 0.125 MG Lactulose 30 ml DAILYPRN PRN PO 02/29/24 12:00 03/09/24 23:34 30 ML Midazolam HCl 50 ml @ 1 mls/hr Q24H IV 03/03/24 19:15 03/04/24 03:34 4 MLS/HR Methylprednisolone Sodium Succinate 40 mg Q12HR IV 03/04/24 22:00 03/12/24 09:47 40 MG Metoprolol Tartrate 25 mg BID PO 03/04/24 22:00 03/12/24 09:57 25 MG Amiodarone HCl 200 mg Q12HR PO 03/05/24 10:30 03/12/24 09:57 200 MG Propofol 100 ml @ 2.016 mls/ hr Q24H IV 03/08/24 12:30 03/12/24 05:34 18.144 MLS/HR Fentanyl Citrate 250 ml @ 2.5 mls/hr Q24H IV 03/08/24 12:30 03/12/24 05:37 22.5 MLS/HR Purified Water 200 ml Q6HR GT 03/09/24 18:00 03/12/24 05:38 200 ML Sodium Chloride 10 ml QSHIFT@10,22 IV 03/09/24 22:00 03/12/24 09:47 10 ML Hydralazine HCl 10 mg Q6HP PRN IV 03/10/24 12:45 03/11/24 13:00 10 MG Amlodipine Besylate 10 mg DAILY PO 03/11/24 10:00 03/12/24 09:48 10 MG Enoxaparin Sodium 40 mg DAILY SC 03/12/24 10:00 03/12/24 09:47 40 MG Enteral Nutritional Formula 1,000 ml 30ML/HR GT 03/12/24 08:00 objective GENERAL: Intubated on ventilator. Morbidly obese. LUNGS: Decreased breath sounds. CARDIOVASCULAR: Heart sounds are good. ABDOMEN: Soft. laboratory and microbiology Laboratory Tests 03/12/24 04:46 03/11/24 04:40 Test 03/12/24 04:46 Range/Units Serum Glucose 131 H 74-106 mg/dL Problem List Acute on chronic hypoxic respiratory failure. Ventilator dependence with failure of CPAP/extubation. COPD with probable exacerbation. History of multiple intubations. History of mitral valve replacement, bioprosthetic. Atrial fibrillation. Primary hypertension. Anemia. Acute probable vasomotor nephropathy. Hyperkalemia. Morbidly obese. Assessment/Plan Continued all current supportive medical care. Amiodarone. Amlodipine. Digoxin. DVT and GI prophylactics. Metoprolol. Vasopressors for hemodynamic support. Additional plan as per the hospital course. Critical care time of 45 minutes provided to include time spent evaluation of patient at bedside, when appropriate patient/family education for diagnosis, treatment plan, review of pertinent medical information and discussion of care with specialty providers and PCP. Mechanical ventilator parameters, treatment and adjustments have personally been reviewed by me and treatment plan by assault amphibious vehicle crewman has also been reviewed. Dietary Evaluation Review Recommendations by RD: Dietary education by RD Comments: 1) If GI is accessible consider Pivot 1.5 @ 55 ml/hr x24 hr goal rate as tolerated 2) If pt remains NPO >7 days consider TPN to meet at least 75% of estimated goals 3) Advance pt diet when medically feasible to a Cardiac diet modified per REAL ESTATE VALUER recommendations 4) Continue current plan of care Expected Outcomes/Goals: 1) Pt to receive nutrition support within 7 days of NPO status 2) Pt diet to advance 3) F/U in 2-3 days Plan discussed with: Other Respiratory Effort: ET Tube Breath sounds: Clear, Diminished LUKE ARIZMENDI MD Mar 12, 2024 12:10
--- NOTE | 2024-03-12 15:27 | DVHDSRES ---
Discharge Summary Date of Admission Resident Creating Document: CHRISTIANO JONES RESIDENT Feb 18, 2024 at 06:50 Date of Discharge: Mar 12, 2024 Admitting Diagnosis Respiratory failure due to COPD exacerbation Labs/Diagnostic Data: Laboratory Results Test 03/12/24 08:14 03/12/24 04:46 03/11/24 17:53 03/11/24 07:46 Blood Gas Specimen Type Arterial Blood Gas Sample Site Right radial Blood Gas Patient Temperature 37.0 Arterial Blood Date Drawn [id number] Arterial Blood pH 7.532 (7.350-7.450) Arterial Blood Partial Pressure CO2 26.3 mmHg (32.0-45.0) Arterial Blood Partial Pressure O2 67.2 mmHg (83.0-108.0) Arterial Blood HCO3 21.6 mmol/L (21.0-28.0) Arterial Blood Oxygen Saturation 93.5 % (94.0-98.0) Arterial Blood Base Excess -0.4 mmol/L (-2.0-3.0) Arterial Blood Oxyhemoglobin 92.3 % (94.0-98.0) Arterial Blood Carboxyhemoglobin 1.0 % (0.5-1.5) Arterial Blood Methemoglobin 0.3 % (0.0-1.5) Christos Test Modified Blood Gas Total Hemoglobin 9.30 g/dL (12.0-16.0) Blood Gas Set Respiration Rate 22.0 Blood Gas Modality Vent - ac FiO2 % 30.0 Blood Gas Tidal Volume 450.0 Blood Gas PEEP or CPAP 5.0 Sodium Level 149 mmol/L (136-145) Potassium Level 3.8 mmol/L (3.5-5.1) Chloride Level 115 mmol/L (98-107) Carbon Dioxide Level 23 mmol/L (20-31) Anion Gap 11 (5-15) Blood Urea Nitrogen 50 mg/dL (9-23) Creatinine 0.84 mg/dL (0.550-1.02) Glomerular Filtration Rate Calc 76 mL/min (>90) BUN/Creatinine Ratio 59.5 (10.0-20.0) Serum Glucose 131 mg/dL (74-106) Calcium Level 8.3 mg/dL (8.7-10.4) Phosphorus Level 2.3 mg/dL (2.4-5.1) Magnesium Level 2.4 mg/dL (1.6-2.6) Total Bilirubin 1.0 mg/dL (0.2-1.0) Aspartate Amino Transferase (AST) 35 U/L (13-40) Alanine Aminotransferase (ALT) 100 U/L (7-40) Alkaline Phosphatase 83 U/L (46-116) Total Protein 4.8 g/dL (5.7-8.2) Albumin 3.0 g/dL (3.2-4.8) POC Glucose 154 mg/dl (70-106) Blood Gas Spontaneous Rate 22 Test 03/11/24 04:40 03/09/24 03:00 03/08/24 03:19 03/04/24 07:00 White Blood Count 10.5 10^3/uL (4.4-10.8) Red Blood Count 3.16 10^6/uL (4.0-5.20) Hemoglobin 9.1 g/dL (12.2-16.2) Hematocrit 28.5 % (36.0-46.0) Mean Corpuscular Volume 90.3 fL (80.0-100.0) Mean Corpuscular Hemoglobin 28.8 pg (28.0-32.0) Mean Corpuscular Hemoglobin Concent 31.9 g/dL (32.0-36.0) Red Cell Distribution Width 18.1 % (11.8-14.3) Platelet Count 147 10^3/uL (140-450) Mean Platelet Volume 9.8 fL (6.9-10.8) Neutrophils (%) (Auto) 94.6 % (37.0-80.0) Lymphocytes (%) (Auto) 1.8 % (10.0-50.0) Monocytes (%) (Auto) 3.3 % (0.0-12.0) Eosinophils (%) (Auto) 0.0 % (0.0-7.0) Basophils (%) (Auto) 0.3 % (0.0-2.0) Neutrophils # (Auto) 10.0 10 ^3/uL (1.6-8.6) Lymphocytes # (Auto) 0.2 10 ^3/uL (0.4-5.4) Monocytes # (Auto) 0.3 10 ^3/uL (0-1.3) Eosinophils # (Auto) 0 10 ^3/uL (0-0.8) Basophils # (Auto) 0 10 ^3/uL (0-0.2) Nucleated Red Blood Cells 0.0 % Prothrombin Time 11.5 sec (9.3-11.8) Prothrombin Time INR 1.09 (0.9-1.15) Activated Partial Thromboplast Time 24.8 SEC (24.5-34.5) Digoxin Level 1.36 ng/mL (0.8-2) Differential Total Cells Counted 100.0 (100) Neutrophils % (Manual) 97 (37.0-80.0) Band Neutrophils % (Manual) 0 Lymphocytes % (Manual) 1 (10.0-50.0) Monocytes % (Manual) 2 (0-12) Eosinophils % (Manual) 0 (0-7) Basophils % (Manual) 0 (0.0-2.0) Metamyelocytes % (manual) 0 Myelocytes % (Manual) 0 Promyelocytes % (Manual) 0 Blast Cells % (Manual) 0 Reactive Lymphocytes 0 Platelet Estimate Adequate Blood Gas Critical Value Read Back Yes Blood Gas Notified Whom Dr. gomez jones Blood Gas Notified Time [id number] Blood Gas Notified By Nina gunn volleyball referee Test 03/03/24 20:02 03/03/24 18:00 03/03/24 11:38 03/02/24 18:45 Bl Gas Inspiratory/Expiratory Ratio 1:2.6 Blood Gas Liter Flow 10.00 Blood Gas Pressure Support 8 Vitamin D 25-Hydroxy 16.0 ng/mL (30.0-100) Parathyroid Hormone (Intact) 213.7 pg/mL (18.4-80.1) Test 02/29/24 14:09 02/29/24 07:56 02/29/24 03:15 02/28/24 03:15 Stool Occult Blood Negative (Negative) Stool Occult Blood Sample #3 (Negative) Blood Gas Inspiratory Pressure 30.0 Specimen Drawn By adonis maldonado Smudge Cells 3 /100 WBC Ammonia 13 umol/L (11-32) Vitamin B1 Level 78.0 nmol/L (66.5-200.0) Vitamin B12 Level 793 pg/mL (211-911) 25-Hydroxy Vitamin D2 <1.0 ng/mL (.) 25-Hydroxy Vitamin D3 14 ng/mL (.) Test 02/19/24 11:46 02/19/24 03:14 02/18/24 08:20 02/18/24 03:54 Iron Level 14 ug/dL (50-170) Total Iron Binding Capacity 284 ug/dL (250-425) Percent Iron Saturation 4.9 % (15-50) Anisocytosis (manual) Slight Reticulocyte Count (auto) 3.19 % (0.5-1.5) Influenza Type A Antigen Negative (Negative) Influenza Type B Antigen Negative (Negative) SARS-CoV-2 Antigen (Rapid) Negative (NEGATIVE) Troponin I High Sensitivity 34 ng/L (</=34) Test 02/18/24 02:28 02/18/24 01:45 02/18/24 01:08 Lactic Acid Level 1.2 mmol/L (0.4-2.0) Urine Color Yellow (Yellow) Urine Clarity Clear (Clear) Urine pH 6.0 (5.0-9.0) Urine Specific [place] 1.016 (1.001-1.035) Urine Protein 3+ (Negative) Urine Ketones Negative (Negative) Urine Blood 3+ /uL (Negative) Urine Nitrite Negative (Negative) Urine Bilirubin Negative (Negative) Urine Urobilinogen Normal mg/dL (Negative) Urine Leukocyte Esterase Negative /uL (Negative) Urine RBC 23 /hpf (0 - 4) Urine WBC 9 /hpf (0 - 5) Urine Squamous Epithelial Cells Few /hpf (<5) Urine Amorphous Crystals Few /hpf (None Seen) Urine Bacteria Few /hpf (None Seen) Urine Hyaline Casts Mod /lpf (0 - 2) Urine Mucus Few (None Seen) Urine Glucose 1+ mg/dL (Normal) Large Platelets Few B-Type Natriuretic Peptide 293.82 pg/mL (0-100) Other Laboratory Tests 03/12/24 04:46 03/11/24 04:40 Brief Hx & Hospital Course: 68 y.o. female with COPD using 3L of home oxygen was brought to the ED c/o SOB despite using her oxygen. EMS started 10L and gave her nebulizer treatment but patient continued to be in severe respiratory distress. ER MD intubated the patient. Patient was seen and evaluated in follow up in the ICU. Patient was successfully extubated on 03/03/24. This evening patient went into a flutter, then A Fib with RVR with HR sustaining in the 170s. Patient desatted into the 80s. Patient was emergently intubated for airway protection. WBC increased to 19. CO2 36, BUN 65, Vice [employer] Police Officer 1.37. PTH intact 213.7. consulted with tree doctor recommends, Amiodarone drip, Amlodipine and Digoxin. Maintain Pox > 92%, Fi02 down to 35%, Mechanical Ventilation per Pulmonary, We had a long family discussion with her two daughters at bedside, and and her on phone, family agreed to make her comfort measure and we will change the code status to DNR DNI and comfort measures only. Then Family Changed change their decision to have Full Code with Trachiostomy and PEG tube and agreed to placement in LTAC. Patient had tracheostomy yesterday and patient is stable to transfer LTAC today. We reviewed the patient's medications list and updated medication list. Patient is exhibiting LTAC and we will be transferred to LTAC when bed is available. Gen.: Patient lying in bed in medical ICU. Sedated, intubated on mechanical ventilator. Head: Normocephalic, atraumatic. Eyes: PERRLA. Ears: Normal external anatomy. Throat: Endotracheal tube and orogastric tube in place. Neck: Supple, trachea midline. Chest: Transmitted breath sounds bilaterally. Decreased air entry bilaterally. No wheezing. Bibasilar crackles. Cardiovascular: Positive S1, positive S2. Regular rate and rhythm. Abdomen: Positive bowel sounds in all 4 quadrants. Soft, nontender, nondistended. : Sam in place. Normal external genitalia. Rectal: Deferred. Skin: Warm, dry. Intact. Extremities: 2+ radi Condition at Discharge: Undetermined Final Diagnosis/Problems List # sepsis secondary to pneumonia # community-acquired pneumonia possible GM+/- bacterial pneumonia # acute hypoxic respiratory failure secondary to COPD exacerbation, pneumonia S/P Tracheostomy # New Onset Anemia # Acute Kidney Injury on CKD Stage 3 # anemia secondary to possible blood loss # AFib # Hypertension # Hyperlipidemia # Hx of mechanical mitral valve replacement on home Coumadin, # atrial flutter # Hyperkalemia- improved Discharge Disposition: Inpatient Rehab Facility SNF Discharge Will this Physician continue t: No Discharge Instruct/Medications Diet: See Comment Diet comment: TUBE FEEDINGS Activity: Bed rest Follow Up/Referral: FU WITH PCP as per facility protocol Medications: PER JUN Discharge Statement: "Patient was advised to return to the ER or call 911 if any headaches, dizziness, shortness of breath, chest pain, abdominal pain, bleeding, fevers, or worsening of medical condition. Patient was counseled about treatment plan, medications, possible side effects, patientverbalized understanding. All questions were answered to the best of my ability. This discharge took greater then 30 minutes in planning, reviewing documentation, counseling the patient, and discussing with other team members." ASSESSMENT ASSESSMENT Assessment RESP FAILURE CHRISTIANO JONES RESIDENT Mar 12, 2024 15:27
--- NOTE | 2024-03-12 15:54 | DVHPN2 ---
Progress Note - Dictate Date Seen: Mar 12, 2024 Medical Necessity Reason Pt with a Central, PICC or Fol: Yes The following are medically ne: PICC Line, Mccord Catheter Reason for mccord catheter: Strict I&O, Total Immobilization Subjective NAD vital signs Vital Sign Date Time Temp Pulse Resp B/P (MAP) Pulse Ox O2 Delivery O2 Flow Rate FiO2 03/12/24 14:15 87 22 155/41 (79) 96 30 03/12/24 12:00 99.3 99.3 03/12/24 05:53 Mechanical Ventilator+ Total Intake and Output 03/11/24 03/11/24 03/12/24 15:00 23:00 07:00 Intake Total 760.268 ml 530.152 ml 859.992 ml Output Total 550 ml 600 ml Balance 760.268 ml -19.848 ml 259.992 ml medications Current Medications Medications Dose Ordered Sig/Sherwin Route Start Time Stop Time Status Last Admin Dose Admin Nitroglycerin 0.4 mg Q5MINP PRN SL 02/18/24 06:45 Ondansetron HCl 4 mg Q6HPRN PRN IV 02/18/24 06:45 Pantoprazole Sodium 40 mg DAILY IV 02/19/24 10:00 03/12/24 09:47 40 MG Labetalol HCl 10 mg Q4HPRN PRN IV 02/20/24 16:15 03/10/24 23:45 10 MG Acetaminophen 650 mg Q8HP PRN [place] 02/21/24 11:30 02/25/24 05:54 650 MG Albuterol 2.5 mg Q4HR NEB 02/21/24 18:00 03/12/24 14:15 2.5 MG Ipratropium [place] 0.5 mg Q4HR NEB 02/21/24 18:00 03/12/24 14:15 0.5 MG Midazolam HCl 5 mg [id number] PRN IV 02/24/24 10:00 02/25/24 08:15 5 MG Acetylcysteine 200 mg Q8HR IN 02/26/24 14:00 Cancel Acetylcysteine 200 mg Q8HR NEB 02/26/24 14:00 03/12/24 14:16 200 MG Budesonide 0.5 mg BID NEB 02/27/24 22:00 03/12/24 06:54 0.5 MG Bisacodyl 10 mg DAILYP PRN [place] 02/28/24 08:45 Digoxin 0.125 mg DAILY PO 03/01/24 10:00 03/10/24 09:41 0.125 MG Lactulose 30 ml DAILYPRN PRN PO 02/29/24 12:00 03/09/24 23:34 30 ML Midazolam HCl 50 ml @ 1 mls/hr Q24H IV 03/03/24 19:15 03/04/24 03:34 4 MLS/HR Methylprednisolone Sodium Succinate 40 mg Q12HR IV 03/04/24 22:00 03/12/24 09:47 40 MG Metoprolol Tartrate 25 mg BID PO 03/04/24 22:00 03/12/24 09:57 25 MG Amiodarone HCl 200 mg Q12HR PO 03/05/24 10:30 03/12/24 09:57 200 MG Propofol 100 ml @ 2.016 mls/ hr Q24H IV 03/08/24 12:30 03/12/24 05:34 18.144 MLS/HR Fentanyl Citrate 250 ml @ 2.5 mls/hr Q24H IV 03/08/24 12:30 03/12/24 05:37 22.5 MLS/HR Purified Water 200 ml Q6HR GT 03/09/24 18:00 03/12/24 05:38 200 ML Sodium Chloride 10 ml QSHIFT@10,22 IV 03/09/24 22:00 03/12/24 09:47 10 ML Hydralazine HCl 10 mg Q6HP PRN IV 03/10/24 12:45 03/11/24 13:00 10 MG Amlodipine Besylate 10 mg DAILY PO 03/11/24 10:00 03/12/24 09:48 10 MG Enoxaparin Sodium 40 mg DAILY SC 03/12/24 10:00 03/12/24 09:47 40 MG Enteral Nutritional Formula 1,000 ml 30ML/HR GT 03/12/24 08:00 objective Morbidly obese white female Trach to vent Not on pressors Lethargic but arousable Blood pressure stable Positive murmur No crackles Bruising on her chest and hands Mccord catheter PEG tube laboratory and microbiology Laboratory Tests 03/12/24 04:46 03/11/24 04:40 Test 03/12/24 04:46 Range/Units Serum Glucose 131 H 74-106 mg/dL Assessment/Plan Acute kidney injury likely hemodynamically mediated Chronic kidney disease stage 2/3 Acute respiratory failure in the setting of possible COPD exacerbation now s/p trach to vent Acute anemia unspecified Pneumonia mechanical valve hypernatremia continue free water Not on pressors Monitoring urinary output keep MAP > 65 stable renal function, nutrition via PEG when suitable will sign off Dietary Evaluation Review Recommendations by RD: Dietary education by RD Comments: 1) If GI is accessible consider Pivot 1.5 @ 55 ml/hr x24 hr goal rate as tolerated 2) If pt remains NPO >7 days consider TPN to meet at least 75% of estimated goals 3) Advance pt diet when medically feasible to a Cardiac diet modified per INSOLE COVERER recommendations 4) Continue current plan of care Expected Outcomes/Goals: 1) Pt to receive nutrition support within 7 days of NPO status 2) Pt diet to advance 3) F/U in 2-3 days Plan discussed with: Patient, Other Respiratory Effort: ET Tube Breath sounds: Clear, Diminished CHARLI WINN MD Mar 12, 2024 15:54
[2024-03-12] MEDS ORDERED: PHENYLEPHRINE IV 250 ML IV SCH (20:15)
[2024-03-12] MEDS ORDERED: EPINEPHrine HCL 250 ML IV SCH (20:15)
[2024-03-13] VITALS (94 sets, daily range): BP systolic 107–190; BP diastolic 34–83; PULSE 52–93; RESP 6–25; TEMP 98.3–99; O2SAT 91–99
[2024-03-13 05:33] LABS: Albumin 3.4 g/dL (3.2-4.8); Alkaline Phosphatase 93 U/L (46-116); Anion Gap 11 (5-15); BUN/Creatinine Ratio 45.5 (10.0-20.0); Carbon Dioxide 22 mmol/L (20-31)
[2024-03-13 05:34] LABS: Bilirubin, Total 1.1 mg/dL (0.2-1.0)
[2024-03-13 05:37] LABS: Alanine Aminotransferase 81 U/L (7-40); Aspartate Aminotransferase 47 U/L (13-40); Blood Urea Nitrogen 35 mg/dL (9-23); Calcium 8.2 mg/dL (8.7-10.4); Chloride 116 mmol/L (98-107); Glucose 166 mg/dL (74-106); Sodium 149 mmol/L (136-145); Total Protein 5.1 g/dL (5.7-8.2)
[2024-03-13 08:44] LABS: Base Excess -1.9 mmol/L (-2.0-3.0)
--- NOTE | 2024-03-13 16:30 | DVHPNRES ---
Progress Note Date Seen: Mar 13, 2024 Resident Creating Document: CHRISTIANO JONES Medical Necessity Reason Pt with a Central, PICC or Fol: Yes The following are medically ne: PICC Line, Mccord Catheter Reason for mccord catheter: Strict I&O, Total Immobilization Subjective Review of Systems 68 y.o. female with COPD using 3L of home oxygen was brought to the ED c/o SOB despite using her oxygen. EMS started 10L and gave her nebulizer treatment but patient continued to be in severe respiratory distress. ER MD intubated the patient. Patient seen and examined at bedside. Sedated, intubated on mechanical ventilator. Overnight events reviewed. Patient is going to LTACH today Objective vital signs Vital Sign Date Time Temp Pulse Resp B/P (MAP) Pulse Ox O2 Delivery O2 Flow Rate FiO2 03/13/24 16:00 18 93 Mechanical Ventilator+ 30 30 03/13/24 15:00 84 147/43 (77) 03/13/24 04:00 98.7 98.7 Total Intake and Output 03/12/24 03/12/24 03/13/24 15:00 23:00 07:00 Intake Total 236.768 ml 603.172 ml 982.5769 ml Output Total 550 ml 550 ml Balance 236.768 ml 53.172 ml 432.5769 ml medications Current Medications Medications Dose Ordered Sig/[place]win Route Start Time Stop Time Status Last Admin Dose Admin Nitroglycerin 0.4 mg Q5MINP PRN SL 02/18/24 06:45 Ondansetron HCl 4 mg Q6HPRN PRN IV 02/18/24 06:45 Pantoprazole Sodium 40 mg DAILY IV 02/19/24 10:00 03/13/24 10:50 40 MG Labetalol HCl 10 mg Q4HPRN PRN IV 02/20/24 16:15 03/13/24 05:38 10 MG Acetaminophen 650 mg Q8HP PRN [place] 02/21/24 11:30 02/25/24 05:54 650 MG Albuterol 2.5 mg Q4HR NEB 02/21/24 18:00 03/13/24 15:00 2.5 MG Ipratropium [place] 0.5 mg Q4HR NEB 02/21/24 18:00 03/13/24 15:00 0.5 MG Midazolam HCl 5 mg [id number] PRN IV 02/24/24 10:00 02/25/24 08:15 5 MG Acetylcysteine 200 mg Q8HR IN 02/26/24 14:00 Cancel Acetylcysteine 200 mg Q8HR NEB 02/26/24 14:00 03/13/24 14:59 200 MG Budesonide 0.5 mg BID NEB 02/27/24 22:00 03/13/24 11:10 0.5 MG Bisacodyl 10 mg DAILYP PRN [place] 02/28/24 08:45 Digoxin 0.125 mg DAILY PO 03/01/24 10:00 03/13/24 10:51 0.125 MG Lactulose 30 ml DAILYPRN PRN PO 02/29/24 12:00 03/09/24 23:34 30 ML Midazolam HCl 50 ml @ 1 mls/hr Q24H IV 03/03/24 19:15 03/04/24 03:34 4 MLS/HR Metoprolol Tartrate 25 mg BID PO 03/04/24 22:00 03/13/24 10:52 25 MG Amiodarone HCl 200 mg Q12HR PO 03/05/24 10:30 03/13/24 10:52 200 MG Propofol 100 ml @ 2.016 mls/ hr Q24H IV 03/08/24 12:30 03/13/24 07:54 12.096 MLS/HR Fentanyl Citrate 250 ml @ 2.5 mls/hr Q24H IV 03/08/24 12:30 03/13/24 07:04 17.5 MLS/HR Purified Water 200 ml Q6HR GT 03/09/24 18:00 03/13/24 05:38 200 ML Sodium Chloride 10 ml QSHIFT@10,22 IV 03/09/24 22:00 03/12/24 22:31 10 ML Hydralazine HCl 10 mg Q6HP PRN IV 03/10/24 12:45 03/13/24 02:50 10 MG Amlodipine Besylate 10 mg DAILY PO 03/11/24 10:00 03/13/24 10:53 10 MG Enoxaparin Sodium 40 mg DAILY SC 03/12/24 10:00 03/13/24 10:50 40 MG Enteral Nutritional Formula 1,000 ml 30ML/HR GT 03/12/24 08:00 Examination Gen.: Patient lying in bed in medical ICU. Sedated, intubated on mechanical ventilator. Head: Normocephalic, atraumatic. Eyes: PERRLA. Ears: Normal external anatomy. Throat: Endotracheal tube and orogastric tube in place. Neck: Supple, trachea midline. Chest: Transmitted breath sounds bilaterally. Decreased air entry bilaterally. No wheezing. Bibasilar crackles. Cardiovascular: Positive S1, positive S2. Regular rate and rhythm. Abdomen: Positive bowel sounds in all 4 quadrants. Soft, nontender, nondistended. : Mccord in place. Normal external genitalia. Rectal: Deferred. Skin: Warm, dry. Intact. Extremities: 2+ radial pulses bilaterally. No lower extremity edema. Neuro: Sedated. laboratory and microbiology Laboratory Tests 03/13/24 04:45 03/11/24 04:40 Test 03/13/24 04:45 Range/Units Serum Glucose 166 H 74-106 mg/dL Microbiology Date/Time Source Procedure Growth Status 03/03/24 18:57 Sputum Gram Stain - Final Complete 03/03/24 18:57 Sputum Respiratory Culture - Final Complete 02/21/24 13:45 Blood Blood Culture - Final NO GROWTH AFTER 5 DAYS OF INCUBATION. Complete 02/18/24 11:00 Nose MRSA Screen - Final Complete Problem List/Assessment/Plan Problem List/Assessment/Plan Neurology: Patiet is Sedated Cardiovascular: # AFib # Hypertension # Hyperlipidemia # Hx of mechanical mitral valve replacement on home Coumadin, -INR goal of 2.5-3.5, holding Coumadin. # atrial flutter - consulted with cafeteria counter attendant recommends -Amiodarone drip -metoprolol 25 mg b.i.d. - Digoxin. Respiratory: # septic shock secondary to pneumonia # community-acquired pneumonia possible GM+/- bacterial pneumonia # acute hypoxic respiratory failure secondary to COPD exacerbation, pneumonia - Maintain Pox > 92%, Fi02 down to 35%, Mechanical Ventilation per Pulmonary, - Med Nebs Q 6 Hours, methylprednisolone 40 mg IV Q 12 hours Gastrointestinal # Transaminitis Secondary to above # S/P PEG placement on 03/08/24 Genitourinary/Nephrology # Acute Kidney Injury - follow up with Nephrology - monitor kidney function Metabolic: # Hyperkalemia. - resolved # Hypernatremia - Na today is 150 - Free water. Hematology # anemia secondary to possible blood loss - -GI Consulted, - daily AM Labs Lines: Mccord catheter 02/18/24 Endotracheal tube 02/18/24 PICC line 03/09/24 Drips Fentanyl 175 Propofol 30 NE 0 DVT Prophy; Lovenox 70mg sc daily GI Prophy; Protonix 40mg IV daily Patient is going to LTACH today Critical Care time spent 52 minutes including, patient care, chart review and updating family, excluding procedure. Case discussed with Dr Marshall Plan discussed with: Other (RN) My Orders My Orders Orders - CHRISTIANO JONES RESIDENT Procedure Category Date Status Time Abg W/ Co-Ox RT 03/13/24 Logged 04:00 Dietary Evaluation Review Recommendations by RD: Dietary education by RD Comments: 1) If GI is accessible consider Pivot 1.5 @ 55 ml/hr x24 hr goal rate as tolerated 2) If pt remains NPO >7 days consider TPN to meet at least 75% of estimated goals 3) Advance pt diet when medically feasible to a Cardiac diet modified per SENSOR OPERATOR recommendations 4) Continue current plan of care Expected Outcomes/Goals: 1) Pt to receive nutrition support within 7 days of NPO status 2) Pt diet to advance 3) F/U in 2-3 days Sepsis reassessment post fluid Respiratory Effort: ET Tube Breath sounds: Clear, Diminished Date of Service: Mar 13, 2024 Billing Provider: HELGA MARSHALL MD Common Visit Codes: [id number] CARE 30-74 MIN CHRISTIANO JONES RESIDENT Mar 13, 2024 16:29 HELGA MARSHALL MD Mar 20, 2024 14:37
--- NOTE | 2024-03-13 21:01 | DVHPN2 ---
Progress Note - Dictate Date Seen: Mar 13, 2024 Medical Necessity Reason Pt with a Central, PICC or Fol: Yes The following are medically ne: PICC Line, Mccord Catheter Reason for mccord catheter: Strict I&O, Total Immobilization Subjective Patient was seen and evaluated in follow up in the ICU. Patient is intubated and sedated on ventilator. 30% FiO2.NA 149, CL 116, BUN 35, AST 47, ALT 81. Patient is pending transfer to [facility]. vital signs Vital Sign Date Time Temp Pulse Resp B/P (MAP) Pulse Ox O2 Delivery O2 Flow Rate FiO2 03/13/24 11:11 78 13 157/46 (83) 95 30 03/13/24 06:00 Mechanical Ventilator+ 03/13/24 04:00 98.7 98.7 Total Intake and Output 03/12/24 03/12/24 03/13/24 15:00 23:00 07:00 Intake Total 236.768 ml 603.172 ml 982.5769 ml Output Total 550 ml 550 ml Balance 236.768 ml 53.172 ml 432.5769 ml medications Current Medications Medications Dose Ordered Sig/[place]win Route Start Time Stop Time Status Last Admin Dose Admin Nitroglycerin 0.4 mg Q5MINP PRN SL 02/18/24 06:45 Ondansetron HCl 4 mg Q6HPRN PRN IV 02/18/24 06:45 Pantoprazole Sodium 40 mg DAILY IV 02/19/24 10:00 03/13/24 10:50 40 MG Labetalol HCl 10 mg Q4HPRN PRN IV 02/20/24 16:15 03/13/24 05:38 10 MG Acetaminophen 650 mg Q8HP PRN OR 02/21/24 11:30 02/25/24 05:54 650 MG Albuterol 2.5 mg Q4HR NEB 02/21/24 18:00 03/13/24 11:11 2.5 MG Ipratropium [place] 0.5 mg Q4HR NEB 02/21/24 18:00 03/13/24 11:11 0.5 MG Midazolam HCl 5 mg [id number] PRN IV 02/24/24 10:00 02/25/24 08:15 5 MG Acetylcysteine 200 mg Q8HR IN 02/26/24 14:00 Cancel Acetylcysteine 200 mg Q8HR NEB 02/26/24 14:00 03/13/24 06:18 200 MG Budesonide 0.5 mg BID NEB 02/27/24 22:00 03/13/24 11:10 0.5 MG Bisacodyl 10 mg DAILYP PRN OR 02/28/24 08:45 Digoxin 0.125 mg DAILY PO 03/01/24 10:00 03/13/24 10:51 0.125 MG Lactulose 30 ml DAILYPRN PRN PO 02/29/24 12:00 03/09/24 23:34 30 ML Midazolam HCl 50 ml @ 1 mls/hr Q24H IV 03/03/24 19:15 03/04/24 03:34 4 MLS/HR Metoprolol Tartrate 25 mg BID PO 03/04/24 22:00 03/13/24 10:52 25 MG Amiodarone HCl 200 mg Q12HR PO 03/05/24 10:30 03/13/24 10:52 200 MG Propofol 100 ml @ 2.016 mls/ hr Q24H IV 03/08/24 12:30 03/13/24 07:54 12.096 MLS/HR Fentanyl Citrate 250 ml @ 2.5 mls/hr Q24H IV 03/08/24 12:30 03/13/24 07:04 17.5 MLS/HR Purified Water 200 ml Q6HR GT 03/09/24 18:00 03/13/24 05:38 200 ML Sodium Chloride 10 ml QSHIFT@10,22 IV 03/09/24 22:00 03/12/24 22:31 10 ML Hydralazine HCl 10 mg Q6HP PRN IV 03/10/24 12:45 03/13/24 02:50 10 MG Amlodipine Besylate 10 mg DAILY PO 03/11/24 10:00 03/13/24 10:53 10 MG Enoxaparin Sodium 40 mg DAILY SC 03/12/24 10:00 03/13/24 10:50 40 MG Enteral Nutritional Formula 1,000 ml 30ML/HR GT 03/12/24 08:00 objective GENERAL: Intubated on ventilator. Morbidly obese. LUNGS: Decreased breath sounds. CARDIOVASCULAR: Heart sounds are good. ABDOMEN: Soft. laboratory and microbiology Laboratory Tests 03/13/24 04:45 03/11/24 04:40 Test 03/13/24 04:45 Range/Units Serum Glucose 166 H 74-106 mg/dL Problem List Acute on chronic hypoxic respiratory failure. Ventilator dependence with failure of CPAP/extubation. COPD with probable exacerbation. History of multiple intubations. History of mitral valve replacement, bioprosthetic. Atrial fibrillation. Primary hypertension. Anemia. Acute probable vasomotor nephropathy. Hyperkalemia. Morbidly obese. Assessment/Plan Continued all current supportive medical care. Amiodarone. Amlodipine. Digoxin. DVT and GI prophylactics. Metoprolol. Vasopressors for hemodynamic support. Additional plan as per the hospital course. Critical care time of 45 minutes provided to include time spent evaluation of patient at bedside, when appropriate patient/family education for diagnosis, treatment plan, review of pertinent medical information and discussion of care with specialty providers and PCP. Mechanical ventilator parameters, treatment and adjustments have personally been reviewed by me and treatment plan by support technician has also been reviewed. Dietary Evaluation Review Recommendations by RD: Dietary education by RD Comments: 1) If GI is accessible consider Pivot 1.5 @ 55 ml/hr x24 hr goal rate as tolerated 2) If pt remains NPO >7 days consider TPN to meet at least 75% of estimated goals 3) Advance pt diet when medically feasible to a Cardiac diet modified per HEALTH EDUCATION COORDINATOR recommendations 4) Continue current plan of care Expected Outcomes/Goals: 1) Pt to receive nutrition support within 7 days of NPO status 2) Pt diet to advance 3) F/U in 2-3 days Plan discussed with: Patient Respiratory Effort: ET Tube Breath sounds: Clear, Diminished LUKE ARIZMENDI MD Mar 13, 2024 12:01
== END 2024-03-13 23:00 | DRG 4 ==
LOC: EDBD 00:47 → ER 00:47 → ICU WEST 06:50 → TELE 06:50 → ICU WEST 10:08 → ICU CENTRL 03-10 02:40
PROVIDERS: ADMIT Internal Medicine Pulmonary Disease; ATTEND Internal Medicine Pulmonary Disease
PROC: 5A1955Z Respiratory Ventilation, Greater than 96 Consecutive Hours (ICD-10-PCS; principal; 2024-02-18)
PROC: 0BH17EZ Insertion of Endotracheal Airway into Trachea, Via Natural or Artificial Opening (ICD-10-PCS; 2024-02-18)
PROC: 02HV33Z Insertion of Infusion Device into Superior Vena Cava, Percutaneous Approach (ICD-10-PCS; 2024-02-18)
PROC: B548ZZA Ultrasonography of Superior Vena Cava, Guidance (ICD-10-PCS; 2024-02-18)
PROC: 30233K1 Transfusion of Nonautologous Frozen Plasma into Peripheral Vein, Percutaneous Approach (ICD-10-PCS; 2024-02-19)
PROC: 5A1955Z Respiratory Ventilation, Greater than 96 Consecutive Hours (ICD-10-PCS; 2024-02-25)
PROC: 0BH17EZ Insertion of Endotracheal Airway into Trachea, Via Natural or Artificial Opening (ICD-10-PCS; 2024-02-25)
PROC: 5A09357 Assistance with Respiratory Ventilation, Less than 24 Consecutive Hours, Continuous Positive Airway Pressure (ICD-10-PCS; 2024-02-25)
PROC: 30233N1 Transfusion of Nonautologous Red Blood Cells into Peripheral Vein, Percutaneous Approach (ICD-10-PCS; 2024-02-27)
PROC: 0BH17EZ Insertion of Endotracheal Airway into Trachea, Via Natural or Artificial Opening (ICD-10-PCS; 2024-03-03)
PROC: 5A1955Z Respiratory Ventilation, Greater than 96 Consecutive Hours (ICD-10-PCS; 2024-03-03)
PROC: 0DH63UZ Insertion of Feeding Device into Stomach, Percutaneous Approach (ICD-10-PCS; 2024-03-08)
PROC: 02HV33Z Insertion of Infusion Device into Superior Vena Cava, Percutaneous Approach (ICD-10-PCS; 2024-03-09)
PROC: B548ZZA Ultrasonography of Superior Vena Cava, Guidance (ICD-10-PCS; 2024-03-09)
PROC: 0B110F4 Bypass Trachea to Cutaneous with Tracheostomy Device, Open Approach (ICD-10-PCS; 2024-03-11)
DX: A41.50 Gram-negative sepsis, unspecified (principal); J15.69 Pneumonia due to other Gram-negative bacteria; J96.21 Acute and chronic respiratory failure with hypoxia; R65.21 Severe sepsis with septic shock; G92.8 Other toxic encephalopathy; J96.22 Acute and chronic respiratory failure with hypercapnia; J15.9 Unspecified bacterial pneumonia; J44.1 Chronic obstructive pulmonary disease with (acute) exacerbation; I13.0 Hypertensive heart and chronic kidney disease with heart failure and stage 1 through stage 4 chronic kidney disease, or unspecified chronic kidney disease; N17.9 Acute kidney failure, unspecified; D68.9 Coagulation defect, unspecified; Z99.11 Dependence on respirator [ventilator] status; J44.0 Chronic obstructive pulmonary disease with (acute) lower respiratory infection; I48.92 Unspecified atrial flutter; E87.0 Hyperosmolality and hypernatremia; Z20.822 Contact with and (suspected) exposure to COVID-19; N18.30 Chronic kidney disease, stage 3 unspecified; D64.9 Anemia, unspecified; E11.22 Type 2 diabetes mellitus with diabetic chronic kidney disease; E78.5 Hyperlipidemia, unspecified; I48.91 Unspecified atrial fibrillation; I50.9 Heart failure, unspecified; E87.5 Hyperkalemia; R13.10 Dysphagia, unspecified; Z95.3 Presence of xenogenic heart valve; Z90.49 Acquired absence of other specified parts of digestive tract; Z87.891 Personal history of nicotine dependence; Z80.8 Family history of malignant neoplasm of other organs or systems; Z79.01 Long term (current) use of anticoagulants; Z99.81 Dependence on supplemental oxygen; Z95.1 Presence of aortocoronary bypass graft
CPT/HCPCS: 31500; 36415; 36569; 36600; 43246; 71045; 71250; 74176; 76775; 76937; 80048; 80053; 80162; 81001; 82140; 82270; 82306; 82607; 82805; 82962; 83540; 83550; 83605; 83735; 83880; 83970; 84100; 84425; 84484; 85007; 85014; 85018; 85025; 85027; 85045; 85610; 85730; 86850; 86900; 86901; 86920; 87040; 87070; 87081; 87205; 87426; 87804; 93005; 93306; 93971; 94002; 94003; 94640; 94660; 99291; A4565; G0378; J0330; J2250; J2470; J2704; J3430; J3480; J3490; J7060